=== PATIENT | male | born 1935 | race Caucasian/White ===

== ENCOUNTER 2017-06-25 19:02 | Inpatient (IN) | payer MEDICARE, OTHER, SELFPAY ==
[2017-06-25] VITALS (16 sets, daily range): BP systolic 98–138; BP diastolic 42–96; PULSE 68–98; RESP 12–32; TEMP 37.8–38.9; O2SAT 78–99; BMI 28.1; BMI 27.5
--- NOTE | 2017-06-25 19:49 | RAD_ITS ---
STUDY: X-RAY CHEST REASON FOR EXAM: Male, 82 years old. Chest pain TECHNIQUE: Frontal view of the chest COMPARISON: None. FINDINGS: There are stable bilateral calcified pleural plaques. The dense calcifications limit evaluation of the lung parenchyma. There are no infiltrates or effusions identified. There is no pneumothorax. The heart is enlarged, but stable in size. The visualized osseous structures are within normal limits. RAD/Chest 1 View (Portable) IMPRESSION: Stable bilateral calcified pleural plaques which limits evaluation of the lung parenchyma. No acute pathology identified. Electronically Signed: Chele Echeverria, at 20:11 EST Tel , Service support ,
--- NOTE | 2017-06-25 19:49 | EKG12_ITS ---
Test Reason : Blood Pressure : / mmHG Vent. Rate : 121 BPM Atrial Rate : 159 BPM P-R Int : 000 ms QRS Dur : 198 ms QT Int : 446 ms P-R-T Axes : 000 270 052 degrees QTc Int : 633 ms Atrial fibrillation LAHB Right bundle branch block Septal infarct , age undetermined Abnormal ECG Confirmed by LJ MELOL ([id number]), news copy editor DWAIN BRADFORD ([id number] on 06/30/2017 10:08:09 AM Referred By: MAE Confirmed By:LJ MELLO
[2017-06-25 20:02] LABS: Mucous, Urine 0 SEEN /hpf (<or=2+); White Blood Cells 0 SEEN /hpf (0-5)
--- NOTE | 2017-06-25 20:11 | ED.RN ---
STILL NEEDS VERIFIED NO POA OR LW
[2017-06-25 20:12] LABS: Color, Urine Amber (Yellow); Glucose, Dipstick Normal (Normal); Ketone-Dipstick Negative (Negative); Leukocyte Esterase-Dipstick 25 /ul (Negative); Nitrite-Dipstick Negative (Negative); Occult Blood-Urine 150 /ul (Negative); Protein-Dipstick 30 mg/dl (Negative); Specific Gravity, Urine 1.015 (1.002-1.030); Urine Bilirubin Dipstick Negative (Negative); Urine Clarity Clear (Clear); Urine Urobilinogen 8 mg/dl (Normal)
[2017-06-25 20:16] LABS: Allen Test POS; Base Excess 3 mmol/L (-2 to +2); Bicarbonate 27.1 mmol/L (22-26); Blood Gas Specimen Type ART; O2 Delivery Device Nasal Can; PO2 52 mmHG (75-100); SITE L Radial; SO2 89 % (95-99); Time Given 2015; Total Carbon Dioxide 28 mmol/L; pCO2 37.8 mmHg (35-45); pH 7.46 (7.35-7.45)
[2017-06-25 20:19] LABS: Bacteria RARE /hpf (None Seen); Red Blood Cells-Urine 5-10 SEEN /hpf (0-5); Squamous Epithelial Cells - UA 0-5 SEEN /hpf (0-5)
[2017-06-25 20:20] LABS: ALB/GLOB Ratio 0.8 RATIO (0.9-2.4); AST(SGOT) 39 U/L (15-37); Alanine Aminotransfer ALT/SGPT 64 U/L (12-78); Albumin, Serum 3.2 g/dL (3.4-5.0); Alkaline Phosphatase 85 U/L (45-117); Anion Gap 9 (5-15); BUN 68 mg/dL (7-18); BUN/Creat Ratio 32.2 RATIO (10-20); Calcium,Total 8.4 mg/dL (8.5-10.1); Chloride 101 mmol/L (98-107); Creatinine, Serum 2.11 mg/dL (0.70-1.30); EST Glomerular Filtration Rate 32 mL/min (>60); Est Glom Filt Rate - Afr Amer 39 mL/min (>60); Estimated Creatinine Clearance 26.56 ml/min; Globulin 4.2 g/dL (2.2-4.2); Glucose 120 mg/dL (70-110); Potassium 5.5 mmol/L (3.5-5.1); Protein, Total 7.4 g/dL (6.4-8.2); Sodium Level 138 mmol/L (136-145)
[2017-06-25 20:21] LABS: Absolute Lymphocyte Count 1.85 X10^3/ul (0.83-4.51); Absolute Neutrophil Count 3.3 X10^3/uL (2.0-7.7); Basophil# 0.15 X10^3/uL; Eosinophil# 0.08 X10^3/uL; Eosinophils% 1.1 % (0-5); Hematocrit 24.7 % (40-54); Hemoglobin 8.3 g/dl (13.0-16.5); Lymphocyte # 1.85 X10^3/ul (4.0); Lymphocyte % 24.4 % (19-41); Mean Corp Hgb Conc 33.6 g/gl (32-36); Mean Corpuscular Volume 83.4 fL (80-94); Monocyte# 2.01 X10^3/uL; Monocyte% 26.5 % (0-10); Neutrophil # 3.31 X10^3/uL (2.7-7.7); Neutrophil % 43.5 % (47-70); Red Blood Count 2.96 M/mm3 (4.6-6.2); White Blood Count 7.6 K/mm3 (4.4-11.0)
[2017-06-25 20:22] LABS: International Normalized Ratio 1.6; Partial Thromboplast Time 38.4 Seconds (24.1-36.2); Prothrombin Time (Protime)PT. 18.7 SECONDS (11.7-14.9)
[2017-06-25 20:23] LABS: Differential Indicated SCAN CRITERIA MET; POSITIVE COUNT YES; POSITIVE DIFFERENTIAL YES; POSITIVE MORPHOLOGY YES; Platelet Count 28 K/mm3 (150-450)
--- NOTE | 2017-06-25 20:24 | ED.RN ---
PLATELETS 28, DR VILLANUEVA NOTIFIED
[2017-06-25] MEDS: Ceftriaxone 1 GM/50 ML BAG IV (20:35)
[2017-06-25 20:37] LABS: Lactic Acid 1.6 mmol/L (0.4-2.0)
--- NOTE | 2017-06-25 20:45 | PCM.HP.STD ---
Problem List (1) Acute and chronic respiratory failure with hypoxia Status: Acute (2) Pneumonia Status: Acute Qualifiers: Pneumonia type: due to unspecified organism (3) Chronic renal failure, stage 3 (moderate) Status: Acute (4) Hypertension Status: Chronic (5) Myelodysplastic syndrome Status: Chronic (6) PAF (paroxysmal atrial fibrillation) Status: Chronic (7) Pancytopenia Status: Chronic (8) Acute kidney injury Status: Acute (9) CAD (coronary artery disease) Status: Chronic Qualifiers: Coronary Disease-Associated Artery/Lesion type: unspecified vessel or lesion type [place] vs. transplanted heart: unspecified whether [place] or transplanted heart Associated angina: angina presence unspecified Qualified Code(s): I25.10 - Atherosclerotic heart disease of [place] coronary artery without angina pectoris (10) CHF (congestive heart failure) Status: Chronic Qualifiers: Congestive heart failure type: unspecified Congestive heart failure chronicity: chronic Qualified Code(s): I50.9 - Heart failure, unspecified History of Present Illness Date of Admission: 06/25/17 Chief Complaint: Dyspnea, Cough, Fever The patient is a 82 y/o M w/ PMHx: Hx Prostate CA, HTN, CAD, CHF Unclear Type, PAF s/p prior Cardioversion and Ablation x 2, MDS following w/ Dr. Barajas, Chronic Pancytopenia requiring intermittent Plts and PRBC administration (Hgb baseline 7-8 range, Plts 10-30 range), CKD stage III (baseline Cr 1.5) who presents to the [facility] ED on 06/25/17 w/ onset cough, congestion, dyspnea, worse w/ exertion with fever and chills x 24 hours, progressively worsening prompting ED presentation. Discussed recent labs with patient and spouse and secondary to lasix alterations and other medications patient has had worsening renal function with as noted baseline prior 1.5, increased over the last 2 months 1.7-2 range, varying. In the ED work-up included T 101.5, HR 80s, BP 138/96, RR 30, 87% on RA-->97% on BIPAP 40%, CBC w/ WBC 7.6, Hgb 8.3, Plts 28 with increased mono, increased baso, coags w/ PT 18.7, INR 1.6, PTT 38.4, ABG w/ pH 7.46, Bicarb 27.1, BE 3, O2 89, pCO2 37.8, pO2 52, 4L NC when obtained, CMP w/ k 5.5, BUN/Cr 68/2.11, glucose 120, LA 1.6, Ca 8.4, T Bili 2.40 (05/16/2015 1.40), AST/ALT 39/64, trop <0.02, UA not marked appearing, CXR w/ stable BL Ca++ plaques which make assessment difficult and findings suspicion for BL infiltrates especially given clinical history and examination, influenza panel obtained and pending, UCx and Bld Cx x 2 pending. Patient placed on BIPAP secondary to concern for fatigue and evidence acute hypoxic respiratory failure. In the ED patient administered Tylenol, Rocephin, Azithromycin. Past Medical History Past Medical History (Chronic Problems): Chronic Problems Hypertension (Chronic) Myelodysplastic syndrome (Chronic) Pancytopenia (Chronic) PAF (paroxysmal atrial fibrillation) (Chronic) CAD (coronary artery disease) (Chronic) CHF (congestive heart failure) (Chronic) Allergies adhesive Allergy (Mild, Verified 06/25/17 19:08) Rash Home Medications: Ambulatory Orders Medication Instructions Recorded Carvedilol [Coreg (Beta Denny)] 12.5 mg PO DINNER 05/16/15 Cyanocobalamin [Vitamin B12] 1,000 mcg PO DAILY@0800 05/16/15 Danazol 200 mg PO BID 05/16/15 Eltrombopag Olamine [Promacta] 200 mg PO DAILY 05/16/15 Ergocalciferol [Vitamin D] 50,000 unit PO Q7D 05/16/15 Flecainide [Tambocor] 75 mg PO BID 05/16/15 Furosemide [Lasix] 40 mg PO BID 05/16/15 Deferasirox [Jadenu] 360 mg PO DAILY 12/12/15 Ascorbic Acid [Vitamin C] 250 mg PO DAILY 07/16/16 Chlorhexidine [(None)] 15 ml PO BID PRN 07/16/16 Carvedilol [Coreg] 6.25 mg PO BREAKFAST 09/25/16 Famotidine [Pepcid] 20 mg PO DAILY 06/25/17 Surgical History: - - Cardiac ablation x 2. Psychiatric History: No pertinent psych hx Lives: Spouse/ Significant Other Smoking Status: Former smoker Tobacco Use: Non-smoker Alcohol: Occasional Drugs: None - *Family History Maternal History Items: No pertinent history Paternal History Items: No pertinent history Review of Systems Constitutional: Reports: Anorexia, Chills, Fever, Malaise, Weakness, Fatigue. Denies: Weight Change HEENT: Denies: Head Aches, Sinus Congestion, Sinus Drainage Cardiovascular: Denies: Chest Pain, Palpitations Respiratory: Reports: Cough, Shortness of Breath, Shortness of breath at rest, Shortness of breath upon exertion, Sputum production Gastrointestinal: Reports: Nausea. Denies: Abdominal Pain, Vomiting Genitourinary: Denies: Dysuria Musculoskeletal: Denies: Joint Pain, Joint Tenderness Skin: Denies: Rash, Wounds Neurological: Denies: Numbness, Tingling, Focal weakness Psychiatric: Denies: Anxiety, Depression, Homicidal Ideations, Suicidal Ideations Hematologic/ Lymphatic: Reports: Anemia, Easy Bruising, Easy Bleeding VTE Information - Inpt Only VTE Present on Admission: No VTE Mechan Device Prophylaxis: SCD's VTE Pharm Prophylaxis ordered?: No Reason prophylaxis not ordered:: Medical Contraindication Patient Problems: Active and Suspected Problems Acute and chronic respiratory failure with hypoxia (Acute) Pneumonia (Acute) Acute kidney injury (Acute) Subjective: Seated upright in the ED bed, fatigued appearance, BIPAP in place, increased RR/effort. Objective: Physical Examination: General: awake, alert, oriented x 3 and cooperative, seated upright in the ED bed, fatigued appearance, BIPAP in place, increased RR, still accessory muscle usage. Skin: normal color, turgor, no icterus, cyanosis except occasional extremity various staged ecchymoses. HEENT: AT/NC, EOMI, PERRLA, dry MM, no carotid bruits or JVD noted. Lungs: Diminished BS diffusely, coarse diffusely, BIPAP in place, increased RR, still accessory muscle usage, no wheezing. Heart: Regular rate and rhythm; no gallop, rub audible. Abdomen: soft, NTTP, ND, normal BS, no HSM. Extremities: no cyanosis, clubbing, BL LE ankle to distal neff edema. Neurological: patient awake, alert, oriented x 3; cognitive function intact; pupils equally reactive to light and accomodation; cranial nerves II-XII grossly normal, moving all 4 extremities, no focal deficits, strength severely globally decreased secondary to acute presentation. Psychiatric: affect appears flat, no acute evidence of depressive or anxiety feelings. - Physical Exam Vital Signs Temp Pulse Resp BP Pulse Ox 101.4 F H 85 30 H 138/96 H 97 06/25/17 20:03 06/25/17 20:27 06/25/17 20:27 06/25/17 19:57 06/25/17 20:27 Oxygen Flow Rate 5 Oxygen Delivery Method Room Air Weight: 185 lb Body Mass Index (BMI) 28.1 Laboratory Tests Past 24 Hrs 06/25/17 06/25/17 06/25/17 19:40 19:40 19:40 WBC 7.6 RBC 2.96 L Hgb 8.3 L Hct 24.7 L MCV 83.4 MCH 28.0 MCHC 33.6 RDW 17.0 H RDW Differential 52.0 H Plt Count 28 L* MPV TNP Immature Gran % (Auto) 2.500 H Neut % (Auto) 43.5 L Lymph % (Auto) 24.4 [place] % (Auto) 26.5 H Eos % (Auto) 1.1 Baso % (Auto) 2.0 H Absolute Neuts (auto) 3.3 Absolute Lymphs (auto) 1.85 Total Counted Pending PT 18.7 H INR 1.6 APTT 38.4 H Specimen Type Sample Site pH Bicarbonate Actual POC Total CO2 Base Excess O2 Saturation ABG pCO2 ABG pO2 Benjamin Test O2 Delivery Device Liter Flow Blood Gas Notified Whom Blood Gas Notified Time Sodium 138 Potassium 5.5 H Chloride 101 Carbon Dioxide 28.0 Anion Gap 9 BUN 68 H Creatinine 2.11 H Estim Creat Clear Calc 26.56 Est GFR (MDRD) Af Amer 39 L Est GFR (MDRD) Non-Af 32 L BUN/Creatinine Ratio 32.2 H Glucose 120 H Lactic Acid Calcium 8.4 L Total Bilirubin 2.40 H AST 39 H ALT 64 Alkaline Phosphatase 85 Troponin I < 0.02 Total Protein 7.4 Albumin 3.2 L Globulin 4.2 Albumin/Globulin Ratio 0.8 L Urine Color Urine Clarity Urine pH Ur Specific [place] Urine Protein Urine Glucose (UA) Urine Ketones Urine Occult Blood Urine Nitrite Urine Bilirubin Urine Urobilinogen Ur Leukocyte Esterase Urine RBC Urine WBC Ur Squamous Epith Cells Urine Bacteria Urine Mucus 06/25/17 06/25/17 06/25/17 19:40 19:45 20:12 WBC RBC Hgb Hct MCV MCH MCHC RDW RDW Differential Plt Count MPV Immature Gran % (Auto) Neut % (Auto) Lymph % (Auto) [place] % (Auto) Eos % (Auto) Baso % (Auto) Absolute Neuts (auto) Absolute Lymphs (auto) Total Counted PT INR APTT Specimen Type ART Sample Site L Radial pH 7.46 H Bicarbonate Actual 27.1 H POC Total CO2 28 Base Excess 3 H O2 Saturation 89 L ABG pCO2 37.8 ABG pO2 52 L Benjamin Test POS O2 Delivery Device Nasal Can Liter Flow 4.0 Blood Gas Notified Whom ED MD Blood Gas Notified Time 2014 Sodium Potassium Chloride Carbon Dioxide Anion Gap BUN Creatinine Estim Creat Clear Calc Est GFR (MDRD) Af Amer Est GFR (MDRD) Non-Af BUN/Creatinine Ratio Glucose Lactic Acid 1.6 Calcium Total Bilirubin AST ALT Alkaline Phosphatase Troponin I Total Protein Albumin Globulin Albumin/Globulin Ratio Urine Color [place] Urine Clarity Clear Urine pH 5.0 Ur Specific [place] 1.015 Urine Protein 30 H Urine Glucose (UA) Normal Urine Ketones Negative Urine Occult Blood 150 H Urine Nitrite Negative Urine Bilirubin Negative Urine Urobilinogen 8 H Ur Leukocyte Esterase 25 H Urine RBC 5-10 SEEN Urine WBC 0 SEEN Ur Squamous Epith Cells 0-5 SEEN Urine Bacteria RARE Urine Mucus 0 SEEN Assessment/Plan Active and Suspected Problems Acute and chronic respiratory failure with hypoxia (Acute) Pneumonia (Acute) Acute kidney injury (Acute) The patient is a 82 y/o M w/ PMHx: Hx Prostate CA, HTN, CAD, CHF Unclear Type, PAF s/p prior Cardioversion and Ablation x 2, MDS following w/ Dr. Barajas, Chronic Pancytopenia requiring intermittent Plts and PRBC administration, CKD stage III who presents to the [facility] ED on 06/25/17 w/ onset cough, congestion, dyspnea, worse w/ exertion with fever and chills x 24 hours, progressively worsening prompting ED presentation. (1) Acute Hypoxic Respiratory Failure secondary to Community Acquired Pneumonia, Possible GN Organism: Will admit to ICU, maintain on BIPAP w/ transition to oxygen NC supplementation as able wean as to room air, continue ATC duonebs, PRN albuterol, maintained on IV Levaquin and Rocephin for CAP ICU Admission, HOB, IS parameters w/ pending sputum cultures and urine antigens. Bld cx x 2 obtained in the ED. Consultation with ICU physician. Repeat ABG in 1-2 hours. Respiratory viral panel pending. (2) Acute kidney injury on CKD stage III: Secondary to #1, likely poor intake and recent alterations w/ diuretic regimen with increased over the last 1-2 months from baseline. Admission BUN/Cr 68/2.11, prior baseline creatinine noted to be 1.5. Will hydrate, hold nephrotoxic medications and repeat chemistry in AM. If no improvement would plan FeNa and renal US assessment. (3) MDS w/ Chronic Pancytopenia: CBC w/ WBC 7.6, Hgb 8.3, Plts 28 with increased mono, increased baso, Hgb baseline 7-8 range, Plts 10-30 range, will defer chemoprophylaxis secondary to these findings which from prior records appear possibly chronic level stable; however, [facility] Main patient thus records pending, will consult Hem/Onc Dr. Barajas/Jonn for patient evaluation and to ascertain their threshold for transfusions. Mag, Phos pending. Will hold danazol, jadenu and promacta secondary to #1 presentation pending re-evaluation per Hem/Onc. (4) Elevated Bilirubin: Admission T Bili 2.40, last noted 05/16/2015 1.40, AST/ALT 39/64, unclear specific etiology, hydrating as noted, repeat hepatic profile in AM. (5) Hyperkalemia: Admission K 5.5, mildly elevated, hydrating, repeat BMP in AM. (6) CAD: Continue home regimen BB, not on asa secondary to #3. (7) PAF: Maintain on home regimen coreg, flecainide. (8) CHF Unclear type: No ECHO in system to review, maintain on coreg, holding lasix secondary to HARI. (9) DVT Prophylaxis: SCDs, defer chemoprophylaxis secondary to #3. (10) CODE status: Discussed CODE status at length including difference between FULL code, DNR-CCA and DNR-CC status. Following discussions about the differences in these status, requested DNR-CCA, no intubation statu with GREGORY. Advanced Care Planning Face to Face Time: 16 minutes. Code Visit Inpatient E&M: 14777 Init Hosp L3 Procedures: 28718 Advncd Care Plan 30 Min
[2017-06-25 20:46] LABS: Platelet Estimate MKD DEC (ADEQ)
[2017-06-25 20:47] LABS: Differential Comment SCANNED
[2017-06-25] MEDS: Acetaminophen 325 MG Tablet 650 MG PO (20:47)
--- NOTE | 2017-06-25 20:56 | HP.PCM_ITS ---
Problem List (1) Acute and chronic respiratory failure with hypoxia Status: Acute (2) Pneumonia Status: Acute Qualifiers: Pneumonia type: due to unspecified organism (3) Chronic renal failure, stage 3 (moderate) Status: Acute (4) Hypertension Status: Chronic (5) Myelodysplastic syndrome Status: Chronic (6) PAF (paroxysmal atrial fibrillation) Status: Chronic (7) Pancytopenia Status: Chronic (8) Acute kidney injury Status: Acute (9) CAD (coronary artery disease) Status: Chronic Qualifiers: Coronary Disease-Associated Artery/Lesion type: unspecified vessel or lesion type [place] vs. transplanted heart: unspecified whether z[place] or transplanted heart Associated angina: angina presence unspecified Qualified Code(s): I25.10 - Atherosclerotic heart disease of [place] coronary artery without angina pectoris (10) CHF (congestive heart failure) Status: Chronic Qualifiers: Congestive heart failure type: unspecified Congestive heart failure chronicity: chronic Qualified Code(s): I50.9 - Heart failure, unspecified History of Present Illness Date of Admission: 06/25/17 Chief Complaint: Dyspnea, Cough, Fever The patient is a 82 y/o M w/ PMHx: Hx Prostate CA, HTN, CAD, CHF Unclear Type, PAF s/p prior Cardioversion and Ablation x 2, MDS following w/ Dr. Barajas, Chronic Pancytopenia requiring intermittent Plts and PRBC administration (Hgb baseline 7 -8 range, Plts 10-30 range), CKD stage III (baseline Cr 1.5) who presents to the [facility] ED on 06/25/17 w/ onset cough, congestion, dyspnea, worse w/ exertion with fever and chills x 24 hours, progressively worsening prompting ED presentation. Discussed recent labs with patient and spouse and secondary to lasix alterations and other medications patient has had worsening renal function with as noted baseline prior 1.5, increased over the last 2 months 1.7- 2 range, varying. In the ED work-up included T 101.5, HR 80s, BP 138/96, RR 30, 87% on RA-->97% on BIPAP 40%, CBC w/ WBC 7.6, Hgb 8.3, Plts 28 with increased mono, increased baso, coags w/ PT 18.7, INR 1.6, PTT 38.4, ABG w/ pH 7.46, Bicarb 27.1, BE 3, O2 89, pCO2 37.8, pO2 52, 4L NC when obtained, CMP w/ k 5.5, BUN/Cr 68/2.11, glucose 120, LA 1.6, Ca 8.4, T Bili 2.40 (05/16/2015 1.40), AST/ ALT 39/64, trop <0.02, UA not marked appearing, CXR w/ stable BL Ca++ plaques which make assessment difficult and findings suspicion for BL infiltrates especially given clinical history and examination, influenza panel obtained and pending, UCx and Bld Cx x 2 pending. Patient placed on BIPAP secondary to concern for fatigue and evidence acute hypoxic respiratory failure. In the ED patient administered Tylenol, Rocephin, Azithromycin. Past Medical History Past Medical History (Chronic Problems): Chronic Problems Hypertension (Chronic) Myelodysplastic syndrome (Chronic) Pancytopenia (Chronic) PAF (paroxysmal atrial fibrillation) (Chronic) CAD (coronary artery disease) (Chronic) CHF (congestive heart failure) (Chronic) Allergies adhesive Allergy (Mild, Verified 06/25/17 19:08) Rash Home Medications: Ambulatory Orders Medication Instructions Recorded Carvedilol [Coreg (Beta Denny)] 12.5 mg PO DINNER 05/16/15 Cyanocobalamin [Vitamin B12] 1,000 mcg PO DAILY@0800 05/16/15 Danazol 200 mg PO BID 05/16/15 Eltrombopag Olamine [Promacta] 200 mg PO DAILY 05/16/15 Ergocalciferol [Vitamin D] 50,000 unit PO Q7D 05/16/15 Flecainide [Tambocor] 75 mg PO BID 05/16/15 Furosemide [Lasix] 40 mg PO BID 05/16/15 Deferasirox [Jadenu] 360 mg PO DAILY 12/12/15 Ascorbic Acid [Vitamin C] 250 mg PO DAILY 07/16/16 Chlorhexidine [(None)] 15 ml PO BID PRN 07/16/16 Carvedilol [Coreg] 6.25 mg PO BREAKFAST 09/25/16 Famotidine [Pepcid] 20 mg PO DAILY 06/25/17 Surgical History: - - Cardiac ablation x 2. Psychiatric History: No pertinent psych hx Lives: Spouse/ Significant Other Smoking Status: Former smoker Tobacco Use: Non-smoker Alcohol: Occasional Drugs: None - *Family History Maternal History Items: No pertinent history Paternal History Items: No pertinent history Review of Systems Constitutional: Reports: Anorexia, Chills, Fever, Malaise, Weakness, Fatigue. Denies: Weight Change HEENT: Denies: Head Aches, Sinus Congestion, Sinus Drainage Cardiovascular: Denies: Chest Pain, Palpitations Respiratory: Reports: Cough, Shortness of Breath, Shortness of breath at rest, Shortness of breath upon exertion, Sputum production Gastrointestinal: Reports: Nausea. Denies: Abdominal Pain, Vomiting Genitourinary: Denies: Dysuria Musculoskeletal: Denies: Joint Pain, Joint Tenderness Skin: Denies: Rash, Wounds Neurological: Denies: Numbness, Tingling, Focal weakness Psychiatric: Denies: Anxiety, Depression, Homicidal Ideations, Suicidal Ideations Hematologic/ Lymphatic: Reports: Anemia, Easy Bruising, Easy Bleeding VTE Information - Inpt Only VTE Present on Admission: No VTE Mechan Device Prophylaxis: SCD's VTE Pharm Prophylaxis ordered?: No Reason prophylaxis not ordered:: Medical Contraindication Patient Problems: Active and Suspected Problems Acute and chronic respiratory failure with hypoxia (Acute) Pneumonia (Acute) Acute kidney injury (Acute) Subjective: Seated upright in the ED bed, fatigued appearance, BIPAP in place, increased RR/ effort. Objective: Physical Examination: General: awake, alert, oriented x 3 and cooperative, seated upright in the ED bed, fatigued appearance, BIPAP in place, increased RR, still accessory muscle usage. Skin: normal color, turgor, no icterus, cyanosis except occasional extremity various staged ecchymoses. HEENT: AT/NC, EOMI, PERRLA, dry MM, no carotid bruits or JVD noted. Lungs: Diminished BS diffusely, coarse diffusely, BIPAP in place, increased RR, still accessory muscle usage, no wheezing. Heart: Regular rate and rhythm; no gallop, rub audible. Abdomen: soft, NTTP, ND, normal BS, no HSM. Extremities: no cyanosis, clubbing, BL LE ankle to distal neff edema. Neurological: patient awake, alert, oriented x 3; cognitive function intact; pupils equally reactive to light and accomodation; cranial nerves II-XII grossly normal, moving all 4 extremities, no focal deficits, strength severely globally decreased secondary to acute presentation. Psychiatric: affect appears flat, no acute evidence of depressive or anxiety feelings. - Physical Exam Vital Signs Temp Pulse Resp BP Pulse Ox 101.4 F H 85 30 H 138/96 H 97 06/25/17 20:03 06/25/17 20:27 06/25/17 20:27 06/25/17 19:57 06/25/17 20:27 Oxygen Flow Rate 5 Oxygen Delivery Method Room Air Weight: 185 lb Body Mass Index (BMI) 28.1 Laboratory Tests Past 24 Hrs 06/25/17 06/25/17 06/25/17 19:40 19:40 19:40 WBC 7.6 RBC 2.96 L Hgb 8.3 L Hct 24.7 L MCV 83.4 MCH 28.0 MCHC 33.6 RDW 17.0 H RDW Differential 52.0 H Plt Count 28 L* MPV TNP Immature Gran % (Auto) 2.500 H Neut % (Auto) 43.5 L Lymph % (Auto) 24.4 [place] % (Auto) 26.5 H Eos % (Auto) 1.1 Baso % (Auto) 2.0 H Absolute Neuts (auto) 3.3 Absolute Lymphs (auto) 1.85 Total Counted Pending PT 18.7 H INR 1.6 APTT 38.4 H Specimen Type Sample Site pH Bicarbonate Actual POC Total CO2 Base Excess O2 Saturation ABG pCO2 ABG pO2 Benjamin Test O2 Delivery Device Liter Flow Blood Gas Notified Whom Blood Gas Notified Time Sodium 138 Potassium 5.5 H Chloride 101 Carbon Dioxide 28.0 Anion Gap 9 BUN 68 H Creatinine 2.11 H Estim Creat Clear Calc 26.56 Est GFR (MDRD) Af Amer 39 L Est GFR (MDRD) Non-Af 32 L BUN/Creatinine Ratio 32.2 H Glucose 120 H Lactic Acid Calcium 8.4 L Total Bilirubin 2.40 H AST 39 H ALT 64 Alkaline Phosphatase 85 Troponin I < 0.02 Total Protein 7.4 Albumin 3.2 L Globulin 4.2 Albumin/Globulin Ratio 0.8 L Urine Color Urine Clarity Urine pH Ur Specific [place] Urine Protein Urine Glucose (UA) Urine Ketones Urine Occult Blood Urine Nitrite Urine Bilirubin Urine Urobilinogen Ur Leukocyte Esterase Urine RBC Urine WBC Ur Squamous Epith Cells Urine Bacteria Urine Mucus 06/25/17 06/25/17 06/25/17 19:40 19:45 20:12 WBC RBC Hgb Hct MCV MCH MCHC RDW RDW Differential Plt Count MPV Immature Gran % (Auto) Neut % (Auto) Lymph % (Auto) [place] % (Auto) Eos % (Auto) Baso % (Auto) Absolute Neuts (auto) Absolute Lymphs (auto) Total Counted PT INR APTT Specimen Type ART Sample Site L Radial pH 7.46 H Bicarbonate Actual 27.1 H POC Total CO2 28 Base Excess 3 H O2 Saturation 89 L ABG pCO2 37.8 ABG pO2 52 L Benjamin Test POS O2 Delivery Device Nasal Can Liter Flow 4.0 Blood Gas Notified Whom ED MD Blood Gas Notified Time 2014 Sodium Potassium Chloride Carbon Dioxide Anion Gap BUN Creatinine Estim Creat Clear Calc Est GFR (MDRD) Af Amer Est GFR (MDRD) Non-Af BUN/Creatinine Ratio Glucose Lactic Acid 1.6 Calcium Total Bilirubin AST ALT Alkaline Phosphatase Troponin I Total Protein Albumin Globulin Albumin/Globulin Ratio Urine Color [place] Urine Clarity Clear Urine pH 5.0 Ur Specific [place] 1.015 Urine Protein 30 H Urine Glucose (UA) Normal Urine Ketones Negative Urine Occult Blood 150 H Urine Nitrite Negative Urine Bilirubin Negative Urine Urobilinogen 8 H Ur Leukocyte Esterase 25 H Urine RBC 5-10 SEEN Urine WBC 0 SEEN Ur Squamous Epith Cells 0-5 SEEN Urine Bacteria RARE Urine Mucus 0 SEEN Assessment/Plan Active and Suspected Problems Acute and chronic respiratory failure with hypoxia (Acute) Pneumonia (Acute) Acute kidney injury (Acute) The patient is a 82 y/o M w/ PMHx: Hx Prostate CA, HTN, CAD, CHF Unclear Type, PAF s/p prior Cardioversion and Ablation x 2, MDS following w/ Dr. Barajas, Chronic Pancytopenia requiring intermittent Plts and PRBC administration, CKD stage III who presents to the [facility] ED on 06/25/17 w/ onset cough, congestion, dyspnea, worse w/ exertion with fever and chills x 24 hours, progressively worsening prompting ED presentation. (1) Acute Hypoxic Respiratory Failure secondary to Community Acquired Pneumonia , Possible GN Organism: Will admit to ICU, maintain on BIPAP w/ transition to oxygen NC supplementation as able wean as to room air, continue ATC duonebs, PRN albuterol, maintained on IV Levaquin and Rocephin for CAP ICU Admission, HOB , IS parameters w/ pending sputum cultures and urine antigens. Bld cx x 2 obtained in the ED. Consultation with ICU physician. Repeat ABG in 1-2 hours. Respiratory viral panel pending. (2) Acute kidney injury on CKD stage III: Secondary to #1, likely poor intake and recent alterations w/ diuretic regimen with increased over the last 1-2 months from baseline. Admission BUN/Cr 68/2.11, prior baseline creatinine noted to be 1.5. Will hydrate, hold nephrotoxic medications and repeat chemistry in AM. If no improvement would plan FeNa and renal US assessment. (3) MDS w/ Chronic Pancytopenia: CBC w/ WBC 7.6, Hgb 8.3, Plts 28 with increased mono, increased baso, Hgb baseline 7-8 range, Plts 10-30 range, will defer chemoprophylaxis secondary to these findings which from prior records appear possibly chronic level stable; however, [facility] Main patient thus records pending, will consult Hem/Onc Dr. Barajas/Jonn for patient evaluation and to ascertain their threshold for transfusions. Mag, Phos pending. Will hold danazol , jadenu and promacta secondary to #1 presentation pending re-evaluation per Hem /Onc. (4) Elevated Bilirubin: Admission T Bili 2.40, last noted 05/16/2015 1.40, AST/ ALT 39/64, unclear specific etiology, hydrating as noted, repeat hepatic profile in AM. (5) Hyperkalemia: Admission K 5.5, mildly elevated, hydrating, repeat BMP in AM. (6) CAD: Continue home regimen BB, not on asa secondary to #3. (7) PAF: Maintain on home regimen coreg, flecainide. (8) CHF Unclear type: No ECHO in system to review, maintain on coreg, holding lasix secondary to HARI. (9) DVT Prophylaxis: SCDs, defer chemoprophylaxis secondary to #3. (10) CODE status: Discussed CODE status at length including difference between FULL code, DNR-CCA and DNR-CC status. Following discussions about the differences in these status, requested DNR-CCA, no intubation statu with GREGORY. Advanced Care Planning Face to Face Time: 16 minutes. Code Visit Inpatient E&M: 10248 Init Hosp L3 Procedures: 78873 Advncd Care Plan 30 Min
--- NOTE | 2017-06-25 21:02 | ED.VISSUMM ---
- ER Visit Summary Date of Service: 06/25/17 Chief Complaint: Sent from urgent care because of low pulse ox History of Present Illness: The patient is a 82 M who is somnolent, which is not normal for patient. gave most of the history. He became ill yesterday with fever and chills. He has a cough. He does complain of shortness of breath at rest and with activity. He denies orthopnea, PND. He states his legs are less swollen than normal. He does not have history of congestive heart failure, however. He does have history of myelodysplastic disorder, hypertension, renal insufficiency, nonischemic cardiomyopathy and iron overload. Physical Examination: Patient is somnolent tachypnic tachycardic and febrile. There is JVD noted at 80?. Pupils equal round reactive. Extra muscle intact. Sclera appear icteric. Posterior pharyngeal erythema x-ray. Tongue moist. Trachea midline. There is no stridor. Rales are noted bilaterally with egophony right side and increased vocal fremitus. Heart is regular with no appreciable murmur gallop or rub. Abdomen is soft nontender. There is 1+ edema of the lower extremity. When aroused he answers questions appropriately and he has a nonfocal neurologic exam. Test Results: EG sinus rhythm first degree AV block with right bundle branch block. Chest x-ray bilateral interstitial pneumonia multilobar. White count is normal with 43% segs 20% lymphocytes no bands. Hemoglobin 8.3 with a platelet count of 20,000. Electrode panel was marked for BUN 68 and creatinine 2.11. Bilirubin is elevated 2.4. Urine is unremarkable. Troponin less than 0.02. Lactate is normal at 1.6. Blood gas reveals pH 7.46 PCO2 37 PO2 52 bicarb 27 with an 89% saturation on 4 L. Emergency Department Course and Treatment: Sepsis workup was undertaken. He was treated with Rocephin and azithromycin. He was placed on BiPAP to reduce the work of breathing. Treatment Plan: The antibiotics and admission to the ICU Disposition: Admission ICU Impression: 1. Respiratory failure with hypoxia 2. Severe sepsis 4. Bilateral interstitial pneumonia community acquired 4. End-stage renal disease 5. Jaundice 6. History of myelodysplastic syndrome This note was generated with [employer] software. It may contain incorrect words, spelling, and punctuation that were not noted in review of the chart prior to signing ED Disposition - Plan for ED Patient: Chief Complaint: Cough Referrals: Care Physician,No Primary [Primary Care Provider] -
[2017-06-25 22:46] LABS: Phosphorus 5.1 mg/dL (2.5-4.9)
[2017-06-25 23:55] LABS: M R Staph aureus DNA By PCR Negative (Negative); Probe Check PASS; Specimen Processing Control PASS
[2017-06-26] VITALS (14 sets, daily range): BP systolic 101–131; BP diastolic 46–62; PULSE 60–83; RESP 16–98; TEMP 36.7–37.7; O2SAT 20–100
[2017-06-26] MEDS: Ipratropium/Albuterol Sulfate 3 ML AMPUL.NEB INHALATION ×3 (00:08→06:43)
[2017-06-26 00:11] LABS: Allen Test POS; Base Excess 3 mmol/L (-2 to +2); Bicarbonate 26.9 mmol/L (22-26); Blood Gas Specimen Type ART; O2 Delivery Device Nasal Can; PO2 70 mmHG (75-100); SITE L Radial; SO2 94 % (95-99); Time Given 2355; Total Carbon Dioxide 28 mmol/L; pCO2 40.2 mmHg (35-45); pH 7.43 (7.35-7.45)
[2017-06-26] MEDS: Famotidine 20 MG Tablet PO ×2 (01:02→09:13)
[2017-06-26] MEDS: Flecainide 150 MG Tablet 75 MG PO ×3 (01:02→22:24)
[2017-06-26] MEDS: guaiFENesin 600 MG Tablet 1200 MG PO ×3 (01:03→22:24)
[2017-06-26] MEDS: 0.9% Normal Saline 1,000 ML 125 ML IV ×2 (01:04→08:45)
--- NOTE | 2017-06-26 01:18 | CPS ---
Pt refuses bipap at this time. Rt explained to pt reasons why bipap is needed, why it is beneficial, and possible negative outcomes if not worn. Pt states an understanding and continues to refuse. Physician notified of situation.
--- NOTE | 2017-06-26 07:38 | PCM.CON.CC ---
Problem List (1) Acute respiratory failure with hypoxia Status: Acute (2) Hypertension Status: Chronic Qualifiers: Hypertension type: essential hypertension Qualified Code(s): I10 - Essential (primary) hypertension (3) Myelodysplastic syndrome Status: Chronic (4) Pancytopenia Status: Chronic (5) Chronic renal failure, stage 3 (moderate) Status: Acute (6) PAF (paroxysmal atrial fibrillation) Status: Chronic (7) Acute kidney injury Status: Acute (8) CAD (coronary artery disease) Status: Chronic Qualifiers: Coronary Disease-Associated Artery/Lesion type: unspecified vessel or lesion type [place] vs. transplanted heart: unspecified whether ute or transplanted heart Associated angina: angina presence unspecified Qualified Code(s): I25.10 - Atherosclerotic heart disease of [place] coronary artery without angina pectoris (9) CHF (congestive heart failure) Status: Chronic Qualifiers: Congestive heart failure type: unspecified Congestive heart failure chronicity: chronic Qualified Code(s): I50.9 - Heart failure, unspecified Reason for Consult Date of Consultation: 06/26/17 Reason for Consultation: Acute hypoxic respiratory failure History of Present Illness: The patient is a 82 year old M, with past medical history listed below, who presented to [facility] on 06/25/2017 secondary to dyspnea, cough and fever. Patient does have a history of myelodysplastic syndrome and reportedly receives intermittent platelet and PRBC transfusions. Patient had noted a 24-48 hour history of fever and chills. This was associated with cough and reported shortness of breath. Patient was unable to provide any history on initial presentation. Patient does have a history of congestive heart failure, but details were not known. Family reported patient's lower extremity edema was improved compared to baseline. On presentation to the emergency room, patient was noted to have decreased mentation, vocal fremitus and egophony on the right side. Laboratory workup showed no leukocytosis, but anemia and thrombocytopenia. Patient's creatinine was elevated above baseline at 2.11 and lactate was slightly elevated at 1.6. An ABG on 4 L nasal cannula showed marginal oxygenation and there was some concern for patient's work of breathing. Patient was placed on BiPAP therapy and then admitted to the intensive care unit. Since being in the intensive care unit, patient has not required BiPAP therapy. Patient has been placed on nasal cannula oxygen. Patient denies any complications of bleeding including melena, hematochezia, hemoptysis or hematemesis. Patient does feel that he is subjectively improved compared to previous. Patient states his cough is much improved compared to admission. Patient reports he does not use supplemental oxygen at baseline. No hypotension is been reported by nursing overnight. Patient denies any previous history of respiratory difficulties including asthma or COPD. Patient does not report any history of pulmonary fibrosis, need for inhaler therapy or supplemental oxygen. Patient has never seen a spray gun repairer helper and denies ever having pulmonary function testing. Past Medical History Past Medical History (Chronic Problems): Chronic Problems Hypertension (Chronic) Myelodysplastic syndrome (Chronic) Pancytopenia (Chronic) PAF (paroxysmal atrial fibrillation) (Chronic) CAD (coronary artery disease) (Chronic) CHF (congestive heart failure) (Chronic) Allergies adhesive Allergy (Mild, Verified 06/25/17 19:08) Rash Home Medications: Ambulatory Orders Medication Instructions Recorded Carvedilol [Coreg (Beta Denny)] 12.5 mg PO DINNER 05/16/15 Cyanocobalamin [Vitamin B12] 1,000 mcg PO DAILY@0800 05/16/15 Danazol 200 mg PO BID 05/16/15 Eltrombopag Olamine [Promacta] 200 mg PO DAILY 05/16/15 Ergocalciferol [Vitamin D] 50,000 unit PO Q7D 05/16/15 Flecainide [Tambocor] 100 mg PO BID 05/16/15 Furosemide [Lasix] 40 mg PO BID 05/16/15 Deferasirox [Jadenu] 360 mg PO DAILY 12/12/15 Ascorbic Acid [Vitamin C] 250 mg PO DAILY 07/16/16 Chlorhexidine [(None)] 15 ml PO BID PRN 07/16/16 Carvedilol [Coreg] 6.25 mg PO BREAKFAST 09/25/16 Famotidine [Pepcid] 20 mg PO DAILY 06/25/17 Surgical History: - - Cardiac ablation x 2. Psychiatric History: No pertinent psych hx Lives: Spouse/ Significant Other Smoking Status: Former smoker Tobacco Use: Non-smoker Alcohol: Occasional Drugs: None - *Family History Maternal History Items: No pertinent history Paternal History Items: No pertinent history Review of Systems Comment: See HPI, otherwise negative ?10 systems. Patient Problems: Active and Suspected Problems Acute and chronic respiratory failure with hypoxia (Acute) Pneumonia (Acute) Acute kidney injury (Acute) Acute respiratory failure with hypoxia (Acute) Objective: Chest x-ray was personally reviewed and shows bilateral infiltrates, right greater than left. No previous echocardiogram is available for review. Patient has never had pulmonary function test. - Physical Exam General: Alert, Oriented x3, Cooperative, No apparent distress, - - Appears stated age. No accessory muscle use noted. Speaking in full sentences. HEENT: Atraumatic, PERRLA, EOMI, Normocephalic, - - No scleral icterus or injection noted. Oral: Moist Mucosa, No Gingival or Mucosal Lesions/ Ulcerations Neck: Supple, No Nodes, Trachea Midline, JVD, Right Lungs: No wheeze, Diminished, Rhonchi - Left greater than right, - - Symmetric expansion. No dullness to percussion. Cardiovascular: Regular rate, Regular Rhythm, Normal S1, Normal S2, Murmur - Grade 2 out of 6 systolic ejection murmur at the right sternal border, No rub noted, No Gallop Abdomen: Bowel Sounds Present, Soft, Non Tender, Non-Distended Extremities: No clubbing, No cyanosis, No edema, Capillary Refill Less than 3 Seconds Skin: No rashes, No breakdown Musculoskeletal: No Tenderness to Palpation of Joints or Extremities Lymphatic: No Cervical, Supraclavicular, or Inguinal Adenopathy Neurological: Cranial nerves II-XII grossly intact, Neuro grossly intact, Motor Exam 5/5 strength throughout, Sensory exam intact to light touch and pain Psych/Mental Status: Alert and oriented to time, place, person, mood and affect Vital Signs Temp Pulse Resp BP Pulse Ox 37.7 C H 75 20 H 124/62 H 100 06/26/17 04:00 06/26/17 06:00 06/26/17 06:00 06/26/17 06:00 06/26/17 06:00 Oxygen Flow Rate 4 Oxygen Delivery Method Nasal Cannula Weight: 83.4 kg Body Mass Index (BMI) 27.5 Intake and Output for Last 24 Hours 06/24/17 06/25/17 06/26/17 23:59 23:59 23:59 Intake Total 1412 / 1412 Output Total 500 / 500 Balance 912 / 912 Microbiology Past 72 Hours 06/26/17 01:30 Streptococcus pneumoniae Antigen (M - Final Urine, Clean Catch 06/26/17 01:30 Legionella Antigen - Final Urine, Clean Catch Laboratory Tests 06/25/17 06/25/17 06/25/17 19:40 19:40 19:40 WBC 7.6 RBC 2.96 L Hgb 8.3 L Hct 24.7 L MCV 83.4 MCH 28.0 MCHC 33.6 RDW 17.0 H RDW Differential 52.0 H Plt Count 28 L* MPV TNP Immature Gran % (Auto) 2.500 H Neut % (Auto) 43.5 L Lymph % (Auto) 24.4 [place] % (Auto) 26.5 H Eos % (Auto) 1.1 Baso % (Auto) 2.0 H Absolute Neuts (auto) 3.3 Absolute Lymphs (auto) 1.85 Total Counted Not Reportable Differential Comment SCANNED Diff Path Review May foll Platelet Estimate MKD DEC PT 18.7 H INR 1.6 APTT 38.4 H Specimen Type Sample Site pH Bicarbonate Actual POC Total CO2 Base Excess O2 Saturation ABG pCO2 ABG pO2 Benjamin Test O2 Delivery Device Liter Flow Blood Gas Notified Whom Blood Gas Notified Time Sodium 138 Potassium 5.5 H Chloride 101 Carbon Dioxide 28.0 Anion Gap 9 BUN 68 H Creatinine 2.11 H Estim Creat Clear Calc 26.56 Est GFR (MDRD) Af Amer 39 L Est GFR (MDRD) Non-Af 32 L BUN/Creatinine Ratio 32.2 H Glucose 120 H Lactic Acid Calcium 8.4 L Phosphorus Magnesium Total Bilirubin 2.40 H AST 39 H ALT 64 Alkaline Phosphatase 85 Troponin I < 0.02 Total Protein 7.4 Albumin 3.2 L Globulin 4.2 Albumin/Globulin Ratio 0.8 L Urine Color Urine Clarity Urine pH Ur Specific [place] Urine Protein Urine Glucose (UA) Urine Ketones Urine Occult Blood Urine Nitrite Urine Bilirubin Urine Urobilinogen Ur Leukocyte Esterase Urine RBC Urine WBC Ur Squamous Epith Cells Urine Bacteria Urine Mucus MRSA (PCR) 06/25/17 06/25/17 06/25/17 19:40 19:40 19:45 WBC RBC Hgb Hct MCV MCH MCHC RDW RDW Differential Plt Count MPV Immature Gran % (Auto) Neut % (Auto) Lymph % (Auto) [place] % (Auto) Eos % (Auto) Baso % (Auto) Absolute Neuts (auto) Absolute Lymphs (auto) Total Counted Differential Comment Diff Path Review Platelet Estimate PT INR APTT Specimen Type Sample Site pH Bicarbonate Actual POC Total CO2 Base Excess O2 Saturation ABG pCO2 ABG pO2 Benjamin Test O2 Delivery Device Liter Flow Blood Gas Notified Whom Blood Gas Notified Time Sodium Potassium Chloride Carbon Dioxide Anion Gap BUN Creatinine Estim Creat Clear Calc Est GFR (MDRD) Af Amer Est GFR (MDRD) Non-Af BUN/Creatinine Ratio Glucose Lactic Acid 1.6 Calcium Phosphorus 5.1 H Magnesium 2.0 Total Bilirubin AST ALT Alkaline Phosphatase Troponin I Total Protein Albumin Globulin Albumin/Globulin Ratio Urine Color [place] Urine Clarity Clear Urine pH 5.0 Ur Specific [place] 1.015 Urine Protein 30 H Urine Glucose (UA) Normal Urine Ketones Negative Urine Occult Blood 150 H Urine Nitrite Negative Urine Bilirubin Negative Urine Urobilinogen 8 H Ur Leukocyte Esterase 25 H Urine RBC 5-10 SEEN Urine WBC 0 SEEN Ur Squamous Epith Cells 0-5 SEEN Urine Bacteria RARE Urine Mucus 0 SEEN MRSA (PCR) 06/25/17 06/25/17 06/26/17 20:12 22:20 00:03 WBC RBC Hgb Hct MCV MCH MCHC RDW RDW Differential Plt Count MPV Immature Gran % (Auto) Neut % (Auto) Lymph % (Auto) [place] % (Auto) Eos % (Auto) Baso % (Auto) Absolute Neuts (auto) Absolute Lymphs (auto) Total Counted Differential Comment Diff Path Review Platelet Estimate PT INR APTT Specimen Type ART ART Sample Site L Radial L Radial pH 7.46 H 7.43 Bicarbonate Actual 27.1 H 26.9 H POC Total CO2 28 28 Base Excess 3 H 3 H O2 Saturation 89 L 94 L ABG pCO2 37.8 40.2 ABG pO2 52 L 70 L Benjamin Test POS POS O2 Delivery Device Nasal Can Nasal Can Liter Flow 4.0 6.0 Blood Gas Notified Whom ED MD HOSP MD Blood Gas Notified Time 20145 Sodium Potassium Chloride Carbon Dioxide Anion Gap BUN Creatinine Estim Creat Clear Calc Est GFR (MDRD) Af Amer Est GFR (MDRD) Non-Af BUN/Creatinine Ratio Glucose Lactic Acid Calcium Phosphorus Magnesium Total Bilirubin AST ALT Alkaline Phosphatase Troponin I Total Protein Albumin Globulin Albumin/Globulin Ratio Urine Color Urine Clarity Urine pH Ur Specific [place] Urine Protein Urine Glucose (UA) Urine Ketones Urine Occult Blood Urine Nitrite Urine Bilirubin Urine Urobilinogen Ur Leukocyte Esterase Urine RBC Urine WBC Ur Squamous Epith Cells Urine Bacteria Urine Mucus MRSA (PCR) Negative Clinical Impression(s) from Imaging Studies Chest X-Ray 06/25/17 19:49 IMPRESSION: Stable bilateral calcified pleural plaques which limits evaluation of the lung parenchyma. No acute pathology identified. Electronically Signed: Chele Echeverria, at 20:11 EST Tel , Service support , Assessment/Plan Active and Suspected Problems Acute and chronic respiratory failure with hypoxia (Acute) Pneumonia (Acute) Acute kidney injury (Acute) Acute respiratory failure with hypoxia (Acute) RECOMMENDATIONS: 1. Continue empiric antibiotics and bronchodilators 2. Wean oxygen as tolerated 3. Await respiratory viral panel 4. Gentle rehydration 5. No transfusions at this time, await hematology recommendations 6. Repeat laboratory workup this morning 7. Possible transfer from the intensive care unit later today IMPRESSIONS: 1. Acute hypoxic respiratory failure secondary to probable community-acquired pneumonia Patient appears to be improving at this time. Unclear if this is secondary to improved secretion clearance versus improved recruitment secondary to bronchodilators. Continue with antibiotics at this time. No reported history of obstructive lung disease, so would avoid steroid therapy at this time. Patient likely can be transferred from the intensive care unit. Review of the chest x-ray does show bilateral infiltrates, but no old x-rays available for review. Clinical suspicion for some baseline fibrotic changes at the bases, but this cannot be confirmed at this time with no old x-rays to review. Doubt CT of the chest would be helpful in the acute setting. Likely okay to discontinue BiPAP therapy on transfer from the intensive care unit. 2. Severe sepsis secondary to community-acquired pneumonia Patient appears to be hemodynamically stable at this time. Patient is not neutropenic. Blood pressure has remained appropriate. Patient was slightly volume depleted on presentation. Continue with gentle rehydration. On appropriate antibiotics. 3. Acute kidney injury on CKD stage III Patient reportedly does use Lasix therapy at home. Will gently hydrate. Would not recommend obtaining an FENa as this will not be appropriate in the setting of previous Lasix use. Repeat laboratory assessment has been ordered. 4. Myelodysplastic syndrome with resultant iron overload Patient reportedly received multiple transfusions per week. Oncology has been consulted. Anticipate transfusion for hemoglobin less than 7 and platelets less than 20,000, but will confer with them prior to any transfusion orders. Slight elevation in liver enzymes may be secondary to iron overload. Baseline medications have been held for now. 5. Hyperkalemia No EKG changes were noted initially. Will repeat labs this morning. If persists, treatment with Kayexalate may be necessary. 6. CAD/PAF/reported CHF/advanced age Complicates care, management, recovery and prognosis. Patient is a DNR Comfort Care arrest without intubation. Code Visit Inpatient E&M: 29518 Init Hosp L3
--- NOTE | 2017-06-26 07:48 | CON.PCM_ITS ---
Problem List (1) Acute respiratory failure with hypoxia Status: Acute (2) Hypertension Status: Chronic Qualifiers: Hypertension type: essential hypertension Qualified Code(s): I10 - Essential (primary) hypertension (3) Myelodysplastic syndrome Status: Chronic (4) Pancytopenia Status: Chronic (5) Chronic renal failure, stage 3 (moderate) Status: Acute (6) PAF (paroxysmal atrial fibrillation) Status: Chronic (7) Acute kidney injury Status: Acute (8) CAD (coronary artery disease) Status: Chronic Qualifiers: Coronary Disease-Associated Artery/Lesion type: unspecified vessel or lesion type [place] vs. transplanted heart: unspecified whether citizen [place] or transplanted heart Associated angina: angina presence unspecified Qualified Code(s): I25.10 - Atherosclerotic heart disease of citizen [place] coronary artery without angina pectoris (9) CHF (congestive heart failure) Status: Chronic Qualifiers: Congestive heart failure type: unspecified Congestive heart failure chronicity: chronic Qualified Code(s): I50.9 - Heart failure, unspecified Reason for Consult Date of Consultation: 06/26/17 Reason for Consultation: Acute hypoxic respiratory failure History of Present Illness: The patient is a 82 year old M, with past medical history listed below, who presented to [facility] on 06/25/2017 secondary to dyspnea, cough and fever. Patient does have a history of myelodysplastic syndrome and reportedly receives intermittent platelet and PRBC transfusions. Patient had noted a 24-48 hour history of fever and chills. This was associated with cough and reported shortness of breath. Patient was unable to provide any history on initial presentation. Patient does have a history of congestive heart failure, but details were not known. Family reported patient's lower extremity edema was improved compared to baseline. On presentation to the emergency room, patient was noted to have decreased mentation, vocal fremitus and egophony on the right side. Laboratory workup showed no leukocytosis, but anemia and thrombocytopenia. Patient's creatinine was elevated above baseline at 2.11 and lactate was slightly elevated at 1.6. An ABG on 4 L nasal cannula showed marginal oxygenation and there was some concern for patient's work of breathing. Patient was placed on BiPAP therapy and then admitted to the intensive care unit. Since being in the intensive care unit, patient has not required BiPAP therapy. Patient has been placed on nasal cannula oxygen. Patient denies any complications of bleeding including melena, hematochezia, hemoptysis or hematemesis. Patient does feel that he is subjectively improved compared to previous. Patient states his cough is much improved compared to admission. Patient reports he does not use supplemental oxygen at baseline. No hypotension is been reported by nursing overnight. Patient denies any previous history of respiratory difficulties including asthma or COPD. Patient does not report any history of pulmonary fibrosis, need for inhaler therapy or supplemental oxygen. Patient has never seen a human resources trainer and denies ever having pulmonary function testing. Past Medical History Past Medical History (Chronic Problems): Chronic Problems Hypertension (Chronic) Myelodysplastic syndrome (Chronic) Pancytopenia (Chronic) PAF (paroxysmal atrial fibrillation) (Chronic) CAD (coronary artery disease) (Chronic) CHF (congestive heart failure) (Chronic) Allergies adhesive Allergy (Mild, Verified 06/25/17 19:08) Rash Home Medications: Ambulatory Orders Medication Instructions Recorded Carvedilol [Coreg (Beta Denny)] 12.5 mg PO DINNER 05/16/15 Cyanocobalamin [Vitamin B12] 1,000 mcg PO DAILY@0800 05/16/15 Danazol 200 mg PO BID 05/16/15 Eltrombopag Olamine [Promacta] 200 mg PO DAILY 05/16/15 Ergocalciferol [Vitamin D] 50,000 unit PO Q7D 05/16/15 Flecainide [Tambocor] 100 mg PO BID 05/16/15 Furosemide [Lasix] 40 mg PO BID 05/16/15 Deferasirox [Jadenu] 360 mg PO DAILY 12/12/15 Ascorbic Acid [Vitamin C] 250 mg PO DAILY 07/16/16 Chlorhexidine [(None)] 15 ml PO BID PRN 07/16/16 Carvedilol [Coreg] 6.25 mg PO BREAKFAST 09/25/16 Famotidine [Pepcid] 20 mg PO DAILY 06/25/17 Surgical History: - - Cardiac ablation x 2. Psychiatric History: No pertinent psych hx Lives: Spouse/ Significant Other Smoking Status: Former smoker Tobacco Use: Non-smoker Alcohol: Occasional Drugs: None - *Family History Maternal History Items: No pertinent history Paternal History Items: No pertinent history Review of Systems Comment: See HPI, otherwise negative ?10 systems. Patient Problems: Active and Suspected Problems Acute and chronic respiratory failure with hypoxia (Acute) Pneumonia (Acute) Acute kidney injury (Acute) Acute respiratory failure with hypoxia (Acute) Objective: Chest x-ray was personally reviewed and shows bilateral infiltrates, right greater than left. No previous echocardiogram is available for review. Patient has never had pulmonary function test. - Physical Exam General: Alert, Oriented x3, Cooperative, No apparent distress, - - Appears stated age. No accessory muscle use noted. Speaking in full sentences. HEENT: Atraumatic, PERRLA, EOMI, Normocephalic, - - No scleral icterus or injection noted. Oral: Moist Mucosa, No Gingival or Mucosal Lesions/ Ulcerations Neck: Supple, No Nodes, Trachea Midline, JVD, Right Lungs: No wheeze, Diminished, Rhonchi - Left greater than right, - - Symmetric expansion. No dullness to percussion. Cardiovascular: Regular rate, Regular Rhythm, Normal S1, Normal S2, Murmur - Grade 2 out of 6 systolic ejection murmur at the right sternal border, No rub noted, No Gallop Abdomen: Bowel Sounds Present, Soft, Non Tender, Non-Distended Extremities: No clubbing, No cyanosis, No edema, Capillary Refill Less than 3 Seconds Skin: No rashes, No breakdown Musculoskeletal: No Tenderness to Palpation of Joints or Extremities Lymphatic: No Cervical, Supraclavicular, or Inguinal Adenopathy Neurological: Cranial nerves II-XII grossly intact, Neuro grossly intact, Motor Exam 5/5 strength throughout, Sensory exam intact to light touch and pain Psych/Mental Status: Alert and oriented to time, place, person, mood and affect Vital Signs Temp Pulse Resp BP Pulse Ox 37.7 C H 75 20 H 124/62 H 100 06/26/17 04:00 06/26/17 06:00 06/26/17 06:00 06/26/17 06:00 06/26/17 06:00 Oxygen Flow Rate 4 Oxygen Delivery Method Nasal Cannula Weight: 83.4 kg Body Mass Index (BMI) 27.5 Intake and Output for Last 24 Hours 06/24/17 06/25/17 06/26/17 23:59 23:59 23:59 Intake Total 1412 / 1412 Output Total 500 / 500 Balance 912 / 912 Microbiology Past 72 Hours 06/26/17 01:30 Streptococcus pneumoniae Antigen (M - Final Urine, Clean Catch 06/26/17 01:30 Legionella Antigen - Final Urine, Clean Catch Laboratory Tests 06/25/17 06/25/17 06/25/17 19:40 19:40 19:40 WBC 7.6 RBC 2.96 L Hgb 8.3 L Hct 24.7 L MCV 83.4 MCH 28.0 MCHC 33.6 RDW 17.0 H RDW Differential 52.0 H Plt Count 28 L* MPV TNP Immature Gran % (Auto) 2.500 H Neut % (Auto) 43.5 L Lymph % (Auto) 24.4 [place] % (Auto) 26.5 H Eos % (Auto) 1.1 Baso % (Auto) 2.0 H Absolute Neuts (auto) 3.3 Absolute Lymphs (auto) 1.85 Total Counted Not Reportable Differential Comment SCANNED Diff Path Review May foll Platelet Estimate MKD DEC PT 18.7 H INR 1.6 APTT 38.4 H Specimen Type Sample Site pH Bicarbonate Actual POC Total CO2 Base Excess O2 Saturation ABG pCO2 ABG pO2 Benjamin Test O2 Delivery Device Liter Flow Blood Gas Notified Whom Blood Gas Notified Time Sodium 138 Potassium 5.5 H Chloride 101 Carbon Dioxide 28.0 Anion Gap 9 BUN 68 H Creatinine 2.11 H Estim Creat Clear Calc 26.56 Est GFR (MDRD) Af Amer 39 L Est GFR (MDRD) Non-Af 32 L BUN/Creatinine Ratio 32.2 H Glucose 120 H Lactic Acid Calcium 8.4 L Phosphorus Magnesium Total Bilirubin 2.40 H AST 39 H ALT 64 Alkaline Phosphatase 85 Troponin I < 0.02 Total Protein 7.4 Albumin 3.2 L Globulin 4.2 Albumin/Globulin Ratio 0.8 L Urine Color Urine Clarity Urine pH Ur Specific [place] Urine Protein Urine Glucose (UA) Urine Ketones Urine Occult Blood Urine Nitrite Urine Bilirubin Urine Urobilinogen Ur Leukocyte Esterase Urine RBC Urine WBC Ur Squamous Epith Cells Urine Bacteria Urine Mucus MRSA (PCR) 06/25/17 06/25/17 06/25/17 19:40 19:40 19:45 WBC RBC Hgb Hct MCV MCH MCHC RDW RDW Differential Plt Count MPV Immature Gran % (Auto) Neut % (Auto) Lymph % (Auto) [place] % (Auto) Eos % (Auto) Baso % (Auto) Absolute Neuts (auto) Absolute Lymphs (auto) Total Counted Differential Comment Diff Path Review Platelet Estimate PT INR APTT Specimen Type Sample Site pH Bicarbonate Actual POC Total CO2 Base Excess O2 Saturation ABG pCO2 ABG pO2 Benjamin Test O2 Delivery Device Liter Flow Blood Gas Notified Whom Blood Gas Notified Time Sodium Potassium Chloride Carbon Dioxide Anion Gap BUN Creatinine Estim Creat Clear Calc Est GFR (MDRD) Af Amer Est GFR (MDRD) Non-Af BUN/Creatinine Ratio Glucose Lactic Acid 1.6 Calcium Phosphorus 5.1 H Magnesium 2.0 Total Bilirubin AST ALT Alkaline Phosphatase Troponin I Total Protein Albumin Globulin Albumin/Globulin Ratio Urine Color Clare Urine Clarity Clear Urine pH 5.0 Ur Specific [place] 1.015 Urine Protein 30 H Urine Glucose (UA) Normal Urine Ketones Negative Urine Occult Blood 150 H Urine Nitrite Negative Urine Bilirubin Negative Urine Urobilinogen 8 H Ur Leukocyte Esterase 25 H Urine RBC 5-10 SEEN Urine WBC 0 SEEN Ur Squamous Epith Cells 0-5 SEEN Urine Bacteria RARE Urine Mucus 0 SEEN MRSA (PCR) 06/25/17 06/25/17 06/26/17 20:12 22:20 00:03 WBC RBC Hgb Hct MCV MCH MCHC RDW RDW Differential Plt Count MPV Immature Gran % (Auto) Neut % (Auto) Lymph % (Auto) [place] % (Auto) Eos % (Auto) Baso % (Auto) Absolute Neuts (auto) Absolute Lymphs (auto) Total Counted Differential Comment Diff Path Review Platelet Estimate PT INR APTT Specimen Type ART ART Sample Site L Radial L Radial pH 7.46 H 7.43 Bicarbonate Actual 27.1 H 26.9 H POC Total CO2 28 28 Base Excess 3 H 3 H O2 Saturation 89 L 94 L ABG pCO2 37.8 40.2 ABG pO2 52 L 70 L Benjamin Test POS POS O2 Delivery Device Nasal Can Nasal Can Liter Flow 4.0 6.0 Blood Gas Notified Whom ED MD HOSP MD Blood Gas Notified Time 20145 Sodium Potassium Chloride Carbon Dioxide Anion Gap BUN Creatinine Estim Creat Clear Calc Est GFR (MDRD) Af Amer Est GFR (MDRD) Non-Af BUN/Creatinine Ratio Glucose Lactic Acid Calcium Phosphorus Magnesium Total Bilirubin AST ALT Alkaline Phosphatase Troponin I Total Protein Albumin Globulin Albumin/Globulin Ratio Urine Color Urine Clarity Urine pH Ur Specific [place] Urine Protein Urine Glucose (UA) Urine Ketones Urine Occult Blood Urine Nitrite Urine Bilirubin Urine Urobilinogen Ur Leukocyte Esterase Urine RBC Urine WBC Ur Squamous Epith Cells Urine Bacteria Urine Mucus MRSA (PCR) Negative Clinical Impression(s) from Imaging Studies Chest X-Ray 06/25/17 19:49 IMPRESSION: Stable bilateral calcified pleural plaques which limits evaluation of the lung parenchyma. No acute pathology identified. Electronically Signed: Chele Echeverria, at 20:11 EST Tel , Service support , Assessment/Plan Active and Suspected Problems Acute and chronic respiratory failure with hypoxia (Acute) Pneumonia (Acute) Acute kidney injury (Acute) Acute respiratory failure with hypoxia (Acute) RECOMMENDATIONS: 1. Continue empiric antibiotics and bronchodilators 2. Wean oxygen as tolerated 3. Await respiratory viral panel 4. Gentle rehydration 5. No transfusions at this time, await hematology recommendations 6. Repeat laboratory workup this morning 7. Possible transfer from the intensive care unit later today IMPRESSIONS: 1. Acute hypoxic respiratory failure secondary to probable community- acquired pneumonia Patient appears to be improving at this time. Unclear if this is secondary to improved secretion clearance versus improved recruitment secondary to bronchodilators. Continue with antibiotics at this time. No reported history of obstructive lung disease, so would avoid steroid therapy at this time. Patient likely can be transferred from the intensive care unit. Review of the chest x-ray does show bilateral infiltrates, but no old x-rays available for review. Clinical suspicion for some baseline fibrotic changes at the bases , but this cannot be confirmed at this time with no old x-rays to review. Doubt CT of the chest would be helpful in the acute setting. Likely okay to discontinue BiPAP therapy on transfer from the intensive care unit. 2. Severe sepsis secondary to community-acquired pneumonia Patient appears to be hemodynamically stable at this time. Patient is not neutropenic. Blood pressure has remained appropriate. Patient was slightly volume depleted on presentation. Continue with gentle rehydration. On appropriate antibiotics. 3. Acute kidney injury on CKD stage III Patient reportedly does use Lasix therapy at home. Will gently hydrate. Would not recommend obtaining an FENa as this will not be appropriate in the setting of previous Lasix use. Repeat laboratory assessment has been ordered. 4. Myelodysplastic syndrome with resultant iron overload Patient reportedly received multiple transfusions per week. Oncology has been consulted. Anticipate transfusion for hemoglobin less than 7 and platelets less than 20,000, but will confer with them prior to any transfusion orders. Slight elevation in liver enzymes may be secondary to iron overload. Baseline medications have been held for now. 5. Hyperkalemia No EKG changes were noted initially. Will repeat labs this morning. If persists, treatment with Kayexalate may be necessary. 6. CAD/PAF/reported CHF/advanced age Complicates care, management, recovery and prognosis. Patient is a DNR Comfort Care arrest without intubation. Code Visit Inpatient E&M: 46518 Init Hosp L3
[2017-06-26] MEDS: Carvedilol 6.25 MG Tablet PO (08:45)
[2017-06-26 08:52] LABS: ALB/GLOB Ratio 0.7 RATIO (0.9-2.4); AST(SGOT) 34 U/L (15-37); Alanine Aminotransfer ALT/SGPT 56 U/L (12-78); Albumin, Serum 2.8 g/dL (3.4-5.0); Alkaline Phosphatase 62 U/L (45-117); Anion Gap 9 (5-15); BUN 62 mg/dL (7-18); BUN/Creat Ratio 33.2 RATIO (10-20); Calcium,Total 8.1 mg/dL (8.5-10.1); Chloride 104 mmol/L (98-107); Creatinine, Serum 1.87 mg/dL (0.70-1.30); EST Glomerular Filtration Rate 37 mL/min (>60); Est Glom Filt Rate - Afr Amer 45 mL/min (>60); Estimated Creatinine Clearance 29.97 ml/min; Globulin 3.8 g/dL (2.2-4.2); Glucose 109 mg/dL (70-110); Phosphorus 4.5 mg/dL (2.5-4.9); Potassium 4.3 mmol/L (3.5-5.1); Protein, Total 6.6 g/dL (6.4-8.2); Sodium Level 139 mmol/L (136-145)
--- NOTE | 2017-06-26 08:59 | RAD_ITS ---
STUDY: X-RAY CHEST REASON FOR EXAM: Male, 82 years old. Shortness of breath. TECHNIQUE: Single AP portable view of the chest. COMPARISON: Comparison is made with prior examination dated June 25, 2017. FINDINGS: EKG electrodes are seen. Once again, there is evidence of dense bilateral pleural plaque calcification worse in the right hemithorax. Stable bibasilar airspace disease. I also suspect vascular congestion and mild CHF. There is moderate cardiac enlargement. Normal mediastinum and alisa. Normal visualized pulmonary arteries. There is atherosclerotic tortuosity of the aortic arch and descending thoracic aorta. There are diffuse degenerative changes of the visualized thoracic spine. Normal visualized ribs, clavicles, and shoulders. There is no demonstrated abnormality of the visualized soft tissue structures of the upper abdomen. RAD/Chest 1 View (Portable) IMPRESSION: Stable examination. Electronically Signed: Jethro Hein MD at 9:38 EST Tel [phone], Service support ,
--- NOTE | 2017-06-26 09:06 | PN_ITS ---
Patient Problems: Active and Suspected Problems Acute and chronic respiratory failure with hypoxia (Acute) Pneumonia (Acute) Acute kidney injury (Acute) Acute respiratory failure with hypoxia (Acute) Subjective: Patient was seen and examined. Denies any chest pain or worsening shortness of breath. Admitted to ICU for BiPAP management. Was on BiPAP for a short while last night and remained on 2 L of oxygen. Patient looks much improved and was eating his breakfast and was able to complete full sentences Vitals/I&O's: Vital Signs Temp Pulse Resp BP Pulse Ox 99.4 F H 77 23 H 110/50 L 95 06/26/17 08:00 06/26/17 08:00 06/26/17 08:00 06/26/17 08:00 06/26/17 08:00 Oxygen Flow Rate 2 Oxygen Delivery Method Nasal Cannula Weight: 83.4 kg Body Mass Index (BMI) 27.5 Intake and Output for Last 24 Hours 06/24/17 06/25/17 06/26/17 23:59 23:59 23:59 Intake Total 1412 / 1412 Output Total 500 / 500 Balance 912 / 912 General: Alert, Oriented x3, Cooperative, No apparent distress, - - 3L oxygen HEENT: Atraumatic, PERRLA, EOMI, Normocephalic Oral: Moist Mucosa Neck: Supple Lungs: Normal air movement, Diminished - at the lung bases, few coarse crackles heard Cardiovascular: Regular rate, Regular Rhythm, Normal S1, Normal S2, No murmurs Abdomen: Bowel Sounds Present, Soft, Non Tender, Non-Distended Extremities: No edema Skin: No rashes, No breakdown Musculoskeletal: No Tenderness to Palpation of Joints or Extremities Lymphatic: No Cervical, Supraclavicular, or Inguinal Adenopathy Neurological: Cranial nerves II-XII grossly intact, Neuro grossly intact Psych/Mental Status: Normal Affect, Appropriate Microbiology Past 72 Hours 06/26/17 01:30 Urine, Clean Catch Streptococcus pneumoniae Antigen (M - Final 06/26/17 01:30 Urine, Clean Catch Legionella Antigen - Final Laboratory Results 06/25/17 22:20: MRSA (PCR) Negative 06/26/17 00:03: Specimen Type ART, Sample Site L Radial, pH 7.43, Bicarbonate Actual 26.9 H, POC Total CO2 28, Base Excess 3 H, O2 Saturation 94 L, ABG pCO2 40.2, ABG pO2 70 L, Benjamin Test POS, O2 Delivery Device Nasal Can, Liter Flow 6.0 , Blood Gas Notified Whom LAURI SINGH, Blood Gas Notified Time 1977 06/26/17 08:20: WBC Pending, RBC Pending, Hgb Pending, Hct Pending, MCV Pending , MCH Pending, MCHC Pending, RDW Pending, RDW Differential Pending, Plt Count Pending, Neut % (Auto) Pending, Absolute Neuts (auto) Pending, Total Counted Pending 06/26/17 08:20: Sodium 139, Potassium 4.3, Chloride 104, Carbon Dioxide 26.0, Anion Gap 9, BUN 62 H, Creatinine 1.87 H, Estim Creat Clear Calc 29.97, Est GFR (MDRD) Af Amer 45 L, Est GFR (MDRD) Non-Af 37 L, BUN/Creatinine Ratio 33.2 H, Glucose 109, Calcium 8.1 L, Phosphorus 4.5, Magnesium 2.0, Total Bilirubin 2.40 H, AST 34, ALT 56, Alkaline Phosphatase 62, Total Protein 6.6, Albumin 2.8 L, Globulin 3.8, Albumin/Globulin Ratio 0.7 L Current Medications Acetaminophen (Tylenol) 650 mg PO Q4H PRN PRN PRN Reason: FEVER Acetaminophen (Tylenol) 650 mg PO Q6H PRN PRN PRN Reason: Mild Pain (scale 0-3)/T>100.7 Al Hydroxide/Mg Hydroxide (Mylanta Ii) 30 ml PO Q6H PRN PRN PRN Reason: Gastric burning Albuterol Sulfate (Ventolin Aerosols) 2.5 mg INHALATION Q2H PRN PRN PRN Reason: SHORTNESS OF BREATH Albuterol/Ipratropium (Duoneb) 3 ml INHALATION Q4H.RT [facility] Last Admin: 06/26/17 06:43 Dose: 3 ml Carvedilol (Coreg) 12.5 mg PO DINNER [facility] Carvedilol (Coreg) 6.25 mg PO BREAKFAST [facility] Last Admin: 06/26/17 08:45 Dose: 6.25 mg Chlorhexidine Gluconate () 15 ml PO BID PRN PRN Reason: NOT SPECIFIED Famotidine (Pepcid) 20 mg PO BID [facility] Last Admin: 06/26/17 01:02 Dose: 20 mg Flecainide Acetate (Tambocor) 75 mg PO BID [facility] Last Admin: 06/26/17 01:02 Dose: 75 mg Guaifenesin (Mucinex) 1,200 mg PO BID [facility] Last Admin: 06/26/17 01:03 Dose: 1,200 mg Levofloxacin (Levaquin) 750 mg in 150 mls @ 100 mls/hr IV Q48H [facility] Last Admin: 06/25/17 22:48 Dose: 100 mls/hr Sodium Chloride () 250 mls @ 15 mls/hr IV .[id number] PRN PRN Reason: SALINE FLUSH Sodium Chloride () 1,000 mls @ 75 mls/hr IV .[id number] [facility] Lorazepam (Ativan) 0.5 mg IV Q4H PRN PRN PRN Reason: anxiety with BIPAP Magnesium Hydroxide (Milk Of Magnesia) 30 ml PO DAILY PRN PRN PRN Reason: Constipation Morphine Sulfate (Morphine) 2 - 4 mg IV Q3H PRN PRN PRN Reason: Severe Pain (pain scale 6-10) Morphine Sulfate (Morphine) 1 - 2 mg IV Q4H PRN PRN PRN Reason: Moderate Pain (pain scale 4-5) Ondansetron HCl (Zofran) 4 mg IV Q8H PRN PRN PRN Reason: NAUSEA Oxycodone HCl (Oxyir) 5 mg PO Q4H PRN PRN PRN Reason: Moderate Pain (pain scale 4-5) Promethazine HCl (Phenergan (Ll)) 12.5 mg IV Q6H PRN PRN PRN Reason: NAUSEA/VOMITING Sodium Chloride () 5 - 30 ml IV UD PRN PRN Reason: SALINE FLUSH Assessment/Plan Active and Suspected Problems Acute and chronic respiratory failure with hypoxia (Acute) Pneumonia (Acute) Acute kidney injury (Acute) Acute respiratory failure with hypoxia (Acute) 82 y/o M with PMHx of Prostate CA, Hypertension, CAD, MDS, Chronic Pancytopenia requiring intermittent Plts and PRBC administration, admitted on [facility] ED on with onset of cough, congestion, dyspnea, worse with exertion with fever and chills x 24 hours. 1. Acute Hypoxic Respiratory Failure secondary to Possible Community Acquired Pneumonia, Possible CHF, unclear etiologyinitially on BiPAP, managed in ICU, improved on nasal cannula oxygen, will continue to wean off oxygen for SPO2 more than 94%, 2. Possible community-acquired pneumonia, urine streptococcal and Legionella antigen negative, blood cultures pending, there was a screen negative, respiratory panel negative, sputum cultures negative, on Levaquin, will continue as such until positive results come from microbiology 3. Possible CHF exacerbation, unclear EF, will stop IV fluids, 2D echo, was held on admission on account of HPI, would slowly do trial of Lasix, strict I's and O's, 4. Acute kidney injury on CKD stage III secondary to dehydration, improved to 27 from 2.11, increased dosing BUN, will continue to monitor, baseline Cr is around 1.57 5. MDS w/ Chronic Pancytopenia, and elevation in WBC count of 13.1, dropping hemoglobin 7.4 likely related to hemodilution, drop in platelet count to 15, hematology/oncology consulted, will continue to follow CBC 6. Elevated T Bili 2.40, gets analysis of direct and indirect bilirubin and then proceed accordingly 7. Hyperkalemia, Admission K 5.5, improved with hydration 8. CAD: Continue home regimen BB, not on asa secondary to #3. 9 PAF: Maintain on home regimen coreg, flecainide. 11. DVT Prophylaxis: SCDs, defer chemoprophylaxis secondary to chronic thrombocytopenia 10. CODE status: DNR-CCA, no intubation statu with GREGORY. Code Visit Inpatient E&M: 96184 Subs Hosp L2
[2017-06-26 09:10] LABS: Absolute Lymphocyte Count 1.95 X10^3/ul (0.83-4.51); Absolute Neutrophil Count 6.2 X10^3/uL (2.0-7.7); Basophil# 0.07 X10^3/uL; Basophil% 0.5 % (0-1); Eosinophil# 0.05 X10^3/uL; Eosinophils% 0.4 % (0-5); Hemoglobin 7.4 g/dl (13.0-16.5); Lymphocyte # 1.95 X10^3/ul (4.0); Lymphocyte % 14.9 % (19-41); Mean Corp Hgb Conc 33.6 g/gl (32-36); Mean Corpuscular Hgb 27.9 pg (27.0-32.0); Monocyte% 35.9 % (0-10); Neutrophil # 6.23 X10^3/uL (2.7-7.7); Neutrophil % 47.5 % (47-70); Platelet Count 15 K/mm3 (150-450); RBC Distribution Width CV 16.9 % (11.6-14.6); RBC Distribution Width SD 51.4 fl (35.1-43.9); Red Blood Count 2.65 M/mm3 (4.6-6.2); White Blood Count 13.1 K/mm3 (4.4-11.0)
[2017-06-26 09:11] LABS: Differential Indicated SCAN CRITERIA MET; POSITIVE COUNT YES; POSITIVE DIFFERENTIAL YES; POSITIVE MORPHOLOGY YES
[2017-06-26] MEDS: 0.9% Normal Saline 1,000 ML 75 ML IV (09:13)
[2017-06-26 09:44] LABS: Anisocytosis 1+; Platelet Estimate MKD DEC (ADEQ)
--- NOTE | 2017-06-26 11:29 | CASEMGMT ---
See civil laboratory technician. DC PLAN: Home -Intro role of CM to patient and his in room. States he is independent at home, is able to assist. Pt is under care of specialists for various dx (oncology, cardiology) and states no difficulty following with physicians on dc. -May need Home Oxygen qualification on dc.Sukumar ENCINAS BSN ACM
[2017-06-26 13:54] LABS: Pathologist Review Reviewed
[2017-06-26 15:31] LABS: Pathologist Review Reviewed
--- NOTE | 2017-06-26 16:37 | ECHOD_ITS ---
Reason For Study: Dyspnea Procedure This was a 2D Doppler, Color Flow transthoracic echocardiogram. The study was technically difficult. Exam performed portable in patient room. Left Ventricle Moderate concentric left ventricular hypertrophy. The estimated ejection fraction is 40 %. Septal motion consistent with IVCD. There is moderate global hypokinesis of the left ventricle. Right Ventricle Severely dilated right ventricle. Moderate global right ventricular systolic dysfunction. Atria The left atrium is severely enlarged. The right atrium is severely enlarged. Hypermobile atrial septum. Mitral Valve Mild diffuse mitral valve thickening. Moderate mitral annular calcification extending into the posterior leaflet. Tricuspid Valve Normal tricuspid valve. Mild (1+) tricuspid valve insufficiency. Right ventricular systolic pressure estimated to be 73 mmHg. Severe pulmonary hypertension. Aortic Valve Trisinus/trileaflet aortic valve. Moderate focal aortic valve thickening. Moderate focal aortic valve calcification. Moderate restriction of the aortic valve. Moderate aortic stenosis. Peak aortic valve gradient 29 mmHg. Mean aortic valve gradient 14 mmHg. Calculated aortic valve area (continuity equation) is 0.95 cm2. Pulmonic Valve Normal pulmonic valve. Moderate (2+) pulmonic valve insufficiency identified. Great Vessels Calcified aortic root. Mild atherosclerosis of the aortic arch. The inferior vena cava is dilated. No collapse of the inferior vena cava. Pericardium/Pleural No pericardial effusion. MMode/2D Measurements & Calculations LVIDd: 5.8 cm IVSd: 1.4 cm LVOT diam: 2.0 cm LVIDs: 4.1 cm LVPWd: 0.94 cm LVOT area: 3.2 cm2 RVDd: 4.8 cm FS: 29.9 % Ao root diam: 3.6 cm LAV(MOD-sp4): 103.6 ml Aortic Valve Planimetry: 0.89 cm2 ACS: 0.80 cm LA dimension: 4.9 cm LA A4 area: 28.1 cm2 RA A4 area: 25.4 cm2 Doppler Measurements & Calculations MV E max arian: 96.9 cm/sec Lat Peak E' Arian: 14.0 cm/sec Med Peak E' Arian: 6.3 cm/sec E/E' lat: 6.9 E/E' med: 15.3 Ao V2 max: 267.1 cm/sec LV V1 max: 81.4 cm/sec SV(LVOT): 46.4 ml Ao max P.5 mmHg LV V1 max P.7 mmHg Ao V2 mean: 175.5 cm/sec LV V1 mean P.1 mmHg Ao mean P.8 mmHg LV V1 mean: 47.2 cm/sec Ao V2 VTI: 49.0 cm LV V1 VTI: 14.6 cm RASTA(I,D): 0.95 cm2 RASTA(V,D): 0.97 cm2 PA V2 max: 124.2 cm/sec TR max arian: 381.1 cm/sec TR max P.1 mmHg Interpretation Summary Moderate concentric left ventricular hypertrophy. The estimated ejection fraction is 40 %. There is moderate global hypokinesis of the left ventricle. Severely dilated right ventricle. Moderate global right ventricular systolic dysfunction. The left atrium is severely enlarged. The right atrium is severely enlarged. Hypermobile atrial septum. Mild (1+) tricuspid valve insufficiency. Right ventricular systolic pressure estimated to be 73 mmHg. Severe pulmonary hypertension. Moderate restriction of the aortic valve. Moderate to aortic stenosis; aortic gradients may be underestimated given LV dysfunction and atrial fibrillation. Calculated aortic valve area (continuity equation) is 0.95 cm2. The inferior vena cava is dilated No collapse of the inferior vena cava. Compared to echo report dated 07/17/2011, LV function is less than normal; RVSP not reported at that time. Pt appears to be in atrial fibrillation. Ordering Physician: Staci Dior Referring Physician: Shruti Barajas Performed By: Campbell Salinas RCS
[2017-06-26] MEDS: Carvedilol 12.5 MG Tablet PO (17:35)
[2017-06-26] MEDS: Furosemide 40 MG/4 ML Vial IV (17:35)
[2017-06-27] VITALS (15 sets, daily range): BP systolic 87–112; BP diastolic 49–65; PULSE 72–102; RESP 16–18; TEMP 36.6–36.9; O2SAT 86–97
--- NOTE | 2017-06-27 03:53 | EKG12_ITS ---
Test Reason : AFIB Blood Pressure : / mmHG Vent. Rate : 094 BPM Atrial Rate : 104 BPM P-R Int : 000 ms QRS Dur : 220 ms QT Int : 460 ms P-R-T Axes : 000 -86 043 degrees QTc Int : 575 ms Atrial fibrillation with premature ventricular or aberrantly conducted complexes Right bundle branch block Left anterior fascicular block Bifascicular block Abnormal ECG Confirmed by LI SINGH, ALYSHA ([id number]), art editor DWAIN BRADFORD ([id number]) on 07/08/2017 2:34:22 PM Referred By: DR GOMES Confirmed By:ALYSHA JEFFERSON MD
[2017-06-27 08:17] LABS: Anion Gap 8 (5-15); BUN 60 mg/dL (7-18); BUN/Creat Ratio 32.3 RATIO (10-20); Calcium,Total 8.3 mg/dL (8.5-10.1); Chloride 104 mmol/L (98-107); Creatinine, Serum 1.86 mg/dL (0.70-1.30); EST Glomerular Filtration Rate 37 mL/min (>60); Est Glom Filt Rate - Afr Amer 45 mL/min (>60); Estimated Creatinine Clearance 30.13 ml/min; Glucose 98 mg/dL (70-110); Potassium 4.1 mmol/L (3.5-5.1); Sodium Level 138 mmol/L (136-145)
[2017-06-27 08:18] LABS: Hematocrit 23.3 % (40-54); Hemoglobin 7.9 g/dl (13.0-16.5); Mean Corp Hgb Conc 33.9 g/gl (32-36); Mean Corpuscular Hgb 28.4 pg (27.0-32.0); Mean Corpuscular Volume 83.8 fL (80-94); Platelet Count 17 K/mm3 (150-450); RBC Distribution Width CV 17.1 % (11.6-14.6); RBC Distribution Width SD 52.8 fl (35.1-43.9); Red Blood Count 2.78 M/mm3 (4.6-6.2); White Blood Count 9.2 K/mm3 (4.4-11.0)
[2017-06-27 08:19] LABS: Differential Indicated MANUAL DIFF; POSITIVE COUNT YES; POSITIVE DIFFERENTIAL YES; POSITIVE MORPHOLOGY YES
--- NOTE | 2017-06-27 08:35 | PCM.PROGNOTE ---
Patient Problems: Active and Suspected Problems Acute and chronic respiratory failure with hypoxia (Acute) Pneumonia (Acute) Acute kidney injury (Acute) Acute respiratory failure with hypoxia (Acute) Subjective: Patient feels subjective improvement since yesterday. Patient very bothered about developing Afib overnight. No bleeding complications reported. Patient's oxygenation status has greatly improved compared to yesterday. - Physical Exam General: Alert, Oriented x3, Cooperative, No apparent distress HEENT: Atraumatic, PERRLA, EOMI, Normocephalic Oral: Moist Mucosa, No Gingival or Mucosal Lesions/ Ulcerations Neck: Supple, No JVD, No Nodes, Trachea Midline Lungs: No rhonchi, No wheeze, No rales, Diminished Cardiovascular: Normal S1, Normal S2, Irregular Rate, Murmur, No rub noted, No Gallop Abdomen: Bowel Sounds Present, Soft, Non Tender, Non-Distended Extremities: No cyanosis, No edema, Capillary Refill Less than 3 Seconds, Clubbing Skin: No rashes, No breakdown Musculoskeletal: No Tenderness to Palpation of Joints or Extremities, No Muscle Wasting Lymphatic: No Cervical, Supraclavicular, or Inguinal Adenopathy Neurological: Cranial nerves II-XII grossly intact, Neuro grossly intact, Motor Exam 5/5 strength throughout, Sensory exam intact to light touch and pain Psych/Mental Status: Alert and oriented to time, place, person, mood and affect Vital Signs Temp Pulse Resp BP Pulse Ox 36.7 C 87 18 92/55 L 97 06/27/17 06:13 06/27/17 06:13 06/27/17 06:13 06/27/17 06:13 06/27/17 06:13 Oxygen Flow Rate 1 Oxygen Delivery Method Nasal Cannula Weight: 83.9 kg Body Mass Index (BMI) 27.5 Intake and Output for Last 24 Hours 06/25/17 06/26/17 06/27/17 23:59 23:59 23:59 Intake Total 2883 / 2883 620 / 620 Output Total 900 / 900 250 / 250 Balance 1982 / 1982 370 / 370 Microbiology Past 72 Hours 06/26/17 01:30 Gram Stain - Final Sputum, Expectorated/Coughed 06/25/17 22:16 Respiratory Panel (PCR) - Final Mucosa - Nose 06/26/17 01:30 Streptococcus pneumoniae Antigen (M - Final Urine, Clean Catch 06/26/17 01:30 Legionella Antigen - Final Urine, Clean Catch Laboratory Tests Past 24 Hrs 06/26/17 06/26/17 06/27/17 08:20 08:20 07:25 WBC 13.1 H 9.2 RBC 2.65 L 2.78 L Hgb 7.4 L 7.9 L Hct 22.0 L 23.3 L MCV 83.0 83.8 MCH 27.9 28.4 MCHC 33.6 33.9 RDW 16.9 H 17.1 H RDW Differential 51.4 H 52.8 H Plt Count 15 L* 17 L* Immature Gran % (Auto) 0.800 Neut % (Auto) 47.5 Not Reportable Lymph % (Auto) 14.9 L Dawson % (Auto) 35.9 H Eos % (Auto) 0.4 Baso % (Auto) 0.5 Absolute Neuts (auto) 6.2 Not Reportable Absolute Lymphs (auto) 1.95 Total Counted Not Reportable Pending Diff Path Review Reviewed Platelet Estimate MKD DEC Anisocytosis 1+ Sodium 139 Potassium 4.3 Chloride 104 Carbon Dioxide 26.0 Anion Gap 9 BUN 62 H Creatinine 1.87 H Estim Creat Clear Calc 29.97 Est GFR (MDRD) Af Amer 45 L Est GFR (MDRD) Non-Af 37 L BUN/Creatinine Ratio 33.2 H Glucose 109 Calcium 8.1 L Phosphorus 4.5 Magnesium 2.0 Total Bilirubin 2.40 H AST 34 ALT 56 Alkaline Phosphatase 62 Total Protein 6.6 Albumin 2.8 L Globulin 3.8 Albumin/Globulin Ratio 0.7 L 06/27/17 07:25 WBC RBC Hgb Hct MCV MCH MCHC RDW RDW Differential Plt Count Immature Gran % (Auto) Neut % (Auto) Lymph % (Auto) Dawson % (Auto) Eos % (Auto) Baso % (Auto) Absolute Neuts (auto) Absolute Lymphs (auto) Total Counted Diff Path Review Platelet Estimate Anisocytosis Sodium 138 Potassium 4.1 Chloride 104 Carbon Dioxide 26.0 Anion Gap 8 BUN 60 H Creatinine 1.86 H Estim Creat Clear Calc 30.13 Est GFR (MDRD) Af Amer 45 L Est GFR (MDRD) Non-Af 37 L BUN/Creatinine Ratio 32.3 H Glucose 98 Calcium 8.3 L Phosphorus Magnesium Total Bilirubin AST ALT Alkaline Phosphatase Total Protein Albumin Globulin Albumin/Globulin Ratio Clinical Impression(s) from Imaging Studies Chest X-Ray 06/26/17 08:59 IMPRESSION: Stable examination. Electronically Signed: Jethro Hein MD at 9:38 EST Tel [phone], Service support , Assessment/Plan Active and Suspected Problems Acute and chronic respiratory failure with hypoxia (Acute) Pneumonia (Acute) Acute kidney injury (Acute) Acute respiratory failure with hypoxia (Acute) RECOMMENDATIONS: 1. Continue empiric antibiotics and bronchodilators 2. Wean oxygen as tolerated 3. Would defer to oncology prior to initiation of Eliquis 4. Patient may require platelet transfusion early next week 5. No transfusions at this time, await hematology recommendations 6. Repeat laboratory workup this morning 7. Walking oximetry prior to discharge IMPRESSIONS: 1. Acute hypoxic respiratory failure secondary to probable community-acquired pneumonia Patient appears to be improving at this time. Unclear if this is secondary to improved secretion clearance versus improved recruitment secondary to bronchodilators. Continue with antibiotics at this time. No reported history of obstructive lung disease, so would avoid steroid therapy at this time. Patient appears to be significantly improved compared to previous. Patient should have a repeat chest x-ray in 4-6 weeks to document improvement. Patient gets the majority of his care at [facility] at this time. Patient's rapid improvement may indicate that he was unable to tolerate increased metabolic demand of infection. This could explain the rapid improvement in respiratory status over the course of the hospitalization. 2. Severe sepsis secondary to gram-negative UTI Patient appears to be hemodynamically stable at this time. Patient is not neutropenic. Blood pressure has remained appropriate. Patient was slightly volume depleted on presentation. Patient responded well to gentle rehydration. On appropriate antibiotics. Patient is growing a gram-negative in the urine. Antibiotics will likely be selected towards this organism once known. 3. Acute kidney injury on CKD stage III Consider gentle hydration. Would not recommend obtaining an FENa as this will not be appropriate in the setting of previous Lasix use. Repeat laboratory assessment has been ordered. 4. Myelodysplastic syndrome with resultant iron overload Patient reportedly received multiple transfusions per week. Oncology has been consulted. Anticipate transfusion for hemoglobin less than 7 and platelets less than 20,000, but will confer with them prior to any transfusion orders. Slight elevation in liver enzymes may be secondary to iron overload. Baseline medications have been held for now. 5. Hyperkalemia No EKG changes were noted initially. Will repeat labs this morning. If persists, treatment with Kayexalate may be necessary. 6. CAD/PAF/reported CHF/advanced age Complicates care, management, recovery and prognosis. Patient is a DNR Comfort Care arrest without intubation. Would not initiate Eliquis therapy unless approved by hematology given patient's current thrombocytopenia. Code Visit Inpatient E&M: 80875 [facility] Hosp L3
[2017-06-27 08:52] LABS: Eosinophil 2 % (0-5); Lymphocyte 22 % (19-41); Monocyte 13 % (0-10); Myelocyte 2 (0-0); Neutrophil-Band 4 % (0-5); Neutrophil-Segmented 57 % (47-70); Total Cells Counted 100 (MANUAL DIFF)
[2017-06-27 08:53] LABS: Platelet Estimate MKD DEC (ADEQ); Platelet Morphology LARG; Red Cell Morphology NORM C+C NORMAL (NORM C&C)
[2017-06-27 08:54] LABS: Absolute Lymphocyte Count 2.02 X10^3/ul (0.83-4.51); Absolute Neutrophil Count 5.6 X10^3/uL (2.0-7.7)
--- NOTE | 2017-06-27 09:01 | PCM.PN.HOSP ---
Patient Problems: Active and Suspected Problems Acute and chronic respiratory failure with hypoxia (Acute) Pneumonia (Acute) Acute kidney injury (Acute) Acute respiratory failure with hypoxia (Acute) Subjective: Patient was seen and examined. Transferred to the floor. Off oxygen. He went into A. fib last night around 10pm. Denies chest pain or palpitations or dizziness. History of PAF s/p ablation. Patient and his insist on being started with Eliquis for Atrial fibrillation. Objective: General: Alert, Oriented x3, Cooperative, No apparent distress, comfortable in a chair, saturating well on room air HEENT: Atraumatic, PERRLA, EOMI, Normocephalic Oral: Moist Mucosa Neck: Supple Lungs: Normal air movement, Diminished - at the lung bases, few coarse crackles heard Cardiovascular: Regular rate, Regular Rhythm, Normal S1, Normal S2, No murmurs Abdomen: Bowel Sounds Present, Soft, Non Tender, Non-Distended Extremities: No edema Skin: No rashes, No breakdown Musculoskeletal: No Tenderness to Palpation of Joints or Extremities Lymphatic: No Cervical, Supraclavicular, or Inguinal Adenopathy Neurological: Cranial nerves II-XII grossly intact, Neuro grossly intact Psych/Mental Status: Normal Affect, Appropriate Vitals/I&O's: Vital Signs Temp Pulse Resp BP Pulse Ox 98.1 F 87 18 92/55 L 97 06/27/17 06:13 06/27/17 06:13 06/27/17 06:13 06/27/17 06:13 06/27/17 06:13 Oxygen Flow Rate 1 Oxygen Delivery Method Nasal Cannula Weight: 83.9 kg Body Mass Index (BMI) 27.5 Intake and Output for Last 24 Hours 06/25/17 06/26/17 06/27/17 23:59 23:59 23:59 Intake Total 2883 / 2883 620 / 620 Output Total 900 / 900 250 / 250 Balance 1982 / 1982 370 / 370 Microbiology Past 72 Hours 06/26/17 01:30 Sputum, Expectorated/Coughed Gram Stain - Final 06/25/17 22:16 Mucosa - Nose Respiratory Panel (PCR) - Final 06/26/17 01:30 Urine, Clean Catch Streptococcus pneumoniae Antigen (M - Final 06/26/17 01:30 Urine, Clean Catch Legionella Antigen - Final Laboratory Results 06/26/17 08:20: WBC 13.1 H, RBC 2.65 L, Hgb 7.4 L, Hct 22.0 L, MCV 83.0, MCH 27.9, MCHC 33.6, RDW 16.9 H, RDW Differential 51.4 H, Plt Count 15 L*, Immature Gran % (Auto) 0.800, Neut % (Auto) 47.5, Lymph % (Auto) 14.9 L, Schley % (Auto) 35.9 H, Eos % (Auto) 0.4, Baso % (Auto) 0.5, Absolute Neuts (auto) 6.2, Absolute Lymphs (auto) 1.95, Total Counted Not Reportable, Diff Path Review Reviewed, Platelet Estimate MKD DEC, Anisocytosis 1+ 06/27/17 07:25: WBC 9.2, RBC 2.78 L, Hgb 7.9 L, Hct 23.3 L, MCV 83.8, MCH 28.4, MCHC 33.9, RDW 17.1 H, RDW Differential 52.8 H, Plt Count 17 L*, Neut % (Auto) Not Reportable, Absolute Neuts (auto) 5.6, Absolute Lymphs (auto) 2.02, Total Counted 100, Neutrophils % (Manual) 57, Band Neutrophils % 4, Lymphocytes % (Manual) 22, Monocytes % (Manual) 13 H, Eosinophils % (Manual) 2, Myelocytes % 2 H, Diff Path Review May foll, Platelet Estimate MKD DEC, Plt Morphology Comment LARG, RBC Morphology NORM C+C 06/27/17 07:25: Sodium 138, Potassium 4.1, Chloride 104, Carbon Dioxide 26.0, Anion Gap 8, BUN 60 H, Creatinine 1.86 H, Estim Creat Clear Calc 30.13, Est GFR (MDRD) Af Amer 45 L, Est GFR (MDRD) Non-Af 37 L, BUN/Creatinine Ratio 32.3 H, Glucose 98, Calcium 8.3 L Current Medications Acetaminophen (Tylenol) 650 mg PO Q4H PRN PRN PRN Reason: FEVER Acetaminophen (Tylenol) 650 mg PO Q6H PRN PRN PRN Reason: Mild Pain (scale 0-3)/T>100.7 Al Hydroxide/Mg Hydroxide (Mylanta Ii) 30 ml PO Q6H PRN PRN PRN Reason: Gastric burning Albuterol/Ipratropium (Duoneb) 3 ml INHALATION Q2H PRN PRN PRN Reason: Shortness of breath/Wheeze Carvedilol (Coreg) 12.5 mg PO DINNER [facility] Last Admin: 06/26/17 17:35 Dose: 12.5 mg Carvedilol (Coreg) 6.25 mg PO BREAKFAST [facility] Last Admin: 06/26/17 08:45 Dose: 6.25 mg Famotidine (Pepcid) 20 mg PO DAILY [facility] Last Admin: 06/26/17 09:24 Dose: Not Given Flecainide Acetate (Tambocor) 75 mg PO BID [facility] Last Admin: 06/26/17 22:24 Dose: 75 mg Furosemide (Lasix) 40 mg IV DAILY [facility] Last Admin: 06/26/17 17:35 Dose: 40 mg Guaifenesin (Mucinex) 1,200 mg PO BID [facility] Last Admin: 06/26/17 22:24 Dose: 1,200 mg Levofloxacin (Levaquin) 750 mg in 150 mls @ 100 mls/hr IV Q48H [facility] Last Admin: 06/25/17 22:48 Dose: 100 mls/hr Magnesium Hydroxide (Milk Of Magnesia) 30 ml PO DAILY PRN PRN PRN Reason: Constipation Non-Formulary Medication (Danazol) 200 mg PO BID [facility] Last Admin: 06/26/17 22:24 Dose: 200 mg Non-Formulary Medication (Deferasirox [Jadenu]) 360 mg PO QHS [facility] Non-Formulary ( Eltrombopag Olamine [Promacta] 50 Mg) 200 mg PO QHS [facility] Ondansetron HCl (Zofran) 4 mg IV Q8H PRN PRN PRN Reason: NAUSEA Oxycodone HCl (Oxyir) 5 mg PO Q4H PRN PRN PRN Reason: Moderate Pain (pain scale 4-5) Sodium Chloride () 5 - 30 ml IV UD PRN PRN Reason: SALINE FLUSH Assessment/Plan Active and Suspected Problems Acute and chronic respiratory failure with hypoxia (Acute) Pneumonia (Acute) Acute kidney injury (Acute) Acute respiratory failure with hypoxia (Acute) 82 y/o M with PMHx of Prostate CA, Hypertension, CAD, MDS, Chronic Pancytopenia requiring intermittent Plts and PRBC administration, PAF s/p cardioversion and ablation x2, admitted on [facility] ED on 06/25/17 with onset of cough, congestion, dyspnea, worse with exertion with fever and chills x 24 hours. 1. Afib, rate controlled now, in a patient with PAF, status post cardioversion and ablation ?2, patient is not a candidate for anticoagulation on account of chronic thrombocytopenia. Patient insists on being started on Eliquis. Discussed the risks of bleeding to patient and the . Still insist on being started on Eliquis as they have been told that by their birthing nurse in [facility]. Paged Dr. Barajas, discussed with Dr. Branham who is covering Dr. Barajas, he does not recommend starting patient on Eliquis. Will get cardiology to also give an opinion. Will continue to monitor telemetry and follow-up on ECHO report. 2. Acute Hypoxic Respiratory Failure secondary to Possible Community Acquired Pneumonia, Possible CHF, resolved, initially on BiPAP, managed in ICU, improved, off oxygen now. Will continue to monitor and assess for ambulatory oxygen requirement. 3. Possible community-acquired pneumonia, CXR x2m show bibasilar airspace disease, patient has been clinically treated with antibiotics with marked improvement, Urine streptococcal and Legionella antigen negative, blood cultures pending, influenza screen, respiratory panel negative, sputum cultures negative, on Levaquin 4. Possible CHF exacerbation, unclear EF, ECHO report is pending, on Lasix 40mg IV and carvedilol, will continue to monitor I & Os closely 5. Acute kidney injury on CKD stage III secondary to dehydration, Cr remains stable, improved from 2.11 on admission to 1.86 6. MDS w/ Chronic Pancytopenia, following with oncology, no signs of bleeding seen. 7. Elevated T Ozzie, unclear etiology, will get repeat values as well as direct and indirect bilirubin. 8. Hyperkalemia, resolved 9. CAD, on beta-swathi, not on asa secondary to thrombocytopenia 10. DVT Prophylaxis: SCDs, defer chemoprophylaxis secondary to chronic thrombocytopenia 11. CODE status: DNR-CCA, no intubation statu with HCPOA. Code Visit Inpatient E&M: 89356 Subs Hosp L2
--- NOTE | 2017-06-27 09:11 | PN_ITS ---
Patient Problems: Active and Suspected Problems Acute and chronic respiratory failure with hypoxia (Acute) Pneumonia (Acute) Acute kidney injury (Acute) Acute respiratory failure with hypoxia (Acute) Subjective: Patient was seen and examined. Transferred to the floor. Off oxygen. He went into A. fib last night around 10pm. Denies chest pain or palpitations or dizziness. History of PAF s/p ablation. Patient and his insist on being started with Eliquis for Atrial fibrillation. Objective: General: Alert, Oriented x3, Cooperative, No apparent distress, comfortable in a chair, saturating well on room air HEENT: Atraumatic, PERRLA, EOMI, Normocephalic Oral: Moist Mucosa Neck: Supple Lungs: Normal air movement, Diminished - at the lung bases, few coarse crackles heard Cardiovascular: Regular rate, Regular Rhythm, Normal S1, Normal S2, No murmurs Abdomen: Bowel Sounds Present, Soft, Non Tender, Non-Distended Extremities: No edema Skin: No rashes, No breakdown Musculoskeletal: No Tenderness to Palpation of Joints or Extremities Lymphatic: No Cervical, Supraclavicular, or Inguinal Adenopathy Neurological: Cranial nerves II-XII grossly intact, Neuro grossly intact Psych/Mental Status: Normal Affect, Appropriate Vitals/I&O's: Vital Signs Temp Pulse Resp BP Pulse Ox 98.1 F 87 18 92/55 L 97 06/27/17 06:13 06/27/17 06:13 06/27/17 06:13 06/27/17 06:13 06/27/17 06:13 Oxygen Flow Rate 1 Oxygen Delivery Method Nasal Cannula Weight: 83.9 kg Body Mass Index (BMI) 27.5 Intake and Output for Last 24 Hours 06/25/17 06/26/17 06/27/17 23:59 23:59 23:59 Intake Total 2883 / 2883 620 / 620 Output Total 900 / 900 250 / 250 Balance 1982 / 1982 370 / 370 Microbiology Past 72 Hours 06/26/17 01:30 Sputum, Expectorated/Coughed Gram Stain - Final 06/25/17 22:16 Mucosa - Nose Respiratory Panel (PCR) - Final 06/26/17 01:30 Urine, Clean Catch Streptococcus pneumoniae Antigen (M - Final 06/26/17 01:30 Urine, Clean Catch Legionella Antigen - Final Laboratory Results 06/26/17 08:20: WBC 13.1 H, RBC 2.65 L, Hgb 7.4 L, Hct 22.0 L, MCV 83.0, MCH 27.9, MCHC 33.6, RDW 16.9 H, RDW Differential 51.4 H, Plt Count 15 L*, Immature Gran % (Auto) 0.800, Neut % (Auto) 47.5, Lymph % (Auto) 14.9 L, [place] % (Auto) 35.9 H, Eos % (Auto) 0.4, Baso % (Auto) 0.5, Absolute Neuts (auto) 6.2, Absolute Lymphs (auto) 1.95, Total Counted Not Reportable, Diff Path Review Reviewed, Platelet Estimate MKD DEC, Anisocytosis 1+ 06/27/17 07:25: WBC 9.2, RBC 2.78 L, Hgb 7.9 L, Hct 23.3 L, MCV 83.8, MCH 28.4, MCHC 33.9, RDW 17.1 H, RDW Differential 52.8 H, Plt Count 17 L*, Neut % (Auto) Not Reportable, Absolute Neuts (auto) 5.6, Absolute Lymphs (auto) 2.02, Total Counted 100, Neutrophils % (Manual) 57, Band Neutrophils % 4, Lymphocytes % ( Manual) 22, Monocytes % (Manual) 13 H, Eosinophils % (Manual) 2, Myelocytes % 2 H, Diff Path Review May foll, Platelet Estimate MKD DEC, Plt Morphology Comment LARG, RBC Morphology NORM C+C 06/27/17 07:25: Sodium 138, Potassium 4.1, Chloride 104, Carbon Dioxide 26.0, Anion Gap 8, BUN 60 H, Creatinine 1.86 H, Estim Creat Clear Calc 30.13, Est GFR (MDRD) Af Amer 45 L, Est GFR (MDRD) Non-Af 37 L, BUN/Creatinine Ratio 32.3 H, Glucose 98, Calcium 8.3 L Current Medications Acetaminophen (Tylenol) 650 mg PO Q4H PRN PRN PRN Reason: FEVER Acetaminophen (Tylenol) 650 mg PO Q6H PRN PRN PRN Reason: Mild Pain (scale 0-3)/T>100.7 Al Hydroxide/Mg Hydroxide (Mylanta Ii) 30 ml PO Q6H PRN PRN PRN Reason: Gastric burning Albuterol/Ipratropium (Duoneb) 3 ml INHALATION Q2H PRN PRN PRN Reason: Shortness of breath/Wheeze Carvedilol (Coreg) 12.5 mg PO DINNER [facility] Last Admin: 06/26/17 17:35 Dose: 12.5 mg Carvedilol (Coreg) 6.25 mg PO BREAKFAST [facility] Last Admin: 06/26/17 08:45 Dose: 6.25 mg Famotidine (Pepcid) 20 mg PO DAILY [facility] Last Admin: 06/26/17 09:24 Dose: Not Given Flecainide Acetate (Tambocor) 75 mg PO BID [facility] Last Admin: 06/26/17 22:24 Dose: 75 mg Furosemide (Lasix) 40 mg IV DAILY [facility] Last Admin: 06/26/17 17:35 Dose: 40 mg Guaifenesin (Mucinex) 1,200 mg PO BID [facility] Last Admin: 06/26/17 22:24 Dose: 1,200 mg Levofloxacin (Levaquin) 750 mg in 150 mls @ 100 mls/hr IV Q48H [facility] Last Admin: 06/25/17 22:48 Dose: 100 mls/hr Magnesium Hydroxide (Milk Of Magnesia) 30 ml PO DAILY PRN PRN PRN Reason: Constipation Non-Formulary Medication (Danazol) 200 mg PO BID [facility] Last Admin: 06/26/17 22:24 Dose: 200 mg Non-Formulary Medication (Deferasirox [Jadenu]) 360 mg PO QHS [facility] Non-Formulary ( Eltrombopag Olamine [Promacta] 50 Mg) 200 mg PO QHS [facility] Ondansetron HCl (Zofran) 4 mg IV Q8H PRN PRN PRN Reason: NAUSEA Oxycodone HCl (Oxyir) 5 mg PO Q4H PRN PRN PRN Reason: Moderate Pain (pain scale 4-5) Sodium Chloride () 5 - 30 ml IV UD PRN PRN Reason: SALINE FLUSH Assessment/Plan Active and Suspected Problems Acute and chronic respiratory failure with hypoxia (Acute) Pneumonia (Acute) Acute kidney injury (Acute) Acute respiratory failure with hypoxia (Acute) 82 y/o M with PMHx of Prostate CA, Hypertension, CAD, MDS, Chronic Pancytopenia requiring intermittent Plts and PRBC administration, PAF s/p cardioversion and ablation x2, admitted on [facility] ED on 06/25/17 with onset of cough, congestion, dyspnea, worse with exertion with fever and chills x 24 hours. 1. Afib, rate controlled now, in a patient with PAF, status post cardioversion and ablation ?2, patient is not a candidate for anticoagulation on account of chronic thrombocytopenia. Patient insists on being started on Eliquis. Discussed the risks of bleeding to patient and the . Still insist on being started on Eliquis as they have been told that by their cat operator in [facility]. Paged Dr. Barajas, discussed with Dr. Branham who is covering Dr. Barajas, he does not recommend starting patient on Eliquis. Will get cardiology to also give an opinion. Will continue to monitor telemetry and follow-up on ECHO report. 2. Acute Hypoxic Respiratory Failure secondary to Possible Community Acquired Pneumonia, Possible CHF, resolved, initially on BiPAP, managed in ICU, improved , off oxygen now. Will continue to monitor and assess for ambulatory oxygen requirement. 3. Possible community-acquired pneumonia, CXR x2m show bibasilar airspace disease, patient has been clinically treated with antibiotics with marked improvement, Urine streptococcal and Legionella antigen negative, blood cultures pending, influenza screen, respiratory panel negative, sputum cultures negative, on Levaquin 4. Possible CHF exacerbation, unclear EF, ECHO report is pending, on Lasix 40mg IV and carvedilol, will continue to monitor I & Os closely 5. Acute kidney injury on CKD stage III secondary to dehydration, Cr remains stable, improved from 2.11 on admission to 1.86 6. MDS w/ Chronic Pancytopenia, following with oncology, no signs of bleeding seen. 7. Elevated T Ozzie, unclear etiology, will get repeat values as well as direct and indirect bilirubin. 8. Hyperkalemia, resolved 9. CAD, on beta-swathi, not on asa secondary to thrombocytopenia 10. DVT Prophylaxis: SCDs, defer chemoprophylaxis secondary to chronic thrombocytopenia 11. CODE status: DNR-CCA, no intubation statu with HCPOA. Code Visit Inpatient E&M: 51602 Subs Hosp L2
--- NOTE | 2017-06-27 09:55 | CPS ---
WITH AMBULATION RA SPO2 86% INCREASED TO 1L/M VIA NASAL CANNULA
[2017-06-27] MEDS: Flecainide 100 MG Tablet PO ×2 (10:00→22:06)
[2017-06-27] MEDS: Carvedilol 6.25 MG Tablet PO (10:17)
[2017-06-27] MEDS: Famotidine 20 MG Tablet PO (10:17)
[2017-06-27] MEDS: Furosemide 40 MG/4 ML Vial IV (10:17)
[2017-06-27] MEDS: guaiFENesin 600 MG Tablet 1200 MG PO ×2 (10:17→22:05)
--- NOTE | 2017-06-27 12:07 | PCM.CONS.C ---
Problem List (1) Hypertension Status: Chronic Qualifiers: Hypertension type: essential hypertension Qualified Code(s): I10 - Essential (primary) hypertension (2) Myelodysplastic syndrome Status: Chronic (3) Pancytopenia Status: Chronic (4) Chronic renal failure, stage 3 (moderate) Status: Acute (5) CAD (coronary artery disease) Status: Chronic Qualifiers: Coronary Disease-Associated Artery/Lesion type: unspecified vessel or lesion type [place] vs. transplanted heart: unspecified whether [place] or transplanted heart Associated angina: angina presence unspecified Qualified Code(s): I25.10 - Atherosclerotic heart disease of [place] coronary artery without angina pectoris (6) CHF (congestive heart failure) Status: Chronic Qualifiers: Congestive heart failure type: unspecified Congestive heart failure chronicity: chronic Qualified Code(s): I50.9 - Heart failure, unspecified Reason for Consult Date of Consultation: 06/27/17 Reason for Consultation: Paroxysmal atrial fibrillation, moderate pulmonary hypertension, moderate LV dysfunction, thrombocytopenia, myelodysplastic syndrome, chronic anemia appear History of Present Illness: The patient is a 82 year old M, patient of Dr. Charles's, with a known history of paroxysmal atrial fibrillation status post ablation therapy ?[address] Chakraborty at the [facility]. In addition, the patient has a history of congestive heart failure, stage III renal insufficiency, hypertension, coronary artery disease. his most recent ablation apparently was in 2008, and he has been on flecainide and Eliquis on and off ever since. Patient also has mild dysplastic syndrome, requiring periodic blood transfusions on a weekly to monthly basis, and platelet transfusions several times per year. In addition, the patient is on flecainide 100 mg p.o. twice daily per Dr. Chakraborty, and has been recently taken off his Eliquis due to the fact that the patient has reverted back to normal sinus rhythm and has remained so, with particular attention to his thrombocytopenia. In addition, the patient has at least moderate pulmonary hypertension by echocardiogram and a left ventricular ejection fraction approximately 45 %. Patient's most recent stress test within the last year was negative for inducible ischemia. Patient apparently was admitted due to progressively worsening shortness of breath, decreased O2 sats, and worsening renal failure. The patient was found to have moderate respiratory distress requiring 40% BiPAP therapy upon admission and chest x-ray indicated possible infiltrate. The patient was started on azithromycin antibiotic therapy. His presentation was similar to a previous presentation during which time he had a urinary tract infection per the . Upon admission the patient was in normal sinus rhythm however he has reverted back to atrial fibrillation, allegedly due to reduction of his flecainide from 100 mg to 75 mg twice daily, per the 's testimony. In addition his thrombocytopenia with baseline platelets around 50-60,000 per the 's records, have now precipitously decreased between 15 and 17,000. With the patient's reversion back to atrial fibrillation the was quite adamant about restarting his Eliquis at 2.5 mg p.o. twice daily, and out of concern of the patient's significant thrombocytopenia cardiac consultation was obtained. Patient denies any chest pain, angina, and reports that he is feeling better since admission. 2D echo was obtained at the bedside today which demonstrates moderate LV dysfunction with an EF around 45%, atrial fibrillation, at least moderate pulmonary hypertension with an RVSP of approximately 70 mmHg, and mild aortic stenosis with a peak aortic valve gradient of approximately 25 mmHg. Final result is pending. Currently the patient is resting comfortably, off of BiPAP, laying down, no acute distress. EKG shows atrial fibrillation with heart rate around 100 bpm, baseline right bundle branch block, left anterior hemiblock, no acute changes. [] Past Medical History Allergies/Adverse Reactions: Allergies adhesive Allergy (Mild, Verified 06/25/17 19:08) Rash Home Medications: Ambulatory Orders Medication Instructions Recorded Carvedilol [Coreg (Beta Denny)] 12.5 mg PO DINNER 05/16/15 Cyanocobalamin [Vitamin B12] 1,000 mcg PO DAILY@0800 05/16/15 Danazol 100 mg PO BID 05/16/15 Eltrombopag Olamine [Promacta] 120 mg PO DAILY 05/16/15 Ergocalciferol [Vitamin D] 50,000 unit PO Q7D 05/16/15 Flecainide [Tambocor] 100 mg PO BID 05/16/15 Furosemide [Lasix] 40 mg PO BID 05/16/15 Deferasirox [Jadenu] 360 mg PO DAILY 12/12/15 Ascorbic Acid [Vitamin C] 250 mg PO DAILY 07/16/16 Chlorhexidine [(None)] 15 ml PO BID PRN 07/16/16 Carvedilol [Coreg] 6.25 mg PO BREAKFAST 09/25/16 Famotidine [Pepcid] 20 mg PO DAILY 06/25/17 Past Medical History (Chronic Problems): Chronic Problems Hypertension (Chronic) Myelodysplastic syndrome (Chronic) Pancytopenia (Chronic) PAF (paroxysmal atrial fibrillation) (Chronic) CAD (coronary artery disease) (Chronic) CHF (congestive heart failure) (Chronic) Surgical History: - - Cardiac ablation x 2. Psychiatric History: No pertinent psych hx - *Family History Maternal History Items: No pertinent history Paternal History Items: No pertinent history Lives: Spouse/ Significant Other Smoking Status: Former smoker Tobacco Use: Non-smoker Alcohol: Occasional Drugs: None Review of Systems - Review of Systems General: Denies: Fever, Night Sweats, Fatigue Cardiovascular: Denies: Chest Discomfort, Shortness of Breath, Orthopnea, PND, Peripheral Edema, Palpitations, Lightheadedness, Dizziness, Near Syncope, Syncope Respiratory: Denies: Cough, Sputum Production, Hemoptysis Gastrointestinal: Denies: Hematemesis, Hematochezia, Melena Genitourinary: Denies: Dysuria, Hematuria Skin: Denies: Rash Subjectve: Patient laying down flat, no acute distress. Objective: Vital Signs Temp Pulse Resp BP Pulse Ox 97.8 F 91 18 105/65 92 06/27/17 10:13 06/27/17 10:13 06/27/17 10:13 06/27/17 10:13 06/27/17 10:13 Oxygen Flow Rate 1 Oxygen Delivery Method Room Air Weight: 184 lb 15.485 oz Body Mass Index (BMI) 27.5 Intake and Output for Last 24 Hours 06/25/17 06/26/17 06/27/17 23:59 23:59 23:59 Intake Total 2883 / 2883 620 / 620 Output Total 900 / 900 250 / 250 Balance 1982 370 / 370 General: Awake, Alert, Oriented x 3 HEENT: PERRL, EOMI, Sclera Non Icteric Neck: Supple, Good ROM, No Lymph Node Enlargement Lungs: Clear to auscultation Cardiovascular: Irregular Rhythm, Normal S1, Normal S2, No Rubs, No Gallops Murmur Murmur: Grade 2/6, Holosystolic Vascular: No Carotid Bruits, Normal Femoral Pulses, Normal Radial Pulses, Normal Dorsalis Pedal Pulse, Normal Posterior Tibial Pulses Abdomen: Bowel Sounds Present, Soft, Non Tender, No HSM, No Organomegaly Extremities: No Cyanosis, No Clubbing, No edema Neurological: No Focal Motor or Sensory Deficit 06/27/17 07:25: WBC 9.2, RBC 2.78 L, Hgb 7.9 L, Hct 23.3 L, MCV 83.8, MCH 28.4, MCHC 33.9, RDW 17.1 H, RDW Differential 52.8 H, Plt Count 17 L*, Neut % (Auto) Not Reportable, Absolute Neuts (auto) 5.6, Total Counted 100, Neutrophils % (Manual) 57, Band Neutrophils % 4, Lymphocytes % (Manual) 22, Monocytes % (Manual) 13 H, Eosinophils % (Manual) 2, Myelocytes % 2 H 06/27/17 07:25: Sodium 138, Potassium 4.1, Chloride 104, Carbon Dioxide 26.0, Anion Gap 8, BUN 60 H, Creatinine 1.86 H, Est GFR (MDRD) Af Amer 45 L, Est GFR (MDRD) Non-Af 37 L, BUN/Creatinine Ratio 32.3 H, Glucose 98, Calcium 8.3 L Rhythm: EKG: Atrial fibrillation with heart rate around 100, old right bundle branch block and left anterior hemiblock, no acute changes noted. ECHO: Pending. Previous echocardiogram in April 2017 demonstrated an EF around 40-45%, RVSP of 60 mmHg. Stress Test: From the [facility] within the last year demonstrates no evidence of ischemia. Cardiac Cath: PCI: CT Surgery: Holter monitor: EPS: PPM: CXR: Chest CT Scan: Assessment/Plan 1. Atrial fibrillation: Patient has paroxysmal atrial fibrillation and status post ablation therapy ?2 in the distant past. He was on chronic flecainide therapy at 100 mg p.o. twice daily, and for some reason this was reduced down to 75 mg twice daily per the patient's . Patient presented with acute respiratory distress requiring BiPAP therapy and ICU admission. After antibiotic therapy and medical management the patient has come off of BiPAP and is convalescing well on MedSur 2. During his convalescence the patient pop back in atrial fibrillation with relatively controlled ventricular response in the low 100s, and his flecainide was increased back to 100 mg p.o. twice daily. Patient's is quite concerned about restarting his Eliquis as it was strongly recommended by Dr. Chakraborty to do so should he pop back in atrial fibrillation. Unfortunately the patient does not know when he goes in and out of atrial fibrillation so it is impossible to know whether he has had episodes of atrial fibrillation at home prior to his admission. In addition he has been off Eliquis for a period of months as well. In addition his platelets have acutely deteriorated over and above there are normal low levels in the mid 50s-60s, all the way down to 15,000, and now heading back up to 17,000. A review of the literature and warnings regarding Eliquis therapy show no absolute contraindications to Eliquis given thrombocytopenia, but obviously must be used with caution due to increased bleeding risk. Patient's LV function is moderately reduced, and the patient has evidence of at least moderate to moderate to severe pulmonary hypertension which in and of itself is a separate indication for anticoagulation therapy chronically. It is hopeful that the patient will revert back to normal sinus rhythm as his inflammatory state resolves, but in the meantime I believe it is reasonable to restart his Eliquis at 2.5 mg daily rather than twice daily in order to provide some anticoagulation coverage and to satisfy the request of the patient and his to protect against possible DVT and/or CVA. If the patient reverts back to normal sinus rhythm during his convalescence, I would discontinue his anticoagulation therapy. If he does not revert back I would continue daily 2.5 mg of Eliquis and monitor his platelets going forward. A repeat echocardiogram has been performed today, with results pending but preliminary results show no significant change from his echocardiogram done at the [facility] recently and that his LV function is around 45%, PA pressures were in the mid 60s, making an estimated RVSP of around 70 mmHg given his atrial fibrillation. He also was found to have mild aortic stenosis. Final results are pending. Prior to reinitiating his Eliquis however I had a long and thorough discussion with the patient and his regarding the risks associated with anticoagulation therapy, particularly with Eliquis as it does not have an antidote, reversing agent, and does not come off with dialysis should the patient have an acute bleeding episode. It is my impression that the patient's is more concerned about the patient having a stroke and she is worried about him having a bleeding episode and is strongly requested restarting some kind of anticoagulation therapy. I do not believe heparin would be an optimal choice given his low platelets, and Lovenox would not be an option given his acute on chronic renal insufficiency. We will monitor his hemoglobin, platelets, and observe for any bleeding issues with restarting his low-dose Eliquis therapy. 2. D[address] Dior. Thank you very much for the opportunity to participate in the cardiac care of your patient. Consultation time took place between 11 and 11:30 AM. Code Visit Inpatient E&M: 94628 Init Hosp L2
--- NOTE | 2017-06-27 12:18 | CON.PCM_ITS ---
Problem List (1) Hypertension Status: Chronic Qualifiers: Hypertension type: essential hypertension Qualified Code(s): I10 - Essential (primary) hypertension (2) Myelodysplastic syndrome Status: Chronic (3) Pancytopenia Status: Chronic (4) Chronic renal failure, stage 3 (moderate) Status: Acute (5) CAD (coronary artery disease) Status: Chronic Qualifiers: Coronary Disease-Associated Artery/Lesion type: unspecified vessel or lesion type [place] vs. transplanted heart: unspecified whether [place] or transplanted heart Associated angina: angina presence unspecified Qualified Code(s): I25.10 - Atherosclerotic heart disease of [place] coronary artery without angina pectoris (6) CHF (congestive heart failure) Status: Chronic Qualifiers: Congestive heart failure type: unspecified Congestive heart failure chronicity: chronic Qualified Code(s): I50.9 - Heart failure, unspecified Reason for Consult Date of Consultation: 06/27/17 Reason for Consultation: Paroxysmal atrial fibrillation, moderate pulmonary hypertension, moderate LV dysfunction, thrombocytopenia, myelodysplastic syndrome, chronic anemia appear History of Present Illness: The patient is a 82 year old M, patient of Dr. Charles's, with a known history of paroxysmal atrial fibrillation status post ablation therapy ?[address] Chakraborty at the [facility]. In addition, the patient has a history of congestive heart failure, stage III renal insufficiency, hypertension, coronary artery disease. his most recent ablation apparently was in 2008, and he has been on flecainide and Eliquis on and off ever since. Patient also has mild dysplastic syndrome, requiring periodic blood transfusions on a weekly to monthly basis, and platelet transfusions several times per year. In addition, the patient is on flecainide 100 mg p.o. twice daily per Dr. Chakraborty, and has been recently taken off his Eliquis due to the fact that the patient has reverted back to normal sinus rhythm and has remained so, with particular attention to his thrombocytopenia. In addition, the patient has at least moderate pulmonary hypertension by echocardiogram and a left ventricular ejection fraction approximately 45 %. Patient's most recent stress test within the last year was negative for inducible ischemia. Patient apparently was admitted due to progressively worsening shortness of breath, decreased O2 sats, and worsening renal failure. The patient was found to have moderate respiratory distress requiring 40% BiPAP therapy upon admission and chest x-ray indicated possible infiltrate. The patient was started on azithromycin antibiotic therapy. His presentation was similar to a previous presentation during which time he had a urinary tract infection per the . Upon admission the patient was in normal sinus rhythm however he has reverted back to atrial fibrillation, allegedly due to reduction of his flecainide from 100 mg to 75 mg twice daily, per the 's testimony. In addition his thrombocytopenia with baseline platelets around 50-60,000 per the 's records , have now precipitously decreased between 15 and 17,000. With the patient's reversion back to atrial fibrillation the was quite adamant about restarting his Eliquis at 2.5 mg p.o. twice daily, and out of concern of the patient's significant thrombocytopenia cardiac consultation was obtained. Patient denies any chest pain, angina, and reports that he is feeling better since admission. 2D echo was obtained at the bedside today which demonstrates moderate LV dysfunction with an EF around 45%, atrial fibrillation, at least moderate pulmonary hypertension with an RVSP of approximately 70 mmHg, and mild aortic stenosis with a peak aortic valve gradient of approximately 25 mmHg. Final result is pending. Currently the patient is resting comfortably, off of BiPAP, laying down, no acute distress. EKG shows atrial fibrillation with heart rate around 100 bpm, baseline right bundle branch block, left anterior hemiblock, no acute changes. [] Past Medical History Allergies/Adverse Reactions: Allergies adhesive Allergy (Mild, Verified 06/25/17 19:08) Rash Home Medications: Ambulatory Orders Medication Instructions Recorded Carvedilol [Coreg (Beta Denny)] 12.5 mg PO DINNER 05/16/15 Cyanocobalamin [Vitamin B12] 1,000 mcg PO DAILY@0800 05/16/15 Danazol 100 mg PO BID 05/16/15 Eltrombopag Olamine [Promacta] 120 mg PO DAILY 05/16/15 Ergocalciferol [Vitamin D] 50,000 unit PO Q7D 05/16/15 Flecainide [Tambocor] 100 mg PO BID 05/16/15 Furosemide [Lasix] 40 mg PO BID 05/16/15 Deferasirox [Jadenu] 360 mg PO DAILY 12/12/15 Ascorbic Acid [Vitamin C] 250 mg PO DAILY 07/16/16 Chlorhexidine [(None)] 15 ml PO BID PRN 07/16/16 Carvedilol [Coreg] 6.25 mg PO BREAKFAST 09/25/16 Famotidine [Pepcid] 20 mg PO DAILY 06/25/17 Past Medical History (Chronic Problems): Chronic Problems Hypertension (Chronic) Myelodysplastic syndrome (Chronic) Pancytopenia (Chronic) PAF (paroxysmal atrial fibrillation) (Chronic) CAD (coronary artery disease) (Chronic) CHF (congestive heart failure) (Chronic) Surgical History: - - Cardiac ablation x 2. Psychiatric History: No pertinent psych hx - *Family History Maternal History Items: No pertinent history Paternal History Items: No pertinent history Lives: Spouse/ Significant Other Smoking Status: Former smoker Tobacco Use: Non-smoker Alcohol: Occasional Drugs: None Review of Systems - Review of Systems General: Denies: Fever, Night Sweats, Fatigue Cardiovascular: Denies: Chest Discomfort, Shortness of Breath, Orthopnea, PND, Peripheral Edema, Palpitations, Lightheadedness, Dizziness, Near Syncope, Syncope Respiratory: Denies: Cough, Sputum Production, Hemoptysis Gastrointestinal: Denies: Hematemesis, Hematochezia, Melena Genitourinary: Denies: Dysuria, Hematuria Skin: Denies: Rash Subjectve: Patient laying down flat, no acute distress. Objective: Vital Signs Temp Pulse Resp BP Pulse Ox 97.8 F 91 18 105/65 92 06/27/17 10:13 06/27/17 10:13 06/27/17 10:13 06/27/17 10:13 06/27/17 10:13 Oxygen Flow Rate 1 Oxygen Delivery Method Room Air Weight: 184 lb 15.485 oz Body Mass Index (BMI) 27.5 Intake and Output for Last 24 Hours 06/25/17 06/26/17 06/27/17 23:59 23:59 23:59 Intake Total 2883 / 2883 620 / 620 Output Total 900 / 900 250 / 250 Balance 1982 370 / 370 General: Awake, Alert, Oriented x 3 HEENT: PERRL, EOMI, Sclera Non Icteric Neck: Supple, Good ROM, No Lymph Node Enlargement Lungs: Clear to auscultation Cardiovascular: Irregular Rhythm, Normal S1, Normal S2, No Rubs, No Gallops Murmur Murmur: Grade 2/6, Holosystolic Vascular: No Carotid Bruits, Normal Femoral Pulses, Normal Radial Pulses, Normal Dorsalis Pedal Pulse, Normal Posterior Tibial Pulses Abdomen: Bowel Sounds Present, Soft, Non Tender, No HSM, No Organomegaly Extremities: No Cyanosis, No Clubbing, No edema Neurological: No Focal Motor or Sensory Deficit 06/27/17 07:25: WBC 9.2, RBC 2.78 L, Hgb 7.9 L, Hct 23.3 L, MCV 83.8, MCH 28.4, MCHC 33.9, RDW 17.1 H, RDW Differential 52.8 H, Plt Count 17 L*, Neut % (Auto) Not Reportable, Absolute Neuts (auto) 5.6, Total Counted 100, Neutrophils % ( Manual) 57, Band Neutrophils % 4, Lymphocytes % (Manual) 22, Monocytes % (Manual ) 13 H, Eosinophils % (Manual) 2, Myelocytes % 2 H 06/27/17 07:25: Sodium 138, Potassium 4.1, Chloride 104, Carbon Dioxide 26.0, Anion Gap 8, BUN 60 H, Creatinine 1.86 H, Est GFR (MDRD) Af Amer 45 L, Est GFR ( MDRD) Non-Af 37 L, BUN/Creatinine Ratio 32.3 H, Glucose 98, Calcium 8.3 L Rhythm: EKG: Atrial fibrillation with heart rate around 100, old right bundle branch block and left anterior hemiblock, no acute changes noted. ECHO: Pending. Previous echocardiogram in April 2017 demonstrated an EF around 40-45%, RVSP of 60 mmHg. Stress Test: From the [facility] within the last year demonstrates no evidence of ischemia. Cardiac Cath: PCI: CT Surgery: Holter monitor: EPS: PPM: CXR: Chest CT Scan: Assessment/Plan 1. Atrial fibrillation: Patient has paroxysmal atrial fibrillation and status post ablation therapy ?2 in the distant past. He was on chronic flecainide therapy at 100 mg p.o. twice daily, and for some reason this was reduced down to 75 mg twice daily per the patient's . Patient presented with acute respiratory distress requiring BiPAP therapy and ICU admission. After antibiotic therapy and medical management the patient has come off of BiPAP and is convalescing well on MedSur 2. During his convalescence the patient pop back in atrial fibrillation with relatively controlled ventricular response in the low 100s, and his flecainide was increased back to 100 mg p.o. twice daily. Patient's is quite concerned about restarting his Eliquis as it was strongly recommended by Dr. Chakraborty to do so should he pop back in atrial fibrillation. Unfortunately the patient does not know when he goes in and out of atrial fibrillation so it is impossible to know whether he has had episodes of atrial fibrillation at home prior to his admission. In addition he has been off Eliquis for a period of months as well. In addition his platelets have acutely deteriorated over and above there are normal low levels in the mid 50s-60s, all the way down to 15,000, and now heading back up to 17,000. A review of the literature and warnings regarding Eliquis therapy show no absolute contraindications to Eliquis given thrombocytopenia, but obviously must be used with caution due to increased bleeding risk. Patient's LV function is moderately reduced, and the patient has evidence of at least moderate to moderate to severe pulmonary hypertension which in and of itself is a separate indication for anticoagulation therapy chronically. It is hopeful that the patient will revert back to normal sinus rhythm as his inflammatory state resolves, but in the meantime I believe it is reasonable to restart his Eliquis at 2.5 mg daily rather than twice daily in order to provide some anticoagulation coverage and to satisfy the request of the patient and his to protect against possible DVT and/or CVA. If the patient reverts back to normal sinus rhythm during his convalescence, I would discontinue his anticoagulation therapy. If he does not revert back I would continue daily 2.5 mg of Eliquis and monitor his platelets going forward. A repeat echocardiogram has been performed today, with results pending but preliminary results show no significant change from his echocardiogram done at the [facility] recently and that his LV function is around 45%, PA pressures were in the mid 60s, making an estimated RVSP of around 70 mmHg given his atrial fibrillation. He also was found to have mild aortic stenosis. Final results are pending. Prior to reinitiating his Eliquis however I had a long and thorough discussion with the patient and his regarding the risks associated with anticoagulation therapy, particularly with Eliquis as it does not have an antidote, reversing agent, and does not come off with dialysis should the patient have an acute bleeding episode. It is my impression that the patient's is more concerned about the patient having a stroke and she is worried about him having a bleeding episode and is strongly requested restarting some kind of anticoagulation therapy. I do not believe heparin would be an optimal choice given his low platelets, and Lovenox would not be an option given his acute on chronic renal insufficiency. We will monitor his hemoglobin, platelets , and observe for any bleeding issues with restarting his low-dose Eliquis therapy. 2. Discussed with Dr. Dior. Thank you very much for the opportunity to participate in the cardiac care of your patient. Consultation time took place between 11 and 11:30 AM. Code Visit Inpatient E&M: 83171 Init Hosp L2
--- NOTE | 2017-06-27 16:56 | CASEMGMT ---
Per Tommy RN, pt desats with ambulation. Pt states would like [employer] if qualifies for home oxygen. Script left on chart with green sheet and instructions. 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 Ammy ENCINAS CM
[2017-06-27] MEDS: Furosemide 40 MG Tablet PO (17:38)
[2017-06-27] MEDS: Carvedilol 12.5 MG Tablet PO (22:06)
[2017-06-27] MEDS: 0.9% NaCl Peripheral Flush Adult/Peds IV (22:12)
[2017-06-28] VITALS (8 sets, daily range): BP systolic 97–114; BP diastolic 62–63; PULSE 66–73; RESP 16–18; TEMP 36.8–36.9; O2SAT 86–95
[2017-06-28 08:13] LABS: Hematocrit 21.3 % (40-54); Hemoglobin 7.1 g/dl (13.0-16.5); Mean Corp Hgb Conc 33.3 g/gl (32-36); Mean Corpuscular Hgb 27.8 pg (27.0-32.0); Mean Corpuscular Volume 83.5 fL (80-94); RBC Distribution Width CV 17.3 % (11.6-14.6); Red Blood Count 2.55 M/mm3 (4.6-6.2); White Blood Count 6.8 K/mm3 (4.4-11.0)
[2017-06-28 08:17] LABS: Differential Indicated MANUAL DIFF; POSITIVE COUNT YES; POSITIVE DIFFERENTIAL YES; POSITIVE MORPHOLOGY YES
[2017-06-28 08:19] LABS: Platelet Count 16 K/mm3 (150-450)
--- NOTE | 2017-06-28 08:30 | RAD_ITS ---
STUDY: X-RAY CHEST REASON FOR EXAM: Male, 82 years old. Shortness of breath dyspnea TECHNIQUE: Single AP portable view of the chest. COMPARISON: 06/26/2017 chest x-ray, January 08, 2015 chest x-ray FINDINGS: There is a pattern of fairly dense pleural plaquing bilaterally. Since prior study there is greater opacification of the right upper lobe just above the minor fissure. The interstitial markings are mildly prominent. There is moderate cardiac enlargement. Normal mediastinum and alisa. Normal visualized pulmonary arteries. Normal visualized aortic arch and descending thoracic aorta. There are diffuse degenerative changes of the visualized thoracic spine. Normal visualized ribs, clavicles, and shoulders. There is no demonstrated abnormality of the visualized soft tissue structures of the upper abdomen. RAD/Chest 1 View (Portable) IMPRESSION: Extensive pleural plaquing similar to multiple prior studies compatible with prior infection and/or asbestos exposure. There revisualization of a focal opacity in the right upper lobe above the minor fissure which is not as well seen on prior study may represent focal pneumonia. Could consider a follow-up CT scan of the chest without contrast to confirm. Cardiomegaly. N.B. : The above information has been verbally conveyed by Melanie Cordon MD to Dr. Staci Dior, Referring Physician, on 06/28/2017 09:45:45 (ET). Electronically Signed: Melanie Cordon MD at 9:10 EST Tel , Service support , N.B. : The above information has been verbally conveyed by Melanie Cordon MD to Dr. Staci Dior, Referring Physician, on 06/28/2017 09:45:45 (ET).
--- NOTE | 2017-06-28 08:35 | PN_ITS ---
Patient Problems: Active and Suspected Problems Acute and chronic respiratory failure with hypoxia (Acute) Pneumonia (Acute) Acute kidney injury (Acute) Acute respiratory failure with hypoxia (Acute) Subjective: Patient did well overnight. No acute issues were reported. Patient has not had any bleeding complications such as epistaxis, hemoptysis or hematochezia. Patient was weaned to room air at rest this morning, but is back on 2 L nasal cannula. Telemetry shows patient has reverted to normal sinus rhythm. - Physical Exam General: Alert, Oriented x3, Cooperative, No apparent distress, - - Speaks in full sentences. HEENT: Atraumatic, PERRLA, EOMI, Normocephalic, - - No scleral icterus or injection noted. Oral: Moist Mucosa, No Gingival or Mucosal Lesions/ Ulcerations, - - No gingival bleeding noted. Neck: Supple, No JVD, No Nodes, Trachea Midline Lungs: No rhonchi, No wheeze, No rales, Diminished, - - Symmetric expansion. No dullness to percussion. Cardiovascular: Regular rate, Regular Rhythm, Normal S1, Normal S2, Murmur, No rub noted, No Gallop Abdomen: Bowel Sounds Present, Soft, Non Tender, Non-Distended Extremities: No clubbing, No cyanosis, No edema, Capillary Refill Less than 3 Seconds Skin: - - No significant change compared to previous Musculoskeletal: No Tenderness to Palpation of Joints or Extremities, No Muscle Wasting Lymphatic: No Cervical, Supraclavicular, or Inguinal Adenopathy Neurological: Cranial nerves II-XII grossly intact, Neuro grossly intact, Motor Exam 5/5 strength throughout, Sensory exam intact to light touch and pain Psych/Mental Status: Alert and oriented to time, place, person, mood and affect Vital Signs Temp Pulse Resp BP Pulse Ox 36.8 C 66 18 114/63 95 06/28/17 08:05 06/28/17 08:05 06/28/17 08:05 06/28/17 08:05 06/28/17 08:05 Oxygen Flow Rate 2 Oxygen Delivery Method Nasal Cannula Weight: 84.3 kg Body Mass Index (BMI) 27.5 Intake and Output for Last 24 Hours 06/26/17 06/27/17 06/28/17 23:59 23:59 23:59 Intake Total 2883 / 2883 1920 / 1920 Output Total 900 / 900 1800 / 1800 100 / 100 Balance 1982 120 / 120 -100 / -100 Microbiology Past 72 Hours 06/26/17 01:30 Gram Stain - Final Sputum, Expectorated/Coughed Respiratory Culture - Preliminary 06/25/17 22:16 Respiratory Panel (PCR) - Final Mucosa - Nose 06/26/17 01:30 Streptococcus pneumoniae Antigen (M - Final Urine, Clean Catch 06/26/17 01:30 Legionella Antigen - Final Urine, Clean Catch Laboratory Tests Past 24 Hrs 06/27/17 06/28/17 07:25 07:55 WBC 6.8 RBC 2.55 L Hgb 7.1 L Hct 21.3 L MCV 83.5 MCH 27.8 MCHC 33.3 RDW 17.3 H RDW Differential 53.0 H Plt Count 16 L* Neut % (Auto) Not Reportable Absolute Neuts (auto) 5.6 Not Reportable Absolute Lymphs (auto) 2.02 Total Counted 100 Pending Neutrophils % (Manual) 57 Band Neutrophils % 4 Lymphocytes % (Manual) 22 Monocytes % (Manual) 13 H Eosinophils % (Manual) 2 Myelocytes % 2 H Diff Path Review May foll Platelet Estimate MKD DEC Plt Morphology Comment LARG RBC Morphology NORM C+C Assessment/Plan Active and Suspected Problems Acute and chronic respiratory failure with hypoxia (Acute) Pneumonia (Acute) Acute kidney injury (Acute) Acute respiratory failure with hypoxia (Acute) RECOMMENDATIONS: 1. Continue empiric antibiotics and bronchodilators 2. Wean oxygen as tolerated 3. Discontinue Eliquis 4. Patient may require platelet transfusion early next week 5. No transfusions at this time, await hematology recommendations 6. Walking oximetry prior to discharge, supplemental oxygen if indicated IMPRESSIONS: 1. Acute hypoxic respiratory failure secondary to probable community- acquired pneumonia Patient appears to be improving at this time. Unclear if this is secondary to improved secretion clearance versus improved recruitment secondary to bronchodilators. Continue with antibiotics at this time. No reported history of obstructive lung disease, so would avoid steroid therapy at this time. Patient appears to be significantly improved compared to previous. Patient should have a repeat chest x-ray in 4-6 weeks to document improvement. Patient gets the majority of his [facility] at [facility] at this time. Patient 's rapid improvement may indicate that he was unable to tolerate increased metabolic demand of infection. This could explain the rapid improvement in respiratory status over the course of the hospitalization. Patient should have a walking oximetry prior to discharge and supplemental oxygen should be prescribed if indicated. 2. Severe sepsis secondary to gram-negative UTI Patient appears to be hemodynamically stable at this time. Patient is not neutropenic. Blood pressure has remained appropriate. Patient was slightly volume depleted on presentation. Patient responded well to gentle rehydration. On appropriate antibiotics. Patient is growing a gram-negative in the urine. Antibiotics will likely be selected towards this organism once known. 3. Acute kidney injury on CKD stage III Consider gentle hydration. Would not recommend obtaining an FENa as this will not be appropriate in the setting of previous Lasix use. No electrolyte repletion was indicated previously 4. Myelodysplastic syndrome with resultant iron overload Patient reportedly received multiple transfusions per week. Oncology has been consulted. Anticipate transfusion for hemoglobin less than 7 and platelets less than 20,000, but will confer with them prior to any transfusion orders. Slight elevation in liver enzymes may be secondary to iron overload. Baseline medications have been held for now. 5. Hyperkalemia No EKG changes were noted initially. Reasonable to repeat BMP tomorrow if still admitted. If persists, treatment with Kayexalate may be necessary. 6. CAD/PAF/reported CHF/advanced age Complicates care, management, recovery and prognosis. Patient is a DNR Comfort Care arrest without intubation. Patient is back in normal sinus rhythm. Likely discontinue Eliquis therapy. Defer to cardiology and primary service. Code Visit Inpatient E&M: 53631 Subs Hosp L2
[2017-06-28 08:38] LABS: Eosinophil 1 % (0-5); Lymphocyte 22 % (19-41); Monocyte 16 % (0-10); Myelocyte 2 (0-0); Neutrophil-Band 4 % (0-5); Neutrophil-Segmented 55 % (47-70); Total Cells Counted 100 (MANUAL DIFF)
[2017-06-28 08:39] LABS: Red Cell Morphology NORM C+C NORMAL (NORM C&C)
[2017-06-28 08:40] LABS: Platelet Estimate MKD DEC (ADEQ)
--- NOTE | 2017-06-28 08:41 | PCM.DC ---
- Discharge Diagnoses Current Active Problems: Current Active and Chronic Problems Acute and chronic respiratory failure with hypoxia (Acute) Pneumonia (Acute) Acute kidney injury (Acute) CAD (coronary artery disease) (Chronic) CHF (congestive heart failure) (Chronic) Acute respiratory failure with hypoxia (Acute) Reason(s) for Visit for Discharge Instructions: Shortness of breath, cough You will use the following diet at home:: Cardiac Your food should be the consistency of: Regular Your liquids should be the consistency of: Regular/Thin Discharge Activity: Return to Normal Activity Additional Instructions: Follow-up with your metallurgical technician and hematology as scheduled. You will be discharged on oxygen. Avoid open flames whilst on oxygen. Wear your oxygen all the time. Follow-up with night club manager to evaluate continuous need for oxygen. Allergies/Adverse Reactions: Allergies adhesive Allergy (Mild, Verified 06/25/17 19:08) Rash Medications to take at Discharge Carvedilol [Coreg (Beta Denny)] 12.5 mg PO DINNER 05/16/15 Cyanocobalamin [Vitamin B12] 1,000 mcg PO DAILY@0800 05/16/15 Danazol 100 mg PO BID 05/16/15 Eltrombopag Olamine [Promacta] 120 mg PO DAILY 05/16/15 Ergocalciferol [Vitamin D] 50,000 unit PO Q7D 05/16/15 Flecainide [Tambocor] 100 mg PO BID 05/16/15 Furosemide [Lasix] 40 mg PO BID 05/16/15 Deferasirox [Jadenu] 360 mg PO DAILY 12/12/15 Ascorbic Acid [Vitamin C] 250 mg PO DAILY 07/16/16 Chlorhexidine 15 ml PO BID PRN 07/16/16 Carvedilol [Coreg] 6.25 mg PO BREAKFAST 09/25/16 Famotidine [Pepcid] 20 mg PO DAILY 06/25/17 Guaifenesin [Mucinex] 1,200 mg PO BID #14 tab 06/28/17 Levofloxacin [Levaquin] 750 mg PO Q48H #3 tab 06/28/17 The following prescriptions were given: Levofloxacin [Levaquin] 750 mg PO Q48H #3 tab Guaifenesin [Mucinex] 1,200 mg PO BID #14 tab Orders to be completed after discharge: Basic Metabolic Profile (BMP) Time Frame: 2 Days, Location: Laboratory Primary Care Physician: Care Physician,No Primary [Primary Care Provider] - Please Follow Up With: Tripp Caldwell MD When: within 2 weeks Proposed Discharge Date: 06/28/17
--- NOTE | 2017-06-28 08:46 | DS.PCM_ITS ---
Discharge Date and Diagnosis Date of Admission: 06/25/17 Date of Discharge: 06/28/17 - Primary Discharge Diagnosis Active and Suspected Problems Acute and chronic respiratory failure with hypoxia (Acute) Pneumonia (Acute) Acute kidney injury (Acute) Acute respiratory failure with hypoxia (Acute) - Secondary Discharge Diagnosis Chronic Problems Hypertension (Chronic) Myelodysplastic syndrome (Chronic) Pancytopenia (Chronic) PAF (paroxysmal atrial fibrillation) (Chronic) CAD (coronary artery disease) (Chronic) CHF (congestive heart failure) (Chronic) Hospital Course and Treatment Imaging Results: 06/28/17 08:30 Chest 1 View (Portable) [RAD] Urgent Operations: None Summary of Care Provided: 82 y/o M with PMHx of Prostate CA, Hypertension, CAD, MDS, Chronic Pancytopenia requiring intermittent Plts and PRBC administration, PAF s/p cardioversion and ablation x2, admitted on [facility] ED on 06/25/17 with onset of cough, congestion, dyspnea, worse with exertion with fever and chills x 24 hours. Patient improved after an initial stay in the ICU, transferred to [facility] floor and went into A. fib with RVR. Active management has been as follows: 1. Afib, in a patient with PAF, status post cardioversion and ablation ?2, started on eliquis by cardiology per patient and 's request, patient converted in NSR and that was stopped. 2. Acute Hypoxic Respiratory Failure secondary to Possible Community Acquired Pneumonia, Acute CHF exacerbation,improved on oxygen, was on Bipap initially for a short time, did not qualify for home ambulatory oxygen. 3. Possible community-acquired pneumonia, managed on Levaquin and will be discharged on po levaquin to complete 1 week. 4. Acute on chronic systolic CHF exacerbation, EF 45%, on Lasix BID, 5. Acute kidney injury on CKD stage III secondary to dehydration, Cr remains stable 6. MDS w/ Chronic Pancytopenia, following with oncology, no signs of bleeding seen. 7. Elevated T Ozzie, unclear etiology 8. Hyperkalemia, resolved 9. CAD, on beta-denny, not on asa secondary to thrombocytopenia Discharge Diet: Low fat/ Low Cholesterol, 6 Cup Fluid Restriction, 2000 mg Sodium Diet Discharge Activity: Return to Normal Activity Home Medications: Medications to take at Discharge Carvedilol [Coreg (Beta Denny)] 12.5 mg PO DINNER 05/16/15 Cyanocobalamin [Vitamin B12] 1,000 mcg PO DAILY@0800 05/16/15 Danazol 100 mg PO BID 05/16/15 Eltrombopag Olamine [Promacta] 120 mg PO DAILY 05/16/15 Ergocalciferol [Vitamin D] 50,000 unit PO Q7D 05/16/15 Flecainide [Tambocor] 100 mg PO BID 05/16/15 Furosemide [Lasix] 40 mg PO BID 05/16/15 Deferasirox [Jadenu] 360 mg PO DAILY 12/12/15 Ascorbic Acid [Vitamin C] 250 mg PO DAILY 07/16/16 Chlorhexidine 15 ml PO BID PRN 07/16/16 Carvedilol [Coreg] 6.25 mg PO BREAKFAST 09/25/16 Famotidine [Pepcid] 20 mg PO DAILY 06/25/17 Guaifenesin [Mucinex] 1,200 mg PO BID #14 tab 06/28/17 Levofloxacin [Levaquin] 750 mg PO Q48H #3 tab 06/28/17 Following Prescrptions Were Given to Patient: Levofloxacin [Levaquin] 750 mg PO Q48H #3 tab Guaifenesin [Mucinex] 1,200 mg PO BID #14 tab Primary Care Physician: Care Physician,No Primary [Primary Care Provider] - Please Follow Up With: Tripp Caldwell MD When: within 2 weeks Disposition: Home Minutes spent on discharge:: 25 Patient Condition:: Stable Meaningful Use Info Meaningful Use Diagnoses (Choose all that apply): None applicable Code Visit Inpatient E&M: 65683 Subs Hosp L2
--- NOTE | 2017-06-28 08:46 | DCINST_ITS ---
- Discharge Diagnoses Current Active Problems: Current Active and Chronic Problems Acute and chronic respiratory failure with hypoxia (Acute) Pneumonia (Acute) Acute kidney injury (Acute) CAD (coronary artery disease) (Chronic) CHF (congestive heart failure) (Chronic) Acute respiratory failure with hypoxia (Acute) Reason(s) for Visit for Discharge Instructions: Shortness of breath, cough You will use the following diet at home:: Cardiac Your food should be the consistency of: Regular Your liquids should be the consistency of: Regular/Thin Discharge Activity: Return to Normal Activity Additional Instructions: Follow-up with your workforce investment act career manager and hematology as scheduled. You will be discharged on oxygen. Avoid open flames whilst on oxygen. Wear your oxygen all the time. Follow-up with practice clinician to evaluate continuous need for oxygen. Allergies/Adverse Reactions: Allergies adhesive Allergy (Mild, Verified 06/25/17 19:08) Rash Medications to take at Discharge Carvedilol [Coreg (Beta Denny)] 12.5 mg PO DINNER 05/16/15 Cyanocobalamin [Vitamin B12] 1,000 mcg PO DAILY@0800 05/16/15 Danazol 100 mg PO BID 05/16/15 Eltrombopag Olamine [Promacta] 120 mg PO DAILY 05/16/15 Ergocalciferol [Vitamin D] 50,000 unit PO Q7D 05/16/15 Flecainide [Tambocor] 100 mg PO BID 05/16/15 Furosemide [Lasix] 40 mg PO BID 05/16/15 Deferasirox [Jadenu] 360 mg PO DAILY 12/12/15 Ascorbic Acid [Vitamin C] 250 mg PO DAILY 07/16/16 Chlorhexidine 15 ml PO BID PRN 07/16/16 Carvedilol [Coreg] 6.25 mg PO BREAKFAST 09/25/16 Famotidine [Pepcid] 20 mg PO DAILY 06/25/17 Guaifenesin [Mucinex] 1,200 mg PO BID #14 tab 06/28/17 Levofloxacin [Levaquin] 750 mg PO Q48H #3 tab 06/28/17 The following prescriptions were given: Levofloxacin [Levaquin] 750 mg PO Q48H #3 tab Guaifenesin [Mucinex] 1,200 mg PO BID #14 tab Orders to be completed after discharge: Basic Metabolic Profile (BMP) Time Frame: 2 Days, Location: Laboratory Primary Care Physician: Care Physician,No Primary [Primary Care Provider] - Please Follow Up With: Tripp Caldwell MD When: within 2 weeks Proposed Discharge Date: 06/28/17
[2017-06-28] MEDS: 0.9% NaCl Peripheral Flush Adult/Peds IV (09:50)
[2017-06-28] MEDS: Furosemide 20 MG/2 ML VIAL IV (09:50)
[2017-06-28] MEDS: Carvedilol 6.25 MG Tablet PO (09:59)
[2017-06-28] MEDS: guaiFENesin 600 MG Tablet 1200 MG PO (09:59)
[2017-06-28] MEDS: Famotidine 20 MG Tablet PO (09:59)
[2017-06-28] MEDS: Ascorbic Acid 500 MG Tablet 250 MG PO (10:00)
[2017-06-28] MEDS: Cyanocobalamin 500 MCG Tablet 1000 MCG PO (10:00)
--- NOTE | 2017-06-28 10:00 | PCM.PN.CARD ---
Subjectve: Patient doing well this morning. Reverted back to sinus rhythm last night with occasional episodes of paroxysmal atrial fibrillation. No complaints. Looks great this morning. Sitting up eating breakfast without difficulty. Objective: Vital Signs Temp Pulse Resp BP Pulse Ox 98.3 F 66 18 114/63 95 06/28/17 08:05 06/28/17 08:05 06/28/17 08:05 06/28/17 08:05 06/28/17 08:05 Oxygen Flow Rate 2 Oxygen Delivery Method Nasal Cannula Weight: 185 lb 13.595 oz Body Mass Index (BMI) 27.5 Intake and Output for Last 24 Hours 06/26/17 06/27/17 06/28/17 23:59 23:59 23:59 Intake Total 2883 / 2883 1920 / 1920 Output Total 900 / 900 1800 / 1800 100 / 100 Balance 1982 120 / 120 -100 / -100 General: Awake, Alert, Oriented x 3 HEENT: PERRL, EOMI, Sclera Non Icteric Neck: Supple, Good ROM, No Lymph Node Enlargement Lungs: Clear to auscultation Cardiovascular: Regular Rhythm, Normal S1, Normal S2, No Rubs, No Gallops Murmur Murmur: Grade 2/6, Holosystolic Vascular: No Carotid Bruits, Normal Femoral Pulses, Normal Radial Pulses, Normal Dorsalis Pedal Pulse, Normal Posterior Tibial Pulses Abdomen: Bowel Sounds Present, Soft, Non Tender, No HSM, No Organomegaly Extremities: No Cyanosis, No Clubbing, No edema Neurological: No Focal Motor or Sensory Deficit 06/28/17 07:55: WBC 6.8, RBC 2.55 L, Hgb 7.1 L, Hct 21.3 L, MCV 83.5, MCH 27.8, MCHC 33.3, RDW 17.3 H, RDW Differential 53.0 H, Plt Count 16 L*, Neut % (Auto) Not Reportable, Absolute Neuts (auto) 4.0, Total Counted 100, Neutrophils % (Manual) 55, Band Neutrophils % 4, Lymphocytes % (Manual) 22, Monocytes % (Manual) 16 H, Eosinophils % (Manual) 1, Myelocytes % 2 H Rhythm: EKG: ECHO: Stress Test: Cardiac Cath: PCI: CT Surgery: Holter monitor: EPS: PPM: CXR: Chest CT Scan: Assessment/Plan 1. Atrial fibrillation: Patient has paroxysmal atrial fibrillation and status post ablation therapy ?2 in the distant past. He was on chronic flecainide therapy at 100 mg p.o. twice daily, and for some reason this was reduced down to 75 mg twice daily per the patient's . Patient presented with acute respiratory distress requiring BiPAP therapy and ICU admission. After antibiotic therapy and medical management the patient has come off of BiPAP and is convalescing well on MedSurg 2. During his convalescence the patient pop back in atrial fibrillation with relatively controlled ventricular response in the low 100s, and his flecainide was increased back to 100 mg p.o. twice daily. Patient's is quite concerned about restarting his Eliquis as it was strongly recommended by Dr. Chakraborty to do so should he pop back in atrial fibrillation. Unfortunately the patient does not know when he goes in and out of atrial fibrillation so it is impossible to know whether he has had episodes of atrial fibrillation at home prior to his admission. In addition he has been off Eliquis for a period of months as well. In addition his platelets have acutely deteriorated over and above there are normal low levels in the mid 50s-60s, all the way down to 15,000, and now heading back up to 17,000. Today they decreased to 16,000. A review of the literature and warnings regarding Eliquis therapy show no absolute contraindications to Eliquis given thrombocytopenia, but obviously must be used with caution due to increased bleeding risk. Patient's LV function is moderately reduced, and the patient has evidence of at least moderate to moderate to severe pulmonary hypertension which in and of itself is a separate indication for anticoagulation therapy chronically. A repeat echocardiogram has been performed on 06/27/17, with results showing no significant change from his echocardiogram done at the [facility] recently and that his LV function is around 45%, PA pressures were in the mid 60s, making an estimated RVSP of around 70 mmHg given his atrial fibrillation. He also was found to have moderate aortic stenosis, which may be underestimated given his LV dysfunction and atrial fibrillation. Now that he is back in sinus rhythm with an elevated dose of flecainide, and with his persistently low platelets, I recommend discontinuation of his Eliquis at this time. If the patient transitions into permanent atrial fibrillation he may require ongoing anticoagulation therapy for his pulmonary hypertension and atrial fibrillation. I discussed this with the patient's and the patient, and they are in agreement. Given the complexity of the patient's cardiac situation I recommended he continue to follow-up with his primary fire protection designer Dr. Charles as well as Dr. Chakraborty at the [facility]. Prior to reinitiating his Eliquis however I had a long and thorough discussion with the patient and his regarding the risks associated with anticoagulation therapy, particularly with Eliquis as it does not have an antidote, reversing agent, and does not come off with dialysis should the patient have an acute bleeding episode. It is my impression that the patient's is more concerned about the patient having a stroke and she is worried about him having a bleeding episode and is strongly requested restarting some kind of anticoagulation therapy. I do not believe heparin would be an optimal choice given his low platelets, and Lovenox would not be an option given his acute on chronic renal insufficiency. 2. Discussed with Dr. Dior. Thank you very much for the opportunity to participate in the cardiac care of your patient. Patient may be discharged home. Code Visit Inpatient E&M: 59768 Subs Hosp L2
[2017-06-28] MEDS: Flecainide 100 MG Tablet PO (10:02)
--- NOTE | 2017-06-28 10:04 | PN.CARD_ITS ---
Subjectve: Patient doing well this morning. Reverted back to sinus rhythm last night with occasional episodes of paroxysmal atrial fibrillation. No complaints. Looks great this morning. Sitting up eating breakfast without difficulty. Objective: Vital Signs Temp Pulse Resp BP Pulse Ox 98.3 F 66 18 114/63 95 06/28/17 08:05 06/28/17 08:05 06/28/17 08:05 06/28/17 08:05 06/28/17 08:05 Oxygen Flow Rate 2 Oxygen Delivery Method Nasal Cannula Weight: 185 lb 13.595 oz Body Mass Index (BMI) 27.5 Intake and Output for Last 24 Hours 06/26/17 06/27/17 06/28/17 23:59 23:59 23:59 Intake Total 2883 / 2883 1920 / 1920 Output Total 900 / 900 1800 / 1800 100 / 100 Balance 1982 120 / 120 -100 / -100 General: Awake, Alert, Oriented x 3 HEENT: PERRL, EOMI, Sclera Non Icteric Neck: Supple, Good ROM, No Lymph Node Enlargement Lungs: Clear to auscultation Cardiovascular: Regular Rhythm, Normal S1, Normal S2, No Rubs, No Gallops Murmur Murmur: Grade 2/6, Holosystolic Vascular: No Carotid Bruits, Normal Femoral Pulses, Normal Radial Pulses, Normal Dorsalis Pedal Pulse, Normal Posterior Tibial Pulses Abdomen: Bowel Sounds Present, Soft, Non Tender, No HSM, No Organomegaly Extremities: No Cyanosis, No Clubbing, No edema Neurological: No Focal Motor or Sensory Deficit 06/28/17 07:55: WBC 6.8, RBC 2.55 L, Hgb 7.1 L, Hct 21.3 L, MCV 83.5, MCH 27.8, MCHC 33.3, RDW 17.3 H, RDW Differential 53.0 H, Plt Count 16 L*, Neut % (Auto) Not Reportable, Absolute Neuts (auto) 4.0, Total Counted 100, Neutrophils % ( Manual) 55, Band Neutrophils % 4, Lymphocytes % (Manual) 22, Monocytes % (Manual ) 16 H, Eosinophils % (Manual) 1, Myelocytes % 2 H Rhythm: EKG: ECHO: Stress Test: Cardiac Cath: PCI: CT Surgery: Holter monitor: EPS: PPM: CXR: Chest CT Scan: Assessment/Plan 1. Atrial fibrillation: Patient has paroxysmal atrial fibrillation and status post ablation therapy ?2 in the distant past. He was on chronic flecainide therapy at 100 mg p.o. twice daily, and for some reason this was reduced down to 75 mg twice daily per the patient's . Patient presented with acute respiratory distress requiring BiPAP therapy and ICU admission. After antibiotic therapy and medical management the patient has come off of BiPAP and is convalescing well on MedSurg 2. During his convalescence the patient pop back in atrial fibrillation with relatively controlled ventricular response in the low 100s, and his flecainide was increased back to 100 mg p.o. twice daily. Patient's is quite concerned about restarting his Eliquis as it was strongly recommended by Dr. Chakraborty to do so should he pop back in atrial fibrillation. Unfortunately the patient does not know when he goes in and out of atrial fibrillation so it is impossible to know whether he has had episodes of atrial fibrillation at home prior to his admission. In addition he has been off Eliquis for a period of months as well. In addition his platelets have acutely deteriorated over and above there are normal low levels in the mid 50s-60s, all the way down to 15,000, and now heading back up to 17,000. Today they decreased to 16,000. A review of the literature and warnings regarding Eliquis therapy show no absolute contraindications to Eliquis given thrombocytopenia, but obviously must be used with caution due to increased bleeding risk. Patient's LV function is moderately reduced, and the patient has evidence of at least moderate to moderate to severe pulmonary hypertension which in and of itself is a separate indication for anticoagulation therapy chronically. A repeat echocardiogram has been performed on 06/27/17, with results showing no significant change from his echocardiogram done at the [facility] recently and that his LV function is around 45%, PA pressures were in the mid 60s, making an estimated RVSP of around 70 mmHg given his atrial fibrillation. He also was found to have moderate aortic stenosis, which may be underestimated given his LV dysfunction and atrial fibrillation. Now that he is back in sinus rhythm with an elevated dose of flecainide, and with his persistently low platelets, I recommend discontinuation of his Eliquis at this time. If the patient transitions into permanent atrial fibrillation he may require ongoing anticoagulation therapy for his pulmonary hypertension and atrial fibrillation. I discussed this with the patient's and the patient, and they are in agreement. Given the complexity of the patient's cardiac situation I recommended he continue to follow-up with his primary internet sales manager Dr. Charles as well as Dr. Chakraborty at the [facility]. Prior to reinitiating his Eliquis however I had a long and thorough discussion with the patient and his regarding the risks associated with anticoagulation therapy, particularly with Eliquis as it does not have an antidote, reversing agent, and does not come off with dialysis should the patient have an acute bleeding episode. It is my impression that the patient's is more concerned about the patient having a stroke and she is worried about him having a bleeding episode and is strongly requested restarting some kind of anticoagulation therapy. I do not believe heparin would be an optimal choice given his low platelets, and Lovenox would not be an option given his acute on chronic renal insufficiency. 2. D[address] with [address] Dior. Thank you very much for the opportunity to participate in the cardiac care of your patient. Patient may be discharged home. Code Visit Inpatient E&M: 00942 Subs Hosp L2
[2017-06-30 09:47] LABS: Pathologist Review Reviewed
[2017-06-30 09:53] LABS: Pathologist Review Reviewed
== END 2017-06-28 11:30 | disposition home or self-care (01) | DRG 193 ==
LOC: ED 20:46 → ICU 21:45 → PCU 06-27 12:10 → MS2 06-27 12:10
PROVIDERS: Internal Medicine Critical Care Medicine; Admitting Provider Family Medicine; Emergency Provider Emergency Medicine; Visit Provider Internal Medicine
DX: J18.9 Pneumonia, unspecified organism (principal); J96.21 Acute and chronic respiratory failure with hypoxia; N17.9 Acute kidney failure, unspecified; I50.23 Acute on chronic systolic (congestive) heart failure; D61.818 Other pancytopenia; E87.5 Hyperkalemia; I48.0 Paroxysmal atrial fibrillation; N18.3 Chronic kidney disease, stage 3 (moderate); E86.0 Dehydration; D46.9 Myelodysplastic syndrome, unspecified; I13.0 Hypertensive heart and chronic kidney disease with heart failure and stage 1 through stage 4 chronic kidney disease, or unspecified chronic kidney disease; Z87.891 Personal history of nicotine dependence; Z66 Do not resuscitate; I25.10 Atherosclerotic heart disease of native coronary artery without angina pectoris; Z79.899 Other long term (current) drug therapy; Z85.46 Personal history of malignant neoplasm of prostate
CPT/HCPCS: 36415; 36430; 36600; 71045; 80048; 80053; 81001; 82803; 83605; 83735; 84100; 84484; 85025; 85610; 85730; 86850; 86900; 86920; 86922; 87040; 87070; 87086; 87088; 87205; 87449; 87633; 87641; 87804; 93005; 93306; 94002; 94640; 94667; 94668; 97110; 97116; 97162; 97165; 99285; J7030; J7040; P9040; A4216; J1940

== ENCOUNTER → 2017-06-30 09:26 | Outpatient (CLI) | payer MEDICARE, OTHER, SELFPAY ==
[2017-06-30] VITALS (7 sets, daily range): BP systolic 93–115; BP diastolic 36–59; PULSE 52–61; RESP 16–18; TEMP 36.6–36.8; O2SAT 94; BMI 27.4
== END ==
PROVIDERS: Visit Provider Internal Medicine Hematology & Oncology
DX: D46.20 Refractory anemia with excess of blasts, unspecified (principal); D61.818 Other pancytopenia; D75.81 Myelofibrosis
CPT/HCPCS: 36430; 86850; 86900; 86920; 86922; J7040; P9040; A4216

== ENCOUNTER → 2017-07-08 08:02 | Outpatient (CLI) | payer MEDICARE, OTHER, SELFPAY ==
[2017-07-08 08:45] VITALS: BP 121/54; PULSE 73; RESP 18; TEMP 36.3; O2SAT 93; BMI 26.9
[2017-07-08 09:08] VITALS: BP 99/44; PULSE 66; RESP 16; TEMP 36.9; O2SAT 98
[2017-07-08 10:08] VITALS: BP 94/42; PULSE 64; RESP 16; TEMP 37; O2SAT 98
[2017-07-08 11:02] VITALS: BP 88/43; PULSE 55; RESP 16; TEMP 36.8; O2SAT 99
[2017-07-08] MEDS: Furosemide 20 MG/2 ML VIAL IV (11:06)
[2017-07-08 11:39] VITALS: BP 90/44; PULSE 55; RESP 16; TEMP 37; O2SAT 97
[2017-07-08 12:40] VITALS: BP 98/52; PULSE 51; RESP 16; TEMP 528.6; TEMP 983.5; O2SAT 97
== END ==
PROVIDERS: Visit Provider Internal Medicine Hematology & Oncology
DX: D61.818 Other pancytopenia (principal); D46.9 Myelodysplastic syndrome, unspecified; D75.81 Myelofibrosis
CPT/HCPCS: 36430; 86850; 86900; 86920; 86922; J7040; P9040; J1940

== ENCOUNTER → 2017-07-14 08:29 | Outpatient (CLI) | payer MEDICARE, OTHER, SELFPAY ==
[2017-07-14] VITALS (7 sets, daily range): BP systolic 95–109; BP diastolic 50–71; PULSE 53–70; RESP 16–18; TEMP 36.3–37.1; O2SAT 94–98; BMI 27.4
[2017-07-14] MEDS: Furosemide 20 MG/2 ML VIAL IV (11:19)
== END ==
PROVIDERS: Visit Provider Internal Medicine Hematology & Oncology
DX: D46.9 Myelodysplastic syndrome, unspecified (principal); D75.81 Myelofibrosis
CPT/HCPCS: 36430; 86850; 86900; 86920; 86922; J7040; P9040; A4216; J1940

== ENCOUNTER → 2017-07-21 08:30 | Outpatient (CLI) | payer MEDICARE, OTHER, SELFPAY ==
[2017-07-21] VITALS (7 sets, daily range): BP systolic 94–108; BP diastolic 47–64; PULSE 53–62; RESP 18–20; TEMP 36.3–36.8; O2SAT 92–97; BMI 27.6
[2017-07-21] MEDS: Furosemide 20 MG/2 ML VIAL IV (11:27)
== END ==
PROVIDERS: Visit Provider Internal Medicine Hematology & Oncology
DX: D46.20 Refractory anemia with excess of blasts, unspecified (principal); D75.81 Myelofibrosis
CPT/HCPCS: 36430; 86850; 86900; 86920; 86922; J7040; P9040; A4216

== ENCOUNTER → 2017-07-28 08:59 | Outpatient (CLI) | payer MEDICARE, OTHER, SELFPAY ==
[2017-07-28 09:06] VITALS: BP 116/53; PULSE 68; RESP 16; TEMP 36.4; O2SAT 96; BMI 27.4
[2017-07-28 09:52] VITALS: BP 98/42; PULSE 60; RESP 16; TEMP 36.8; O2SAT 97
[2017-07-28 10:52] VITALS: BP 93/39; BP 94/50; PULSE 50; PULSE 54; RESP 16; RESP 18; TEMP 36.8; TEMP 37; O2SAT 94; O2SAT 95
[2017-07-28] MEDS: Furosemide 20 MG/2 ML VIAL IV (11:27)
[2017-07-28 12:04] VITALS: BP 94/57; PULSE 50; RESP 16; TEMP 36.7
[2017-07-28 13:05] VITALS: BP 94/55; PULSE 56; RESP 16; TEMP 36.4; O2SAT 92
== END ==
PROVIDERS: Visit Provider Internal Medicine Hematology & Oncology
DX: D46.20 Refractory anemia with excess of blasts, unspecified (principal); D61.818 Other pancytopenia; D75.81 Myelofibrosis; D46.4 Refractory anemia, unspecified
CPT/HCPCS: 36430; 86850; 86900; 86920; 86922; J7040; P9040; A4216

== ENCOUNTER → 2017-08-04 08:41 | Outpatient (CLI) | payer MEDICARE, OTHER, SELFPAY ==
[2017-08-04] VITALS (7 sets, daily range): BP systolic 97–111; BP diastolic 42–60; PULSE 54–70; RESP 16–18; TEMP 36.4–37.1; O2SAT 91–97; BMI 28.1
[2017-08-04] MEDS: Furosemide 20 MG/2 ML VIAL IV (11:02)
--- NOTE | 2017-08-04 13:50 | RAD_ITS ---
XR Chest 2 Views INDICATION: SOB/ DYSPNEACHECK UP ON FORMER PNEMONIA 3 WEEKS AGO COMPARISON: Multiple prior chest x-rays from January 08, 2015 through June 28, 2017 TECHNIQUE: 2 views of the chest FINDINGS: Extensive bilateral pleural calcifications are again noted, right worse than left. Patchy air space disease in the right upper lobe has resolved. Diffusely prominent bibasilar interstitial markings are stable compared to multiple prior studies. The heart size is mildly enlarged. The osseous structures are grossly unremarkable. RAD/Chest PA and Lateral IMPRESSION: Diffuse bilateral pleural plaque, unchanged compared to multiple prior studies. Interval resolution of right upper lobe pneumonia. at 2020 Reported and signed by: Cindy Andres MD Electronically Signed: Cindy Andres MD at 19:18 EST Tel , Service support ,
== END ==
PROVIDERS: Visit Provider Internal Medicine Hematology & Oncology
DX: J18.9 Pneumonia, unspecified organism (principal); D75.81 Myelofibrosis; D46.4 Refractory anemia, unspecified
CPT/HCPCS: 36430; 71046; 86644; 86850; 86900; 86920; 86922; J7040; P9040; A4216; J1940

== ENCOUNTER → 2017-08-11 08:34 | Outpatient (CLI) | payer MEDICARE, OTHER, SELFPAY ==
[2017-08-11 08:36] VITALS: BP 120/54; PULSE 66; RESP 18; TEMP 35.8; O2SAT 93; BMI 27.7
[2017-08-11 10:47] VITALS: BP 104/67; PULSE 60; RESP 18; TEMP 36; O2SAT 90
[2017-08-11 11:30] VITALS: BP 96/49; PULSE 54; RESP 16; TEMP 36.4
[2017-08-11] MEDS: Furosemide 20 MG/2 ML VIAL IV (11:37)
[2017-08-11 12:52] VITALS: BP 104/56; PULSE 57; RESP 18; TEMP 36.6; O2SAT 93
[2017-08-11 13:52] VITALS: BP 104/53; PULSE 59; RESP 18; TEMP 36.1; O2SAT 96
[2017-08-11 14:32] VITALS: BP 101/59; PULSE 61; RESP 18; TEMP 36.8; O2SAT 93
== END ==
PROVIDERS: Visit Provider Internal Medicine Hematology & Oncology
DX: D46.20 Refractory anemia with excess of blasts, unspecified (principal); D75.81 Myelofibrosis
CPT/HCPCS: 36430; 86850; 86900; 86920; 86922; J7050; P9040; A4216; J1940

== ENCOUNTER → 2017-08-19 08:59 | Outpatient (CLI) | payer MEDICARE, OTHER, SELFPAY ==
[2017-08-19] VITALS (8 sets, daily range): BP systolic 93–105; BP diastolic 44–59; PULSE 51–65; RESP 16–18; TEMP 36.6–37; O2SAT 91–95; BMI 28.0
[2017-08-19] MEDS: Furosemide 20 MG/2 ML VIAL IV (12:01)
== END ==
PROVIDERS: Visit Provider Internal Medicine Hematology & Oncology
DX: D46.20 Refractory anemia with excess of blasts, unspecified (principal); D46.4 Refractory anemia, unspecified; D75.81 Myelofibrosis
CPT/HCPCS: 36430; 86850; 86900; 86920; 86922; J7040; P9040; A4216; J1940

== ENCOUNTER → 2017-08-25 09:07 | Outpatient (CLI) | payer MEDICARE, OTHER, SELFPAY ==
[2017-08-25] VITALS (9 sets, daily range): BP systolic 95–125; BP diastolic 52–72; PULSE 59–74; RESP 16–20; TEMP 36.6–37.2; O2SAT 92–93; BMI 28.3
[2017-08-25] MEDS: Furosemide 20 MG/2 ML VIAL IV (12:57)
== END ==
PROVIDERS: Visit Provider Internal Medicine Hematology & Oncology
DX: D46.20 Refractory anemia with excess of blasts, unspecified (principal); D75.81 Myelofibrosis
CPT/HCPCS: 36430; 86850; 86900; 86920; 86922; 86965; J7050; P9037; P9040; A4216

== ENCOUNTER → 2017-09-01 08:37 | Outpatient (CLI) | payer MEDICARE, OTHER, SELFPAY ==
[2017-09-01] VITALS (11 sets, daily range): BP systolic 88–123; BP diastolic 31–63; PULSE 52–65; RESP 16–22; TEMP 36.4–37; O2SAT 88–97
--- NOTE | 2017-09-01 09:22 | NURSING ---
Ric PLATELET WITHOUT S/S SIDE EFFECTS. DROWSY.
[2017-09-01] MEDS: Furosemide 20 MG/2 ML VIAL IV (11:50)
== END ==
PROVIDERS: Visit Provider Internal Medicine Hematology & Oncology
DX: D61.818 Other pancytopenia (principal); D46.20 Refractory anemia with excess of blasts, unspecified; D75.81 Myelofibrosis
CPT/HCPCS: 36430; 86850; 86900; 86920; 86922; 86965; J7040; P9037; P9040; A4216; J1940

== ENCOUNTER → 2017-09-08 08:05 | Outpatient (CLI) | payer MEDICARE, OTHER, SELFPAY ==
[2017-09-08] VITALS (11 sets, daily range): BP systolic 91–115; BP diastolic 42–69; PULSE 52–65; RESP 16–18; TEMP 36.2–36.9; O2SAT 91–97; BMI 27.4
[2017-09-08] MEDS: Furosemide 40 MG/4 ML Vial IV (13:18)
== END ==
PROVIDERS: Visit Provider Internal Medicine Hematology & Oncology
DX: D46.20 Refractory anemia with excess of blasts, unspecified (principal); D61.818 Other pancytopenia; D75.81 Myelofibrosis
CPT/HCPCS: 36430; 86850; 86900; 86920; 86922; J7040; P9040; A4216; J1940

== ENCOUNTER → 2017-09-15 08:28 | Outpatient (CLI) | payer MEDICARE, OTHER, SELFPAY ==
[2017-09-15] VITALS (7 sets, daily range): BP systolic 87–113; BP diastolic 47–65; PULSE 52–61; RESP 16–18; TEMP 36.4–37.1; O2SAT 92–97; BMI 26.8
[2017-09-15] MEDS: Furosemide 20 MG/2 ML VIAL IV (11:18)
== END ==
PROVIDERS: Visit Provider Internal Medicine Hematology & Oncology
DX: D46.20 Refractory anemia with excess of blasts, unspecified (principal); D75.81 Myelofibrosis
CPT/HCPCS: 36430; 86644; 86850; 86900; 86920; 86922; J7040; P9040; A4216; J1940

== ENCOUNTER → 2017-09-22 07:59 | Outpatient (CLI) | payer MEDICARE, OTHER, SELFPAY ==
[2017-09-22] VITALS (7 sets, daily range): BP systolic 86–113; BP diastolic 43–71; PULSE 51–62; RESP 16–18; TEMP 36.5–36.8; O2SAT 92–96; BMI 26.4
[2017-09-22] MEDS: Furosemide 20 MG/2 ML VIAL IV (10:36)
== END ==
PROVIDERS: Visit Provider Internal Medicine Hematology & Oncology
DX: D64.9 Anemia, unspecified (principal); D75.81 Myelofibrosis
CPT/HCPCS: 36430; 86644; 86850; 86900; 86920; 86922; J7040; P9040; A4216

== ENCOUNTER → 2017-09-29 08:34 | Outpatient (CLI) | payer MEDICARE, OTHER, SELFPAY ==
[2017-09-29] VITALS (8 sets, daily range): BP systolic 88–118; BP diastolic 54–77; PULSE 52–67; RESP 16; TEMP 36.3–37; O2SAT 92–95; BMI 26.9
== END ==
PROVIDERS: Visit Provider Internal Medicine Hematology & Oncology
DX: D46.20 Refractory anemia with excess of blasts, unspecified (principal); D75.81 Myelofibrosis
CPT/HCPCS: 36430; 86850; 86900; 86920; 86922; 86965; J7040; P9037; P9040

== ENCOUNTER → 2017-10-02 09:04 | Outpatient (CLI) | payer MEDICARE, OTHER, SELFPAY ==
[2017-10-02 09:12] VITALS: BP 97/56; PULSE 64; RESP 16; TEMP 36.6; BMI 27.2
[2017-10-02 10:13] VITALS: BP 104/56; PULSE 61; RESP 18; TEMP 36.7; O2SAT 93
[2017-10-02 10:30] VITALS: BP 115/60; PULSE 61; RESP 18; TEMP 36.6; O2SAT 93
[2017-10-02 10:54] VITALS: BP 103/59; PULSE 59; RESP 18; TEMP 36.6; O2SAT 92
[2017-10-02 12:09] VITALS: BP 105/54; PULSE 60; RESP 16; TEMP 36.9; O2SAT 94
[2017-10-02 12:52] VITALS: BP 97/53; PULSE 61; RESP 18; TEMP 36.6; O2SAT 93
== END ==
PROVIDERS: Visit Provider Internal Medicine Hematology & Oncology
DX: D46.20 Refractory anemia with excess of blasts, unspecified (principal); D61.818 Other pancytopenia; D75.81 Myelofibrosis
CPT/HCPCS: 36430; 86850; 86900; 86920; 86922; 86965; J7040; P9037; P9040; A4216

== ENCOUNTER → 2017-10-06 09:03 | Outpatient (CLI) | payer MEDICARE, OTHER, SELFPAY ==
[2017-10-06] VITALS (7 sets, daily range): BP systolic 91–101; BP diastolic 50–55; PULSE 56–72; RESP 16–18; TEMP 36.2–36.7; O2SAT 91–95; BMI 27.2
== END ==
PROVIDERS: Visit Provider Internal Medicine Hematology & Oncology
DX: D46.20 Refractory anemia with excess of blasts, unspecified (principal); D61.818 Other pancytopenia; D75.81 Myelofibrosis
CPT/HCPCS: 36430; 86850; 86900; 86920; 86922; J7040; P9040; A4216

== ENCOUNTER 2017-10-11 11:28 | Inpatient (IN) | payer MEDICARE, OTHER, SELFPAY ==
[2017-10-11] VITALS (34 sets, daily range): BP systolic 73–141; BP diastolic 40–98; PULSE 68–118; RESP 18–32; TEMP 36.7–38.1; O2SAT 89–100; BMI 27.8; BMI 28.5; BMI 28.6
--- NOTE | 2017-10-11 12:14 | EKG12_ITS ---
Test Reason : CP Blood Pressure : / mmHG Vent. Rate : 136 BPM Atrial Rate : 075 BPM P-R Int : 000 ms QRS Dur : 162 ms QT Int : 482 ms P-R-T Axes : 035 -64 057 degrees QTc Int : 725 ms Normal sinus rhythm Left axis deviation Non-specific intra-ventricular conduction block Abnormal ECG Confirmed by ASIM SINGH, MAGDA ([id number]), publication editor DWAIN BRADFORD ([id number]) on 10/13/2017 1:28:45 PM Referred By: Shruti Barajas Confirmed By:MAGDA DAILEY MD
--- NOTE | 2017-10-11 12:15 | ED.VISSUMM ---
- ER Visit Summary Date of Service: 10/11/17 Chief Complaint: Fever History of Present Illness: The patient is a 82 M presenting with fever and chills. Patient has a history of myelodysplastic syndrome and chronic neutropenia. states yesterday he started to feel ill with generalized weakness, fatigue and decreased appetite. He had a temperature up to 101 at home. He is on Dacogen twice a week for his myelodysplastic syndrome. He denies chest pain or shortness of breath. Denies abdominal pain. Denies nausea, vomiting, diarrhea. Denies urinary complaints. Physical Examination: Blood pressure 73/54, temperature 98.2, heart rate 115, respiratory 23, pulse ox 89% on room air. Alert no acute distress. HEENT exam dry mucous membranes Neck is supple. Lungs are clear and equal bilaterally. Heart is regular and tachycardic Abdomen is soft nontender nondistended. Extremities are unremarkable. Skin is warm and dry. No focal neurologic deficit. Remainder of exam is unremarkable. Emergency Department Course and Treatment: Patient is given IV fluids. Chest x-ray shows redemonstration of extensive pleural-parenchymal opacities with calcifications along the pleural surfaces. Interval development of right upper lobe airspace opacity as well as the left lower lobe retrocardiac region airspace opacity. CBC shows white count 2.2, hemoglobin 8.2, platelets 12. Glucose 122, BUN 85, creatinine 2.73. Urinalysis unremarkable. Troponin is negative. Lactic acid 1.8. Blood cultures were sent. His blood pressure improved to 141/98 with IV fluids. Discussed with Dr. Lunsford. Patient is given meropenem and will be admitted to the hospitalist. Discussed with the hospitalist for admission. While in the emergency department patient developed a fever up to 100.4. He was given Tylenol and additional IV fluids. As his temperature went up, he began to have hallucinations. Discussed with the hospitalist and he will be admitted to ICU. Discussed CODE STATUS with his and he is DNR CCA no intubation. Disposition: Admission Impression: Neutropenic fever This note was generated with [employer] software. It may contain incorrect words, spelling, and punctuation that were not noted in review of the chart prior to signing ED Disposition - Plan for ED Patient: Chief Complaint: Fever
--- NOTE | 2017-10-11 12:18 | ED.DCSUM_ITS ---
- ER Visit Summary Date of Service: 10/11/17 Chief Complaint: Fever History of Present Illness: The patient is a 82 M presenting with fever and chills. Patient has a history of myelodysplastic syndrome and chronic neutropenia. states yesterday he started to feel ill with generalized weakness, fatigue and decreased appetite. He had a temperature up to 101 at home. He is on Dacogen twice a week for his myelodysplastic syndrome. He denies chest pain or shortness of breath. Denies abdominal pain. Denies nausea , vomiting, diarrhea. Denies urinary complaints. Physical Examination: Blood pressure 73/54, temperature 98.2, heart rate 115, respiratory 23, pulse ox 89% on room air. Alert no acute distress. HEENT exam dry mucous membranes Neck is supple. Lungs are clear and equal bilaterally. Heart is regular and tachycardic Abdomen is soft nontender nondistended. Extremities are unremarkable. Skin is warm and dry. No focal neurologic deficit. Remainder of exam is unremarkable. Emergency Department Course and Treatment: Patient is given IV fluids. Chest x- ray shows redemonstration of extensive pleural-parenchymal opacities with calcifications along the pleural surfaces. Interval development of right upper lobe airspace opacity as well as the left lower lobe retrocardiac region airspace opacity. CBC shows white count 2.2, hemoglobin 8.2, platelets 12. Glucose 122, BUN 85, creatinine 2.73. Urinalysis unremarkable. Troponin is negative. Lactic acid 1.8. Blood cultures were sent. His blood pressure improved to 141/98 with IV fluids. Discussed with Dr. Lunsford. Patient is given meropenem and will be admitted to the hospitalist. Discussed with the hospitalist for admission. While in the emergency department patient developed a fever up to 100.4. He was given Tylenol and additional IV fluids. As his temperature went up, he began to have hallucinations. Discussed with the hospitalist and he will be admitted to ICU. Discussed CODE STATUS with his and he is DNR CCA no intubation. Disposition: Admission Impression: Neutropenic fever This note was generated with [employer] software. It may contain incorrect words, spelling, and punctuation that were not noted in review of the chart prior to signing ED Disposition - Plan for ED Patient: Chief Complaint: Fever
--- NOTE | 2017-10-11 12:18 | RAD_ITS ---
STUDY: X-RAY CHEST REASON FOR EXAM: Male, 82 years old. Shortness of breath and dyspnea TECHNIQUE: Single view of the chest was obtained COMPARISON: [facility] 11/18/2017 chest radiograph FINDINGS: Cardiac size is enlarged. Bilateral pleural-parenchymal opacities noted with IV calcifications along the pleural surfaces. No pneumothorax. Cardiac size is enlarged. Subtle airspace opacities in the left lower lobe retrocardiac region as well as the right upper lobe suspected. IMPRESSION: Redemonstration of extensive pleural-parenchymal opacities with calcifications along the pleural surfaces. Interval development of right upper lobe airspace opacity as well as the left lower lobe retrocardiac region airspace opacity. Patient may benefit from a CT examination of the chest. Electronically Signed: Wong Hewitt, at 13:04 EDT Tel , Service support , RAD/Chest 1 View (Portable)
[2017-10-11 12:28] LABS: Absolute Lymphocyte Count 0.62 X10^3/ul (0.83-4.51); Absolute Neutrophil Count 1.2 X10^3/uL (2.0-7.7); Basophil# 0.02 X10^3/uL; Basophil% 0.9 % (0-1); Eosinophil# 0.02 X10^3/uL; Eosinophils% 0.9 % (0-5); Hematocrit 24.1 % (40-54); Hemoglobin 8.2 g/dl (13.0-16.5); Lymphocyte # 0.62 X10^3/ul (4.0); Lymphocyte % 28.2 % (19-41); Mean Corpuscular Hgb 28.7 pg (27.0-32.0); Mean Corpuscular Volume 84.3 fL (80-94); Monocyte# 0.35 X10^3/uL; Monocyte% 15.9 % (0-10); Neutrophil # 1.18 X10^3/uL (2.7-7.7); Neutrophil % 53.6 % (47-70); RBC Distribution Width CV 16.8 % (11.6-14.6); RBC Distribution Width SD 52.1 fl (35.1-43.9); Red Blood Count 2.86 M/mm3 (4.6-6.2); White Blood Count 2.2 K/mm3 (4.4-11.0)
[2017-10-11 12:31] LABS: Differential Indicated SCAN CRITERIA MET; POSITIVE COUNT YES; POSITIVE MORPHOLOGY YES; Platelet Count 12 K/mm3 (150-450)
[2017-10-11 12:31] LABS: Mucous, Urine 0 SEEN /hpf (<or=2+); Red Blood Cells-Urine 0 SEEN /hpf (0-5)
[2017-10-11 12:32] LABS: Color, Urine Yellow (Yellow); Glucose, Dipstick Normal (Normal); Ketone-Dipstick Negative (Negative); Leukocyte Esterase-Dipstick 25 /ul (Negative); Nitrite-Dipstick Negative (Negative); Occult Blood-Urine Negative /ul (Negative); Protein-Dipstick 15 mg/dl (Negative); Specific Gravity, Urine 1.015 (1.002-1.030); Urine Bilirubin Dipstick Negative (Negative); Urine Clarity Clear (Clear); Urine Urobilinogen 4 mg/dl (Normal)
[2017-10-11 12:34] LABS: Lactic Acid 1.8 mmol/L (0.4-2.0)
[2017-10-11 12:36] LABS: Anion Gap 9 (5-15); BUN 85 mg/dL (7-18); BUN/Creat Ratio 31.1 RATIO (10-20); Calcium,Total 8.5 mg/dL (8.5-10.1); Chloride 102 mmol/L (98-107); Creatinine, Serum 2.73 mg/dL (0.70-1.30); EST Glomerular Filtration Rate 24 mL/min (>60); Est Glom Filt Rate - Afr Amer 29 mL/min (>60); Estimated Creatinine Clearance 20.53 ml/min; Glucose 122 mg/dL (74-106); Potassium 4.7 mmol/L (3.5-5.1); Sodium Level 138 mmol/L (136-145)
[2017-10-11 12:39] LABS: Bacteria 2+ /hpf (None Seen); Squamous Epithelial Cells - UA 0-5 SEEN /hpf (0-5); White Blood Cells 0-5 SEEN /hpf (0-5)
[2017-10-11 12:39] LABS: Differential Comment SCANNED; Platelet Estimate MKD DEC (ADEQ); Platelet Morphology LARGE
--- NOTE | 2017-10-11 13:59 | PCM.HP.STD ---
<Apryl Huggins - Last Filed: 10/11/17 15:34> Problem List (1) Pancytopenia Status: Chronic (2) Myelodysplastic syndrome Status: Chronic (3) Hypertension Status: Chronic (4) CHF (congestive heart failure) Status: Chronic (5) CAD (coronary artery disease) Status: Chronic (6) Acute and chronic respiratory failure with hypoxia Status: Chronic (7) PAF (paroxysmal atrial fibrillation) Status: Chronic (8) Chronic renal failure, stage 3 (moderate) Status: Chronic (9) Bacteremia, escherichia coli Status: Resolved (10) Sepsis due to Escherichia coli (E. coli) Status: Resolved (11) GERD (gastroesophageal reflux disease) Status: Chronic History of Present Illness Date of Admission: 10/11/17 Chief Complaint: Fever, weakness, generalized malaise The patient is a 82 year old M who presents to the emergency room with fever, chills, weakness, poor appetite since yesterday morning. Patient is lethargic on assessment and unable to verbally respond. at bedside provides HPI. states patient was diagnosed with myelodysplastic syndrome approximately 5 years ago, he follows with Dr. Barajas. states she has noticed patient becoming more weak over the past few months. Yesterday morning patient did not feel well and was noted to have fever, chills. She reports his temperature was 101 Fahrenheit at home. She states patient has not had a cough, diarrhea, nausea, vomiting. He has not been exposed to sick persons. states she thinks patient is moving towards end-of-life but is not interested in palliative/hospice consult at this time. She confirms she is patient's POA and patient code status is DNR CCA, no intubation. Patient was recently evaluated by collar pointer at [facility] in [place] with stage IV chronic kidney disease. He is not interested in dialysis if this were to become necessary. Patient's other past medical history includes MDS, chronic pancytopenia, chronic diastolic CHF, CAD, paroxysmal atrial fibrillation, hypertension, GERD, chronic kidney disease stage IV. Past Medical History Past Medical History (Chronic Problems): Chronic Problems (Last Reviewed 08/13/17 @ 15:02 by Michaela Saldaña NP-C) GERD (gastroesophageal reflux disease) (Chronic) Pancytopenia (Chronic) Myelodysplastic syndrome (Chronic) Hypertension (Chronic) CHF (congestive heart failure) (Chronic) CAD (coronary artery disease) (Chronic) Acute and chronic respiratory failure with hypoxia (Chronic) PAF (paroxysmal atrial fibrillation) (Chronic) Chronic renal failure, stage 3 (moderate) (Chronic) Allergies adhesive Allergy (Mild, Verified 10/11/17 11:28) Rash Home Medications: Ambulatory Orders Medication Instructions Recorded Carvedilol [Coreg (Beta Denny)] 12.5 mg PO DINNER 05/16/15 Ergocalciferol [Vitamin D] 50,000 unit PO TU 05/16/15 Flecainide [Tambocor] 100 mg PO BID 05/16/15 Furosemide [Lasix] 60 mg PO DAILY 05/16/15 Deferasirox [Jadenu] 360 mg PO DAILY 12/12/15 Ascorbic Acid [Vitamin C] 250 mg PO DAILY 07/16/16 Chlorhexidine 15 ml PO BID PRN 07/16/16 Carvedilol [Coreg] 6.25 mg PO BREAKFAST 09/25/16 Famotidine [Pepcid] 20 mg PO DAILY 06/25/17 danazol 200 mg capsule 200 mg PO BID cap 07/13/17 eltrombopag 75 mg tablet 200 mg PO DAILY tab 07/13/17 Decitabine 50 mg SC QWEEK 10/11/17 Folic Acid 1 mg PO DAILY@0800 10/11/17 Surgical History: - - Cardiac ablation x 2. Psychiatric History: No pertinent psych hx Lives: Spouse/ Significant Other Smoking Status: Former smoker Tobacco Use: Non-smoker Alcohol: Occasional Drugs: None - *Family History Maternal History Items: No pertinent history Paternal History Items: No pertinent history Review of Systems Constitutional: Reports: Chills, Fever, Malaise, Weakness, Fatigue, - - Poor appetite HEENT: Denies: Head Aches, Sinus Congestion, Sinus Drainage Cardiovascular: Reports: Edema - Lower extremities. Denies: Chest Pain, Palpitations, Syncope Respiratory: Denies: Cough, Shortness of breath at rest, Sputum production Gastrointestinal: Denies: Abdominal Pain, Diarrhea, Nausea, Vomiting Genitourinary: Denies: Dysuria Musculoskeletal: Denies: Joint Pain, Joint Tenderness Skin: Denies: Rash, Wounds Neurological: Denies: Numbness, Tingling, Focal weakness Psychiatric: Denies: Anxiety, Depression, Homicidal Ideations, Suicidal Ideations Hematologic/ Lymphatic: Reports: Easy Bruising, Petechiae, Hx of blood transfusion - Weekly VTE Information - Inpt Only VTE Present on Admission: No VTE Mechan Device Prophylaxis: SCD's VTE Pharm Prophylaxis ordered?: No Reason prophylaxis not ordered:: Medical Contraindication - Physical Exam General: Lethargic Oral: Dry Mucosa Neck: Supple, No JVD, Negative Carotid Bruits Lungs: Clear to auscultation, Diminished Cardiovascular: Normal S1, Normal S2, Murmur, Tachycardic Abdomen: Bowel Sounds Present, Soft, Non Tender, Non-Distended Extremities: No clubbing, No cyanosis, Edema - +2-3 BLLE Skin: No rashes, No breakdown, - - Petechial rash scattered throughout. Musculoskeletal: No Tenderness to Palpation of Joints or Extremities Neurological: Cranial nerves II-XII grossly intact Psych/Mental Status: - - Unable to assess due to lethargy. Vital Signs Temp Pulse Resp BP Pulse Ox 98.2 F 85 30 H 141/98 H 96 10/11/17 13:31 10/11/17 13:31 10/11/17 13:31 10/11/17 13:00 10/11/17 13:31 Oxygen Flow Rate (L/min) 2 Oxygen Delivery Method Nasal Cannula Weight: 83.007 kg Body Mass Index (BMI) 27.8 Laboratory Tests Past 24 Hrs 10/11/17 10/11/17 10/11/17 11:54 11:54 11:54 WBC 2.2 L RBC 2.86 L Hgb 8.2 L Hct 24.1 L MCV 84.3 MCH 28.7 MCHC 34.0 RDW 16.8 H RDW Differential 52.1 H Plt Count 12 L* Immature Gran % (Auto) 0.500 Neut % (Auto) 53.6 Lymph % (Auto) 28.2 [place] % (Auto) 15.9 H Eos % (Auto) 0.9 Baso % (Auto) 0.9 Absolute Neuts (auto) 1.2 L Absolute Lymphs (auto) 0.62 L Total Counted Not Reportable Differential Comment SCANNED Platelet Estimate MKD DEC Plt Morphology Comment LARGE Sodium 138 Potassium 4.7 Chloride 102 Carbon Dioxide 27.0 Anion Gap 9 BUN 85 H Creatinine 2.73 H Estim Creat Clear Calc 20.53 Est GFR (MDRD) Af Amer 29 L Est GFR (MDRD) Non-Af 24 L BUN/Creatinine Ratio 31.1 H Glucose 122 H Lactic Acid 1.8 Calcium 8.5 Troponin I < 0.015 Urine Color Urine Clarity Urine pH Ur Specific Adams Urine Protein Urine Glucose (UA) Urine Ketones Urine Occult Blood Urine Nitrite Urine Bilirubin Urine Urobilinogen Ur Leukocyte Esterase Urine RBC Urine WBC Ur Squamous Epith Cells Urine Bacteria Urine Mucus 10/11/17 12:10 WBC RBC Hgb Hct MCV MCH MCHC RDW RDW Differential Plt Count Immature Gran % (Auto) Neut % (Auto) Lymph % (Auto) [place] % (Auto) Eos % (Auto) Baso % (Auto) Absolute Neuts (auto) Absolute Lymphs (auto) Total Counted Differential Comment Platelet Estimate Plt Morphology Comment Sodium Potassium Chloride Carbon Dioxide Anion Gap BUN Creatinine Estim Creat Clear Calc Est GFR (MDRD) Af Amer Est GFR (MDRD) Non-Af BUN/Creatinine Ratio Glucose Lactic Acid Calcium Troponin I Urine Color Yellow Urine Clarity Clear Urine pH 6.0 Ur Specific Adams 1.015 Urine Protein 15 H Urine Glucose (UA) Normal Urine Ketones Negative Urine Occult Blood Negative Urine Nitrite Negative Urine Bilirubin Negative Urine Urobilinogen 4 H Ur Leukocyte Esterase 25 H Urine RBC 0 SEEN Urine WBC 0-5 SEEN Ur Squamous Epith Cells 0-5 SEEN Urine Bacteria 2+ Urine Mucus 0 SEEN Assessment/Plan 1. Neutropenic fever with underlying MDS with chronic pancytopenia, acute hypoxia-temperature reported to be 101 at home. T-max 100.4 since admission. Urinalysis unremarkable. Lactic acid 1.8. Blood cultures sent in ER, pending. Patient follows with Dr. Barajas, Dr. Lunsford, Oncology was called by ER physician. Chest x-ray shows extensive pleural parenchymal opacities with calcifications along the pleural surfaces. Interval development of right upper lobe airspace opacity as well as left lower lobe retrocardiac regional airspace opacity. Will obtain CT of chest to rule out PNA although CXR findings appear chronic in nature. Patient is currently following with pulmonary medicine (Dr. Caldwell) and is noted to have previous chest x-ray which showed chronic, stable pleural plaques. He was to undergo pulmonary function testing this month. Patient started on IV meropenem empirically, continue. Tylenol as needed for fever. Zofran as needed for nausea. Continue supplemental oxygen to maintain O2 at or above 90%. Monitor CBC. Hemoglobin 8.2. Platelets 12. Check MRSA PCR. Obtain respiratory panel. Consult ID. Hold home jadenu, promacta, danazol, decitabine pending oncology re-evaluation. 2. Hypotension-suspect secondary to volume depletion. Improved with IV fluids. Continue to monitor. Hold home Lasix regimen. 3. HARI on Chronic kidney disease stage IV-creatinine remission 2.73. Baseline creat appears to be 1.8. Suspect secondary to dehydration as a result of poor oral intake. Hold home Lasix regimen. Continue IV fluids. Monitor BMP. If no improvement with IV fluids, obtain FENa and renal ultrasound. 4. CAD-continue home beta-denny regimen. Not on aspirin due to thrombocytopenia. Continue home carvedilol regimen. Hold Lasix regimen given HARI. 5. Paroxysmal atrial fibrillation-status post ablation ?2. Continue home Coreg, flecainide regimen. Patient previously on Eliquis which has been discontinued by cardiology. Patient follows with Dr. Solis, CCLeyla. 6. Chronic CHF-echocardiogram 06/27/2017 showed EF 45%, moderate aortic stenosis. 7. GERD-continue home famotidine regimen. DVT prophylaxis-SCDs. Pharmacologic prophylaxis contraindicated secondary to MDS/pancytopenia. CODE STATUS: DNR CCA without intubation. This patient was seen by ANNE Galloway under the supervision of Dr. Emerson. <Neo Emerson - Last Filed: 10/11/17 16:19> History of Present Illness Seen and examined. History taken for the patient and patient's . patient has history of MDS for about 5 years and is being managed by Dr. Arciniega and [facility] oncologist/Braze Operator. he was not candidate for bone marrow transplant candidate because of his advanced age and comorbidities. He had multiple blood transfusion and he developed iron overload disease including nonischemic cardiomyopathy; chronic heart failure. 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 Caldwell. Patient has fever with chills for last 2-3 days and temperature at home and in ER was also 101?F. Patient also drop blood pressure and blood pressure responded well to initial IV fluid bolus. Patient was found to have neutropenic fever. Chest x-ray shows a right upper lobe and left retrocardiac infiltrate but it seems chronic Patient is DNR CC arrest with no intubation [] Past Medical History Allergies adhesive Allergy (Mild, Verified 10/11/17 11:28) Rash - Physical Exam General: Confused, Disoriented, Lethargic Oral: Dry Mucosa, - - No oropharyngeal exudate or plaques Lungs: Clear to auscultation, No rhonchi, No wheeze, Diminished Cardiovascular: Normal S1, Normal S2, Murmur, Tachycardic Abdomen: Bowel Sounds Present, Soft, Non Tender, Non-Distended, - - There is mild ascites Extremities: No clubbing, No cyanosis, Edema Skin: - Vital Signs Temp Pulse Resp BP Pulse Ox 100.4 F H 82 32 H 141/98 H 93 10/11/17 14:10 10/11/17 14:10 10/11/17 14:10 10/11/17 13:00 10/11/17 14:10 Oxygen Flow Rate (L/min) 2 Oxygen Delivery Method Nasal Cannula Assessment/Plan This patient was seen in conjunction with CANAL STRUCTURE OPERATOR, Apryl. I have independently interviewed and examined the patient and reviewed pertinent history, examination findings, laboratory and plan of management. I have reviewed the note and agree with the documented findings with the few additional points. In brief, patient is admitted for neutropenic fever secondary to MDS ON Low dose Decitabine with suspicion of multifocal healthcare acid pneumonia although chest x-ray findings seems chronic. Pancytopenia with WBC count 2.2 thousand with ANC 1200, lymphocyte 620, hemoglobin 8.2 and platelet count 12,000. Dr. Lunsford is aware. Started on IV vancomycin and meropenem. Pancultures. Lactic acid is normal. UA shows mild leukocyte esterase but negative nitrite and pyuria. patient has history of MDS for about 5 years and is being managed by Dr. Arciniega and [facility] oncologist/Braze Operator. he was not candidate for bone marrow transplant candidate because of his advanced age and comorbidities. He had multiple blood transfusion and he developed iron overload disease including nonischemic cardiomyopathy; chronic heart failure. 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 Caldwell. Patient has fever with chills for last 2-3 days and temperature at home and in ER was also 101?F. Patient also drop blood pressure and blood pressure responded well to initial IV fluid bolus. Patient was found to have neutropenic fever. Chest x-ray shows a right upper lobe and left retrocardiac infiltrate but it seems chronic Laboratory Results 10/11/17 11:54: WBC 2.2 L, RBC 2.86 L, Hgb 8.2 L, Hct 24.1 L, MCV 84.3, MCH 28.7, MCHC 34.0, RDW 16.8 H, RDW Differential 52.1 H, Plt Count 12 L*, Immature Gran % (Auto) 0.500, Neut % (Auto) 53.6, Lymph % (Auto) 28.2, [place] % (Auto) 15.9 H, Eos % (Auto) 0.9, Baso % (Auto) 0.9, Absolute Neuts (auto) 1.2 L, Absolute Lymphs (auto) 0.62 L, Total Counted Not Reportable, Differential Comment SCANNED, Platelet Estimate MKD DEC, Plt Morphology Comment LARGE 10/11/17 11:54: Sodium 138, Potassium 4.7, Chloride 102, Carbon Dioxide 27.0, Anion Gap 9, BUN 85 H, Creatinine 2.73 H, Estim Creat Clear Calc 20.53, Est GFR (MDRD) Af Amer 29 L, Est GFR (MDRD) Non-Af 24 L, BUN/Creatinine Ratio 31.1 H, Glucose 122 H, Calcium 8.5, Troponin I < 0.015 10/11/17 11:54: Lactic Acid 1.8 10/11/17 11:54: Magnesium 2.0 10/11/17 12:10: Urine Color Yellow, Urine Clarity Clear, Urine pH 6.0, Ur Specific Adams 1.015, Urine Protein 15 H, Urine Glucose (UA) Normal, Urine Ketones Negative, Urine Occult Blood Negative, Urine Nitrite Negative, Urine Bilirubin Negative, Urine Urobilinogen 4 H, Ur Leukocyte Esterase 25 H, Urine RBC 0 SEEN, Urine WBC 0-5 SEEN, Ur Squamous Epith Cells 0-5 SEEN, Urine Bacteria 2+, Urine Mucus 0 SEEN I have discussed my assessment with CANAL STRUCTURE OPERATORApryl and orders have been reviewed. Advance CARE planning: Discussed with the patient's Ms. Thelma Kendall in the ER. Patient is well aware of the patient's disease and understands the long-standing nature of myelodysplastic syndrome and prognosis. Patient has living will. She understand the meaning of DO NOT RESUSCITATE comfort care with no intubation. Patient is being admitted in ICU for intensive conservative management with IV fluid, monitoring of fluid status and hemodynamic monitoring. 80 minutes time spent in [id number] discussion with end-of-life care with patient's who is the power of health information assistant for health Code Visit Inpatient E&M: 99084 Init Hosp L3 Procedures: [id number] Advncd Care Plan 30 Min
--- NOTE | 2017-10-11 14:22 | HP.PCM_ITS ---
<Apryl Huggins - Last Filed: 10/11/17 15:34> Problem List (1) Pancytopenia Status: Chronic (2) Myelodysplastic syndrome Status: Chronic (3) Hypertension Status: Chronic (4) CHF (congestive heart failure) Status: Chronic (5) CAD (coronary artery disease) Status: Chronic (6) Acute and chronic respiratory failure with hypoxia Status: Chronic (7) PAF (paroxysmal atrial fibrillation) Status: Chronic (8) Chronic renal failure, stage 3 (moderate) Status: Chronic (9) Bacteremia, escherichia coli Status: Resolved (10) Sepsis due to Escherichia coli (E. coli) Status: Resolved (11) GERD (gastroesophageal reflux disease) Status: Chronic History of Present Illness Date of Admission: 10/11/17 Chief Complaint: Fever, weakness, generalized malaise The patient is a 82 year old M who presents to the emergency room with fever, chills, weakness, poor appetite since yesterday morning. Patient is lethargic on assessment and unable to verbally respond. at bedside provides HPI. states patient was diagnosed with myelodysplastic syndrome approximately 5 years ago, he follows with Dr. Barajas. states she has noticed patient becoming more weak over the past few months. Yesterday morning patient did not feel well and was noted to have fever, chills. She reports his temperature was 101 Fahrenheit at home. She states patient has not had a cough, diarrhea, nausea, vomiting. He has not been exposed to sick persons. states she thinks patient is moving towards end-of-life but is not interested in palliative/hospice consult at this time. She confirms she is patient's POA and patient code status is DNR CCA, no intubation. Patient was recently evaluated by client solutions director at [facility] in [place] with stage IV chronic kidney disease. He is not interested in dialysis if this were to become necessary. Patient's other past medical history includes MDS, chronic pancytopenia, chronic diastolic CHF, CAD, paroxysmal atrial fibrillation, hypertension, GERD, chronic kidney disease stage IV. Past Medical History Past Medical History (Chronic Problems): Chronic Problems (Last Reviewed 08/13/17 @ 15:02 by Michaela Saldaña NP-C) GERD (gastroesophageal reflux disease) (Chronic) Pancytopenia (Chronic) Myelodysplastic syndrome (Chronic) Hypertension (Chronic) CHF (congestive heart failure) (Chronic) CAD (coronary artery disease) (Chronic) Acute and chronic respiratory failure with hypoxia (Chronic) PAF (paroxysmal atrial fibrillation) (Chronic) Chronic renal failure, stage 3 (moderate) (Chronic) Allergies adhesive Allergy (Mild, Verified 10/11/17 11:28) Rash Home Medications: Ambulatory Orders Medication Instructions Recorded Carvedilol [Coreg (Beta Denny)] 12.5 mg PO DINNER 05/16/15 Ergocalciferol [Vitamin D] 50,000 unit PO TU 05/16/15 Flecainide [Tambocor] 100 mg PO BID 05/16/15 Furosemide [Lasix] 60 mg PO DAILY 05/16/15 Deferasirox [Jadenu] 360 mg PO DAILY 12/12/15 Ascorbic Acid [Vitamin C] 250 mg PO DAILY 07/16/16 Chlorhexidine 15 ml PO BID PRN 07/16/16 Carvedilol [Coreg] 6.25 mg PO BREAKFAST 09/25/16 Famotidine [Pepcid] 20 mg PO DAILY 06/25/17 danazol 200 mg capsule 200 mg PO BID cap 07/13/17 eltrombopag 75 mg tablet 200 mg PO DAILY tab 07/13/17 Decitabine 50 mg SC QWEEK 10/11/17 Folic Acid 1 mg PO DAILY@0800 10/11/17 Surgical History: - - Cardiac ablation x 2. Psychiatric History: No pertinent psych hx Lives: Spouse/ Significant Other Smoking Status: Former smoker Tobacco Use: Non-smoker Alcohol: Occasional Drugs: None - *Family History Maternal History Items: No pertinent history Paternal History Items: No pertinent history Review of Systems Constitutional: Reports: Chills, Fever, Malaise, Weakness, Fatigue, - - Poor appetite HEENT: Denies: Head Aches, Sinus Congestion, Sinus Drainage Cardiovascular: Reports: Edema - Lower extremities. Denies: Chest Pain, Palpitations, Syncope Respiratory: Denies: Cough, Shortness of breath at rest, Sputum production Gastrointestinal: Denies: Abdominal Pain, Diarrhea, Nausea, Vomiting Genitourinary: Denies: Dysuria Musculoskeletal: Denies: Joint Pain, Joint Tenderness Skin: Denies: Rash, Wounds Neurological: Denies: Numbness, Tingling, Focal weakness Psychiatric: Denies: Anxiety, Depression, Homicidal Ideations, Suicidal Ideations Hematologic/ Lymphatic: Reports: Easy Bruising, Petechiae, Hx of blood transfusion - Weekly VTE Information - Inpt Only VTE Present on Admission: No VTE Mechan Device Prophylaxis: SCD's VTE Pharm Prophylaxis ordered?: No Reason prophylaxis not ordered:: Medical Contraindication - Physical Exam General: Lethargic Oral: Dry Mucosa Neck: Supple, No JVD, Negative Carotid Bruits Lungs: Clear to auscultation, Diminished Cardiovascular: Normal S1, Normal S2, Murmur, Tachycardic Abdomen: Bowel Sounds Present, Soft, Non Tender, Non-Distended Extremities: No clubbing, No cyanosis, Edema - +2-3 BLLE Skin: No rashes, No breakdown, - - Petechial rash scattered throughout. Musculoskeletal: No Tenderness to Palpation of Joints or Extremities Neurological: Cranial nerves II-XII grossly intact Psych/Mental Status: - - Unable to assess due to lethargy. Vital Signs Temp Pulse Resp BP Pulse Ox 98.2 F 85 30 H 141/98 H 96 10/11/17 13:31 10/11/17 13:31 10/11/17 13:31 10/11/17 13:00 10/11/17 13:31 Oxygen Flow Rate (L/min) 2 Oxygen Delivery Method Nasal Cannula Weight: 83.007 kg Body Mass Index (BMI) 27.8 Laboratory Tests Past 24 Hrs 10/11/17 10/11/17 10/11/17 11:54 11:54 11:54 WBC 2.2 L RBC 2.86 L Hgb 8.2 L Hct 24.1 L MCV 84.3 MCH 28.7 MCHC 34.0 RDW 16.8 H RDW Differential 52.1 H Plt Count 12 L* Immature Gran % (Auto) 0.500 Neut % (Auto) 53.6 Lymph % (Auto) 28.2 Stanton % (Auto) 15.9 H Eos % (Auto) 0.9 Baso % (Auto) 0.9 Absolute Neuts (auto) 1.2 L Absolute Lymphs (auto) 0.62 L Total Counted Not Reportable Differential Comment SCANNED Platelet Estimate MKD DEC Plt Morphology Comment LARGE Sodium 138 Potassium 4.7 Chloride 102 Carbon Dioxide 27.0 Anion Gap 9 BUN 85 H Creatinine 2.73 H Estim Creat Clear Calc 20.53 Est GFR (MDRD) Af Amer 29 L Est GFR (MDRD) Non-Af 24 L BUN/Creatinine Ratio 31.1 H Glucose 122 H Lactic Acid 1.8 Calcium 8.5 Troponin I < 0.015 Urine Color Urine Clarity Urine pH Ur Specific [place] Urine Protein Urine Glucose (UA) Urine Ketones Urine Occult Blood Urine Nitrite Urine Bilirubin Urine Urobilinogen Ur Leukocyte Esterase Urine RBC Urine WBC Ur Squamous Epith Cells Urine Bacteria Urine Mucus 10/11/17 12:10 WBC RBC Hgb Hct MCV MCH MCHC RDW RDW Differential Plt Count Immature Gran % (Auto) Neut % (Auto) Lymph % (Auto) Stanton % (Auto) Eos % (Auto) Baso % (Auto) Absolute Neuts (auto) Absolute Lymphs (auto) Total Counted Differential Comment Platelet Estimate Plt Morphology Comment Sodium Potassium Chloride Carbon Dioxide Anion Gap BUN Creatinine Estim Creat Clear Calc Est GFR (MDRD) Af Amer Est GFR (MDRD) Non-Af BUN/Creatinine Ratio Glucose Lactic Acid Calcium Troponin I Urine Color Yellow Urine Clarity Clear Urine pH 6.0 Ur Specific [place] 1.015 Urine Protein 15 H Urine Glucose (UA) Normal Urine Ketones Negative Urine Occult Blood Negative Urine Nitrite Negative Urine Bilirubin Negative Urine Urobilinogen 4 H Ur Leukocyte Esterase 25 H Urine RBC 0 SEEN Urine WBC 0-5 SEEN Ur Squamous Epith Cells 0-5 SEEN Urine Bacteria 2+ Urine Mucus 0 SEEN Assessment/Plan 1. Neutropenic fever with underlying MDS with chronic pancytopenia, acute hypoxia-temperature reported to be 101 at home. T-max 100.4 since admission. Urinalysis unremarkable. Lactic acid 1.8. Blood cultures sent in ER, pending. Patient follows with Dr. Barajas, Dr. Lunsford, Oncology was called by ER physician. Chest x-ray shows extensive pleural parenchymal opacities with calcifications along the pleural surfaces. Interval development of right upper lobe airspace opacity as well as left lower lobe retrocardiac regional airspace opacity. Will obtain CT of chest to rule out PNA although CXR findings appear chronic in nature. Patient is currently following with pulmonary medicine (Dr. Caldwell) and is noted to have previous chest x-ray which showed chronic, stable pleural plaques. He was to undergo pulmonary function testing this month. Patient started on IV meropenem empirically, continue. Tylenol as needed for fever. Zofran as needed for nausea. Continue supplemental oxygen to maintain O2 at or above 90%. Monitor CBC. Hemoglobin 8.2. Platelets 12. Check MRSA PCR. Obtain respiratory panel. Consult ID. Hold home jadenu, promacta, danazol, decitabine pending oncology re-evaluation. 2. Hypotension-suspect secondary to volume depletion. Improved with IV fluids. Continue to monitor. Hold home Lasix regimen. 3. HARI on Chronic kidney disease stage IV-creatinine remission 2.73. Baseline creat appears to be 1.8. Suspect secondary to dehydration as a result of poor oral intake. Hold home Lasix regimen. Continue IV fluids. Monitor BMP. If no improvement with IV fluids, obtain FENa and renal ultrasound. 4. CAD-continue home beta-denny regimen. Not on aspirin due to thrombocytopenia. Continue home carvedilol regimen. Hold Lasix regimen given HARI. 5. Paroxysmal atrial fibrillation-status post ablation ?2. Continue home Coreg , flecainide regimen. Patient previously on Eliquis which has been discontinued by cardiology. Patient follows with Dr. Solis, CCLeyla. 6. Chronic CHF-echocardiogram 06/27/2017 showed EF 45%, moderate aortic stenosis. 7. GERD-continue home famotidine regimen. DVT prophylaxis-SCDs. Pharmacologic prophylaxis contraindicated secondary to MDS/pancytopenia. CODE STATUS: DNR CCA without intubation. This patient was seen by ANNE Galloway under the supervision of Dr. Emerson. <Neo Emerson - Last Filed: 10/11/17 16:19> History of Present Illness Seen and examined. History taken for the patient and patient's . patient has history of MDS for about 5 years and is being managed by Dr. Arciniega and [facility] oncologist/Metal Lather. he was not candidate for bone marrow transplant candidate because of his advanced age and comorbidities. He had multiple blood transfusion and he developed iron overload disease including nonischemic cardiomyopathy; chronic heart failure. 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 Caldwell. Patient has fever with chills for last 2-3 days and temperature at home and in ER was also 101?F. Patient also drop blood pressure and blood pressure responded well to initial IV fluid bolus. Patient was found to have neutropenic fever. Chest x-ray shows a right upper lobe and left retrocardiac infiltrate but it seems chronic Patient is DNR CC arrest with no intubation [] Past Medical History Allergies adhesive Allergy (Mild, Verified 10/11/17 11:28) Rash - Physical Exam General: Confused, Disoriented, Lethargic Oral: Dry Mucosa, - - No oropharyngeal exudate or plaques Lungs: Clear to auscultation, No rhonchi, No wheeze, Diminished Cardiovascular: Normal S1, Normal S2, Murmur, Tachycardic Abdomen: Bowel Sounds Present, Soft, Non Tender, Non-Distended, - - There is mild ascites Extremities: No clubbing, No cyanosis, Edema Skin: - Vital Signs Temp Pulse Resp BP Pulse Ox 100.4 F H 82 32 H 141/98 H 93 10/11/17 14:10 10/11/17 14:10 10/11/17 14:10 10/11/17 13:00 10/11/17 14:10 Oxygen Flow Rate (L/min) 2 Oxygen Delivery Method Nasal Cannula Assessment/Plan This patient was seen in conjunction with HEALTH TYPE TECHNICIAN, Apryl. I have independently interviewed and examined the patient and reviewed pertinent history, examination findings, laboratory and plan of management. I have reviewed the note and agree with the documented findings with the few additional points. In brief, patient is admitted for neutropenic fever secondary to MDS ON Low dose Decitabine with suspicion of multifocal healthcare acid pneumonia although chest x-ray findings seems chronic. Pancytopenia with WBC count 2.2 thousand with ANC 1200, lymphocyte 620, hemoglobin 8.2 and platelet count 12,000. Dr. Lunsford is aware. Started on IV vancomycin and meropenem. Pancultures. Lactic acid is normal. UA shows mild leukocyte esterase but negative nitrite and pyuria. patient has history of MDS for about 5 years and is being managed by Dr. Arciniega and [facility] oncologist/Metal Lather. he was not candidate for bone marrow transplant candidate because of his advanced age and comorbidities. He had multiple blood transfusion and he developed iron overload disease including nonischemic cardiomyopathy; chronic heart failure. 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 Caldwell. Patient has fever with chills for last 2-3 days and temperature at home and in ER was also 101?F. Patient also drop blood pressure and blood pressure responded well to initial IV fluid bolus. Patient was found to have neutropenic fever. Chest x-ray shows a right upper lobe and left retrocardiac infiltrate but it seems chronic Laboratory Results 10/11/17 11:54: WBC 2.2 L, RBC 2.86 L, Hgb 8.2 L, Hct 24.1 L, MCV 84.3, MCH 28.7 , MCHC 34.0, RDW 16.8 H, RDW Differential 52.1 H, Plt Count 12 L*, Immature Gran % (Auto) 0.500, Neut % (Auto) 53.6, Lymph % (Auto) 28.2, Stanton % (Auto) 15.9 H, Eos % (Auto) 0.9, Baso % (Auto) 0.9, Absolute Neuts (auto) 1.2 L, Absolute Lymphs (auto) 0.62 L, Total Counted Not Reportable, Differential Comment SCANNED, Platelet Estimate MKD DEC, Plt Morphology Comment LARGE 10/11/17 11:54: Sodium 138, Potassium 4.7, Chloride 102, Carbon Dioxide 27.0, Anion Gap 9, BUN 85 H, Creatinine 2.73 H, Estim Creat Clear Calc 20.53, Est GFR (MDRD) Af Amer 29 L, Est GFR (MDRD) Non-Af 24 L, BUN/Creatinine Ratio 31.1 H, Glucose 122 H, Calcium 8.5, Troponin I < 0.015 10/11/17 11:54: Lactic Acid 1.8 10/11/17 11:54: Magnesium 2.0 10/11/17 12:10: Urine Color Yellow, Urine Clarity Clear, Urine pH 6.0, Ur Specific [place] 1.015, Urine Protein 15 H, Urine Glucose (UA) Normal, Urine Ketones Negative, Urine Occult Blood Negative, Urine Nitrite Negative, Urine Bilirubin Negative, Urine Urobilinogen 4 H, Ur Leukocyte Esterase 25 H, Urine RBC 0 SEEN, Urine WBC 0-5 SEEN, Ur Squamous Epith Cells 0-5 SEEN, Urine Bacteria 2+, Urine Mucus 0 SEEN I have discussed my assessment with HEALTH TYPE TECHNICIANApryl and orders have been reviewed. Advance CARE planning: Discussed with the patient's Ms. Thelma Kendall in the ER. Patient is well aware of the patient's disease and understands the long -standing nature of myelodysplastic syndrome and prognosis. Patient has living will. She understand the meaning of DO NOT RESUSCITATE comfort care with no intubation. Patient is being admitted in ICU for intensive conservative management with IV fluid, monitoring of fluid status and hemodynamic monitoring. 80 minutes time spent in [id number] discussion with end-of-life care with patient's who is the power of bar tacker for health Code Visit Inpatient E&M: 14266 Init Hosp L3 Procedures: 28735 Advncd Care Plan 30 Min
[2017-10-11] MEDS: Acetaminophen 500 MG Tablet 1000 MG PO (14:28)
--- NOTE | 2017-10-11 15:31 | CT_ITS ---
STUDY: CT CHEST WITHOUT CONTRAST REASON FOR EXAM: Male, 82 years old. Abnormal chest x-ray RADIATION DOSAGE (If Supplied By Facility): CTDIvol = ( 19.02 ) mGy, DLP = ( 674.75 ) mGycm TECHNIQUE: Transaxial imaging was performed without the administration of intravenous contrast material. Individualized dose optimization techniques were used for this CT. COMPARISON: October 11, 2017 chest radiograph FINDINGS: Cardiomegaly noted. Coronary vascular calcifications. No definite pericardial effusion. Central airways patent. Slightly prominent mediastinal lymph nodes Extensive pleural-based calcification noncalcified plaques noted. Differential considerations include prior asbestos exposure involving the knee diaphragmatic as well as the costal pleura. Pleural-based soft tissue density along the posteromedial aspect of the right lower lobe noted measuring approximately 4 cm possibly relate with a large plaque however this needs short-term follow-up imaging Subtle intralobular septal thickening also seen bilaterally. Differential considerations include mild pulmonary edema. Extensive pleural thickening along the pulmonary fissures also seen. Degenerative changes of the thoracic spine with heterogeneous lytic lesions within the thoracic spine as well as the sternum. Differential considerations include renal osteodystrophy multiple myeloma or metastases. Heterogeneous density of the bilateral thoracic ribs also seen. 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 Pleural-based soft tissue density measuring approximately 4 cm along the posterior medial segment of the right lower lobe possibly pleural-based plaque however this needs follow-up CT imaging in 4-6 months. Heterogeneous density of the thoracic spine with multiple lytic lesions as well as in the sternum. Differential considerations include multiple myeloma, renal osteodystrophy or metastatic disease. Electronically Signed: Wong Hewitt, at 16:32 EDT Tel , Service support ,
[2017-10-11] MEDS: 0.9% Normal Saline 1,000 ML 999 ML IV (15:38)
[2017-10-11 16:46] LABS: AST(SGOT) 19 U/L (15-37); Alanine Aminotransfer ALT/SGPT 34 U/L (16-61); Albumin, Serum 2.8 g/dL (3.2-5.0); Alkaline Phosphatase 58 U/L (45-117); Bilirubin, Direct 0.94 mg/dL (0.00-0.30); Globulin 4.1 g/dL (2.2-4.2); Protein, Total 6.9 g/dL (6.4-8.2)
[2017-10-11] MEDS: 0.9% Normal Saline 1,000 ML 150 ML IV (16:59)
[2017-10-11 17:41] LABS: M R Staph aureus DNA By PCR Negative (Negative); Probe Check PASS; Specimen Processing Control PASS
--- NOTE | 2017-10-11 18:17 | PCM.RX.CS ---
Consult Pharmacy has been consulted to manage selected antiobiotic: Vancomycin Type of Consult: New start Suspected Infection: Other Prior Doses of Antibiotics Received/Current Regimen: none Labs: Sodium 138 mmol/L (136-145) 10/11/17 11:54 Potassium 4.7 mmol/L (3.5-5.1) 10/11/17 11:54 Chloride 102 mmol/L (98-107) 10/11/17 11:54 Carbon Dioxide 27.0 mmol/L (21.0-32.0) 10/11/17 11:54 Anion Gap 9 (5-15) 10/11/17 11:54 BUN 85 mg/dL (7-18) H 10/11/17 11:54 Creatinine 2.73 mg/dL (0.70-1.30) H 10/11/17 11:54 Est GFR (MDRD) Af Amer 29 mL/min (>60) L 10/11/17 11:54 Est GFR (MDRD) Non-Af 24 mL/min (>60) L 10/11/17 11:54 BUN/Creatinine Ratio 31.1 RATIO (10-20) H 10/11/17 11:54 Glucose 122 mg/dL (74-106) H 10/11/17 11:54 Microbiology: pending Weight used for dosin kg Estimated Creatinine Clearance: 20ml/min Goal Trough: 15-20 mcg/mL Pharmacy Plan for Drug Dosing: Recommend Vancomycin 15mg/kg x1 and check random level 10/12/17 at 0600. Renal dosing protocol Pharmacy Service will continue to monitor and adjust dosing as required. Follow-Up Labs: Trough Vancomycin - random Labs to be done on [date and time ordered]: Random level 10/12/17 at 0600
--- NOTE | 2017-10-11 18:31 | NURSING ---
Spoke w/ pt's , Thelma, regarding PICC insertion. Updated on current blood pressure. Thelma states that pt's BP is usually in the 90s and that she would like to hold off on line insertion at this time. public speaker notified of this. Thelma states she is en route to hospital at this time and states we can consult further when I get there.
--- NOTE | 2017-10-11 18:37 | NURSING ---
Pt's , Thelma, here at hospital. Notified that in the event the pt's blood pressure does drop more overnight, the PICC line RNs are only available to place a line up until 9 pm and that the only option after that would be a central line, which would probably not be placed d/t the pt's PLT count. Pt's verbalizes understanding and would like to wait until 8 pm to see what the pt's blood pressure is and make the decision at that time. Assured pt's that staff would want to make the best decision for the patient consistent with his and her wishes. Pt's tearful, stating it's hard to know what the right decision is and I know we are getting near the end. Emotional support and listening provided. Will continue to monitor.
[2017-10-11 21:08] LABS: Phosphorus 4.6 mg/dL (2.5-4.9)
[2017-10-11] MEDS: Flecainide 100 MG Tablet PO (22:07)
[2017-10-12] VITALS (42 sets, daily range): BP systolic 74–101; BP diastolic 47–62; PULSE 56–75; RESP 14–24; TEMP 36.8–37.8; O2SAT 90–99
[2017-10-12 04:29] LABS: Vancomycin, Random Level 10.2 ug/mL (0.0-15.0)
[2017-10-12 06:22] LABS: Absolute Lymphocyte Count 0.65 X10^3/ul (0.83-4.51); Absolute Neutrophil Count 1.9 X10^3/uL (2.0-7.7); Basophil# 0.02 X10^3/uL; Basophil% 0.6 % (0-1); Hematocrit 19.3 % (40-54); Hemoglobin 6.5 g/dl (13.0-16.5); Lymphocyte # 0.65 X10^3/ul (4.0); Lymphocyte % 20.4 % (19-41); Mean Corp Hgb Conc 33.7 g/gl (32-36); Mean Corpuscular Hgb 28.5 pg (27.0-32.0); Mean Corpuscular Volume 84.6 fL (80-94); Monocyte# 0.61 X10^3/uL; Monocyte% 19.1 % (0-10); Neutrophil # 1.88 X10^3/uL (2.7-7.7); RBC Distribution Width CV 17.1 % (11.6-14.6); RBC Distribution Width SD 53.2 fl (35.1-43.9); Red Blood Count 2.28 M/mm3 (4.6-6.2); White Blood Count 3.2 K/mm3 (4.4-11.0)
[2017-10-12 06:27] LABS: Anion Gap 10 (5-15); BUN 94 mg/dL (7-18); BUN/Creat Ratio 29.6 RATIO (10-20); Chloride 104 mmol/L (98-107); Creatinine, Serum 3.18 mg/dL (0.70-1.30); EST Glomerular Filtration Rate 20 mL/min (>60); Est Glom Filt Rate - Afr Amer 24 mL/min (>60); Estimated Creatinine Clearance 17.63 ml/min; Glucose 103 mg/dL (74-106); Potassium 4.1 mmol/L (3.5-5.1); Sodium Level 139 mmol/L (136-145)
[2017-10-12 06:31] LABS: Magnesium 1.9 mg/dL (1.6-2.6)
[2017-10-12 06:40] LABS: Differential Indicated SCAN CRITERIA MET; POSITIVE COUNT YES; POSITIVE DIFFERENTIAL NO; POSITIVE MORPHOLOGY YES; Platelet Count 8 K/mm3 (150-450)
--- NOTE | 2017-10-12 06:40 | PCM.CON.CC ---
Problem List (1) GERD (gastroesophageal reflux disease) Status: Chronic Qualifiers: Esophagitis presence: esophagitis presence not specified Qualified Code(s): K21.9 - Gastro-esophageal reflux disease without esophagitis (2) Pancytopenia Status: Chronic (3) Myelodysplastic syndrome Status: Chronic (4) Hypertension Status: Chronic Qualifiers: (5) CHF (congestive heart failure) Status: Chronic Qualifiers: Heart failure type: systolic Heart failure chronicity: chronic Qualified Code(s): I50.22 - Chronic systolic (congestive) heart failure Comment: EF 40% (06/2017) (6) CAD (coronary artery disease) Status: Chronic Qualifiers: Coronary Disease-Associated Artery/Lesion type: [place] artery [place] vs. transplanted heart: [place] heart Associated angina: without angina Qualified Code(s): I25.10 - Atherosclerotic heart disease of [place] coronary artery without angina pectoris (7) PAF (paroxysmal atrial fibrillation) Status: Chronic (8) Chronic renal failure, stage 3 (moderate) Status: Chronic Reason for Consult Date of Consultation: 10/12/17 Reason for Consultation: Neutropenic fever History of Present Illness: The patient is a 82 year old M, with past medical history listed below, who presented to [facility] on 10/11/2017 after a 1 day history of fever, chills, poor appetite and confusion. Patient was reportedly lethargic on presentation and unable to respond verbally. Since reported that he was diagnosed with myelodysplastic syndrome approximately 5 years ago and follows with Dr. Henderson. Patient has come more weak over the last few months and awoke the day before presentation with fever and chills. Patient was reportedly 101?F at home. Patient denies any cough, diarrhea, nausea or vomiting. Patient does not have any sick exposures. Patient does report dealing with constipation at baseline, but no hematochezia or obstipation is been reported. Patient was noted to be DNR Comfort Care arrest without intubation, but did require pressor therapy, so was admitted to the intensive care unit for further monitoring after initiation of antibiotics. Patient did well overnight. Patient's pressors were able to be stopped at approximately 2 AM. Patient's blood pressures have remained marginal, but no fever has been noted. Patient's blood pressure medications were held overnight and reportedly patient's was not happy with this decision. Patient does have a history of paroxysmal atrial fibrillation. Currently, patient's mentation is much better than what was reported in the ER. Patient reports subjective improvement in overall condition. Patient denies any pain at this time. Patient did have a bowel movement this morning that was normal. Patient denies any shortness of breath at this time. Patient reportedly follows with [facility] for chronic kidney disease. Patient is not interested in hemodialysis if this were to become necessary. Patient does receive chemotherapy secondary to myelodysplastic syndrome. Patient has had multiple ablations there is a diagnosis of chronic systolic congestive heart failure that is followed by Dr. Charles. Past Medical History Past Medical History (Chronic Problems): Chronic Problems (Last Reviewed 08/13/17 @ 15:02 by Michaela Saldaña, [place]-C) GERD (gastroesophageal reflux disease) (Chronic) Pancytopenia (Chronic) Myelodysplastic syndrome (Chronic) Hypertension (Chronic) CHF (congestive heart failure) (Chronic) EF 40% (06/2017) CAD (coronary artery disease) (Chronic) Acute and chronic respiratory failure with hypoxia (Chronic) PAF (paroxysmal atrial fibrillation) (Chronic) Chronic renal failure, stage 3 (moderate) (Chronic) Allergies adhesive Allergy (Mild, Verified 10/11/17 11:28) Rash Home Medications: Ambulatory Orders Medication Instructions Recorded Carvedilol [Coreg (Beta Denny)] 12.5 mg PO DINNER 05/16/15 Ergocalciferol [Vitamin D] 50,000 unit PO TU 05/16/15 Flecainide [Tambocor] 100 mg PO BID 05/16/15 Furosemide [Lasix] 60 mg PO DAILY 05/16/15 Deferasirox [Jadenu] 360 mg PO DAILY 12/12/15 Ascorbic Acid [Vitamin C] 250 mg PO DAILY 07/16/16 Chlorhexidine 15 ml PO BID PRN 07/16/16 Carvedilol [Coreg] 6.25 mg PO BREAKFAST 09/25/16 Famotidine [Pepcid] 20 mg PO DAILY 06/25/17 danazol 200 mg capsule 200 mg PO BID cap 07/13/17 eltrombopag 75 mg tablet 200 mg PO DAILY tab 07/13/17 Decitabine 50 mg SC QWEEK 10/11/17 Folic Acid 1 mg PO DAILY@0800 10/11/17 Surgical History: - - Cardiac ablation x 2. Psychiatric History: No pertinent psych hx Lives: Spouse/ Significant Other Smoking Status: Former smoker Tobacco Use: Non-smoker Alcohol: Occasional Drugs: None - *Family History Maternal History Items: No pertinent history Paternal History Items: No pertinent history Review of Systems Comment: See HPI, otherwise negative ?10 systems. Objective: All imaging was personally reviewed. Agree with formal interpretation. In addition, would note that CT scan of the chest does show some peribronchial thickening and some possible tree-in-bud versus compression artifact of the right lower lobe. - Physical Exam General: Alert, Oriented x3, Cooperative, No apparent distress, - - Appears stated age. Speaking in full sentences. HEENT: Atraumatic, PERRLA, EOMI, Normocephalic, - - No scleral icterus or injection noted. Pale conjunctive are noted. Oral: Moist Mucosa, No Gingival or Mucosal Lesions/ Ulcerations, - - No gum bleeding noted. Neck: Supple, No JVD, No Nodes, Trachea Midline Lungs: Diminished, Rales - Bilateral basis Cardiovascular: Normal S1, Normal S2, Irregular Rate, Murmur - Grade 3 out of 6 systolic ejection murmur at the left sternal border, - - Bundle branch pattern noted on telemetry Abdomen: Bowel Sounds Present, Soft, Non Tender, Non-Distended, No hernias noted Extremities: No clubbing, No cyanosis, No edema, Capillary Refill Less than 3 Seconds Skin: No rashes, No breakdown Musculoskeletal: No Tenderness to Palpation of Joints or Extremities, No Muscle Wasting Lymphatic: No Cervical, Supraclavicular, or Inguinal Adenopathy Neurological: Cranial nerves II-XII grossly intact, Neuro grossly intact, Motor Exam 5/5 strength throughout Psych/Mental Status: Alert and oriented to time, place, person, mood and affect Vital Signs Temp Pulse Resp BP Pulse Ox 37.2 C 60 15 97/54 L 98 10/12/17 06:00 10/12/17 06:00 10/12/17 06:00 10/12/17 06:00 10/12/17 06:00 Oxygen Flow Rate (L/min) 2 Oxygen Delivery Method Nasal Cannula Weight: 88.1 kg Body Mass Index (BMI) 28.5 Intake and Output for Last 24 Hours 10/10/17 10/11/17 10/12/17 23:59 23:59 23:59 Intake Total 1540 / 1540 449 / 449 Output Total 228 / 228 Balance 1540 / 1540 221 / 221 Laboratory Tests 10/11/17 10/11/17 10/11/17 11:54 11:54 11:54 WBC 2.2 L RBC 2.86 L Hgb 8.2 L Hct 24.1 L MCV 84.3 MCH 28.7 MCHC 34.0 RDW 16.8 H RDW Differential 52.1 H Plt Count 12 L* Immature Gran % (Auto) 0.500 Neut % (Auto) 53.6 Lymph % (Auto) 28.2 [place] % (Auto) 15.9 H Eos % (Auto) 0.9 Baso % (Auto) 0.9 Absolute Neuts (auto) 1.2 L Absolute Lymphs (auto) 0.62 L Total Counted Not Reportable Differential Comment SCANNED Diff Path Review May foll Platelet Estimate MKD DEC Plt Morphology Comment LARGE Hypochromasia Anisocytosis Ovalocytes Sodium 138 Potassium 4.7 Chloride 102 Carbon Dioxide 27.0 Anion Gap 9 BUN 85 H Creatinine 2.73 H Estim Creat Clear Calc 20.53 Est GFR (MDRD) Af Amer 29 L Est GFR (MDRD) Non-Af 24 L BUN/Creatinine Ratio 31.1 H Glucose 122 H Lactic Acid 1.8 Calcium 8.5 Phosphorus Magnesium Total Bilirubin Direct Bilirubin AST ALT Alkaline Phosphatase Troponin I < 0.015 Total Protein Albumin Globulin Urine Color Urine Clarity Urine pH Ur Specific [place] Urine Protein Urine Glucose (UA) Urine Ketones Urine Occult Blood Urine Nitrite Urine Bilirubin Urine Urobilinogen Ur Leukocyte Esterase Urine RBC Urine WBC Ur Squamous Epith Cells Urine Bacteria Urine Mucus Random Vancomycin MRSA (PCR) 10/11/17 10/11/17 10/11/17 11:54 11:54 12:10 WBC RBC Hgb Hct MCV MCH MCHC RDW RDW Differential Plt Count Immature Gran % (Auto) Neut % (Auto) Lymph % (Auto) [place] % (Auto) Eos % (Auto) Baso % (Auto) Absolute Neuts (auto) Absolute Lymphs (auto) Total Counted Differential Comment Diff Path Review Platelet Estimate Plt Morphology Comment Hypochromasia Anisocytosis Ovalocytes Sodium Potassium Chloride Carbon Dioxide Anion Gap BUN Creatinine Estim Creat Clear Calc Est GFR (MDRD) Af Amer Est GFR (MDRD) Non-Af BUN/Creatinine Ratio Glucose Lactic Acid Calcium Phosphorus Magnesium 2.0 Total Bilirubin 2.00 H Direct Bilirubin 0.94 H AST 19 ALT 34 Alkaline Phosphatase 58 Troponin I Total Protein 6.9 Albumin 2.8 L Globulin 4.1 Urine Color Yellow Urine Clarity Clear Urine pH 6.0 Ur Specific [place] 1.015 Urine Protein 15 H Urine Glucose (UA) Normal Urine Ketones Negative Urine Occult Blood Negative Urine Nitrite Negative Urine Bilirubin Negative Urine Urobilinogen 4 H Ur Leukocyte Esterase 25 H Urine RBC 0 SEEN Urine WBC 0-5 SEEN Ur Squamous Epith Cells 0-5 SEEN Urine Bacteria 2+ Urine Mucus 0 SEEN Random Vancomycin MRSA (PCR) 10/11/17 10/11/17 10/12/17 16:15 20:40 04:00 WBC RBC Hgb Hct MCV MCH MCHC RDW RDW Differential Plt Count Immature Gran % (Auto) Neut % (Auto) Lymph % (Auto) [place] % (Auto) Eos % (Auto) Baso % (Auto) Absolute Neuts (auto) Absolute Lymphs (auto) Total Counted Differential Comment Diff Path Review Platelet Estimate Plt Morphology Comment Hypochromasia Anisocytosis Ovalocytes Sodium Potassium Chloride Carbon Dioxide Anion Gap BUN Creatinine Estim Creat Clear Calc Est GFR (MDRD) Af Amer Est GFR (MDRD) Non-Af BUN/Creatinine Ratio Glucose Lactic Acid Calcium Phosphorus 4.6 Magnesium Total Bilirubin Direct Bilirubin AST ALT Alkaline Phosphatase Troponin I Total Protein Albumin Globulin Urine Color Urine Clarity Urine pH Ur Specific [place] Urine Protein Urine Glucose (UA) Urine Ketones Urine Occult Blood Urine Nitrite Urine Bilirubin Urine Urobilinogen Ur Leukocyte Esterase Urine RBC Urine WBC Ur Squamous Epith Cells Urine Bacteria Urine Mucus Random Vancomycin 10.2 MRSA (PCR) Negative 10/12/17 10/12/17 10/12/17 06:05 06:05 06:05 WBC 3.2 L RBC 2.28 L Hgb 6.5 L Hct 19.3 L MCV 84.6 MCH 28.5 MCHC 33.7 RDW 17.1 H RDW Differential 53.2 H Plt Count 8 L* Immature Gran % (Auto) 0.900 Neut % (Auto) 59.0 Lymph % (Auto) 20.4 [place] % (Auto) 19.1 H Eos % (Auto) 0.0 Baso % (Auto) 0.6 Absolute Neuts (auto) 1.9 L Absolute Lymphs (auto) 0.65 L Total Counted Not Reportable Differential Comment SCANNED Diff Path Review May foll Platelet Estimate MKD DEC Plt Morphology Comment Hypochromasia 3+ Anisocytosis 2+ Ovalocytes RARE Sodium 139 Potassium 4.1 Chloride 104 Carbon Dioxide 25.0 Anion Gap 10 BUN 94 H Creatinine 3.18 H Estim Creat Clear Calc 17.63 Est GFR (MDRD) Af Amer 24 L Est GFR (MDRD) Non-Af 20 L BUN/Creatinine Ratio 29.6 H Glucose 103 Lactic Acid Calcium 8.0 L Phosphorus Magnesium 1.9 Total Bilirubin Direct Bilirubin AST ALT Alkaline Phosphatase Troponin I Total Protein Albumin Globulin Urine Color Urine Clarity Urine pH Ur Specific [place] Urine Protein Urine Glucose (UA) Urine Ketones Urine Occult Blood Urine Nitrite Urine Bilirubin Urine Urobilinogen Ur Leukocyte Esterase Urine RBC Urine WBC Ur Squamous Epith Cells Urine Bacteria Urine Mucus Random Vancomycin MRSA (PCR) Clinical Impression(s) from Imaging Studies Chest X-Ray 10/11/17 12:[address] 10/11/17 15:31 IMPRESSION: Extensive pleural-based calcific and noncalcific plaques along the costal and diaphragmatic pleura suggestive of prior asbestos exposure Cardiomegaly with coronary vascular calcifications and mild intralobular septal thickening may relate with mild pulmonary edema. Pleural-based soft tissue density measuring approximately 4 cm along the posterior medial segment of the right lower lobe possibly pleural-based plaque however this needs follow-up CT imaging in 4-6 months. Heterogeneous density of the thoracic spine with multiple lytic lesions as well as in the sternum. Differential considerations include multiple myeloma, renal osteodystrophy or metastatic disease. Electronically Signed: Wong Kash, at 16:32 EDT Tel , Service support , Assessment/Plan RECOMMENDATIONS: 1. Continue empiric antibiotics, possibly discontinue vancomycin 2. Transfuse 1 pheresis of platelets and 1 unit packed red blood cells 3. Wean oxygen as tolerated 4. Continue to hold Coreg for now 5. Possibly initiate clear diet, advance as tolerated 6. Await respiratory viral panel, await ID IMPRESSIONS: 1. Presumed septic shock secondary to neutropenic fever Patient was on pressor therapy weekly overnight. This appears to have resolved following empiric antibiotics and volume resuscitation. We will continue with empiric antibiotics for now. Infectious diseases consulted. Viral panel is pending. Continue to hold blood pressure medications during the acute phase. Cannot exclude patient requiring further pressor therapy throughout the day. 2. Myelodysplastic syndrome/pancytopenia Patient has had a decrease in platelets and hemoglobin compared to admission. This may be secondary to dilution versus bone marrow suppression from acute illness. Patient will be given a transfusion of platelet therapy with goal to keep platelets greater than 10,000. Will also transfuse 1 unit of packed red blood cells given patient's history of coronary artery disease and kidney injury. No active blood loss is noted at this time. We will continue with clinical monitoring. 3. Acute on chronic kidney disease stage IV Likely prerenal etiology secondary to #1. Patient is not on therapy at baseline, so adrenal insufficiency is not suspected. Patient does have severe pulmonary hypertension and would be significantly preload dependent. Patient will be given volume with packed red blood cells and platelets. Given severe depressed nutritional status, would not recommend aggressive fluid hydration at this time unless hemodynamics dictate. 4. Chronic systolic congestive heart failure/moderate aortic stenosis/severe pulmonary hypertension Patient with significant comorbid cardiac pathology. Coreg has been held secondary to significant hypotension require pressor therapy. Flecainide can be continued. Patient does have significant valvular abnormalities and may require a PHYLLIS if bacteremia is noted. 5. GERD/hypertension/paroxysmal A. fib/advanced age Complicates care, management, recovery and prognosis. Likely okay to initiate patient on Pepcid therapy. Code Visit Inpatient E&M: [id number] Init Hosp L3
[2017-10-12 06:43] LABS: Anisocytosis 2+; Differential Comment SCANNED; Hypochromasia 3+; Ovalocyte RARE; Platelet Estimate MKD DEC (ADEQ)
--- NOTE | 2017-10-12 08:23 | ONC.CON.INP2 ---
- Problem List (1) Neutropenic fever Status: Acute (2) Myelodysplastic syndrome Status: Chronic Consult Referring Physician: Dr. 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 - Danazol~200mg PO QD and prednisone [address] Barajas day 1 02/16/13. The danazol dose was increased to danazol 200 mg PO BID on 07/25/13. Danazol and prednisone were discontinued on 02/10/14 with prednisone tapered off by 02/26/14. - Aranesp 300 micrograms Q 2 weeks Day 1 03/20/14, consider dose reduction to 200 micrograms Q2 weeks from 05/12/14, discontinued 10/24/14 CURRENT - Decitabine 0.15 mg/kg 1X/week day 1 05/12/14 until 08/31/14 then held because of neutropenia, restarted 12/04/14 (added to eltrombopag), gets it whenever ANC is >500, which is approximately 1X/4-8 weeks, increased to 2X/week from mid-August 2017~~ - Danazol 200 mg PO BID initiated again 07/05/14 - Eltrombopag 100 mg daily Cycle 1 Day 1 09/22/14, increased dose to 200 mg daily from 02/03/15 - ExJade 500 mg per day Day 1 12/17/14, switched to JadeNu 540 mg from September 2015, increased to 720 mg per day from November 2015, decrease to 360 mg per day from 09/05/16 because of increasing serum creatinine - creatinine stable on current dose - Eliquis 2.5 mg PO BID was added to therapy by cardiology on 05/10/16 because atrial flutter, discontinued December 2016 because of resolution of atrial fibrillation for several months - Aminocaproic acid 1 g PO TID initiated 10/12/17 patient currently receiving low-dose Dacogen. Doses are held when he is neutropenic. He has chronic anemia and thrombocytopenia requiring frequent transfusional support. Over the last several days he's becoming more weak, lethargic and developed fever. he denies a worsening cough and sputum production. No nausea or vomiting. No diarrhea. No rash. He has no symptoms to suggest bladder infection. He presented to emergency room last night. He was found to be pancytopenic with borderline neutropenia and an ANC of 1.2. was started on meropenem and vancomycin. Blood cultures obtained. Past Medical History: Chronic Problems (Last Reviewed 08/13/17 @ 15:02 by CELENA HealyC) GERD (gastroesophageal reflux disease) (Chronic) Pancytopenia (Chronic) Myelodysplastic syndrome (Chronic) Hypertension (Chronic) CHF (congestive heart failure) (Chronic) EF 40% (06/2017) CAD (coronary artery disease) (Chronic) Acute and chronic respiratory failure with hypoxia (Chronic) PAF (paroxysmal atrial fibrillation) (Chronic) Chronic renal failure, stage 3 (moderate) (Chronic) Past Medical/Surgical History: Past Medical History - Most Recent Inpatient Visit Past Medical History Start: 10/11/17 15:51 Text: Status: Complete Freq: ONCE Protocol: Document 10/11/17 16:51 LR (Rec: 10/11/17 16:54 [facility] [id number]) BMI Required to complete PMH What is Patient's BMI 28.6 Past Medical History Unable History Recalled No Query Text:Pt Unable/Family Not Present Neurologic Medical History Hx Stroke/TIA No Hx Dementia/Alzheimer's No Hx Parkinson's Disease No Hx Seizures No Hx Multiple Sclerosis No Hx Migraines No Cardiac Medical History VTE Present on Admission No Hx of Deep Vein Thrombosis/VTE/PE No Hx Hypertension No Hx Chest Pain/Angina No Hx Heart Attack No Hx Cardiac Surgery/Stents/Etc. Yes: Ablations x2 Hx Heart Failure No Hx Pacemaker/AICD No Hx Irregular Heartbeat and/or Afib Yes Hx Anticoagulant Therapy No: has take eliquis in past Query Text:(Coumadin, Aspirin, Plavix, for fib Xarelto, etc.) Hx Pain in Legs when Walking/Leg Cramps Yes Respiratory Medical History Hx COPD No Hx Emphysema No Hx Smoking No Smoking Status Former smoker Tobacco Use Non-smoker Hx Tobacco Use in last 12 months No Hx of Pipe Smoking No Hx Sleep Apnea No CPAP No BIPAP No Do you snore loudly (louder than talking No or can be heard through closed doors)? Do you often feel tired/ fatigued/ No sleepy during daytime? Has anyone observed you stop breathing No during sleep? STOP Results Negative GI Medical History Hx Ulcer No Hx Hepatitis No Hx Cirrhosis No Hx GI Bleed Yes Hx Unplanned Weight Loss No Genitourinary Medical History Indwelling Catheter in Place on Arrival/ No Admission Hx Renal Disease No Hx Dialysis No Musculoskeletal History Hx Arthritis No Hx Rheumatoid Arthritis No Endocrine Medical History Hx Diabetes No Hx Thyroid Disease No Hematologic Medical History Hx of Blood Transfusion Yes Hx of Transfusion in last 3 Months Yes Date of Last Transfusion (if within last 10/06/17 3 months) Ever experience any problems with No transfusion(s)? 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 No Methicillin Resistant Staphylococcus aureus Screening Active MRSA No Risk for Readmission Number of Risk Factors 7 At Risk for Readmission Patient is At Risk For Readmission Patient is eligible for Call Back Y Past Medical History (Last Reviewed 08/13/17 @ 15:02 by ANNE Healy) Pancytopenia (Chronic) Myelodysplastic syndrome (Chronic) Hypertension (Chronic) CHF (congestive heart failure) (Chronic) CAD (coronary artery disease) (Chronic) Acute and chronic respiratory failure with hypoxia (Chronic) PAF (paroxysmal atrial fibrillation) (Chronic) Chronic renal failure, stage 3 (moderate) (Chronic) Bacteremia, escherichia coli (Resolved) Sepsis due to Escherichia coli (E. coli) (Resolved) Past Surgical History (Last Reviewed 08/13/17 @ 15:02 by Michaela Saldaña NP-C) S/P ablation of atrial flutter (Resolved) ablation PVI (Resolved) prostate brachytherapy (Resolved) Maternal Family History: Family History (Last Reviewed 08/13/17 @ 15:02 by CELENA HealyC) Brother Prostate CA Hairy cell leukemia Father Hypertension Sister Hypertension Family History: No pertinent history Paternal Family History: Family History (Last Reviewed 08/13/17 @ 15:02 by ANNE Healy) Brother Prostate CA Hairy cell leukemia Father Hypertension Sister Hypertension Family History: No pertinent history - Social History Lives: Spouse/ Significant Other Smoking Status: Former smoker Tobacco Use: Non-smoker Alcohol: Occasional Drugs: None Allergies/Adverse Reactions: Allergy/AdvReac Type Severity Reaction Status Date / Time adhesive Allergy Mild Rash Verified 10/11/17 11:28 Home Medications Medication Instructions Recorded Carvedilol [Coreg (Beta Denny)] 12.5 mg PO DINNER 05/16/15 Ergocalciferol [Vitamin D] 50,000 unit PO TU 05/16/15 Flecainide [Tambocor] 100 mg PO BID 05/16/15 Furosemide [Lasix] 60 mg PO DAILY 05/16/15 Deferasirox [Jadenu] 360 mg PO DAILY 12/12/15 Ascorbic Acid [Vitamin C] 250 mg PO DAILY 07/16/16 Chlorhexidine 15 ml PO BID PRN 07/16/16 Carvedilol [Coreg] 6.25 mg PO BREAKFAST 09/25/16 Famotidine [Pepcid] 20 mg PO DAILY 06/25/17 danazol 200 mg capsule 200 mg PO BID cap 07/13/17 eltrombopag 75 mg tablet 200 mg PO DAILY tab 07/13/17 Decitabine 50 mg SC QWEEK 10/11/17 Folic Acid 1 mg PO DAILY@0800 10/11/17 Review of Systems Constitutional:: Reports: Weakness, Fatigue, Fever, Sweats, Chills Cardiovascular:: Reports: Peripheral edema Respiratory: Reports: Shortness of breath upon exertion Skin: Reports: - - Eccymoses Vital Signs Height 1.73 m Weight: 88.1 kg Weight in Pounds 194.2 lbs Pulse Ox 98 Temperature 98.2 F Pulse Rate 59 Respiratory Rate 16 Blood Pressure [BP] 94/61 Blood Pressure 87/54 Blood Pressure Position [BP] Semi-Fowlers Blood Pressure Position Semi-Fowlers - Physical Exam General: Alert, Oriented x3 Neck:: Supple Lungs: Diminished, - - Few coarse scattered rhonchi Abdomen:: Non-tender Extremities:: Edema Skin:: Ecchymosis Laboratory Data: Laboratory Tests 10/12/17 10/12/17 10/12/17 Range/Units 07:00 06:05 06:05 WBC (4.4-11.0) K/mm3 RBC (4.6-6.2) M/mm3 Hgb (13.0-16.5) g/dl Hct (40-54) % MCV (80-94) fL MCH (27.0-32.0) pg MCHC (32-36) g/gl RDW (11.6-14.6) % RDW Differential (35.1-43.9) fl Plt Count (150-450) K/mm3 Immature Gran % (Auto) (0.0-0.9) % Neut % (Auto) (47-70) % Lymph % (Auto) (19-41) % Bertie % (Auto) (0-10) % Eos % (Auto) (0-5) % Baso % (Auto) (0-1) % Absolute Neuts (auto) (2.0-7.7) X10^3/uL Absolute Lymphs (auto) (0.83-4.51) X10^3/ul Total Counted Differential Comment Diff Path Review Platelet Estimate (ADEQ) Hypochromasia Anisocytosis Ovalocytes Sodium 139 (136-145) mmol/L Potassium 4.1 (3.5-5.1) mmol/L Chloride 104 (98-107) mmol/L Carbon Dioxide 25.0 (21.0-32.0) mmol/L Anion Gap 10 (5-15) BUN 94 H (7-18) mg/dL Creatinine 3.18 H (0.70-1.30) mg/dL Estim Creat Clear Calc 17.63 ml/min Est GFR (MDRD) Af Amer 24 L (>60) mL/min Est GFR (MDRD) Non-Af 20 L (>60) mL/min BUN/Creatinine Ratio 29.6 H (10-20) RATIO Glucose 103 (74-106) mg/dL Calcium 8.0 L (8.5-10.1) mg/dL Phosphorus (2.5-4.9) mg/dL Magnesium 1.9 (1.6-2.6) mg/dL Random Vancomycin (0.0-15.0) ug/mL MRSA (PCR) (Negative) Crossmatch See Detail 10/12/17 10/12/17 10/11/17 Range/Units 06:05 04:00 20:40 WBC 3.2 L (4.4-11.0) K/mm3 RBC 2.28 L (4.6-6.2) M/mm3 Hgb 6.5 L (13.0-16.5) g/dl Hct 19.3 L (40-54) % MCV 84.6 (80-94) fL MCH 28.5 (27.0-32.0) pg MCHC 33.7 (32-36) g/gl RDW 17.1 H (11.6-14.6) % RDW Differential 53.2 H (35.1-43.9) fl Plt Count 8 L* (150-450) K/mm3 Immature Gran % (Auto) 0.900 (0.0-0.9) % Neut % (Auto) 59.0 (47-70) % Lymph % (Auto) 20.4 (19-41) % Bertie % (Auto) 19.1 H (0-10) % Eos % (Auto) 0.0 (0-5) % Baso % (Auto) 0.6 (0-1) % Absolute Neuts (auto) 1.9 L (2.0-7.7) X10^3/uL Absolute Lymphs (auto) 0.65 L (0.83-4.51) X10^3/ul Total Counted Not Reportable Differential Comment SCANNED Diff Path Review May foll Platelet Estimate MKD DEC (ADEQ) Hypochromasia 3+ Anisocytosis 2+ Ovalocytes RARE Sodium (136-145) mmol/L Potassium (3.5-5.1) mmol/L Chloride (98-107) mmol/L Carbon Dioxide (21.0-32.0) mmol/L Anion Gap (5-15) BUN (7-18) mg/dL Creatinine (0.70-1.30) mg/dL Estim Creat Clear Calc ml/min Est GFR (MDRD) Af Amer (>60) mL/min Est GFR (MDRD) Non-Af (>60) mL/min BUN/Creatinine Ratio (10-20) RATIO Glucose (74-106) mg/dL Calcium (8.5-10.1) mg/dL Phosphorus 4.6 (2.5-4.9) mg/dL Magnesium (1.6-2.6) mg/dL Random Vancomycin 10.2 (0.0-15.0) ug/mL MRSA (PCR) (Negative) Crossmatch 10/11/17 Range/Units 16:15 WBC (4.4-11.0) K/mm3 RBC (4.6-6.2) M/mm3 Hgb (13.0-16.5) g/dl Hct (40-54) % MCV (80-94) fL MCH (27.0-32.0) pg MCHC (32-36) g/gl RDW (11.6-14.6) % RDW Differential (35.1-43.9) fl Plt Count (150-450) K/mm3 Immature Gran % (Auto) (0.0-0.9) % Neut % (Auto) (47-70) % Lymph % (Auto) (19-41) % Bertie % (Auto) (0-10) % Eos % (Auto) (0-5) % Baso % (Auto) (0-1) % Absolute Neuts (auto) (2.0-7.7) X10^3/uL Absolute Lymphs (auto) (0.83-4.51) X10^3/ul Total Counted Differential Comment Diff Path Review Platelet Estimate (ADEQ) Hypochromasia Anisocytosis Ovalocytes Sodium (136-145) mmol/L Potassium (3.5-5.1) mmol/L Chloride (98-107) mmol/L Carbon Dioxide (21.0-32.0) mmol/L Anion Gap (5-15) BUN (7-18) mg/dL Creatinine (0.70-1.30) mg/dL Estim Creat Clear Calc ml/min Est GFR (MDRD) Af Amer (>60) mL/min Est GFR (MDRD) Non-Af (>60) mL/min BUN/Creatinine Ratio (10-20) RATIO Glucose (74-106) mg/dL Calcium (8.5-10.1) mg/dL Phosphorus (2.5-4.9) mg/dL Magnesium (1.6-2.6) mg/dL Random Vancomycin (0.0-15.0) ug/mL MRSA (PCR) Negative (Negative) Crossmatch Diagnostic Data: Diagnostic Data Chest X-Ray 10/11/17 12:[address] 10/11/17 15:31 IMPRESSION: Extensive pleural-based calcific and noncalcific plaques along the costal and diaphragmatic pleura suggestive of prior asbestos exposure Cardiomegaly with coronary vascular calcifications and mild intralobular septal thickening may relate with mild pulmonary edema. Pleural-based soft tissue density measuring approximately 4 cm along the posterior medial segment of the right lower lobe possibly pleural-based plaque however this needs follow-up CT imaging in 4-6 months. Heterogeneous density of the thoracic spine with multiple lytic lesions as well as in the sternum. Differential considerations include multiple myeloma, renal osteodystrophy or metastatic disease. Electronically Signed: Wong Hewitt, at 16:32 EDT Tel , Service support , Assessment and Plan 1) Neutropenic fever. Assessment: -Improved with broad-spectrum antibiotic. -Was hypotensive on presentation and received pressors which were discontinued earlier this morning. Carvedilol was held. -He is alert and oriented this morning. -No clear source of fever. -ANC improved this morning. Plan: -Would continue broad spectrum antibiotics until BC negative 48 hours. -Won't need extended antibiotic treatment if neutrophil count normal, blood cultures negative and no clear source of infection. 2) MDS. Assessment: -Although he requires frequent transfusional support, disease is stable on low-dose Dacogen. Plan: -Continue therapy once above issue resolved. Medications: Prescriptions This Visit Medication Instructions Recorded Decitabine 50 mg SC QWEEK 10/11/17 Folic Acid 1 mg PO DAILY@0800 10/11/17 Medications Added to Medication List This Visit Category Date Time Status Ascorbic Acid [Vitamin C] Med 10/12/17 10:00 Active 250 mg PO DAILY Chlorhexidine Gluc 2% Cloth Med 10/12/17 10:00 Active 1 each TOPICAL DAILY Ergocalciferol [Vitamin D] Med 10/13/17 10:00 Active 50,000 unit PO Tu@1000 Famotidine [Pepcid] Med 10/12/17 10:00 Active 20 mg PO DAILY Folic Acid Med 10/12/17 08:00 Active 1 mg PO DAILY@0800 Vancomycin Med 10/12/17 06:00 Active 1 lab MISCELL. DAILY@0600 Vancomycin [Vancomycin Renal/HD Dosing] Med 10/12/17 08:00 Active 1 unit MISCELL. DAILY@0800 Primary Care Provider: No Primary Care Phys Referring Provider:
--- NOTE | 2017-10-12 08:36 | CON.PCM_ITS ---
- Problem List (1) Neutropenic fever Status: Acute (2) Myelodysplastic syndrome Status: Chronic Consult Referring Physician: Dr. 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 - Danazol~200mg PO QD and prednisone [address] Barajas day 1 02/16/13. The danazol dose was increased to danazol 200 mg PO BID on 07/25/13. Danazol and prednisone were discontinued on 02/10/14 with prednisone tapered off by 02/26/14. - Aranesp 300 micrograms Q 2 weeks Day 1 03/20/14, consider dose reduction to 200 micrograms Q2 weeks from 05/12/14, discontinued 10/24/14 CURRENT - Decitabine 0.15 mg/kg 1X/week day 1 05/12/14 until 08/31/14 then held because of neutropenia, restarted 12/04/14 (added to eltrombopag), gets it whenever ANC is >500, which is approximately 1X/4-8 weeks, increased to 2X/week from mid- August 2017~~ - Danazol 200 mg PO BID initiated again 07/05/14 - Eltrombopag 100 mg daily Cycle 1 Day 1 09/22/14, increased dose to 200 mg daily from 02/03/15 - ExJade 500 mg per day Day 1 12/17/14, switched to JadeNu 540 mg from September 2015, increased to 720 mg per day from November 2015, decrease to 360 mg per day from because of increasing serum creatinine - creatinine stable on current dose - Eliquis 2.5 mg PO BID was added to therapy by cardiology on 05/10/16 because atrial flutter, discontinued December 2016 because of resolution of atrial fibrillation for several months - Aminocaproic acid 1 g PO TID initiated 10/12/17 patient currently receiving low-dose Dacogen. Doses are held when he is neutropenic. He has chronic anemia and thrombocytopenia requiring frequent transfusional support. Over the last several days he's becoming more weak, lethargic and developed fever. he denies a worsening cough and sputum production. No nausea or vomiting. No diarrhea. No rash. He has no symptoms to suggest bladder infection. He presented to emergency room last night. He was found to be pancytopenic with borderline neutropenia and an ANC of 1.2. was started on meropenem and vancomycin. Blood cultures obtained. Past Medical History: Chronic Problems (Last Reviewed 08/13/17 @ 15:02 by CELENA HealyC) GERD (gastroesophageal reflux disease) (Chronic) Pancytopenia (Chronic) Myelodysplastic syndrome (Chronic) Hypertension (Chronic) CHF (congestive heart failure) (Chronic) EF 40% (06/2017) CAD (coronary artery disease) (Chronic) Acute and chronic respiratory failure with hypoxia (Chronic) PAF (paroxysmal atrial fibrillation) (Chronic) Chronic renal failure, stage 3 (moderate) (Chronic) Past Medical/Surgical History: Past Medical History - Most Recent Inpatient Visit Past Medical History Start: 10/11/17 15: 51 Text: Status: Complete Freq: ONCE Protocol: Document 10/11/17 16:51 LR (Rec: 10/11/17 16:54 [facility] [id number]) BMI Required to complete PMH What is Patient's BMI 28.6 Past Medical History Unable History Recalled No Query Text:Pt Unable/Family Not Present Neurologic Medical History Hx Stroke/TIA No Hx Dementia/Alzheimer's No Hx Parkinson's Disease No Hx Seizures No Hx Multiple Sclerosis No Hx Migraines No Cardiac Medical History VTE Present on Admission No Hx of Deep Vein Thrombosis/VTE/PE No Hx Hypertension No Hx Chest Pain/Angina No Hx Heart Attack No Hx Cardiac Surgery/Stents/Etc. Yes: Ablations x2 Hx Heart Failure No Hx Pacemaker/AICD No Hx Irregular Heartbeat and/or Afib Yes Hx Anticoagulant Therapy No: has take eliquis in past Query Text:(Coumadin, Aspirin, Plavix, for fib Xarelto, etc.) Hx Pain in Legs when Walking/Leg Cramps Yes Respiratory Medical History Hx COPD No Hx Emphysema No Hx Smoking No Smoking Status Former smoker Tobacco Use Non-smoker Hx Tobacco Use in last 12 months No Hx of Pipe Smoking No Hx Sleep Apnea No CPAP No BIPAP No Do you snore loudly (louder than talking No or can be heard through closed doors)? Do you often feel tired/ fatigued/ No sleepy during daytime? Has anyone observed you stop breathing No during sleep? STOP Results Negative GI Medical History Hx Ulcer No Hx Hepatitis No Hx Cirrhosis No Hx GI Bleed Yes Hx Unplanned Weight Loss No Genitourinary Medical History Indwelling Catheter in Place on Arrival/ No Admission Hx Renal Disease No Hx Dialysis No Musculoskeletal History Hx Arthritis No Hx Rheumatoid Arthritis No Endocrine Medical History Hx Diabetes No Hx Thyroid Disease No Hematologic Medical History Hx of Blood Transfusion Yes Hx of Transfusion in last 3 Months Yes Date of Last Transfusion (if within last 10/06/17 3 months) Ever experience any problems with No transfusion(s)? 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 No Methicillin Resistant Staphylococcus aureus Screening Active MRSA No Risk for Readmission Number of Risk Factors 7 At Risk for Readmission Patient is At Risk For Readmission Patient is eligible for Call Back Y Past Medical History (Last Reviewed 08/13/17 @ 15:02 by ANNE Healy) Pancytopenia (Chronic) Myelodysplastic syndrome (Chronic) Hypertension (Chronic) CHF (congestive heart failure) (Chronic) CAD (coronary artery disease) (Chronic) Acute and chronic respiratory failure with hypoxia (Chronic) PAF (paroxysmal atrial fibrillation) (Chronic) Chronic renal failure, stage 3 (moderate) (Chronic) Bacteremia, escherichia coli (Resolved) Sepsis due to Escherichia coli (E. coli) (Resolved) Past Surgical History (Last Reviewed 08/13/17 @ 15:02 by Michaela Saldaña NP-C) S/P ablation of atrial flutter (Resolved) ablation PVI (Resolved) prostate brachytherapy (Resolved) Maternal Family History: Family History (Last Reviewed 08/13/17 @ 15:02 by CELENA HealyC) Brother Prostate CA Hairy cell leukemia Father Hypertension Sister Hypertension Family History: No pertinent history Paternal Family History: Family History (Last Reviewed 08/13/17 @ 15:02 by ANNE Healy) Brother Prostate CA Hairy cell leukemia Father Hypertension Sister Hypertension Family History: No pertinent history - Social History Lives: Spouse/ Significant Other Smoking Status: Former smoker Tobacco Use: Non-smoker Alcohol: Occasional Drugs: None Allergies/Adverse Reactions: Allergy/AdvReac Type Severity Reaction Status Date / Time adhesive Allergy Mild Rash Verified 10/11/17 11:28 Home Medications Medication Instructions Recorded Carvedilol [Coreg (Beta Denny)] 12.5 mg PO DINNER 05/16/15 Ergocalciferol [Vitamin D] 50,000 unit PO TU 05/16/15 Flecainide [Tambocor] 100 mg PO BID 05/16/15 Furosemide [Lasix] 60 mg PO DAILY 05/16/15 Deferasirox [Jadenu] 360 mg PO DAILY 12/12/15 Ascorbic Acid [Vitamin C] 250 mg PO DAILY 07/16/16 Chlorhexidine 15 ml PO BID PRN 07/16/16 Carvedilol [Coreg] 6.25 mg PO BREAKFAST 09/25/16 Famotidine [Pepcid] 20 mg PO DAILY 06/25/17 danazol 200 mg capsule 200 mg PO BID cap 07/13/17 eltrombopag 75 mg tablet 200 mg PO DAILY tab 07/13/17 Decitabine 50 mg SC QWEEK 10/11/17 Folic Acid 1 mg PO DAILY@0800 10/11/17 Review of Systems Constitutional:: Reports: Weakness, Fatigue, Fever, Sweats, Chills Cardiovascular:: Reports: Peripheral edema Respiratory: Reports: Shortness of breath upon exertion Skin: Reports: - - Eccymoses Vital Signs Height 1.73 m Weight: 88.1 kg Weight in Pounds 194.2 lbs Pulse Ox 98 Temperature 98.2 F Pulse Rate 59 Respiratory Rate 16 Blood Pressure [BP] 94/61 Blood Pressure 87/54 Blood Pressure Position [BP] Semi-Fowlers Blood Pressure Position Semi-Fowlers - Physical Exam General: Alert, Oriented x3 Neck:: Supple Lungs: Diminished, - - Few coarse scattered rhonchi Abdomen:: Non-tender Extremities:: Edema Skin:: Ecchymosis Laboratory Data: Laboratory Tests 3 10/12/17 10/12/17 10/12/17 Range/Units 07:00 06:05 06:05 WBC (4.4-11.0) K/mm3 RBC (4.6-6.2) M/mm3 Hgb (13.0-16.5) g/dl Hct (40-54) % MCV (80-94) fL MCH (27.0-32.0) pg MCHC (32-36) g/gl RDW (11.6-14.6) % RDW Differential (35.1-43.9) fl Plt Count (150-450) K/mm3 Immature Gran % (Auto) (0.0-0.9) % Neut % (Auto) (47-70) % Lymph % (Auto) (19-41) % [place] % (Auto) (0-10) % Eos % (Auto) (0-5) % Baso % (Auto) (0-1) % Absolute Neuts (auto) (2.0-7.7) X10^3/uL Absolute Lymphs (auto) (0.83-4.51) X10^3/ul Total Counted Differential Comment Diff Path Review Platelet Estimate (ADEQ) Hypochromasia Anisocytosis Ovalocytes Sodium 139 (136-145) mmol/L Potassium 4.1 (3.5-5.1) mmol/L Chloride 104 (98-107) mmol/L Carbon Dioxide 25.0 (21.0-32.0) mmol/L Anion Gap 10 (5-15) BUN 94 H (7-18) mg/dL Creatinine 3.18 H (0.70-1.30) mg/dL Estim Creat Clear Calc 17.63 ml/min Est GFR (MDRD) Af Amer 24 L (>60) mL/min Est GFR (MDRD) Non-Af 20 L (>60) mL/min BUN/Creatinine Ratio 29.6 H (10-20) RATIO Glucose 103 (74-106) mg/dL Calcium 8.0 L (8.5-10.1) mg/dL Phosphorus (2.5-4.9) mg/dL Magnesium 1.9 (1.6-2.6) mg/dL Random Vancomycin (0.0-15.0) ug/mL MRSA (PCR) (Negative) Crossmatch See Detail 3 10/12/17 10/12/17 10/11/17 Range/Units 06:05 04:00 20:40 WBC 3.2 L (4.4-11.0) K/mm3 RBC 2.28 L (4.6-6.2) M/mm3 Hgb 6.5 L (13.0-16.5) g/dl Hct 19.3 L (40-54) % MCV 84.6 (80-94) fL MCH 28.5 (27.0-32.0) pg MCHC 33.7 (32-36) g/gl RDW 17.1 H (11.6-14.6) % RDW Differential 53.2 H (35.1-43.9) fl Plt Count 8 L* (150-450) K/mm3 Immature Gran % (Auto) 0.900 (0.0-0.9) % Neut % (Auto) 59.0 (47-70) % Lymph % (Auto) 20.4 (19-41) % [place] % (Auto) 19.1 H (0-10) % Eos % (Auto) 0.0 (0-5) % Baso % (Auto) 0.6 (0-1) % Absolute Neuts (auto) 1.9 L (2.0-7.7) X10^3/uL Absolute Lymphs (auto) 0.65 L (0.83-4.51) X10^3/ul Total Counted Not Reportable Differential Comment SCANNED Diff Path Review May foll Platelet Estimate MKD DEC (ADEQ) Hypochromasia 3+ Anisocytosis 2+ Ovalocytes RARE Sodium (136-145) mmol/L Potassium (3.5-5.1) mmol/L Chloride (98-107) mmol/L Carbon Dioxide (21.0-32.0) mmol/L Anion Gap (5-15) BUN (7-18) mg/dL Creatinine (0.70-1.30) mg/dL Estim Creat Clear Calc ml/min Est GFR (MDRD) Af Amer (>60) mL/min Est GFR (MDRD) Non-Af (>60) mL/min BUN/Creatinine Ratio (10-20) RATIO Glucose (74-106) mg/dL Calcium (8.5-10.1) mg/dL Phosphorus 4.6 (2.5-4.9) mg/dL Magnesium (1.6-2.6) mg/dL Random Vancomycin 10.2 (0.0-15.0) ug/mL MRSA (PCR) (Negative) Crossmatch 3 10/11/17 Range/Units 16:15 WBC (4.4-11.0) K/mm3 RBC (4.6-6.2) M/mm3 Hgb (13.0-16.5) g/dl Hct (40-54) % MCV (80-94) fL MCH (27.0-32.0) pg MCHC (32-36) g/gl RDW (11.6-14.6) % RDW Differential (35.1-43.9) fl Plt Count (150-450) K/mm3 Immature Gran % (Auto) (0.0-0.9) % Neut % (Auto) (47-70) % Lymph % (Auto) (19-41) % [place] % (Auto) (0-10) % Eos % (Auto) (0-5) % Baso % (Auto) (0-1) % Absolute Neuts (auto) (2.0-7.7) X10^3/uL Absolute Lymphs (auto) (0.83-4.51) X10^3/ul Total Counted Differential Comment Diff Path Review Platelet Estimate (ADEQ) Hypochromasia Anisocytosis Ovalocytes Sodium (136-145) mmol/L Potassium (3.5-5.1) mmol/L Chloride (98-107) mmol/L Carbon Dioxide (21.0-32.0) mmol/L Anion Gap (5-15) BUN (7-18) mg/dL Creatinine (0.70-1.30) mg/dL Estim Creat Clear Calc ml/min Est GFR (MDRD) Af Amer (>60) mL/min Est GFR (MDRD) Non-Af (>60) mL/min BUN/Creatinine Ratio (10-20) RATIO Glucose (74-106) mg/dL Calcium (8.5-10.1) mg/dL Phosphorus (2.5-4.9) mg/dL Magnesium (1.6-2.6) mg/dL Random Vancomycin (0.0-15.0) ug/mL MRSA (PCR) Negative (Negative) Crossmatch Diagnostic Data: Diagnostic Data Chest X-Ray 10/11/17 12:[address] 10/11/17 15:31 IMPRESSION: Extensive pleural-based calcific and noncalcific plaques along the costal and diaphragmatic pleura suggestive of prior asbestos exposure Cardiomegaly with coronary vascular calcifications and mild intralobular septal thickening may relate with mild pulmonary edema. Pleural-based soft tissue density measuring approximately 4 cm along the posterior medial segment of the right lower lobe possibly pleural-based plaque however this needs follow-up CT imaging in 4-6 months. Heterogeneous density of the thoracic spine with multiple lytic lesions as well as in the sternum. Differential considerations include multiple myeloma, renal osteodystrophy or metastatic disease. Electronically Signed: Wong Hewitt, at 16:32 EDT Tel , Service support , Assessment and Plan 1) Neutropenic fever. Assessment: -Improved with broad-spectrum antibiotic. -Was hypotensive on presentation and received pressors which were discontinued earlier this morning. Carvedilol was held. -He is alert and oriented this morning. -No clear source of fever. -ANC improved this morning. Plan: -Would continue broad spectrum antibiotics until BC negative 48 hours. -Won't need extended antibiotic treatment if neutrophil count normal, blood cultures negative and no clear source of infection. 2) MDS. Assessment: -Although he requires frequent transfusional support, disease is stable on low- dose Dacogen. Plan: -Continue therapy once above issue resolved. Medications: Prescriptions This Visit Medication Instructions Recorded Decitabine 50 mg SC QWEEK 10/11/17 Folic Acid 1 mg PO DAILY@0800 10/11/17 Medications Added to Medication List This Visit Category Date Time Status Ascorbic Acid [Vitamin C] Med 10/12/17 10:00 Active 250 mg PO DAILY Chlorhexidine Gluc 2% Cloth Med 10/12/17 10:00 Active 1 each TOPICAL DAILY Ergocalciferol [Vitamin D] Med 10/13/17 10:00 Active 50,000 unit PO Tu@1000 Famotidine [Pepcid] Med 10/12/17 10:00 Active 20 mg PO DAILY Folic Acid Med 10/12/17 08:00 Active 1 mg PO DAILY@0800 Vancomycin Med 10/12/17 06:00 Active 1 lab MISCELL. DAILY@0600 Vancomycin [Vancomycin Renal/HD Dosing] Med 10/12/17 08:00 Active 1 unit MISCELL. DAILY@0800 Primary Care Provider: No Primary Care Phys Referring Provider:
[2017-10-12] MEDS: Folic Acid 1 MG Tablet PO (08:53)
[2017-10-12] MEDS: Acetaminophen 325 MG Tablet 650 MG PO (08:53)
[2017-10-12] MEDS: 0.9% NaCl Peripheral Flush Adult/Peds IV ×4 (09:39→21:55)
[2017-10-12] MEDS: Famotidine 20 MG Tablet PO (09:41)
[2017-10-12] MEDS: CHLORHEXIDINE GLUC 2% CLOTH 1 EACH TOWELETTE TOPICAL (09:41)
--- NOTE | 2017-10-12 10:42 | PCM.PROGNOTE ---
Patient Problems: Active and Suspected Problems (Last Reviewed 08/13/17 @ 15:02 by ANNE Healy) Neutropenic fever (Acute) Subjective: Patient was seen and examined today in ICU, he will be receiving platelet infusion as well as packed red blood cells today, he is no longer on any pressors, T-max since midnight has been 100, absolute neutrophil count has improved. I talked briefly with critical care about his care, patient will remain in the ICU today. - Physical Exam General: Alert, Oriented x3, Cooperative, No apparent distress, Well developed, Well nourished HEENT: Atraumatic, PERRLA, EOMI, Normocephalic Oral: Moist Mucosa Neck: Supple, No JVD, Negative Carotid Bruits, No Nuchal Rigidity, Trachea Midline, Thyroid Normal Size and Texture Lungs: Clear to auscultation, Normal air movement, No rhonchi, No wheeze, No rales Cardiovascular: Regular rate, Regular Rhythm, Normal S1, Normal S2, No murmurs, No Ectopic Activity Abdomen: Bowel Sounds Present, Soft, Non Tender, Non-Distended, No hernias noted Extremities: No clubbing, No cyanosis, Capillary Refill Less than 3 Seconds Skin: No rashes, No breakdown Musculoskeletal: No Tenderness to Palpation of Joints or Extremities Neurological: Cranial nerves II-XII grossly intact, Neuro grossly intact, Sensory exam intact to light touch and pain, Coordination normal Psych/Mental Status: Normal Affect, Appropriate, Alert and oriented to time, place, person, mood and affect Vital Signs Temp Pulse Resp BP Pulse Ox 99.3 F H 60 16 79/50 L 94 10/12/17 10:00 10/12/17 10:00 10/12/17 10:00 10/12/17 10:10/12/17 10:00 Oxygen Flow Rate (L/min) 1 Oxygen Delivery Method Nasal Cannula Weight: 88.1 kg Body Mass Index (BMI) 28.5 Intake and Output for Last 24 Hours 10/10/17 10/11/17 10/12/17 23:59 23:59 23:59 Intake Total 1540 / 1540 449 / 449 Output Total 228 / 228 Balance 1540 / 1540 221 / 221 Microbiology Past 72 Hours 10/11/17 Unknown Respiratory Panel (PCR) - Final Mucosa - Nasopharyngeal Laboratory Tests Past 24 Hrs 0510/11/17 10/12/17 16:15 20:40 04:00 WBC RBC Hgb Hct MCV MCH MCHC RDW RDW Differential Plt Count Immature Gran % (Auto) Neut % (Auto) Lymph % (Auto) [place] % (Auto) Eos % (Auto) Baso % (Auto) Absolute Neuts (auto) Absolute Lymphs (auto) Total Counted Differential Comment Diff Path Review Platelet Estimate Hypochromasia Anisocytosis Ovalocytes Sodium Potassium Chloride Carbon Dioxide Anion Gap BUN Creatinine Estim Creat Clear Calc Est GFR (MDRD) Af Amer Est GFR (MDRD) Non-Af BUN/Creatinine Ratio Glucose Calcium Phosphorus 4.6 Magnesium Random Vancomycin 10.2 Flecainide MRSA (PCR) Negative Blood Type Antibody Screen Crossmatch 10/12/17 10/12/17 10/12/17 06:05 06:05 06:05 WBC 3.2 L RBC 2.28 L Hgb 6.5 L Hct 19.3 L MCV 84.6 MCH 28.5 MCHC 33.7 RDW 17.1 H RDW Differential 53.2 H Plt Count 8 L* Immature Gran % (Auto) 0.900 Neut % (Auto) 59.0 Lymph % (Auto) 20.4 [place] % (Auto) 19.1 H Eos % (Auto) 0.0 Baso % (Auto) 0.6 Absolute Neuts (auto) 1.9 L Absolute Lymphs (auto) 0.65 L Total Counted Not Reportable Differential Comment SCANNED Diff Path Review May foll Platelet Estimate MKD DEC Hypochromasia 3+ Anisocytosis 2+ Ovalocytes RARE Sodium 139 Potassium 4.1 Chloride 104 Carbon Dioxide 25.0 Anion Gap 10 BUN 94 H Creatinine 3.18 H Estim Creat Clear Calc 17.63 Est GFR (MDRD) Af Amer 24 L Est GFR (MDRD) Non-Af 20 L BUN/Creatinine Ratio 29.6 H Glucose 103 Calcium 8.0 L Phosphorus Magnesium 1.9 Random Vancomycin Flecainide MRSA (PCR) Blood Type Antibody Screen Crossmatch 10/12/17 10/12/17 07:00 09:40 WBC RBC Hgb Hct MCV MCH MCHC RDW RDW Differential Plt Count Immature Gran % (Auto) Neut % (Auto) Lymph % (Auto) [place] % (Auto) Eos % (Auto) Baso % (Auto) Absolute Neuts (auto) Absolute Lymphs (auto) Total Counted Differential Comment Diff Path Review Platelet Estimate Hypochromasia Anisocytosis Ovalocytes Sodium Potassium Chloride Carbon Dioxide Anion Gap BUN Creatinine Estim Creat Clear Calc Est GFR (MDRD) Af Amer Est GFR (MDRD) Non-Af BUN/Creatinine Ratio Glucose Calcium Phosphorus Magnesium Random Vancomycin Flecainide Pending MRSA (PCR) Blood Type O POSITIVE Antibody Screen NEGATIVE Crossmatch See Detail Medical Necessity - Tobacco Use Smoking Status: Former smoker Tobacco Use: Non-smoker Assessment/Plan Active and Suspected Problems (Last Reviewed 08/13/17 @ 15:02 by Michaela Saldaña, [employer]-C) Neutropenic fever (Acute) #1 neutropenic fever-continue present antibiotics, critical care seeing the patient as well as oncology #2 thrombocytopenia-patient will be receiving platelet infusion #3 anemia-patient will be receiving packed red blood cells #4 acute kidney injury on a backdrop of stage III chronic kidney disease-he was probably dehydrated and will continue to receive fluids, labs will be rechecked #5 myelodysplastic syndrome #6 hypotension-secondary to dehydration #7 coronary artery disease #8 paroxysmal atrial fibrillation #9 chronic congestive heart failure-systolic, stable at this time #10 essential hypertension-blood pressure meds will be held at this time Code Visit Inpatient E&M: 49412 Subs Hosp L2
--- NOTE | 2017-10-12 11:23 | CASEMGMT ---
See RN CM Assessment. DC Plan: Home - has been assisting pt at home, driving to Oncology appointments, managing medications. No needs identified @ this time, but let pt and know CM is available if needs arise. Sukumar GOSSN RN ACM
[2017-10-12] MEDS: Flecainide 100 MG Tablet PO ×2 (12:30→23:03)
[2017-10-12 18:26] LABS: Hematocrit 22.6 % (40-54); Hemoglobin 7.6 g/dl (13.0-16.5); Mean Corp Hgb Conc 33.6 g/gl (32-36); Mean Corpuscular Hgb 28.3 pg (27.0-32.0); RBC Distribution Width CV 16.6 % (11.6-14.6); RBC Distribution Width SD 51.1 fl (35.1-43.9); Red Blood Count 2.69 M/mm3 (4.6-6.2); White Blood Count 2.7 K/mm3 (4.4-11.0)
[2017-10-12 18:27] LABS: Scan Indicated on CBC? Y/N YES- FLAGS NOTED
[2017-10-12 18:28] LABS: Platelet Count 18 K/mm3 (150-450)
[2017-10-12 19:01] LABS: Differential Comment SEE COMMENTS
[2017-10-13] VITALS (29 sets, daily range): BP systolic 94–115; BP diastolic 44–71; PULSE 48–74; RESP 14–22; TEMP 36.3–37.6; O2SAT 88–99
[2017-10-13] MEDS: CHLORHEXIDINE GLUC 2% CLOTH 1 EACH TOWELETTE TOPICAL (04:06)
[2017-10-13] MEDS: 0.9% NaCl Peripheral Flush Adult/Peds IV (05:26)
[2017-10-13 05:36] LABS: Absolute Lymphocyte Count 0.58 X10^3/ul (0.83-4.51); Absolute Neutrophil Count 1.2 X10^3/uL (2.0-7.7); Basophil# 0.04 X10^3/uL; Basophil% 1.8 % (0-1); Eosinophil# 0.02 X10^3/uL; Eosinophils% 0.9 % (0-5); Hematocrit 21.8 % (40-54); Hemoglobin 7.5 g/dl (13.0-16.5); Lymphocyte # 0.58 X10^3/ul (4.0); Lymphocyte % 26.2 % (19-41); Mean Corp Hgb Conc 34.4 g/gl (32-36); Mean Corpuscular Hgb 29.4 pg (27.0-32.0); Mean Corpuscular Volume 85.5 fL (80-94); Mean Platelet Vol. 12.8 fl (6.2-12.0); Monocyte# 0.34 X10^3/uL; Monocyte% 15.4 % (0-10); Neutrophil # 1.22 X10^3/uL (2.7-7.7); Neutrophil % 55.2 % (47-70); RBC Distribution Width CV 16.4 % (11.6-14.6); RBC Distribution Width SD 49.9 fl (35.1-43.9); Red Blood Count 2.55 M/mm3 (4.6-6.2); White Blood Count 2.2 K/mm3 (4.4-11.0)
[2017-10-13 05:41] LABS: Differential Indicated SCAN CRITERIA MET; POSITIVE COUNT YES; POSITIVE DIFFERENTIAL YES; POSITIVE MORPHOLOGY YES; Platelet Count 19 K/mm3 (150-450)
[2017-10-13 05:50] LABS: Anion Gap 9 (5-15); BUN 92 mg/dL (7-18); Calcium,Total 8.4 mg/dL (8.5-10.1); Chloride 104 mmol/L (98-107); Creatinine, Serum 2.97 mg/dL (0.70-1.30); EST Glomerular Filtration Rate 22 mL/min (>60); Est Glom Filt Rate - Afr Amer 26 mL/min (>60); Estimated Creatinine Clearance 18.87 ml/min; Glucose 100 mg/dL (74-106); Potassium 4.1 mmol/L (3.5-5.1); Sodium Level 139 mmol/L (136-145)
[2017-10-13 05:59] LABS: Differential Comment SCANNED; Hypochromasia 1+; Ovalocyte RARE; Platelet Estimate MKD DEC (ADEQ)
--- NOTE | 2017-10-13 06:11 | PN_ITS ---
Subjective: Patient did well overnight. No acute issues were reported. Patient denies any symptoms this morning. Patient feels subjectively improved compared to previous. No confusion or fevers have been noted overnight. General: Alert, Oriented x3, Cooperative, No apparent distress, - - Speaking in full sentences. Appears stated age. HEENT: Atraumatic, PERRLA, EOMI, Normocephalic, - - No scleral icterus or injection noted. Oral: Moist Mucosa, No Gingival or Mucosal Lesions/ Ulcerations Neck: Supple, No Nodes, Trachea Midline, JVD, Right Lungs: No rhonchi, No wheeze, Diminished, Rales, - - Symmetric expansion. No dullness to percussion. Cardiovascular: Regular rate, Regular Rhythm, Normal S1, Normal S2, Murmur - Unchanged from previous, No rub noted, No Gallop Abdomen: Bowel Sounds Present, Soft, Non Tender, Non-Distended Extremities: No clubbing, No cyanosis, Capillary Refill Less than 3 Seconds, Edema - 1+ lower extremity Skin: No rashes, No breakdown Musculoskeletal: No Tenderness to Palpation of Joints or Extremities Lymphatic: No Cervical, Supraclavicular, or Inguinal Adenopathy Neurological: Cranial nerves II-XII grossly intact, Neuro grossly intact, Motor Exam 5/5 strength throughout Psych/Mental Status: Alert and oriented to time, place, person, mood and affect Vital Signs Temp Pulse Resp BP Pulse Ox 37.6 C H 65 17 115/60 94 10/13/17 04:00 10/13/17 06:00 10/13/17 06:00 10/13/17 06:00 10/13/17 06:00 Oxygen Flow Rate (L/min) 1 Oxygen Delivery Method Nasal Cannula Weight: 88.8 kg Body Mass Index (BMI) 28.5 Intake and Output for Last 24 Hours 10/11/17 10/12/17 10/13/17 23:59 23:59 23:59 Intake Total 1540 / 1540 2006 185 / 185 Output Total 828 / 828 550 / 550 Balance 1540 / 1540 1179 / 1179 -365 / -365 Labs (Last 48 Hours) 10/11/17 10/11/17 10/12/17 16:15 20:40 04:00 WBC RBC Hgb Hct MCV MCH MCHC RDW RDW Differential Plt Count MPV Immature Gran % (Auto) Neut % (Auto) Lymph % (Auto) [place] % (Auto) Eos % (Auto) Baso % (Auto) Absolute Neuts (auto) Absolute Lymphs (auto) Total Counted Differential Comment Diff Path Review Platelet Estimate Hypochromasia Anisocytosis Ovalocytes Sodium Potassium Chloride Carbon Dioxide Anion Gap BUN Creatinine Estim Creat Clear Calc Est GFR (MDRD) Af Amer Est GFR (MDRD) Non-Af BUN/Creatinine Ratio Glucose Calcium Phosphorus 4.6 Magnesium Random Vancomycin 10.2 Flecainide MRSA (PCR) Negative Blood Type Antibody Screen Crossmatch 10/12/17 10/12/17 10/12/17 06:05 06:05 06:05 WBC 3.2 L RBC 2.28 L Hgb 6.5 L Hct 19.3 L MCV 84.6 MCH 28.5 MCHC 33.7 RDW 17.1 H RDW Differential 53.2 H Plt Count 8 L* MPV Immature Gran % (Auto) 0.900 Neut % (Auto) 59.0 Lymph % (Auto) 20.4 [place] % (Auto) 19.1 H Eos % (Auto) 0.0 Baso % (Auto) 0.6 Absolute Neuts (auto) 1.9 L Absolute Lymphs (auto) 0.65 L Total Counted Not Reportable Differential Comment SCANNED Diff Path Review May foll Platelet Estimate MKD DEC Hypochromasia 3+ Anisocytosis 2+ Ovalocytes RARE Sodium 139 Potassium 4.1 Chloride 104 Carbon Dioxide 25.0 Anion Gap 10 BUN 94 H Creatinine 3.18 H Estim Creat Clear Calc 17.63 Est GFR (MDRD) Af Amer 24 L Est GFR (MDRD) Non-Af 20 L BUN/Creatinine Ratio 29.6 H Glucose 103 Calcium 8.0 L Phosphorus Magnesium 1.9 Random Vancomycin Flecainide MRSA (PCR) Blood Type Antibody Screen Crossmatch 10/12/17 10/12/17 10/12/17 07:00 09:40 18:00 WBC 2.7 L RBC 2.69 L Hgb 7.6 L Hct 22.6 L MCV 84.0 MCH 28.3 MCHC 33.6 RDW 16.6 H RDW Differential 51.1 H Plt Count 18 L* MPV 11.0 Immature Gran % (Auto) Neut % (Auto) Lymph % (Auto) [place] % (Auto) Eos % (Auto) Baso % (Auto) Absolute Neuts (auto) Absolute Lymphs (auto) Total Counted Differential Comment SEE COMMENTS Diff Path Review May foll Platelet Estimate Hypochromasia Anisocytosis Ovalocytes Sodium Potassium Chloride Carbon Dioxide Anion Gap BUN Creatinine Estim Creat Clear Calc Est GFR (MDRD) Af Amer Est GFR (MDRD) Non-Af BUN/Creatinine Ratio Glucose Calcium Phosphorus Magnesium Random Vancomycin Flecainide Pending MRSA (PCR) Blood Type O POSITIVE Antibody Screen NEGATIVE Crossmatch See Detail 10/13/17 10/13/17 05:25 05:25 WBC 2.2 L RBC 2.55 L Hgb 7.5 L Hct 21.8 L MCV 85.5 MCH 29.4 MCHC 34.4 RDW 16.4 H RDW Differential 49.9 H Plt Count 19 L* MPV 12.8 H Immature Gran % (Auto) 0.500 Neut % (Auto) 55.2 Lymph % (Auto) 26.2 [place] % (Auto) 15.4 H Eos % (Auto) 0.9 Baso % (Auto) 1.8 H Absolute Neuts (auto) 1.2 L Absolute Lymphs (auto) 0.58 L Total Counted Not Reportable Differential Comment SCANNED Diff Path Review May foll Platelet Estimate MKD DEC Hypochromasia 1+ Anisocytosis Ovalocytes RARE Sodium 139 Potassium 4.1 Chloride 104 Carbon Dioxide 26.0 Anion Gap 9 BUN 92 H Creatinine 2.97 H Estim Creat Clear Calc 18.87 Est GFR (MDRD) Af Amer 26 L Est GFR (MDRD) Non-Af 22 L BUN/Creatinine Ratio 31.0 H Glucose 100 Calcium 8.4 L Phosphorus Magnesium Random Vancomycin Flecainide MRSA (PCR) Blood Type Antibody Screen Crossmatch Microbiology 10/11/17 Unknown Mucosa - Nasopharyngeal Respiratory Panel (PCR) - Final Medical Necessity - Tobacco Use Smoking Status: Former smoker Tobacco Use: Non-smoker Assessment/Plan Active and Suspected Problems (Last Reviewed 08/13/17 @ 15:02 by Michaela Saldaña NP-C) Neutropenic fever (Acute) RECOMMENDATIONS: 1. Discontinue empiric antibiotics 2. Monitor blood counts on a daily basis 3. Wean oxygen as tolerated 4. Okay to reinitiate Coreg 5. Okay to transfer from the intensive care unit from my perspective 6. Monitor on for without antibiotics until culture negative later today IMPRESSIONS: 1. Presumed septic shock secondary to neutropenic fever Patient initially on pressor therapy, but baseline blood pressures are only in the 90s. Patient appears to be doing well from this perspective. No repeat fevers have been noted. Patient is no longer confused. Exact etiology of fever is not clear at this time. Cultures will be resulted later today. Likely okay to discontinue antibiotics given patient's increased bowel movements 2. Myelodysplastic syndrome/pancytopenia Patient transfused yesterday with platelets and hemoglobin. Morning counts appear to be appropriate at this time. Hematology oncology is following. Patient typically gets weekly infusions. 3. Acute on chronic kidney disease stage IV Likely prerenal etiology secondary to #1. Patient is not on steroid therapy at baseline, so adrenal insufficiency is not suspected. Patient does have severe pulmonary hypertension and would be significantly preload dependent. 4. Chronic systolic congestive heart failure/moderate aortic stenosis/ severe pulmonary hypertension Patient with significant comorbid cardiac pathology. Coreg was held initially secondary to hypotension. However, patient can likely be reinitiated on Coreg therapy today. 5. GERD/hypertension/paroxysmal A. fib/advanced age Complicates care, management, recovery and prognosis. Likely okay to continue patient on Pepcid therapy. Code Visit Inpatient E&M: 86825 [facility] Hosp L3
[2017-10-13] MEDS: Folic Acid 1 MG Tablet PO (10:45)
[2017-10-13] MEDS: Flecainide 100 MG Tablet PO ×2 (10:47→22:03)
[2017-10-13] MEDS: Carvedilol 6.25 MG Tablet PO (10:47)
[2017-10-13] MEDS: Famotidine 20 MG Tablet PO (10:47)
[2017-10-13 11:24] LABS: Pathologist Review Reviewed
[2017-10-13 11:27] LABS: Pathologist Review Reviewed
[2017-10-13 11:38] LABS: Pathologist Review Reviewed
[2017-10-13 11:42] LABS: Pathologist Review Reviewed
--- NOTE | 2017-10-13 16:41 | PCM.PROGNOTE ---
Patient Problems: Active and Suspected Problems (Last Reviewed 08/13/17 @ 15:02 by ANNE Healy) Neutropenic fever (Acute) Subjective: Patient was seen and examined today, he is running a low-grade temperature but has no complaints of any shortness of breath or cough. Antibiotics were stopped, I talked with oncology today as well as critical care. Patient will receive 2 units of packed red blood cells today, oncology does not feel patient needs any platelet infusion. Patient appears stable for transfer to PCU at this time. - Physical Exam General: Alert, Oriented x3, Cooperative, No apparent distress, Well developed, Well nourished HEENT: Atraumatic, PERRLA, EOMI, Normocephalic Oral: Moist Mucosa Neck: Supple, No JVD, No Nuchal Rigidity, Trachea Midline, Thyroid Normal Size and Texture Lungs: Clear to auscultation, Normal air movement, No rhonchi, No wheeze, No rales Cardiovascular: Regular rate, Regular Rhythm, Normal S1, Normal S2, No murmurs, No Ectopic Activity Abdomen: Bowel Sounds Present, Soft, Non Tender, Non-Distended, No hernias noted Extremities: No clubbing, No cyanosis, No edema, Capillary Refill Less than 3 Seconds Skin: No rashes, No breakdown Musculoskeletal: No Tenderness to Palpation of Joints or Extremities Neurological: Cranial nerves II-XII grossly intact, Neuro grossly intact, Muscle tone normal, Sensory exam intact to light touch and pain Psych/Mental Status: Normal Affect, Appropriate, Alert and oriented to time, place, person, mood and affect Vital Signs Temp Pulse Resp BP Pulse Ox 97.7 F L 63 16 108/57 L 98 10/13/17 14:54 10/13/17 15:02 10/13/17 14:54 10/13/17 14:54 10/13/17 14:54 Oxygen Flow Rate (L/min) 2 Oxygen Delivery Method Room Air Weight: 88.8 kg Body Mass Index (BMI) 28.5 Intake and Output for Last 24 Hours 10/11/17 10/12/17 10/13/17 23:59 23:59 23:59 Intake Total 1540 / 1540 2006 385 / 385 Output Total 828 / 828 850 / 850 Balance 1540 / 1540 1179 / 1179 -465 / -465 Microbiology Past 72 Hours 10/11/17 Unknown Respiratory Panel (PCR) - Final Mucosa - Nasopharyngeal Laboratory Tests Past 24 Hrs 10/12/17 10/12/17 10/12/17 06:05 07:00 18:00 WBC 2.7 L RBC 2.69 L Hgb 7.6 L Hct 22.6 L MCV 84.0 MCH 28.3 MCHC 33.6 RDW 16.6 H RDW Differential 51.1 H Plt Count 18 L* MPV 11.0 Immature Gran % (Auto) Neut % (Auto) Lymph % (Auto) [place] % (Auto) Eos % (Auto) Baso % (Auto) Absolute Neuts (auto) Absolute Lymphs (auto) Total Counted Differential Comment SEE COMMENTS Diff Path Review Reviewed Reviewed Platelet Estimate Hypochromasia Ovalocytes Sodium Potassium Chloride Carbon Dioxide Anion Gap BUN Creatinine Estim Creat Clear Calc Est GFR (MDRD) Af Amer Est GFR (MDRD) Non-Af BUN/Creatinine Ratio Glucose Calcium Crossmatch See Detail 10/13/17 10/13/17 05:25 05:25 WBC 2.2 L RBC 2.55 L Hgb 7.5 L Hct 21.8 L MCV 85.5 MCH 29.4 MCHC 34.4 RDW 16.4 H RDW Differential 49.9 H Plt Count 19 L* MPV 12.8 H Immature Gran % (Auto) 0.500 Neut % (Auto) 55.2 Lymph % (Auto) 26.2 [place] % (Auto) 15.4 H Eos % (Auto) 0.9 Baso % (Auto) 1.8 H Absolute Neuts (auto) 1.2 L Absolute Lymphs (auto) 0.58 L Total Counted Not Reportable Differential Comment SCANNED Diff Path Review Reviewed Platelet Estimate MKD DEC Hypochromasia 1+ Ovalocytes RARE Sodium 139 Potassium 4.1 Chloride 104 Carbon Dioxide 26.0 Anion Gap 9 BUN 92 H Creatinine 2.97 H Estim Creat Clear Calc 18.87 Est GFR (MDRD) Af Amer 26 L Est GFR (MDRD) Non-Af 22 L BUN/Creatinine Ratio 31.0 H Glucose 100 Calcium 8.4 L Crossmatch Medical Necessity - Tobacco Use Smoking Status: Former smoker Tobacco Use: Non-smoker Assessment/Plan Active and Suspected Problems (Last Reviewed 08/13/17 @ 15:02 by CELENA HealyC) Neutropenic fever (Acute) #1 neutropenic fever-patient's antibiotics were stopped, he will be moved to PCU #2 thrombocytopenia-CBC will be repeated tomorrow #3 anemia-patient will be receiving packed red blood cells today #4 acute kidney injury on a backdrop of stage III chronic kidney disease-he was probably dehydrated and will continue to receive fluids, labs will be rechecked #5 myelodysplastic syndrome #6 hypotension-secondary to dehydration, corrected at this point #7 coronary artery disease #8 paroxysmal atrial fibrillation #9 chronic congestive heart failure-systolic, stable at this time #10 essential hypertension-blood pressure meds will be held at this time Code Visit Inpatient E&M: [id number] Subs Hosp L2
[2017-10-13] MEDS: Furosemide 20 MG/2 ML VIAL IV (17:14)
--- NOTE | 2017-10-13 21:49 | NURSING ---
RN has long conversation with both patient and patients about the order for IV fluids. Expressed to them the reasoning behind why it was ordered. Identified with them about physicians feeling patient in dehydrated and needs the fluids to improve kidney function and bring patient BP's up. Patients wide states that his blood pressures are in his normal range and so is his kidney function labs. She is concerned that the fluid will make his CHF worse and increase his swelling. She states that all of this is because of his myelodysplastic syndrome and that IV hydration will not fix any of these problems. They both refuse IV hydration treatment.
[2017-10-13] MEDS: Carvedilol 12.5 MG Tablet PO (22:04)
[2017-10-14] VITALS (8 sets, daily range): BP systolic 104–116; BP diastolic 46–57; PULSE 53–58; RESP 16–18; TEMP 36.4–37; O2SAT 93–95
[2017-10-14 06:19] LABS: Absolute Lymphocyte Count 0.62 X10^3/ul (0.83-4.51); Absolute Neutrophil Count 0.8 X10^3/uL (2.0-7.7); Basophil# 0.01 X10^3/uL; Basophil% 0.5 % (0-1); Eosinophil# 0.02 X10^3/uL; Eosinophils% 1.1 % (0-5); Hematocrit 25.2 % (40-54); Hemoglobin 8.7 g/dl (13.0-16.5); Lymphocyte # 0.62 X10^3/ul (4.0); Mean Corp Hgb Conc 34.5 g/gl (32-36); Mean Corpuscular Hgb 28.6 pg (27.0-32.0); Mean Corpuscular Volume 82.9 fL (80-94); Monocyte# 0.38 X10^3/uL; Monocyte% 20.2 % (0-10); Neutrophil # 0.83 X10^3/uL (2.7-7.7); Neutrophil % 44.1 % (47-70); RBC Distribution Width CV 16.7 % (11.6-14.6); RBC Distribution Width SD 50.5 fl (35.1-43.9); Red Blood Count 3.04 M/mm3 (4.6-6.2); White Blood Count 1.9 K/mm3 (4.4-11.0)
[2017-10-14 06:22] LABS: Differential Indicated SCAN CRITERIA MET; POSITIVE COUNT YES; POSITIVE DIFFERENTIAL YES; POSITIVE MORPHOLOGY YES; Platelet Count 11 K/mm3 (150-450)
[2017-10-14 06:28] LABS: Anion Gap 9 (5-15); BUN 86 mg/dL (7-18); BUN/Creat Ratio 34.8 RATIO (10-20); Calcium,Total 8.6 mg/dL (8.5-10.1); Chloride 104 mmol/L (98-107); Creatinine, Serum 2.47 mg/dL (0.70-1.30); EST Glomerular Filtration Rate 27 mL/min (>60); Est Glom Filt Rate - Afr Amer 32 mL/min (>60); Estimated Creatinine Clearance 22.69 ml/min; Glucose 95 mg/dL (74-106); Potassium 4.2 mmol/L (3.5-5.1); Sodium Level 140 mmol/L (136-145)
[2017-10-14 06:45] LABS: Differential Comment SCANNED; Hypochromasia 2+; Ovalocyte RARE; Platelet Estimate MKD DEC (ADEQ)
--- NOTE | 2017-10-14 06:49 | PN_ITS ---
Subjective: Patient transferred out of the intensive care unit yesterday. No acute issues were reported overnight. Patient does report frustrations with an inability to get out of bed unattended. Patient denies any bleeding complications. Patient has been weaned to room air. Patient is denying any pain at this time. Patient is alert and oriented ?3 this morning. General: Alert, Oriented x3, Cooperative, No apparent distress, Well developed, Well nourished, - - Speaking in full sentences. HEENT: Atraumatic, PERRLA, EOMI, Normocephalic, - - No scleral icterus or injection noted. Oral: Moist Mucosa, No Gingival or Mucosal Lesions/ Ulcerations Neck: Supple, No JVD, No Nodes, Trachea Midline Lungs: No rhonchi, No wheeze, No rales, Diminished, - - Symmetric expansion. No dullness to percussion. Cardiovascular: Regular rate, Regular Rhythm, Normal S1, Normal S2, Murmur - Unchanged from previous, No rub noted, No Gallop Abdomen: Bowel Sounds Present, Soft, Non Tender, Non-Distended Extremities: No cyanosis, No edema, Capillary Refill Less than 3 Seconds, Clubbing Skin: - - No significant change compared to previous Musculoskeletal: No Tenderness to Palpation of Joints or Extremities, No Muscle Wasting Lymphatic: No Cervical, Supraclavicular, or Inguinal Adenopathy Neurological: Cranial nerves II-XII grossly intact, Neuro grossly intact, Motor Exam 5/5 strength throughout Psych/Mental Status: Alert and oriented to time, place, person, mood and affect Vital Signs Temp Pulse Resp BP Pulse Ox 36.9 C 54 L 16 116/57 L 95 10/14/17 02:00 10/14/17 03:06 10/14/17 02:00 10/14/17 02:00 10/14/17 02:00 Oxygen Flow Rate (L/min) 2 Oxygen Delivery Method Room Air Weight: 88.7 kg Body Mass Index (BMI) 28.5 Intake and Output for Last 24 Hours 10/12/17 10/13/17 10/14/17 23:59 23:59 23:59 Intake Total 2006 1025 / 1025 Output Total 828 / 828 1550 / 1550 650 / 650 Balance 1179 / 1179 -525 / -525 -650 / -650 Labs (Last 48 Hours) 10/12/17 10/12/17 10/12/17 06:05 07:00 07:00 WBC RBC Hgb Hct MCV MCH MCHC RDW RDW Differential Plt Count MPV Immature Gran % (Auto) Neut % (Auto) Lymph % (Auto) [place] % (Auto) Eos % (Auto) Baso % (Auto) Absolute Neuts (auto) Absolute Lymphs (auto) Total Counted Not Reportable Differential Comment SCANNED Diff Path Review Reviewed Platelet Estimate MKD DEC Hypochromasia 3+ Anisocytosis 2+ Ovalocytes RARE Sodium Potassium Chloride Carbon Dioxide Anion Gap BUN Creatinine Estim Creat Clear Calc Est GFR (MDRD) Af Amer Est GFR (MDRD) Non-Af BUN/Creatinine Ratio Glucose Calcium Flecainide Blood Type O POSITIVE Antibody Screen NEGATIVE Crossmatch See Detail See Detail 10/12/17 10/12/17 10/13/17 09:40 18:00 05:25 WBC 2.7 L RBC 2.69 L Hgb 7.6 L Hct 22.6 L MCV 84.0 MCH 28.3 MCHC 33.6 RDW 16.6 H RDW Differential 51.1 H Plt Count 18 L* MPV 11.0 Immature Gran % (Auto) Neut % (Auto) Lymph % (Auto) [place] % (Auto) Eos % (Auto) Baso % (Auto) Absolute Neuts (auto) Absolute Lymphs (auto) Total Counted Differential Comment SEE COMMENTS Diff Path Review Reviewed Platelet Estimate Hypochromasia Anisocytosis Ovalocytes Sodium 139 Potassium 4.1 Chloride 104 Carbon Dioxide 26.0 Anion Gap 9 BUN 92 H Creatinine 2.97 H Estim Creat Clear Calc 18.87 Est GFR (MDRD) Af Amer 26 L Est GFR (MDRD) Non-Af 22 L BUN/Creatinine Ratio 31.0 H Glucose 100 Calcium 8.4 L Flecainide Pending Blood Type Antibody Screen Crossmatch 10/13/17 10/14/17 10/14/17 05:25 05:35 05:35 WBC 2.2 L 1.9 L RBC 2.55 L 3.04 L Hgb 7.5 L 8.7 L Hct 21.8 L 25.2 L MCV 85.5 82.9 MCH 29.4 28.6 MCHC 34.4 34.5 RDW 16.4 H 16.7 H RDW Differential 49.9 H 50.5 H Plt Count 19 L* 11 L* MPV 12.8 H Immature Gran % (Auto) 0.500 1.100 H Neut % (Auto) 55.2 44.1 L Lymph % (Auto) 26.2 33.0 [place] % (Auto) 15.4 H 20.2 H Eos % (Auto) 0.9 1.1 Baso % (Auto) 1.8 H 0.5 Absolute Neuts (auto) 1.2 L 0.8 L Absolute Lymphs (auto) 0.58 L 0.62 L Total Counted Not Reportable Pending Differential Comment SCANNED Diff Path Review Reviewed Platelet Estimate MKD DEC Hypochromasia 1+ Anisocytosis Ovalocytes RARE Sodium 140 Potassium 4.2 Chloride 104 Carbon Dioxide 27.0 Anion Gap 9 BUN 86 H Creatinine 2.47 H Estim Creat Clear Calc 22.69 Est GFR (MDRD) Af Amer 32 L Est GFR (MDRD) Non-Af 27 L BUN/Creatinine Ratio 34.8 H Glucose 95 Calcium 8.6 Flecainide Blood Type Antibody Screen Crossmatch Microbiology 10/11/17 Unknown Mucosa - Nasopharyngeal Respiratory Panel (PCR) - Final Medical Necessity - Tobacco Use Smoking Status: Former smoker Tobacco Use: Non-smoker Assessment/Plan Active and Suspected Problems (Last Reviewed 08/13/17 @ 15:02 by Michaela Saldaña NP-C) Neutropenic fever (Acute) RECOMMENDATIONS: 1. Patient may need to reevaluate flecainide dosing 2. Defer to oncology if platelet transfusion is indicated 3. Walking oximetry prior to discharge 4. VASU dynamically stable on room air. Will sign off from a critical care perspective IMPRESSIONS: 1. Presumed septic shock secondary to neutropenic fever Patient initially on pressor therapy, but baseline blood pressures are only in the 90s. Patient appears to be doing well from this perspective. No repeat fevers have been noted. Patient is no longer confused. Exact etiology of fever is not clear at this time. Cultures are negative at 48 hours. Patient has been off of antibiotics for almost 24 hours. 2. Myelodysplastic syndrome/pancytopenia Patient transfused previously with platelets and hemoglobin. Morning counts appear to be appropriate at this time. However, patient's platelet count is down to 11 and should likely check with hematology for platelet transfusion prior to discharge. 3. Acute on chronic kidney disease stage IV Likely prerenal etiology secondary to #1. Patient is not on steroid therapy at baseline, so adrenal insufficiency is not suspected. Patient does have severe pulmonary hypertension and would be significantly preload dependent. Renal function is significantly improved compared to previous creatinines reported at [facility]. This may lead to increased clearance of flecainide therapy. Defer to primary service. 4. Chronic systolic congestive heart failure/moderate aortic stenosis/ severe pulmonary hypertension Patient with significant comorbid cardiac pathology. Coreg was held initially secondary to hypotension. However, patient has been reinitiated on all baseline therapies. 5. GERD/hypertension/paroxysmal A. fib/advanced age Complicates care, management, recovery and prognosis. Likely okay to continue patient on Pepcid therapy. Code Visit Inpatient E&M: 25910 Subs Hosp L3
[2017-10-14] MEDS: Flecainide 100 MG Tablet PO (09:05)
[2017-10-14] MEDS: Folic Acid 1 MG Tablet PO (09:05)
[2017-10-14] MEDS: Carvedilol 6.25 MG Tablet PO (09:05)
[2017-10-14] MEDS: Famotidine 20 MG Tablet PO (09:06)
--- NOTE | 2017-10-14 12:56 | PCM.DC ---
- Discharge Diagnoses Current Active Problems: Current Active and Chronic Problems (Last Reviewed 08/13/17 @ 15:02 by ANNE Healy) GERD (gastroesophageal reflux disease) (Chronic) Neutropenic fever (Acute) You will use the following diet at home:: No restrictions Your food should be the consistency of: Regular Your liquids should be the consistency of: Regular/Thin Discharge Activity: Return to Normal Activity Weight Bearing Status: Full weight bearing Allergies/Adverse Reactions: Allergies adhesive Allergy (Mild, Verified 10/11/17 11:28) Rash Medications to take at Discharge Carvedilol [Coreg (Beta Denny)] 12.5 mg PO DINNER 05/16/15 Ergocalciferol [Vitamin D] 50,000 unit PO TU 05/16/15 Flecainide [Tambocor] 100 mg PO BID 05/16/15 Deferasirox [Jadenu] 360 mg PO DAILY 12/12/15 Ascorbic Acid [Vitamin C] 250 mg PO DAILY 07/16/16 Chlorhexidine 15 ml PO BID PRN 07/16/16 Carvedilol [Coreg] 6.25 mg PO BREAKFAST 09/25/16 Famotidine [Pepcid] 20 mg PO BID 06/25/17 danazol 200 mg capsule 200 mg PO BID cap 07/13/17 eltrombopag 75 mg tablet 200 mg PO DAILY tab 07/13/17 Decitabine 50 mg SC QWEEK 10/11/17 Folic Acid 1 mg PO DAILY@0800 10/11/17 Furosemide [Lasix] 40 mg PO DAILY #1 tablet 10/14/17 The following prescriptions were given: Furosemide [Lasix] 40 mg PO DAILY #1 tablet Primary Care Physician: Care Physician,No Primary [Primary Care Provider] - Please Follow Up With: Shruti Barajas MD When: next week
[2017-10-14 15:00] LABS: Pathologist Review Reviewed
[2017-10-15 11:04] LABS: Flecainide (Tambocor) 085662 0.74 ug/mL (0.20-1.00)
--- NOTE | 2017-10-15 16:24 | DS.PCM_ITS ---
Discharge Date and Diagnosis Date of Admission: 10/11/17 Date of Discharge: 10/14/17 - Primary Discharge Diagnosis #1 neutropenic fever #2 hypovolemic shock #3 thrombocytopenia-secondary to myelodysplastic syndrome-requiring platelet transfusion #4 anemia-secondary to myelodysplastic syndrome-requiring blood transfusion #5 myelodysplastic syndrome #6 coronary artery disease #7 paroxysmal atrial fibrillation #8 chronic congestive heart failure without exacerbation #9 dehydration - Secondary Discharge Diagnosis Chronic Problems (Last Reviewed 08/13/17 @ 15:02 by ANNE Healy) GERD (gastroesophageal reflux disease) (Chronic) Pancytopenia (Chronic) Myelodysplastic syndrome (Chronic) Hypertension (Chronic) CHF (congestive heart failure) (Chronic) EF 40% (06/2017) CAD (coronary artery disease) (Chronic) Acute and chronic respiratory failure with hypoxia (Chronic) PAF (paroxysmal atrial fibrillation) (Chronic) Chronic renal failure, stage 3 (moderate) (Chronic) Hospital Course and Treatment Operations: None Procedures: None Summary of Care Provided: The patient is a 82 year old M who was seen in the emergency room at [facility] with a 1 day history of fever chills poor appetite and some confusion. Patient's temperature at home was reportedly at 101?. Workup in the emergency room showed the patient's blood pressure to be low at 73/54, he was tachycardic at 115, pulse ox was 89% on room air. Patient was given IV fluids, chest x-ray was performed which showed no evidence of acute infection, CBC showed a white blood cell count of 2.2, hemoglobin was 8.2, platelet count was 12,000. Creatinine was elevated at 2.73, BUN was 85. Urinalysis was unremarkable, lactic acid was 1.8. Blood pressure improved with administration of IV fluids in the emergency room, patient was felt to have neutropenic fever and was given meropenem and admitted to the ICU. Patient was on pressor therapy for short period of time, mental status improved, respiratory panel was negative for pathogens and his blood cultures were negative. Patient's antibiotics were stopped and he was moved to the PCU where his labs are monitored. Patient required blood transfusions and platelet transfusions while hospitalized. Patient was seen by PT and OT. Patient was seen by oncology as well as critical care while in the hospital. On 10/14/17, patient was seen and examined and felt to be in stable condition for discharge home Patient was not felt to have sepsis or septic shock on admission or during his hospitalization. Discharge Activity: Return to Normal Activity Weight Bearing Status: Full weight bearing Home Medications: Medications to take at Discharge Carvedilol [Coreg (Beta Denny)] 12.5 mg PO DINNER 05/16/15 Ergocalciferol [Vitamin D] 50,000 unit PO TU 05/16/15 Flecainide [Tambocor] 100 mg PO BID 05/16/15 Deferasirox [Jadenu] 360 mg PO DAILY 12/12/15 Ascorbic Acid [Vitamin C] 250 mg PO DAILY 07/16/16 Chlorhexidine 15 ml PO BID PRN 07/16/16 Carvedilol [Coreg] 6.25 mg PO BREAKFAST 09/25/16 Famotidine [Pepcid] 20 mg PO BID 06/25/17 danazol 200 mg capsule 200 mg PO BID cap 07/13/17 eltrombopag 75 mg tablet 200 mg PO DAILY tab 07/13/17 Decitabine 50 mg SC QWEEK 10/11/17 Folic Acid 1 mg PO DAILY@0800 10/11/17 Furosemide [Lasix] 40 mg PO DAILY #1 tablet 10/14/17 Following Prescrptions Were Given to Patient: Furosemide [Lasix] 40 mg PO DAILY #1 tablet Primary Care Physician: Care Physician,No Primary [Primary Care Provider] - Please Follow Up With: Shruti Barajas MD When: next week Disposition: Home Minutes spent on discharge:: 32 Patient Condition:: Stable Medical Necessity - Tobacco Use Smoking Status: Former smoker Tobacco Use: Non-smoker Meaningful Use Info Meaningful Use Diagnoses (Choose all that apply): None applicable Code Visit Inpatient E&M: [id number] Disch Hosp
== END 2017-10-14 15:03 | disposition home or self-care (01) | DRG 808 ==
LOC: ED 12:45 → PCU 14:38 → ICU 15:02 → PCU 10-13 12:24
PROVIDERS: Family Medicine; Internal Medicine Critical Care Medicine; Nurse Practitioner Family; Admitting Provider Internal Medicine; Emergency Provider Emergency Medicine; Visit Provider Internal Medicine
DX: D70.9 Neutropenia, unspecified (principal); R57.1 Hypovolemic shock; J96.21 Acute and chronic respiratory failure with hypoxia; I13.0 Hypertensive heart and chronic kidney disease with heart failure and stage 1 through stage 4 chronic kidney disease, or unspecified chronic kidney disease; N18.4 Chronic kidney disease, stage 4 (severe); I50.32 Chronic diastolic (congestive) heart failure; N17.9 Acute kidney failure, unspecified; R50.81 Fever presenting with conditions classified elsewhere; D61.818 Other pancytopenia; D46.9 Myelodysplastic syndrome, unspecified; I25.10 Atherosclerotic heart disease of native coronary artery without angina pectoris; I48.0 Paroxysmal atrial fibrillation; Z87.891 Personal history of nicotine dependence; Z66 Do not resuscitate; Z85.46 Personal history of malignant neoplasm of prostate; I95.9 Hypotension, unspecified; K21.9 Gastro-esophageal reflux disease without esophagitis; I35.0 Nonrheumatic aortic (valve) stenosis; Z79.899 Other long term (current) drug therapy; I27.20 Pulmonary hypertension, unspecified
CPT/HCPCS: 36415; 71045; 71250; 80048; 80076; 80202; 80299; 81001; 83605; 83735; 84100; 84484; 85025; 85027; 86644; 86850; 86900; 86920; 86922; 86965; 87040; 87633; 87641; 93005; 97110; 97116; 97162; 97165; 97530; 99285; J2185; J7030; J7040; J7050; P9037; P9040; A4216; J1940

== ENCOUNTER → 2017-10-20 09:00 | Outpatient (CLI) | payer MEDICARE, OTHER, SELFPAY ==
[2017-10-20] VITALS (7 sets, daily range): BP systolic 96–109; BP diastolic 38–59; PULSE 55–72; RESP 16–18; TEMP 36.2–36.6; O2SAT 92–98; BMI 27.8
== END ==
PROVIDERS: Visit Provider Internal Medicine Hematology & Oncology
DX: D46.20 Refractory anemia with excess of blasts, unspecified (principal); D75.81 Myelofibrosis
CPT/HCPCS: 36430; 86850; 86900; 86920; 86922; J7040; P9040; A4216

== ENCOUNTER → 2017-10-29 08:31 | Outpatient (CLI) | payer MEDICARE, OTHER, SELFPAY ==
[2017-10-29] VITALS (7 sets, daily range): BP systolic 83–104; BP diastolic 48–54; PULSE 56–68; RESP 16; TEMP 36.3–36.9; O2SAT 93–100; BMI 26.6
--- NOTE | 2017-10-29 11:36 | NURSING ---
Pt refused lasix between each unit of blood.
== END ==
PROVIDERS: Visit Provider Internal Medicine Hematology & Oncology
DX: D46.20 Refractory anemia with excess of blasts, unspecified (principal)
CPT/HCPCS: 36430; 86850; 86900; 86920; 86922; J7040; P9040; A4216

== ENCOUNTER → 2017-11-06 08:31 | Outpatient (CLI) | payer MEDICARE, OTHER, SELFPAY ==
--- NOTE | 2017-11-06 08:31 | DT_ITS ---
This patient was seen during an EMR downtime November 02, 2017 - November 09, 2017. This patient may have a combination of paper and electronic documentation or all paper documentation. All documentation is viewable within the e-chart portion of [facility] for each patient visit.
== END ==
PROVIDERS: Visit Provider Internal Medicine Hematology & Oncology
DX: D46.20 Refractory anemia with excess of blasts, unspecified (principal); D61.818 Other pancytopenia; D75.81 Myelofibrosis
CPT/HCPCS: 36430; 86850; 86900; 86920; 86922; J7040; P9040; A4216

== ENCOUNTER → 2017-11-10 10:06 | Outpatient (CLI) | payer MEDICARE, OTHER, SELFPAY ==
[2017-11-10 10:20] VITALS: BP 82/48; PULSE 59; RESP 18; TEMP 37; O2SAT 96; BMI 24.5
[2017-11-10 12:00] VITALS: BP 76/49; PULSE 57; RESP 16; TEMP 36.8
[2017-11-10 12:20] VITALS: BP 82/51; PULSE 56; RESP 16; TEMP 36.8; O2SAT 92
[2017-11-10 12:55] VITALS: BP 78/47; PULSE 58; RESP 16; TEMP 36.9; O2SAT 92
[2017-11-10 13:55] VITALS: BP 84/51; PULSE 54; RESP 16; TEMP 36.6; O2SAT 95
[2017-11-10 14:38] VITALS: BP 85/58; PULSE 54; RESP 16; TEMP 36.6; O2SAT 95
== END ==
PROVIDERS: Visit Provider Internal Medicine Hematology & Oncology
DX: D46.9 Myelodysplastic syndrome, unspecified (principal); D75.81 Myelofibrosis
CPT/HCPCS: 36430; 86644; 86850; 86900; 86920; 86922; 86965; J7040; P9037; P9040; A4216

== ENCOUNTER 2017-11-11 09:29 | Inpatient (IN) | payer MEDICARE, OTHER, SELFPAY ==
[2017-11-11] VITALS (8 sets, daily range): BP systolic 92–100; BP diastolic 56–70; PULSE 59–73; RESP 14–26; TEMP 37.1–37.3; O2SAT 93–100; BMI 29.0; BMI 28.7
--- NOTE | 2017-11-11 09:40 | EKG12_ITS ---
Test Reason : REPEAT Blood Pressure : / mmHG Vent. Rate : 096 BPM Atrial Rate : 015 BPM P-R Int : 000 ms QRS Dur : 162 ms QT Int : 466 ms P-R-T Axes : 000 -62 044 degrees QTc Int : 588 ms Normal sinus rhythm Right bundle branch block Left axis deviation Non-specific intra-ventricular conduction block Abnormal ECG Confirmed by ASIM SINGH, MAGDA ([id number]), fan mail editor DWAIN BRADFORD ([id number]) on 11/12/2017 5:15:45 PM Referred By: CHRYSTAL Confirmed By:MAGDA DAILEY MD
--- NOTE | 2017-11-11 09:46 | ED.VISSUMM ---
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 He has also suffered from iron overload due to multiple transfusions, has congestive heart failure, and worsening chronic renal failure. He has been increasingly weak over the past 2 months, but now much worse for the past 3 days. He denies pain anywhere. He has slight nausea but otherwise just feels very weak. No headache. No recent falls. His brings him in today for evaluation and a plan moving forward. Physical Examination: He appears chronically ill. He is somewhat emaciated. Mucous members are dry. Neck is supple. Heart tones are regular, no murmur. Breath sounds are diminished at both bases. Abdomen is soft and nontender. No suprapubic distention. Skin is dry. No rash anywhere. Strong pulses in all extremities. He has 3+ symmetric lower extremity edema which is unchanged from baseline according to his . No focal or lateralizing neuro findings. Speech is clear. Test Results: BUN and creatinine both markedly elevated. BUN greater than 100 and creatinine greater than 5. This is the highest he has ever been. He is pancytopenic. His urine looks infected. I was concerned about urinary retention with his increased creatinine and the fact that he has had no urine output for 24 hours. A Irby catheter was placed after a somewhat equivocal bladder scan. Less than 200 cc of urine came out. He was given a small fluid bolus carefully because he does have edema on his chest x-ray in his lower extremities but he has also had markedly decreased p.o. intake for the past 24-48 hours. Emergency Department Course and Treatment: I spoke at length with the patient and his . His urine looks infected and was sent for culture. He was given intravenous antibiotics and admitted to the hospitalist. The case was discussed with Dr. Barajas as well. Treatment Plan: IV antibiotics, admit Disposition: Admit stable condition Impression: Initial encounter acute on chronic renal failure, advanced myelodysplastic syndrome, pancytopenia, urinary tract infection This note was generated with [id number] software. It may contain incorrect words, spelling, and punctuation that were not noted in review of the chart prior to signing ED Disposition - Plan for ED Patient: Disposition: Acute Care Hospital [facility] Chief Complaint: Weakness
--- NOTE | 2017-11-11 09:47 | NURSING ---
NO LW OR POA
--- NOTE | 2017-11-11 09:49 | ED.DCSUM_ITS ---
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 He has also suffered from iron overload due to multiple transfusions, has congestive heart failure, and worsening chronic renal failure. He has been increasingly weak over the past 2 months, but now much worse for the past 3 days. He denies pain anywhere. He has slight nausea but otherwise just feels very weak. No headache. No recent falls. His brings him in today for evaluation and a plan moving forward. Physical Examination: He appears chronically ill. He is somewhat emaciated. Mucous members are dry. Neck is supple. Heart tones are regular, no murmur. Breath sounds are diminished at both bases. Abdomen is soft and nontender. No suprapubic distention. Skin is dry. No rash anywhere. Strong pulses in all extremities. He has 3+ symmetric lower extremity edema which is unchanged from baseline according to his . No focal or lateralizing neuro findings. Speech is clear. Test Results: BUN and creatinine both markedly elevated. BUN greater than 100 and creatinine greater than 5. This is the highest he has ever been. He is pancytopenic. His urine looks infected. I was concerned about urinary retention with his increased creatinine and the fact that he has had no urine output for 24 hours. A Irby catheter was placed after a somewhat equivocal bladder scan. Less than 200 cc of urine came out. He was given a small fluid bolus carefully because he does have edema on his chest x-ray in his lower extremities but he has also had markedly decreased p.o. intake for the past 24- 48 hours. Emergency Department Course and Treatment: I spoke at length with the patient and his . His urine looks infected and was sent for culture. He was given intravenous antibiotics and admitted to the hospitalist. The case was discussed with Dr. aBrajas as well. Treatment Plan: IV antibiotics, admit Disposition: Admit stable condition Impression: Initial encounter acute on chronic renal failure, advanced myelodysplastic syndrome, pancytopenia, urinary tract infection This note was generated with MyToonsation software. It may contain incorrect words, spelling, and punctuation that were not noted in review of the chart prior to signing ED Disposition - Plan for ED Patient: Disposition: Acute Care Hospital [facility] Chief Complaint: Weakness
--- NOTE | 2017-11-11 09:57 | RAD_ITS ---
STUDY: X-RAY CHEST REASON FOR EXAM: Male, 82 years old. Cough TECHNIQUE: Single AP portable view of the chest. COMPARISON: 10/11/2017 FINDINGS: Cardiac monitoring leads overlie the chest. The lungs are underinflated. The interstitial markings are prominent. Calcified pleural plaques are noted. There is moderate cardiac enlargement. Normal mediastinum and alisa. There is prominence of the pulmonary hilar arteries and peripheral pulmonary arteries, consistent with congestive heart failure (CHF). Normal visualized aortic arch and descending thoracic aorta. There are diffuse degenerative changes of the visualized thoracic spine. Normal visualized ribs, clavicles, and shoulders. There is no demonstrated abnormality of the visualized soft tissue structures of the upper abdomen. RAD/Chest 1 View (Portable) IMPRESSION: Pulmonary vascular congestion. Bilateral calcified pleural plaques. Cardiomegaly. Electronically Signed: Lenny Huggins DO at 10:54 EDT Tel , Service support ,
[2017-11-11 10:09] LABS: International Normalized Ratio 1.6; Prothrombin Time (Protime)PT. 19.3 SECONDS (11.7-14.9)
[2017-11-11 10:24] LABS: ALB/GLOB Ratio 0.6 RATIO (0.9-2.4); AST(SGOT) 20 U/L (15-37); Alanine Aminotransfer ALT/SGPT 27 U/L (16-61); Albumin, Serum 2.5 g/dL (3.2-5.0); Alkaline Phosphatase 53 U/L (45-117); Anion Gap 9 (5-15); BUN 114 mg/dL (7-18); BUN/Creat Ratio 22.8 RATIO (10-20); Calcium,Total 8.2 mg/dL (8.5-10.1); Chloride 97 mmol/L (98-107); Creatinine, Serum 5.01 mg/dL (0.70-1.30); EST Glomerular Filtration Rate 12 mL/min (>60); Est Glom Filt Rate - Afr Amer 14 mL/min (>60); Globulin 4.3 g/dL (2.2-4.2); Glucose 103 mg/dL (74-106); Potassium 4.6 mmol/L (3.5-5.1); Protein, Total 6.8 g/dL (6.4-8.2); Sodium Level 133 mmol/L (136-145)
[2017-11-11 10:35] LABS: Mucous, Urine 0 SEEN /hpf (<or=2+)
[2017-11-11 10:38] LABS: Lactic Acid 0.6 mmol/L (0.4-2.0)
[2017-11-11 10:47] LABS: Color, Urine Amber (Yellow); Glucose, Dipstick Normal (Normal); Ketone-Dipstick 5 mg/dl (Negative); Leukocyte Esterase-Dipstick 500 /ul (Negative); Nitrite-Dipstick Positive (Negative); Occult Blood-Urine 250 /ul (Negative); Protein-Dipstick 100 mg/dl (Negative); Specific Gravity, Urine 1.025 (1.002-1.030); Urine Clarity Sl. Cloudy (Clear); Urine Urobilinogen 4 mg/dl (Normal)
[2017-11-11 10:51] LABS: Urine Bilirubin Dipstick 3 mg/dL (Negative)
[2017-11-11 10:57] LABS: Absolute Neutrophil Count 2.4 X10^3/uL (2.0-7.7); Basophil# 0.02 X10^3/uL; Basophil% 0.5 % (0-1); Hematocrit 23.4 % (40-54); Hemoglobin 8.2 g/dl (13.0-16.5); Lymphocyte % 17.1 % (19-41); Mean Corpuscular Hgb 28.5 pg (27.0-32.0); Mean Corpuscular Volume 81.3 fL (80-94); Mean Platelet Vol. 9.1 fl (6.2-12.0); Monocyte# 0.95 X10^3/uL; Monocyte% 23.2 % (0-10); Neutrophil # 2.38 X10^3/uL (2.7-7.7); Neutrophil % 58.2 % (47-70); RBC Distribution Width SD 51.3 fl (35.1-43.9); Red Blood Count 2.88 M/mm3 (4.6-6.2); White Blood Count 4.1 K/mm3 (4.4-11.0)
[2017-11-11 10:59] LABS: POSITIVE DIFFERENTIAL NO
[2017-11-11 11:00] LABS: Differential Indicated SCAN CRITERIA MET; POSITIVE COUNT YES; POSITIVE MORPHOLOGY NO
[2017-11-11 11:01] LABS: Platelet Count 13 K/mm3 (150-450)
[2017-11-11 11:13] LABS: Bacteria 2+ /hpf (None Seen); Red Blood Cells-Urine 25-50 SEEN /hpf (0-5); Squamous Epithelial Cells - UA 0-5 SEEN /hpf (0-5); White Blood Cells 25-50 SEEN /hpf (0-5)
--- NOTE | 2017-11-11 11:30 | NURSING ---
DR GOMES FOR DR TATE
--- NOTE | 2017-11-11 11:37 | NURSING ---
MED SURG GEN WEAKNESS, AMS, HARI MIREYA
--- NOTE | 2017-11-11 11:42 | NURSING ---
310 NEEDS STAT CLEANED
[2017-11-11] MEDS: Ceftriaxone 1 GM/50 ML BAG IV (11:54)
--- NOTE | 2017-11-11 11:59 | CM.ED ---
CM INITIAL ASSESSMENT: Patient assessed in the ED with at bedside. assists with answering questions. Home: Patient lives in a one story home with his . There is one step to enter the home. HHS/Aides: Patient denies ever having HHS or aides. If HHS is needed, they do not have a preference on agency. DME: Prior to weakness which started approximately three weeks ago, the patient was ambulating without DME. He began using a cane three weeks ago and progressed to now using a walker. Home Oxygen: Denies. Pharmacy: [facility] (first choice), [facility] (second [facility]) Advance Directives: Yes. Patient's , Thelma Kendall, is medical POA. Patient's states these were scanned to his records, but [facility]. PCP: Patient does not have a PCP. He sees Dr. Wilkerson for injections twice a week. Specialists: Dr. Wilkerson (hematology for MDS, chronic low platelets and hgb) Dr. Charles (cardiology) Dr. Sj Vivar (Hematology at [facility]) Dr. Davie Queen (cardiology at [facility]) Dr. Madsen (nephrology at [facility]) DC Plan: Undetermined. Likely home, with home health services. CM will continue to follow for safe and effective discharge planning.
--- NOTE | 2017-11-11 13:23 | PCM.HP.STD ---
Problem List (1) HARI on CKD Stage 3 Status: Acute (2) General weakness Status: Acute (3) Encephalopathy acute Status: Acute (4) GERD (gastroesophageal reflux disease) Status: Chronic Qualifiers: Esophagitis presence: esophagitis presence not specified Qualified Code(s): K21.9 - Gastro-esophageal reflux disease without esophagitis (5) Neutropenic fever Status: Chronic (6) Pancytopenia Status: Chronic (7) Myelodysplastic syndrome Status: Chronic (8) Hypertension Status: Chronic Qualifiers: (9) CHF (congestive heart failure) Status: Chronic Qualifiers: Heart failure type: systolic Heart failure chronicity: chronic Qualified Code(s): I50.22 - Chronic systolic (congestive) heart failure Comment: EF 40% (06/2017) (10) CAD (coronary artery disease) Status: Chronic Qualifiers: Coronary Disease-Associated Artery/Lesion type: [place] artery [place] vs. transplanted heart: [place] heart Associated angina: without angina Qualified Code(s): I25.10 - Atherosclerotic heart disease of [place] coronary artery without angina pectoris (11) Acute and chronic respiratory failure with hypoxia Status: Chronic (12) PAF (paroxysmal atrial fibrillation) Status: Chronic (13) Chronic renal failure, stage 3 (moderate) Status: Chronic History of Present Illness Date of Admission: 11/11/17 Chief Complaint: Generalized weakness and kidney failure The patient is a 82 year old M with multiple comorbidities with significant chronic biventricular systolic heart failure, predominantly right ventricular failure, transfusion dependent MDS with severe thrombocytopenia was last admitted in September 2017 for neutropenic fever in ICU came to ER with confusion, generalized weakness, not able to walk and acute kidney injury on CKD stage III. Patient had last by Dr. Arciniega on November 09, remarkable abnormals more platelet count 9000, hemoglobin 7.8 thousand, creatinine 3.84, BUN 91 and chronically elevated ferritin 5242, iron 762, TIBC 9181 and transferrin saturation 78% and 1 unit of platelet transfusion. On further discussion with , she has stopped Lasix and spironolactone for about 4-5 days. Patient has bilateral lower extremity edema. Patient was found more confused, slow to respond by . Is also very weak and not able to stand up or walk. In ER today, hemoglobin is 8.2 thousand, platelet count is 13,000, WBC 4.1, and ANC 2.4 thousand. Kidney function is severely abnormal, creatinine 5.01, BUN 114 and has worsened since 11/09/2017 as mentioned above. UA is positive for WBC 25-50 cells, RBC 25-56, leukocyte esterase and nitrite positive. Patient has chronic urinary incontinence but denies any acute frequency, urgency or burning micturition or other lower urinary tract symptoms. No fever this time Urine culture ordered in the ER. ER physician ordered 1 g IV Rocephin Past Medical History Past Medical History (Chronic Problems): Chronic Problems (Last Reviewed 08/13/17 @ 15:02 by Michaela Saldaña NP-C) GERD (gastroesophageal reflux disease) (Chronic) Neutropenic fever (Chronic) Pancytopenia (Chronic) Myelodysplastic syndrome (Chronic) Hypertension (Chronic) CHF (congestive heart failure) (Chronic) EF 40% (06/2017) CAD (coronary artery disease) (Chronic) Acute and chronic respiratory failure with hypoxia (Chronic) PAF (paroxysmal atrial fibrillation) (Chronic) Chronic renal failure, stage 3 (moderate) (Chronic) Medical History: Medical History (Last Reviewed 08/13/17 @ 15:02 by Michaela Saldaña NP-C) Pancytopenia (Chronic) D61.818 Myelodysplastic syndrome (Chronic) D46.9 Hypertension (Chronic) I10 CHF (congestive heart failure) (Chronic) I50.9 EF 40% (06/2017) CAD (coronary artery disease) (Chronic) I25.10 Acute and chronic respiratory failure with hypoxia (Chronic) J96.21 PAF (paroxysmal atrial fibrillation) (Chronic) I48.0 Chronic renal failure, stage 3 (moderate) (Chronic) N18.3 Bacteremia, escherichia coli (Resolved) R78.81 Sepsis due to Escherichia coli (E. coli) (Resolved) A41.51 Allergies adhesive Allergy (Mild, Verified 11/10/17 11:14) Rash Home Medications: Ambulatory Orders Medication Instructions Recorded Carvedilol [Coreg (Beta Denny)] 12.5 mg PO DINNER 05/16/15 Ergocalciferol [Vitamin D] 50,000 unit PO TU 05/16/15 Flecainide [Tambocor] 100 mg PO BID 05/16/15 Deferasirox [Jadenu] 360 mg PO DAILY 12/12/15 Ascorbic Acid [Vitamin C] 250 mg PO DAILY 07/16/16 Chlorhexidine 15 ml PO BID PRN 07/16/16 Carvedilol [Coreg] 6.25 mg PO BREAKFAST 09/25/16 Famotidine [Pepcid] 20 mg PO BID 06/25/17 danazol 200 mg capsule 200 mg PO BID cap 07/13/17 eltrombopag 75 mg tablet 200 mg PO DAILY tab 07/13/17 Decitabine 50 mg SC QWEEK 10/11/17 Folic Acid 1 mg PO DAILY@0800 10/11/17 Furosemide [Lasix] 40 mg PO DAILY PRN 11/11/17 Surgical History: Surgical History (Last Reviewed 08/13/17 @ 15:02 by ANNE Healy) S/P ablation of atrial flutter Z98.890, Z86.79 2000 ablation PVI 2008 prostate brachytherapy 2006 Surgical History: - - Cardiac ablation x 2. Psychiatric History: No pertinent psych hx Smoking Status: Never smoker - *Family History Maternal Family History: Family History (Last Reviewed 08/13/17 @ 15:02 by ANNE Healy) Brother Prostate CA Hairy cell leukemia Father Hypertension Sister Hypertension History Items: No pertinent history Paternal Family History: Family History (Last Reviewed 08/13/17 @ 15:02 by ANNE Healy) Brother Prostate CA Hairy cell leukemia Father Hypertension Sister Hypertension History Items: No pertinent history Review of Systems Constitutional: Reports: Anorexia, Malaise, Weakness, Fatigue. Denies: Chills, Fever HEENT: Denies: Head Aches, Sinus Congestion, Sinus Drainage Respiratory: Reports: Shortness of breath upon exertion Gastrointestinal: Denies: Abdominal Pain, Nausea, Vomiting Genitourinary: Reports: Incontinence. Denies: Dysuria, Hematuria, Hesitancy, Nocturia, Retention Musculoskeletal: Reports: Joint Pain. Denies: Joint Tenderness Skin: Denies: Rash, Wounds Neurological: Reports: Confusion. Denies: Numbness, Tingling Psychiatric: Denies: Anxiety, Depression, Homicidal Ideations, Suicidal Ideations VTE Information - Inpt Only VTE Present on Admission: No VTE Mechan Device Prophylaxis: SCD's VTE Pharm Prophylaxis ordered?: No Reason prophylaxis not ordered:: Medical Contraindication - Severe thrombocytopenia Patient Problems: Active and Suspected Problems (Last Reviewed 08/13/17 @ 15:02 by ANNE Healy) HARI on CKD Stage 3 (Acute) General weakness (Acute) Encephalopathy acute (Acute) - Physical Exam General: Oriented x3, Cooperative, Lethargic HEENT: Atraumatic, PERRLA, EOMI, Normocephalic Oral: Moist Mucosa Neck: Supple, No JVD, Negative Carotid Bruits Lungs: No rhonchi, No wheeze, No rales, Diminished Cardiovascular: Regular rate, Regular Rhythm, Normal S1, Normal S2, No murmurs Abdomen: Bowel Sounds Present, Soft, Non Tender, Non-Distended Extremities: Capillary Refill Less than 3 Seconds, Edema Skin: No rashes, No breakdown Musculoskeletal: No Tenderness to Palpation of Joints or Extremities, Arthritic Changes Neurological: Cranial nerves II-XII grossly intact, Neuro grossly intact Psych/Mental Status: Normal Affect, Appropriate Vital Signs Temp Pulse Resp BP Pulse Ox 98.8 F 59 L 18 92/58 L 93 11/11/17 09:30 11/11/17 13:14 11/11/17 13:14 11/11/17 13:14 11/11/17 13:14 Oxygen Delivery Method Room Air Assessment/Plan All Active Problems (Last Reviewed 08/13/17 @ 15:02 by Michaela Saldaña, [place]-C) HARI on CKD Stage 3 (Acute) General weakness (Acute) Encephalopathy acute (Acute) Bacteremia, escherichia coli (Resolved) Sepsis due to Escherichia coli (E. coli) (Resolved) The patient is a 82 year old M with multiple comorbidities with significant chronic biventricular systolic heart failure, predominantly right ventricular failure, transfusion dependent MDS with severe thrombocytopenia was last admitted in September 2017 for neutropenic fever in ICU came to ER with confusion, generalized weakness, not able to walk and acute kidney injury on CKD stage III. Patient had last by Dr. Arciniega on November 09, remarkable abnormals more platelet count 9000, hemoglobin 7.8 thousand, creatinine 3.84, BUN 91 and chronically elevated ferritin 5242, iron 762, TIBC 9181 and transferrin saturation 78% and 1 unit of platelet transfusion. On further discussion with , she has stopped Lasix and spironolactone for about 4-5 days. Patient has bilateral lower extremity edema. Patient was found more confused, slow to respond by . Is also very weak and not able to stand up or walk. In ER today, hemoglobin is 8.2 thousand, platelet count is 13,000, WBC 4.1, and ANC 2.4 thousand. Kidney function is severely abnormal, creatinine 5.01, BUN 114 and has worsened since 11/09/2017 as mentioned above. UA is positive for WBC 25-50 cells, RBC 25-56, leukocyte esterase and nitrite positive. Patient has chronic urinary incontinence but denies any acute frequency, urgency or burning micturition or other lower urinary tract symptoms. No fever this time Urine culture ordered in the ER. ER physician ordered 1 g IV Rocephin 1. Acute kidney injury on CKD stage III: Patient is being admitted on the regular MedSur floor. Gentle IV fluid hydration 50 mL/h. Diuretics are already discontinued. Discussed with [place] career education teacher Dr. Warner and he agreed to see the patient. Patient and his understand the poor prognosis and does not want hemodialysis and I think, he is not a candidate for dialysis catheter insertion because of spontaneous subcutaneous hemorrhage and severe thrombocytopenia. Follow kidney function, electrolytes, strict PRIYANKA's daily. 2. Chronic severe systolic biventricular heart failure, predominant right ventricular failure with severe pulmonary hypertension: Patient had echo in June 2017 shows EF 40% with moderate concentric LVH with moderate hypokinesis of left ventricle. Right ventricle severely dilated with moderate global right ventricular systolic dysfunction. Both atria are severely enlarged. RVSP 72 images suggestive of severe pulmonary hypertension with mild TR. Chest x-ray shows mild pulmonary vascular congestion. 3. Multiple valvular heart disease: Echo also showed moderate focal aortic valve calcification and thickening with moderate ileus, aortic valve gradient 29 mmHg with aortic valve area 0.95 cm?. Moderate pulmonary insufficiency. IVC treated. 4 Acute encephalopathy most probably metabolic/uremic encephalopathy due to kidney failure: 5 thrombocytopenia and anemia-secondary to myelodysplastic syndrome-requiring platelet transfusion as an outpatient. #6 coronary artery disease #7 paroxysmal atrial fibrillation Advanced directive/life goal: Discussed with the patient and his . I also happened to take care during previous admission in September 2017 and the patient is DNR CC arrest with no intubation and no central venous catheter infection and vessel pressure. He has chronically low blood pressure. With history of transfusion dependent MDS, iron overload, severe end-stage heart failure and pulmonary hypertension and now kidney failure, patient and his agreed for palliative care consult to discuss about the option of hospice care. Skiz-sw-ysio encounter: Exact 18 minutes time spent in discussion of advanced directive and end of life goal This note was generated with Dragon dictation software. Every effort was made to ensure accuracy, however computerized supervisor mails mistakes may persist. Laboratory Results 11/11/17 09:40: WBC 4.1 L, RBC 2.88 L, Hgb 8.2 L, Hct 23.4 L, MCV 81.3, MCH 28.5, MCHC 35.0, RDW 17.0 H, RDW Differential 51.3 H, Plt Count 13 L*, MPV 9.1, Immature Gran % (Auto) 1.000 H, Neut % (Auto) 58.2, Lymph % (Auto) 17.1 L, Hand % (Auto) 23.2 H, Eos % (Auto) 0.0, Baso % (Auto) 0.5, Absolute Neuts (auto) 2.4, Absolute Lymphs (auto) 0.70 L, Total Counted Not Reportable 11/11/17 09:40: PT 19.3 H, INR 1.6 11/11/17 09:40: Sodium 133 L, Potassium 4.6, Chloride 97 L, Carbon Dioxide 27.0, Anion Gap 9, BUN 114 H*, Creatinine 5.01 H, Est GFR (MDRD) Af Amer 14 L, Est GFR (MDRD) Non-Af 12 L, BUN/Creatinine Ratio 22.8 H, Glucose 103, Calcium 8.2 L, Total Bilirubin 2.40 H, AST 20, ALT 27, Alkaline Phosphatase 53, Total Protein 6.8, Albumin 2.5 L, Globulin 4.3 H, Albumin/Globulin Ratio 0.6 L 11/11/17 09:50: Lactic Acid 0.6 11/11/17 10:31: Urine Color [place], Urine Clarity Sl. Cloudy, Urine pH 5.0, Ur Specific [place] 1.025, Urine Protein 100 H, Urine Glucose (UA) Normal, Urine Ketones 5 H, Urine Occult Blood 250 H, Urine Nitrite Positive H, Urine Bilirubin 3 H, Urine Urobilinogen 4 H, Ur Leukocyte Esterase 500 H, Urine RBC 25-50 SEEN, Urine WBC 25-50 SEEN, Ur Squamous Epith Cells 0-5 SEEN, Urine Bacteria 2+, Urine Mucus 0 SEEN Clinical Impression(s) from Imaging Studies Chest X-Ray 11/11/17 09:57 IMPRESSION: Pulmonary vascular congestion. Bilateral calcified pleural plaques. Cardiomegaly. Code Visit Inpatient E&M: 51713 Init Hosp L3 Procedures: 71287 Advncd Care Plan 30 Min
--- NOTE | 2017-11-11 13:35 | HP.PCM_ITS ---
Problem List (1) HARI on CKD Stage 3 Status: Acute (2) General weakness Status: Acute (3) Encephalopathy acute Status: Acute (4) GERD (gastroesophageal reflux disease) Status: Chronic Qualifiers: Esophagitis presence: esophagitis presence not specified Qualified Code(s) : K21.9 - Gastro-esophageal reflux disease without esophagitis (5) Neutropenic fever Status: Chronic (6) Pancytopenia Status: Chronic (7) Myelodysplastic syndrome Status: Chronic (8) Hypertension Status: Chronic Qualifiers: (9) CHF (congestive heart failure) Status: Chronic Qualifiers: Heart failure type: systolic Heart failure chronicity: chronic Qualified Code(s): I50.22 - Chronic systolic (congestive) heart failure Comment: EF 40% (06/2017) (10) CAD (coronary artery disease) Status: Chronic Qualifiers: Coronary Disease-Associated Artery/Lesion type: [place] artery [place] vs. transplanted heart: [place] heart Associated angina: without angina Qualified Code(s): I25.10 - Atherosclerotic heart disease of [place] coronary artery without angina pectoris (11) Acute and chronic respiratory failure with hypoxia Status: Chronic (12) PAF (paroxysmal atrial fibrillation) Status: Chronic (13) Chronic renal failure, stage 3 (moderate) Status: Chronic History of Present Illness Date of Admission: 11/11/17 Chief Complaint: Generalized weakness and kidney failure The patient is a 82 year old M with multiple comorbidities with significant chronic biventricular systolic heart failure, predominantly right ventricular failure, transfusion dependent MDS with severe thrombocytopenia was last admitted in September 2017 for neutropenic fever in ICU came to ER with confusion, generalized weakness, not able to walk and acute kidney injury on CKD stage III. Patient had last by Dr. Arciniega on November 09, remarkable abnormals more platelet count 9000, hemoglobin 7.8 thousand, creatinine 3.84, BUN 91 and chronically elevated ferritin 5242, iron 762, TIBC 9181 and transferrin saturation 78% and 1 unit of platelet transfusion. On further discussion with , she has stopped Lasix and spironolactone for about 4-5 days. Patient has bilateral lower extremity edema. Patient was found more confused, slow to respond by . Is also very weak and not able to stand up or walk. In ER today, hemoglobin is 8.2 thousand, platelet count is 13,000, WBC 4.1, and ANC 2.4 thousand. Kidney function is severely abnormal, creatinine 5.01, BUN 114 and has worsened since 11/09/2017 as mentioned above. UA is positive for WBC 25-50 cells, RBC 25-56, leukocyte esterase and nitrite positive. Patient has chronic urinary incontinence but denies any acute frequency, urgency or burning micturition or other lower urinary tract symptoms. No fever this time Urine culture ordered in the ER. ER physician ordered 1 g IV Rocephin Past Medical History Past Medical History (Chronic Problems): Chronic Problems (Last Reviewed 08/13/17 @ 15:02 by Michaela Saldaña NP-C) GERD (gastroesophageal reflux disease) (Chronic) Neutropenic fever (Chronic) Pancytopenia (Chronic) Myelodysplastic syndrome (Chronic) Hypertension (Chronic) CHF (congestive heart failure) (Chronic) EF 40% (06/2017) CAD (coronary artery disease) (Chronic) Acute and chronic respiratory failure with hypoxia (Chronic) PAF (paroxysmal atrial fibrillation) (Chronic) Chronic renal failure, stage 3 (moderate) (Chronic) Medical History: Medical History (Last Reviewed 08/13/17 @ 15:02 by Michaela Saldaña NP-C) Pancytopenia (Chronic) D61.818 Myelodysplastic syndrome (Chronic) D46.9 Hypertension (Chronic) I10 CHF (congestive heart failure) (Chronic) I50.9 EF 40% (06/2017) CAD (coronary artery disease) (Chronic) I25.10 Acute and chronic respiratory failure with hypoxia (Chronic) J96.21 PAF (paroxysmal atrial fibrillation) (Chronic) I48.0 Chronic renal failure, stage 3 (moderate) (Chronic) N18.3 Bacteremia, escherichia coli (Resolved) R78.81 Sepsis due to Escherichia coli (E. coli) (Resolved) A41.51 Allergies adhesive Allergy (Mild, Verified 11/10/17 11:14) Rash Home Medications: Ambulatory Orders Medication Instructions Recorded Carvedilol [Coreg (Beta Denny)] 12.5 mg PO DINNER 05/16/15 Ergocalciferol [Vitamin D] 50,000 unit PO TU 05/16/15 Flecainide [Tambocor] 100 mg PO BID 05/16/15 Deferasirox [Jadenu] 360 mg PO DAILY 12/12/15 Ascorbic Acid [Vitamin C] 250 mg PO DAILY 07/16/16 Chlorhexidine 15 ml PO BID PRN 07/16/16 Carvedilol [Coreg] 6.25 mg PO BREAKFAST 09/25/16 Famotidine [Pepcid] 20 mg PO BID 06/25/17 danazol 200 mg capsule 200 mg PO BID cap 07/13/17 eltrombopag 75 mg tablet 200 mg PO DAILY tab 07/13/17 Decitabine 50 mg SC QWEEK 10/11/17 Folic Acid 1 mg PO DAILY@0800 10/11/17 Furosemide [Lasix] 40 mg PO DAILY PRN 11/11/17 Surgical History: Surgical History (Last Reviewed 08/13/17 @ 15:02 by ANNE Healy) S/P ablation of atrial flutter Z98.890, Z86.79 2000 ablation PVI 2008 prostate brachytherapy 2006 Surgical History: - - Cardiac ablation x 2. Psychiatric History: No pertinent psych hx Smoking Status: Never smoker - *Family History Maternal Family History: Family History (Last Reviewed 08/13/17 @ 15:02 by ANNE Healy) Brother Prostate CA Hairy cell leukemia Father Hypertension Sister Hypertension History Items: No pertinent history Paternal Family History: Family History (Last Reviewed 08/13/17 @ 15:02 by ANNE Healy) Brother Prostate CA Hairy cell leukemia Father Hypertension Sister Hypertension History Items: No pertinent history Review of Systems Constitutional: Reports: Anorexia, Malaise, Weakness, Fatigue. Denies: Chills, Fever HEENT: Denies: Head Aches, Sinus Congestion, Sinus Drainage Respiratory: Reports: Shortness of breath upon exertion Gastrointestinal: Denies: Abdominal Pain, Nausea, Vomiting Genitourinary: Reports: Incontinence. Denies: Dysuria, Hematuria, Hesitancy, Nocturia, Retention Musculoskeletal: Reports: Joint Pain. Denies: Joint Tenderness Skin: Denies: Rash, Wounds Neurological: Reports: Confusion. Denies: Numbness, Tingling Psychiatric: Denies: Anxiety, Depression, Homicidal Ideations, Suicidal Ideations VTE Information - Inpt Only VTE Present on Admission: No VTE Mechan Device Prophylaxis: SCD's VTE Pharm Prophylaxis ordered?: No Reason prophylaxis not ordered:: Medical Contraindication - Severe thrombocytopenia Patient Problems: Active and Suspected Problems (Last Reviewed 08/13/17 @ 15:02 by ANNE Healy) HARI on CKD Stage 3 (Acute) General weakness (Acute) Encephalopathy acute (Acute) - Physical Exam General: Oriented x3, Cooperative, Lethargic HEENT: Atraumatic, PERRLA, EOMI, Normocephalic Oral: Moist Mucosa Neck: Supple, No JVD, Negative Carotid Bruits Lungs: No rhonchi, No wheeze, No rales, Diminished Cardiovascular: Regular rate, Regular Rhythm, Normal S1, Normal S2, No murmurs Abdomen: Bowel Sounds Present, Soft, Non Tender, Non-Distended Extremities: Capillary Refill Less than 3 Seconds, Edema Skin: No rashes, No breakdown Musculoskeletal: No Tenderness to Palpation of Joints or Extremities, Arthritic Changes Neurological: Cranial nerves II-XII grossly intact, Neuro grossly intact Psych/Mental Status: Normal Affect, Appropriate Vital Signs Temp Pulse Resp BP Pulse Ox 98.8 F 59 L 18 92/58 L 93 11/11/17 09:30 11/11/17 13:14 11/11/17 13:14 11/11/17 13:14 11/11/17 13:14 Oxygen Delivery Method Room Air Assessment/Plan All Active Problems (Last Reviewed 08/13/17 @ 15:02 by Michaela Saldaña, [place]-C) HARI on CKD Stage 3 (Acute) General weakness (Acute) Encephalopathy acute (Acute) Bacteremia, escherichia coli (Resolved) Sepsis due to Escherichia coli (E. coli) (Resolved) The patient is a 82 year old M with multiple comorbidities with significant chronic biventricular systolic heart failure, predominantly right ventricular failure, transfusion dependent MDS with severe thrombocytopenia was last admitted in September 2017 for neutropenic fever in ICU came to ER with confusion, generalized weakness, not able to walk and acute kidney injury on CKD stage III. Patient had last by Dr. Arciniega on November 09, remarkable abnormals more platelet count 9000, hemoglobin 7.8 thousand, creatinine 3.84, BUN 91 and chronically elevated ferritin 5242, iron 762, TIBC 9181 and transferrin saturation 78% and 1 unit of platelet transfusion. On further discussion with , she has stopped Lasix and spironolactone for about 4-5 days. Patient has bilateral lower extremity edema. Patient was found more confused, slow to respond by . Is also very weak and not able to stand up or walk. In ER today, hemoglobin is 8.2 thousand, platelet count is 13,000, WBC 4.1, and ANC 2.4 thousand. Kidney function is severely abnormal, creatinine 5.01, BUN 114 and has worsened since 11/09/2017 as mentioned above. UA is positive for WBC 25-50 cells, RBC 25-56, leukocyte esterase and nitrite positive. Patient has chronic urinary incontinence but denies any acute frequency, urgency or burning micturition or other lower urinary tract symptoms. No fever this time Urine culture ordered in the ER. ER physician ordered 1 g IV Rocephin 1. Acute kidney injury on CKD stage III: Patient is being admitted on the regular [facility] floor. Gentle IV fluid hydration 50 mL/h. Diuretics are already discontinued. Discussed with [place] quartz orientator Dr. Warner and he agreed to see the patient. Patient and his understand the poor prognosis and does not want hemodialysis and I think, he is not a candidate for dialysis catheter insertion because of spontaneous subcutaneous hemorrhage and severe thrombocytopenia. Follow kidney function, electrolytes, strict PRIYANKA's daily. 2. Chronic severe systolic biventricular heart failure, predominant right ventricular failure with severe pulmonary hypertension: Patient had echo in June 2017 shows EF 40% with moderate concentric LVH with moderate hypokinesis of left ventricle. Right ventricle severely dilated with moderate global right ventricular systolic dysfunction. Both atria are severely enlarged. RVSP 72 images suggestive of severe pulmonary hypertension with mild TR. Chest x-ray shows mild pulmonary vascular congestion. 3. Multiple valvular heart disease: Echo also showed moderate focal aortic valve calcification and thickening with moderate ileus, aortic valve gradient 29 mmHg with aortic valve area 0.95 cm?. Moderate pulmonary insufficiency. IVC treated. 4 Acute encephalopathy most probably metabolic/uremic encephalopathy due to kidney failure: 5 thrombocytopenia and anemia-secondary to myelodysplastic syndrome-requiring platelet transfusion as an outpatient. #6 coronary artery disease #7 paroxysmal atrial fibrillation Advanced directive/life goal: Discussed with the patient and his . I also happened to take care during previous admission in September 2017 and the patient is DNR CC arrest with no intubation and no central venous catheter infection and vessel pressure. He has chronically low blood pressure. With history of transfusion dependent MDS, iron overload, severe end-stage heart failure and pulmonary hypertension and now kidney failure, patient and his agreed for palliative care consult to discuss about the option of hospice care. [id number] encounter: Exact 18 minutes time spent in discussion of advanced directive and end of life goal This note was generated with Dragon dictation software. Every effort was made to ensure accuracy, however computerized statistician mistakes may persist. Laboratory Results 11/11/17 09:40: WBC 4.1 L, RBC 2.88 L, Hgb 8.2 L, Hct 23.4 L, MCV 81.3, MCH 28.5 , MCHC 35.0, RDW 17.0 H, RDW Differential 51.3 H, Plt Count 13 L*, MPV 9.1, Immature Gran % (Auto) 1.000 H, Neut % (Auto) 58.2, Lymph % (Auto) 17.1 L, [place] % (Auto) 23.2 H, Eos % (Auto) 0.0, Baso % (Auto) 0.5, Absolute Neuts (auto) 2.4 , Absolute Lymphs (auto) 0.70 L, Total Counted Not Reportable 11/11/17 09:40: PT 19.3 H, INR 1.6 11/11/17 09:40: Sodium 133 L, Potassium 4.6, Chloride 97 L, Carbon Dioxide 27.0 , Anion Gap 9, BUN 114 H*, Creatinine 5.01 H, Est GFR (MDRD) Af Amer 14 L, Est GFR (MDRD) Non-Af 12 L, BUN/Creatinine Ratio 22.8 H, Glucose 103, Calcium 8.2 L , Total Bilirubin 2.40 H, AST 20, ALT 27, Alkaline Phosphatase 53, Total Protein 6.8, Albumin 2.5 L, Globulin 4.3 H, Albumin/Globulin Ratio 0.6 L 11/11/17 09:50: Lactic Acid 0.6 11/11/17 10:31: Urine Color Clare, Urine Clarity Sl. Cloudy, Urine pH 5.0, Ur Specific Sullivan 1.025, Urine Protein 100 H, Urine Glucose (UA) Normal, Urine Ketones 5 H, Urine Occult Blood 250 H, Urine Nitrite Positive H, Urine Bilirubin 3 H, Urine Urobilinogen 4 H, Ur Leukocyte Esterase 500 H, Urine RBC 25 -50 SEEN, Urine WBC 25-50 SEEN, Ur Squamous Epith Cells 0-5 SEEN, Urine Bacteria 2+, Urine Mucus 0 SEEN Clinical Impression(s) from Imaging Studies Chest X-Ray 11/11/17 09:57 IMPRESSION: Pulmonary vascular congestion. Bilateral calcified pleural plaques. Cardiomegaly. Code Visit Inpatient E&M: 15471 Init Hosp L3 Procedures: 81424 Advncd Care Plan 30 Min
--- NOTE | 2017-11-11 15:28 | CASEMGMT ---
Social Work Note KRISTEN Angela updated this worker that Dr. Emerson has made a referral for Palliative Care/Hospice. Per KRISTEN Romero Dr. spoke with pt and his about Palliative Care/Hospice referral and they are agreeable to referral. JOANNE placed a call to [facility] and spoke with Josee in admissions about referral. JOANNE faxed clinicals to [facility]. Plan: [facility] will be meeting with pt and his to determine care Romana Sanchez JAVA WEB DEVELOPER, ETL TESTER
[2017-11-11] MEDS: 0.9% Normal Saline 1,000 ML 50 ML IV (16:09)
--- NOTE | 2017-11-11 17:58 | PCM.CONS.B ---
Problem List (1) Myelodysplastic syndrome Status: Chronic (2) Encephalopathy acute Status: Acute (3) General weakness Status: Acute (4) Acute renal failure (ARF) Status: Acute Qualifiers: Acute renal failure type: unspecified Qualified Code(s): N17.9 - Acute kidney failure, unspecified Comment: Pre-renal & dehydration - Consult Date of Consult: 11/11/[address] Emerson regarding with anemia, chronic renal failure, myelofibrosis/myelodysplastic syndrome and transfusion iron overload. Pancytopenia and splenomegaly. My final recommendation will be communicated to Dr. Emerson & by electronic medical records. 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 He is not able to walk and acute kidney injury on CKD stage III. On November 09, remarkable abnormals platelet count 9000, hemoglobin 7.8 thousand, creatinine 3.84, BUN 91 and chronically elevated ferritin 5242, iron 762, TIBC 9181 and transferrin saturation 78% and 1 unit of platelet transfusion & 1 unit LD-RBC. He has stopped Lasix and spironolactone for about 4-5 days. Patient has bilateral lower extremity edema & ascites. Patient was found more confused, slow to respond by this morning. He was very weak and not able to stand up or walk. In ER today, hemoglobin is 8.2, platelet count is 13,000, WBC 4.1, and ANC 2.4 thousand. Kidney function is severely abnormal, creatinine 5.01, BUN 114 and has worsened since 11/09/2017 as mentioned above. UA is positive for WBC 25-50 cells, RBC 25-56, leukocyte esterase and nitrite positive. Patient has chronic urinary incontinence but denies any acute frequency, urgency or burning micturition or other lower urinary tract symptoms. No fever or bleeding at this time. He also denied chest pain or shortness of breath. Urine culture ordered in the ER. ER physician ordered 1 g IV Rocephin Past Medical History Past Medical History (Chronic Problems): Chronic Problems (Last Reviewed 08/13/17 @ 15:02 by ANNE Healy) GERD (gastroesophageal reflux disease) (Chronic) Neutropenic fever (Chronic) Pancytopenia (Chronic) Myelodysplastic/Myelofibrosis syndrome (Chronic) Hypertension (Chronic) CHF (congestive heart failure) (Chronic) EF 40% (06/2017) CAD (coronary artery disease) (Chronic) Acute and chronic respiratory failure with hypoxia (Chronic) PAF (paroxysmal atrial fibrillation) (Chronic) Chronic renal failure, stage 3 (moderate) (Chronic) Medical History: Medical History (Last Reviewed 08/13/17 @ 15:02 by ANNE Healy) Pancytopenia (Chronic) D61.818 Myelodysplastic syndrome (Chronic) D46.9 Hypertension (Chronic) I10 CHF (congestive heart failure) (Chronic) I50.9 EF 40% (06/2017) CAD (coronary artery disease) (Chronic) I25.10 Acute and chronic respiratory failure with hypoxia (Chronic) J96.21 PAF (paroxysmal atrial fibrillation) (Chronic) I48.0 Chronic renal failure, stage 3 (moderate) (Chronic) N18.3 Sepsis due to Escherichia coli (E. coli) (Resolved) A41.51 Allergies adhesive Allergy (Mild, Verified 11/10/17 11:14) Rash Home Medications: Ambulatory Orders Medication Instructions Recorded Carvedilol [Coreg (Beta Denny)] 12.5 mg PO DINNER 05/16/15 Ergocalciferol [Vitamin D] 50,000 unit PO TU 05/16/15 Flecainide [Tambocor] 100 mg PO BID 05/16/15 Deferasirox [Jadenu] 360 mg PO DAILY 12/12/15 Ascorbic Acid [Vitamin C] 250 mg PO DAILY 07/16/16 Chlorhexidine 15 ml PO BID PRN 07/16/16 Carvedilol [Coreg] 6.25 mg PO BREAKFAST 09/25/16 Famotidine [Pepcid] 20 mg PO BID 06/25/17 danazol 200 mg capsule 200 mg PO BID cap 07/13/17 eltrombopag 75 mg tablet 200 mg PO DAILY tab 07/13/17 Decitabine 50 mg SC QWEEK 10/11/17 Folic Acid 1 mg PO DAILY@0800 10/11/17 Furosemide [Lasix] 40 mg PO DAILY PRN 11/11/17 Surgical History: Surgical History (Last Reviewed 08/13/17 @ 15:02 by ANNE Healy) S/P ablation of atrial flutter Z98.890, Z86.79 2000 ablation PVI 2009 prostate brachytherapy 2006 Surgical History: - - Cardiac ablation x 2. Psychiatric History: No pertinent psych hx Smoking Status: Never smoker - *Family History Maternal Family History: Family History (Last Reviewed 08/13/17 @ 15:02 by ANNE Healy) Brother Prostate CA Hairy cell leukemia Father Hypertension Sister Hypertension History Items: No pertinent history Paternal Family History: Family History (Last Reviewed 08/13/17 @ 15:02 by ANNE Healy) Brother Prostate CA Hairy cell leukemia Father Hypertension Sister Hypertension History Items: No pertinent history Review of Systems Constitutional: Reports: Anorexia, Malaise, Weakness, Fatigue. Denies: Chills, Fever HEENT: Denies: Head Aches, Sinus Congestion, Sinus Drainage Respiratory: Reports: Shortness of breath upon exertion Gastrointestinal: Denies: Abdominal Pain, Nausea, Vomiting Genitourinary: Reports: Incontinence. Denies: Dysuria, Hematuria, Hesitancy, Nocturia, Retention Musculoskeletal: Reports: Joint Pain. Denies: Joint Tenderness Skin: Denies: Rash, Wounds Neurological: Reports: Confusion. Denies: Numbness, Tingling Psychiatric: Denies: Anxiety, Depression, Homicidal Ideations, Suicidal Ideations VTE Information - Inpt Only VTE Present on Admission: No VTE Mechan Device Prophylaxis: SCD's VTE Pharm Prophylaxis ordered?: No Reason prophylaxis not ordered:: Medical Contraindication - Severe thrombocytopenia Patient Problems: Active and Suspected Problems (Last Reviewed 08/13/17 @ 15:02 by ANNE Healy) - Physical Exam General: Cooperative, Lethargic but in no acute distress HEENT: Atraumatic, PERRLA, EOMI, Normocephalic + icteric Oral: Moist Mucosa Neck: Supple, No JVD, Negative Carotid Bruits Lungs: No rhonchi, No wheeze, No rales, Diminished Cardiovascular: Regular rate, Regular Rhythm, Normal S1, Normal S2, + 2/6 systolic murmurs Abdomen: Bowel Sounds Present, Soft, Non Tender, Non-Distended + splenomegaly Extremities: Capillary Refill Less than 3 Seconds, + trace Edema Skin: No rashes, No breakdown Musculoskeletal: No Tenderness to Palpation of Joints or Extremities, Arthritic Changes Neurological: Cranial nerves II-XII grossly intact, Neuro grossly intact Psych/Mental Status: Normal Affect, Appropriate Vital Signs Temp Pulse Resp BP Pulse Ox 98.8 F 59 L 18 92/58 L 93 11/11/17 09:30 11/11/17 13:14 11/11/17 13:14 11/11/17 13:14 11/11/17 13:14 Oxygen Delivery Method Room Air Assessment/Plan All Active Problems Renal failure Acute/chronic-dehydration/pre-renal/ATN (Acute) General weakness /cardiomyopathy (Acute) Encephalopathy acute (Acute) 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 Iron Overload (Chronic) Plan: -I discussed with patient and family regarding goals of care today. -I recommend that we discontinue his treatment (Dacogen/Danazol/Eltrombopag) and proceed with supportive transfusion as indicated. -Consider blood transfusion if Hgb < 7.0 or platelets < 9,000 or for any clinical bleeding issues. -IV hydration & possible resuming Lasix IV tomorrow. Nephrology consulted. -Patient is DNR comfort care. Living will & DPOA on chart. -Continue Rocephin for UTI -Hospice/Palliative care consult was placed. cc: Dr. Rishi Emerson, Dr. Shruti Barajas; Dr. Rishi Harrison
[2017-11-11] MEDS: Menthol/Lanolin/Calamine/Znox 113 GM Tube 1 APPLIC TOPICAL ×2 (18:35→21:48)
--- NOTE | 2017-11-11 19:40 | NURSING ---
requests all four side rails are up when she is not there with the patient, this RN and off going RN explained to that this is considered a restraint, still requests all four side rails be up. Bed alarm also placed during this time.
[2017-11-11] MEDS: Flecainide 100 MG Tablet PO (21:48)
[2017-11-11] MEDS: Carvedilol 12.5 MG Tablet PO (21:48)
[2017-11-11] MEDS: DEFERASIROX 360 MG TABLET PO (21:51)
[2017-11-12] VITALS (12 sets, daily range): BP systolic 75–88; BP diastolic 41–71; PULSE 53–96; RESP 18; TEMP 36.4–37.2; O2SAT 93–100
--- NOTE | 2017-11-12 01:05 | NURSING ---
Patient pulled on catheter and pulled off stat lock. Hematuria present. Penis edematous. New stat lock applied, new bed linens applied, water offered, patient reminded where he was. Bed alarm on. Will continue to monitor.
--- NOTE | 2017-11-12 02:04 | NURSING ---
Apical pulse 87.
--- NOTE | 2017-11-12 04:11 | EKG12_ITS ---
Test Reason : WEAKNESS Blood Pressure : / mmHG Vent. Rate : 159 BPM Atrial Rate : 163 BPM P-R Int : 000 ms QRS Dur : 004 ms QT Int : 070 ms P-R-T Axes : 000 000 229 degrees QTc Int : 113 ms Sinus bradycardia Right bundle branch block Indeterminate axis Nonspecific ST and T wave abnormality Abnormal ECG Confirmed by ASIM SINGH, MAGDA ([id number]), slot editor DWAIN BRADFORD ([id number] on 11/19/2017 9:21:14 AM Referred By: [facility] Confirmed By:MAGDA DAILEY MD
[2017-11-12] MEDS: Menthol/Lanolin/Calamine/Znox 113 GM Tube 1 APPLIC TOPICAL ×2 (05:36→14:50)
[2017-11-12 05:47] LABS: Absolute Lymphocyte Count 0.99 X10^3/ul (0.83-4.51); Absolute Neutrophil Count 2.8 X10^3/uL (2.0-7.7); Basophil# 0.02 X10^3/uL; Basophil% 0.5 % (0-1); Hematocrit 22.4 % (40-54); Hemoglobin 7.7 g/dl (13.0-16.5); Lymphocyte # 0.99 X10^3/ul (4.0); Lymphocyte % 23.1 % (19-41); Mean Corp Hgb Conc 34.4 g/gl (32-36); Mean Corpuscular Volume 81.5 fL (80-94); Mean Platelet Vol. 8.3 fl (6.2-12.0); Monocyte# 0.45 X10^3/uL; Monocyte% 10.5 % (0-10); Neutrophil # 2.82 X10^3/uL (2.7-7.7); Neutrophil % 65.7 % (47-70); RBC Distribution Width CV 17.2 % (11.6-14.6); RBC Distribution Width SD 51.2 fl (35.1-43.9); Red Blood Count 2.75 M/mm3 (4.6-6.2); White Blood Count 4.3 K/mm3 (4.4-11.0)
[2017-11-12 06:15] LABS: POSITIVE COUNT YES; POSITIVE DIFFERENTIAL NO; POSITIVE MORPHOLOGY NO
[2017-11-12 06:16] LABS: Differential Indicated SCAN CRITERIA MET; Platelet Count 7 K/mm3 (150-450)
[2017-11-12 06:19] LABS: Differential Comment SCANNED; Platelet Estimate MKD DEC (ADEQ)
[2017-11-12 06:20] LABS: Hypochromasia 2+
--- NOTE | 2017-11-12 06:54 | PCM.PN.BLA ---
Progress Note Hematology oncology progress note: Patient is more lethargic and confused overnight. With hematuria this morning. Hypotensive and hypoxic on Oxygen. IV bolus given. IMPRESSION: 1) delirium-encephalopathy: 2) organ failures; 3) possible sepsis 4) pancytopenia from MDS/myelofibrosis-refactory to treatment Recommendations: -Transfuse platelets as indicated for low platelet, bleeding and hematuria. -Consider inpatient hospice & family conference cc: Dr. Rishi Harrison, Dr. Angela Emerson
[2017-11-12] MEDS: 0.9% Normal Saline 1,000 ML 999 ML IV (07:32)
--- NOTE | 2017-11-12 07:51 | PCM.CONS.U ---
Reason for Consult Date of Consultation: 11/12/17 Reason for Consultation: Gross hematuria History of Present Illness: The patient is a 82 year old male with a myelodysplastic disorder came in with a very low platelets, catheter was placed and he developed gross hematuria. Patient and his family deny seen bloody urine before the catheter was placed. He does describe some difficulty going to the bathroom the last 2 days but prior to that was urinating okay. Patient is somewhat of a poor historian but was able to answer more questions. He does not think he has prostate cancer bladder cancer kidney cancer kidney stones or any problems with his prostate. Currently the urine is clearing up it is at the catheter in place, is at very low blood count and very low platelet count Past Medical History Past Medical History (Chronic Problems): Chronic Problems (Last Reviewed 08/13/17 @ 15:02 by ANNE Healy) GERD (gastroesophageal reflux disease) (Chronic) Neutropenic fever (Chronic) Pancytopenia (Chronic) Myelodysplastic syndrome (Chronic) Hypertension (Chronic) CHF (congestive heart failure) (Chronic) EF 40% (06/2017) CAD (coronary artery disease) (Chronic) Acute and chronic respiratory failure with hypoxia (Chronic) PAF (paroxysmal atrial fibrillation) (Chronic) Chronic renal failure, stage 3 (moderate) (Chronic) Medical History: Medical History (Last Reviewed 08/13/17 @ 15:02 by ANNE Healy) Pancytopenia (Chronic) D61.818 Myelodysplastic syndrome (Chronic) D46.9 Hypertension (Chronic) I10 CHF (congestive heart failure) (Chronic) I50.9 EF 40% (06/2017) CAD (coronary artery disease) (Chronic) I25.10 Acute and chronic respiratory failure with hypoxia (Chronic) J96.21 PAF (paroxysmal atrial fibrillation) (Chronic) I48.0 Chronic renal failure, stage 3 (moderate) (Chronic) N18.3 Bacteremia, escherichia coli (Resolved) R78.81 Sepsis due to Escherichia coli (E. coli) (Resolved) A41.51 Allergies adhesive Allergy (Mild, Verified 11/10/17 11:14) Rash Home Medications: Ambulatory Orders Medication Instructions Recorded Carvedilol [Coreg (Beta Denny)] 12.5 mg PO DINNER 05/16/15 Ergocalciferol [Vitamin D] 50,000 unit PO TU 05/16/15 Flecainide [Tambocor] 100 mg PO BID 05/16/15 Deferasirox [Jadenu] 360 mg PO DAILY 12/12/15 Ascorbic Acid [Vitamin C] 250 mg PO DAILY 07/16/16 Chlorhexidine 15 ml PO BID PRN 07/16/16 Carvedilol [Coreg] 6.25 mg PO BREAKFAST 09/25/16 Famotidine [Pepcid] 20 mg PO BID 06/25/17 danazol 200 mg capsule 200 mg PO BID cap 07/13/17 eltrombopag 75 mg tablet 200 mg PO DAILY tab 07/13/17 Decitabine 50 mg SC QWEEK 10/11/17 Folic Acid 1 mg PO DAILY@0800 10/11/17 Furosemide [Lasix] 60 mg PO DAILY PRN 11/11/17 Surgical History: Surgical History (Last Reviewed 08/13/17 @ 15:02 by ANNE Healy) S/P ablation of atrial flutter Z98.890, Z86.79 2000 ablation PVI 2008 prostate brachytherapy 2006 Surgical History: - - Cardiac ablation x 2. Psychiatric History: No pertinent psych hx Lives: Spouse/ Significant Other Smoking Status: Never smoker Tobacco Use: Non-smoker Alcohol: None Drugs: None - *Family History Maternal Family History: Family History (Last Reviewed 08/13/17 @ 15:02 by ANNE Healy) Brother Prostate CA Hairy cell leukemia Father Hypertension Sister Hypertension History Items: No pertinent history Paternal Family History: Family History (Last Reviewed 08/13/17 @ 15:02 by ANNE Healy) Brother Prostate CA Hairy cell leukemia Father Hypertension Sister Hypertension History Items: No pertinent history Review of Systems Constitutional: Denies: Chills, Fever, Weight Change HEENT: Denies: Head Aches, Sinus Congestion, Sinus Drainage Cardiovascular: Denies: Chest Pain, Palpitations Respiratory: Denies: Cough, Shortness of breath at rest, Sputum production Gastrointestinal: Denies: Abdominal Pain, Nausea, Vomiting Genitourinary: Reports: Hematuria. Denies: Dysuria Musculoskeletal: Denies: Joint Pain, Joint Tenderness Skin: Denies: Rash, Wounds Neurological: Denies: Numbness, Tingling, Focal weakness Psychiatric: Denies: Anxiety, Depression, Homicidal Ideations, Suicidal Ideations Hematologic/ Lymphatic: Reports: Easy Bruising, Easy Bleeding Physical Exam - Physical Exam Vital Signs Temp 98.2 F 11/12/17 06:33 Pulse 87 11/12/17 06:33 Resp 18 11/12/17 06:33 BP 78/52 L 11/12/17 06:33 Pulse Ox 97 11/12/17 06:33 Intake & Output 11/10/17 11/11/17 11/12/17 23:59 23:59 23:59 Intake Total 720 / 720 859 / 859 Output Total 175 / 175 75 / 75 Balance 545 / 545 784 / 784 Weight: 85.729 kg Intake: Oral 340 / 340 100 / 100 IV fluid/meds 380 / 380 759 / 759 Output: Urine 175 / 175 75 / 75 General: Alert, Oriented x3 HEENT: Atraumatic Oral: Moist Mucosa Neck: Supple Lungs: Normal air movement Cardiovascular: Regular rate Abdomen: Soft Rectal: Exam deferred Laboratory Tests Past 24 Hrs 11/12/17 11/12/17 11/12/17 05:12 05:12 05:12 WBC 4.3 L RBC 2.75 L Hgb 7.7 L Hct 22.4 L MCV 81.5 MCH 28.0 MCHC 34.4 RDW 17.2 H RDW Differential 51.2 H Plt Count 7 L* MPV 8.3 Immature Gran % (Auto) 0.200 Neut % (Auto) 65.7 Lymph % (Auto) 23.1 [place] % (Auto) 10.5 H Eos % (Auto) 0.0 Baso % (Auto) 0.5 Absolute Neuts (auto) 2.8 Absolute Lymphs (auto) 0.99 Total Counted Not Reportable Differential Comment SCANNED Diff Path Review May foll Platelet Estimate MKD DEC Hypochromasia 2+ Sodium Pending Potassium Pending Chloride Pending Carbon Dioxide Pending Anion Gap Pending BUN Pending Creatinine Pending Est GFR (MDRD) Af Amer Pending Est GFR (MDRD) Non-Af Pending BUN/Creatinine Ratio Pending Glucose Pending Calcium Pending Troponin I < 0.015 Blood Type Antibody Screen 11/12/17 05:12 WBC RBC Hgb Hct MCV MCH MCHC RDW RDW Differential Plt Count MPV Immature Gran % (Auto) Neut % (Auto) Lymph % (Auto) [place] % (Auto) Eos % (Auto) Baso % (Auto) Absolute Neuts (auto) Absolute Lymphs (auto) Total Counted Differential Comment Diff Path Review Platelet Estimate Hypochromasia Sodium Potassium Chloride Carbon Dioxide Anion Gap BUN Creatinine Est GFR (MDRD) Af Amer Est GFR (MDRD) Non-Af BUN/Creatinine Ratio Glucose Calcium Troponin I Blood Type O POSITIVE Antibody Screen NEGATIVE Assessment/Plan All Active Problems (Last Reviewed 08/13/17 @ 15:02 by Michaela Saldaña, [place]-C) HARI on CKD Stage 3 (Acute) General weakness (Acute) Encephalopathy acute (Acute) Acute renal failure (ARF) (Acute) Bacteremia, escherichia coli (Resolved) Sepsis due to Escherichia coli (E. coli) (Resolved) 82-year-old male with gross hematuria after Irby catheter placed , very low blood platelet count will do CT scan stone protocol suspect that most likely the source of hematuria could be just Irby catheter in the setting of a low blood platelet count will see the CAT scan shows anything do not plan to do any other diagnostic work if the CAT scan is negative.
--- NOTE | 2017-11-12 07:56 | CT_ITS ---
STUDY: CT ABDOMEN AND PELVIS WITHOUT CONTRAST REASON FOR EXAM: Male, 82 years old. Hematuria, UTI, chronic renal failure, myelodysplastic syndrome RADIATION DOSAGE (If Supplied By Facility): CTDIvol = ( 12 ) mGy, DLP = ( 846.10 ) mGycm TECHNIQUE: Transaxial images were obtained from the dome of the diaphragm to the symphysis pubis without oral contrast, and without intravenous contrast. Sagittal and coronal images were reconstructed. Individualized dose optimization techniques were used for this CT. COMPARISON: CT chest 10/11/2017 FINDINGS: There are nodular opacities at the lung bases. Densely calcified pleural plaques are seen. Soft tissue density is seen along the lower thoracic paraspinal region. The heart is enlarged. Coronary artery calcifications are seen. Evaluation of the abdominal viscera is limited in the absence of intravenous contrast. The liver is slightly enlarged. The gallbladder is partially contracted. The gallbladder wall is thickened with small gallstone seen. The spleen is enlarged. There are scattered hyperdense structures within the spleen. Normal pancreas. Normal bilateral adrenal glands. There is a 4 x 4.6 cm cyst within the right kidney with partial rim calcification. Normal left kidney. The stomach is empty at the time of scanning, limiting evaluation for wall abnormalities. Normal small intestine. There are multiple colonic diverticula consistent with diverticulosis. There is non-visualization of the appendix. There is diffuse atherosclerotic calcification of the abdominal aorta, without a demonstrated aneurysm. Normal inferior vena cava. Normal retroperitoneum. The bladder is decompressed by a Irby catheter. Metallic densities project within the prostate gland consistent with treatment for previous prostate cancer. There is body wall edema. There is sclerosis of the right sacroiliac joint. Diffuse degenerative changes are seen throughout the spine. There are subtle lucencies throughout the vertebral bodies, which may represent neoplastic process. There is moderate abdominal pelvic ascites. CT/Abdomen/Pelvis without Cont IMPRESSION: Hepatosplenomegaly. Ascites. Multiple hyperdense lesions scattered throughout the spleen, with uncertain etiology. Diverticulosis, without acute diverticulitis. Additional findings, as detailed above. Electronically Signed: Lenny Huggins DO at 10:00 EDT Tel , Service support ,
--- NOTE | 2017-11-12 08:12 | PCM.PN.HOSP ---
Subjective: Seen and examined. Overnight events noted. Patient had Irby catheter placed in the ED because of acute kidney injury on CKD for adequate urine measurement and also history of CHF as mentioned in H&P. Last night, patient had hematuria on Irby catheter. He denies any previous urology disease including urinary tract stones, tumor or prostate which required urologic intervention in the past. In the morning today, patient seen by Dr. 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 His blood pressure also dropped, systolic and 70s and MAP in 60s. Patient is on third liter normal saline bolus. His blood pressure currently is 87/67, heart rate 88/min. Patient denies dizziness, syncope, diaphoresis. No chest pain. Although he denies shortness of breath but it seems he is mild short of breath on exam Vitals/I&O's: Vital Signs Temp Pulse Resp BP Pulse Ox 98.2 F 87 18 78/52 L 97 11/12/17 06:33 11/12/17 06:33 11/12/17 06:33 11/12/17 06:33 11/12/17 06:33 Oxygen Flow Rate (L/min) 1 Oxygen Delivery Method Nasal Cannula Weight: 189 lb Body Mass Index (BMI) 28.7 Intake and Output for Last 24 Hours 11/10/17 11/11/17 11/12/17 23:59 23:59 23:59 Intake Total 720 / 720 859 / 859 Output Total 175 / 175 75 / 75 Balance 545 / 545 784 / 784 General: Alert, Oriented x3, Cooperative, Lethargic HEENT: Atraumatic, PERRLA, EOMI, Normocephalic Neck: Supple, No JVD, Negative Carotid Bruits Lungs: No rhonchi, No wheeze, No rales, Diminished Cardiovascular: Regular rate, Regular Rhythm, Normal S1, Normal S2, No murmurs Abdomen: Bowel Sounds Present, Soft, Non Tender, Non-Distended Extremities: Capillary Refill Less than 3 Seconds, Edema Skin: No rashes, No breakdown, - - Multiple ecchymosis and subcutaneous bruise present in extremity Musculoskeletal: No Tenderness to Palpation of Joints or Extremities Neurological: Cranial nerves II-XII grossly intact, Neuro grossly intact Psych/Mental Status: Normal Affect, Appropriate Laboratory Results 11/12/17 05:12: WBC 4.3 L, RBC 2.75 L, Hgb 7.7 L, Hct 22.4 L, MCV 81.5, MCH 28.0, MCHC 34.4, RDW 17.2 H, RDW Differential 51.2 H, Plt Count 7 L*, MPV 8.3, Immature Gran % (Auto) 0.200, Neut % (Auto) 65.7, Lymph % (Auto) 23.1, [place] % (Auto) 10.5 H, Eos % (Auto) 0.0, Baso % (Auto) 0.5, Absolute Neuts (auto) 2.8, Absolute Lymphs (auto) 0.99, Total Counted Not Reportable, Differential Comment SCANNED, Diff Path Review May angy, Platelet Estimate MKD DEC, Hypochromasia 2+ 11/12/17 05:12: Troponin I < 0.015 11/12/17 05:12: Sodium Pending, Potassium Pending, Chloride Pending, Carbon Dioxide Pending, Anion Gap Pending, BUN Pending, Creatinine Pending, Est GFR (MDRD) Af Amer Pending, Est GFR (MDRD) Non-Af Pending, BUN/Creatinine Ratio Pending, Glucose Pending, Calcium Pending 11/12/17 05:12: Blood Type O POSITIVE, Antibody Screen NEGATIVE 11/12/17 08:00: Troponin I Pending Current Medications Ascorbic Acid (Vitamin C) 250 mg PO DAILY [facility] Calamine/Phenol (Calmoseptine Ointment) 1 applic TOPICAL TID [facility] PRN Reason: Protocol Last Admin: 11/12/17 05:36 Dose: 1 applicatio Carvedilol (Coreg) 6.25 mg PO BREAKFAST [facility] Carvedilol (Coreg) 12.5 mg PO 2200 [facility] Last Admin: 11/11/17 21:48 Dose: 12.5 mg Chlorhexidine Gluconate () 15 ml PO BID PRN PRN Reason: NOT SPECIFIED Ergocalciferol (Vitamin D) 50,000 unit PO Tu@1000 [facility] Famotidine (Pepcid) 20 mg PO DAILY [facility] Flecainide Acetate (Tambocor) 100 mg PO BID [facility] Last Admin: 11/11/17 21:48 Dose: 100 mg Folic Acid (Folic Acid) 1 mg PO DAILY@0800 [facility] Sodium Chloride () 1,000 mls @ 50 mls/hr IV .Q20H [facility] Last Admin: 11/11/17 16:09 Dose: 50 mls/hr Ceftriaxone Sodium (Rocephin) 1 gm in 50 mls @ 100 mls/hr IV Q24 [facility] Polyethylene Glycol (Miralax) 17 gm PO DAILY [facility] Senna/Docusate Sodium (Senokot-S, Genoveva-Colace) 2 tablet PO BID PRN PRN Reason: constipation Sodium Chloride () 5 - 30 ml IV UD PRN PRN Reason: SALINE FLUSH Medical Necessity - Tobacco Use Smoking Status: Never smoker Tobacco Use: Non-smoker Assessment/Plan All Active Problems (Last Reviewed 08/13/17 @ 15:02 by Michaela Saldaña NP-C) HARI on CKD Stage 3 (Acute) General weakness (Acute) Encephalopathy acute (Acute) Acute renal failure (ARF) (Acute) Bacteremia, escherichia coli (Resolved) Sepsis due to Escherichia coli (E. coli) (Resolved) The patient is a 82 year old M with multiple comorbidities with significant chronic biventricular systolic heart failure, predominantly right ventricular failure, transfusion dependent MDS with severe thrombocytopenia was last admitted in September 2017 for neutropenic fever in ICU came to ER with confusion, generalized weakness, not able to walk and acute kidney injury on CKD stage III. Patient had last by Dr. Arciniega on November 09, remarkable abnormals more platelet count 9000, hemoglobin 7.8 thousand, creatinine 3.84, BUN 91 and chronically elevated ferritin 5242, iron 762, TIBC 9181 and transferrin saturation 78% and 1 unit of platelet transfusion. On further discussion with , she has stopped Lasix and spironolactone for about 4-5 days. Patient has bilateral lower extremity edema. Patient was found more confused, slow to respond by . Is also very weak and not able to stand up or walk. In ER today, hemoglobin is 8.2 thousand, platelet count is 13,000, WBC 4.1, and ANC 2.4 thousand. Kidney function is severely abnormal, creatinine 5.01, BUN 114 and has worsened since 11/09/2017 as mentioned above. UA is positive for WBC 25-50 cells, RBC 25-56, leukocyte esterase and nitrite positive. Patient has chronic urinary incontinence but denies any acute frequency, urgency or burning micturition or other lower urinary tract symptoms. No fever this time Urine culture ordered in the ER. ER physician ordered 1 g IV Rocephin 1. Acute hypotension secondary to spontaneous hematuria from underlying myelofibrosis with myelodysplastic syndrome: Urine is much cleared. Lactic acid normal. Troponin is negative. Second troponin pending. patient is seen by Dr. Ness. CT abdomen with the stone protocol ordered. Patient is on third liter of normal saline bolus and then 75 mL per hour. Diuretics are already discontinued. Later on IV fluid was also discontinued as per top flavor attendant recommendation. 2. Acute kidney injury on CKD stage III: [facility] Discussed with [place] top flavor attendant Dr. Warner and he agreed to see the patient. Patient and his understand the poor prognosis and does not want hemodialysis and I think, he is not a candidate for dialysis catheter insertion because of spontaneous subcutaneous hemorrhage and severe thrombocytopenia. Follow kidney function, electrolytes, strict PRIYANKA's daily. 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 On IV Rocephin . Hospice care further decide about continuation of antibiotic as per urine culture sensitivity result But empirically can continue on cefadroxil 2. Chronic severe systolic biventricular heart failure, predominant right ventricular failure with severe pulmonary hypertension: Patient had echo in June 2017 shows EF 40% with moderate concentric LVH with moderate hypokinesis of left ventricle. Right ventricle severely dilated with moderate global right ventricular systolic dysfunction. Both atria are severely enlarged. RVSP 72 images suggestive of severe pulmonary hypertension with mild TR. Chest x-ray shows mild pulmonary vascular congestion. 3. Multiple valvular heart disease: Echo also showed moderate focal aortic valve calcification and thickening with moderate ileus, aortic valve gradient 29 mmHg with aortic valve area 0.95 cm?. Moderate pulmonary insufficiency. IVC treated. 4 Acute encephalopathy most probably metabolic/uremic encephalopathy due to kidney failure: 5 thrombocytopenia and anemia-secondary to myelodysplastic syndrome-requiring platelet transfusion as an outpatient. #6 coronary artery disease #7 paroxysmal atrial fibrillation Advanced directive/life goal: Discussed with the patient and his . I also happened to take care during previous admission in September 2017 and the patient is DNR CC arrest with no intubation and no central venous catheter infection and vessel pressure. He has chronically low blood pressure. With history of transfusion dependent MDS, iron overload, severe end-stage heart failure and pulmonary hypertension and now kidney failure, patient and his agreed for palliative care consult to discuss about the option of hospice care. Patient family members agreed for hospice care and palliative care saw the patient. Patient was accepted for inpatient hospice care and transferred This note was generated with [employer] dictation software. Every effort was made to ensure accuracy, however computerized pressure control supervisor mistakes may persist. Laboratory Results 11/11/17 09:40: WBC 4.1 L, RBC 2.88 L, Hgb 8.2 L, Hct 23.4 L, MCV 81.3, MCH 28.5, MCHC 35.0, RDW 17.0 H, RDW Differential 51.3 H, Plt Count 13 L*, MPV 9.1, Immature Gran % (Auto) 1.000 H, Neut % (Auto) 58.2, Lymph % (Auto) 17.1 L, [place] % (Auto) 23.2 H, Eos % (Auto) 0.0, Baso % (Auto) 0.5, Absolute Neuts (auto) 2.4, Absolute Lymphs (auto) 0.70 L, Total Counted Not Reportable, Diff Path Review September11/11/17 09:40: PT 19.3 H, INR 1.6 11/11/17 09:40: Sodium 133 L, Potassium 4.6, Chloride 97 L, Carbon Dioxide 27.0, Anion Gap 9, BUN 114 H*, Creatinine 5.01 H, Est GFR (MDRD) Af Amer 14 L, Est GFR (MDRD) Non-Af 12 L, BUN/Creatinine Ratio 22.8 H, Glucose 103, Calcium 8.2 L, Total Bilirubin 2.40 H, AST 20, ALT 27, Alkaline Phosphatase 53, Total Protein 6.8, Albumin 2.5 L, Globulin 4.3 H, Albumin/Globulin Ratio 0.6 L 11/11/17 09:50: Lactic Acid 0.6 11/11/17 10:31: Urine Color Clare, Urine Clarity Sl. Cloudy, Urine pH 5.0, Ur Specific [place] 1.025, Urine Protein 100 H, Urine Glucose (UA) Normal, Urine Ketones 5 H, Urine Occult Blood 250 H, Urine Nitrite Positive H, Urine Bilirubin 3 H, Urine Urobilinogen 4 H, Ur Leukocyte Esterase 500 H, Urine RBC 25-50 SEEN, Urine WBC 25-50 SEEN, Ur Squamous Epith Cells 0-5 SEEN, Urine Bacteria 2+, Urine Mucus 0 SEEN 11/12/17 05:12: WBC 4.3 L, RBC 2.75 L, Hgb 7.7 L, Hct 22.4 L, MCV 81.5, MCH 28.0, MCHC 34.4, RDW 17.2 H, RDW Differential 51.2 H, Plt Count 7 L*, MPV 8.3, Immature Gran % (Auto) 0.200, Neut % (Auto) 65.7, Lymph % (Auto) 23.1, [place] % (Auto) 10.5 H, Eos % (Auto) 0.0, Baso % (Auto) 0.5, Absolute Neuts (auto) 2.8, Absolute Lymphs (auto) 0.99, Total Counted Not Reportable, Differential Comment SCANNED, Diff Path Review September, Platelet Estimate MKD DEC, Hypochromasia 2+ 11/12/17 05:12: Troponin I < 0.015 11/12/17 05:12: Sodium Pending, Potassium Pending, Chloride Pending, Carbon Dioxide Pending, Anion Gap Pending, BUN Pending, Creatinine Pending, Est GFR (MDRD) Af Amer Pending, Est GFR (MDRD) Non-Af Pending, BUN/Creatinine Ratio Pending, Glucose Pending, Calcium Pending 11/12/17 05:12: Blood Type O POSITIVE, Antibody Screen NEGATIVE 11/12/17 08:00: Troponin I Pending Clinical Impression(s) from Imaging Studies Chest X-Ray 11/11/17 09:57 IMPRESSION: Pulmonary vascular congestion. Bilateral calcified pleural plaques. Cardiomegaly.
--- NOTE | 2017-11-12 08:21 | PN_ITS ---
Subjective: Seen and examined. Overnight events noted. Patient had Irby catheter placed in the ED because of acute kidney injury on CKD for adequate urine measurement and also history of CHF as mentioned in H&P. Last night, patient had hematuria on Irby catheter. He denies any previous urology disease including urinary tract stones, tumor or prostate which required urologic intervention in the past. In the morning today, patient seen by Dr. 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 His blood pressure also dropped, systolic and 70s and MAP in 60s. Patient is on third liter normal saline bolus. His blood pressure currently is 87/67, heart rate 88/min. Patient denies dizziness, syncope, diaphoresis. No chest pain. Although he denies shortness of breath but it seems he is mild short of breath on exam Vitals/I&O's: Vital Signs Temp Pulse Resp BP Pulse Ox 98.2 F 87 18 78/52 L 97 11/12/17 06:33 11/12/17 06:33 11/12/17 06:33 11/12/17 06:33 11/12/17 06:33 Oxygen Flow Rate (L/min) 1 Oxygen Delivery Method Nasal Cannula Weight: 189 lb Body Mass Index (BMI) 28.7 Intake and Output for Last 24 Hours 11/10/17 11/11/17 11/12/17 23:59 23:59 23:59 Intake Total 720 / 720 859 / 859 Output Total 175 / 175 75 / 75 Balance 545 / 545 784 / 784 General: Alert, Oriented x3, Cooperative, Lethargic HEENT: Atraumatic, PERRLA, EOMI, Normocephalic Neck: Supple, No JVD, Negative Carotid Bruits Lungs: No rhonchi, No wheeze, No rales, Diminished Cardiovascular: Regular rate, Regular Rhythm, Normal S1, Normal S2, No murmurs Abdomen: Bowel Sounds Present, Soft, Non Tender, Non-Distended Extremities: Capillary Refill Less than 3 Seconds, Edema Skin: No rashes, No breakdown, - - Multiple ecchymosis and subcutaneous bruise present in extremity Musculoskeletal: No Tenderness to Palpation of Joints or Extremities Neurological: Cranial nerves II-XII grossly intact, Neuro grossly intact Psych/Mental Status: Normal Affect, Appropriate Laboratory Results 11/12/17 05:12: WBC 4.3 L, RBC 2.75 L, Hgb 7.7 L, Hct 22.4 L, MCV 81.5, MCH 28.0 , MCHC 34.4, RDW 17.2 H, RDW Differential 51.2 H, Plt Count 7 L*, MPV 8.3, Immature Gran % (Auto) 0.200, Neut % (Auto) 65.7, Lymph % (Auto) 23.1, [place] % ( Auto) 10.5 H, Eos % (Auto) 0.0, Baso % (Auto) 0.5, Absolute Neuts (auto) 2.8, Absolute Lymphs (auto) 0.99, Total Counted Not Reportable, Differential Comment SCANNED, Diff Path Review May angy, Platelet Estimate MKD DEC, Hypochromasia 2+ 11/12/17 05:12: Troponin I < 0.015 11/12/17 05:12: Sodium Pending, Potassium Pending, Chloride Pending, Carbon Dioxide Pending, Anion Gap Pending, BUN Pending, Creatinine Pending, Est GFR ( MDRD) Af Amer Pending, Est GFR (MDRD) Non-Af Pending, BUN/Creatinine Ratio Pending, Glucose Pending, Calcium Pending 11/12/17 05:12: Blood Type O POSITIVE, Antibody Screen NEGATIVE 11/12/17 08:00: Troponin I Pending Current Medications Ascorbic Acid (Vitamin C) 250 mg PO DAILY [facility] Calamine/Phenol (Calmoseptine Ointment) 1 applic TOPICAL TID [facility] PRN Reason: Protocol Last Admin: 11/12/17 05:36 Dose: 1 applicatio Carvedilol (Coreg) 6.25 mg PO BREAKFAST [facility] Carvedilol (Coreg) 12.5 mg PO 2200 [facility] Last Admin: 11/11/17 21:48 Dose: 12.5 mg Chlorhexidine Gluconate () 15 ml PO BID PRN PRN Reason: NOT SPECIFIED Ergocalciferol (Vitamin D) 50,000 unit PO Tu@1000 [facility] Famotidine (Pepcid) 20 mg PO DAILY [facility] Flecainide Acetate (Tambocor) 100 mg PO BID [facility] Last Admin: 11/11/17 21:48 Dose: 100 mg Folic Acid (Folic Acid) 1 mg PO DAILY@0800 [facility] Sodium Chloride () 1,000 mls @ 50 mls/hr IV .Q20H [facility] Last Admin: 11/11/17 16:09 Dose: 50 mls/hr Ceftriaxone Sodium (Rocephin) 1 gm in 50 mls @ 100 mls/hr IV Q24 [facility] Polyethylene Glycol (Miralax) 17 gm PO DAILY [facility] Senna/Docusate Sodium (Senokot-S, Genoveva-Colace) 2 tablet PO BID PRN PRN Reason: constipation Sodium Chloride () 5 - 30 ml IV UD PRN PRN Reason: SALINE FLUSH Medical Necessity - Tobacco Use Smoking Status: Never smoker Tobacco Use: Non-smoker Assessment/Plan All Active Problems (Last Reviewed 08/13/17 @ 15:02 by Michaela Saldaña NP-C) HARI on CKD Stage 3 (Acute) General weakness (Acute) Encephalopathy acute (Acute) Acute renal failure (ARF) (Acute) Bacteremia, escherichia coli (Resolved) Sepsis due to Escherichia coli (E. coli) (Resolved) The patient is a 82 year old M with multiple comorbidities with significant chronic biventricular systolic heart failure, predominantly right ventricular failure, transfusion dependent MDS with severe thrombocytopenia was last admitted in September 2017 for neutropenic fever in ICU came to ER with confusion, generalized weakness, not able to walk and acute kidney injury on CKD stage III. Patient had last by Dr. Arciniega on November 09, remarkable abnormals more platelet count 9000, hemoglobin 7.8 thousand, creatinine 3.84, BUN 91 and chronically elevated ferritin 5242, iron 762, TIBC 9181 and transferrin saturation 78% and 1 unit of platelet transfusion. On further discussion with , she has stopped Lasix and spironolactone for about 4-5 days. Patient has bilateral lower extremity edema. Patient was found more confused, slow to respond by . Is also very weak and not able to stand up or walk. In ER today, hemoglobin is 8.2 thousand, platelet count is 13,000, WBC 4.1, and ANC 2.4 thousand. Kidney function is severely abnormal, creatinine 5.01, BUN 114 and has worsened since 11/09/2017 as mentioned above. UA is positive for WBC 25-50 cells, RBC 25-56, leukocyte esterase and nitrite positive. Patient has chronic urinary incontinence but denies any acute frequency, urgency or burning micturition or other lower urinary tract symptoms. No fever this time Urine culture ordered in the ER. ER physician ordered 1 g IV Rocephin 1. Acute hypotension secondary to spontaneous hematuria from underlying myelofibrosis with myelodysplastic syndrome: Urine is much cleared. Lactic acid normal. Troponin is negative. Second troponin pending. patient is seen by Dr. Ness. CT abdomen with the stone protocol ordered. Patient is on third liter of normal saline bolus and then 75 mL per hour. Diuretics are already discontinued. Later on IV fluid was also discontinued as per educational recruiter recommendation. 2. Acute kidney injury on CKD stage III: [facility] Discussed with [place] educational recruiter Dr. Warner and he agreed to see the patient. Patient and his understand the poor prognosis and does not want hemodialysis and I think, he is not a candidate for dialysis catheter insertion because of spontaneous subcutaneous hemorrhage and severe thrombocytopenia. Follow kidney function, electrolytes, strict PRIYANKA's daily. Acute gram-negative negrito lactose assembled wood products repairer non-lactose assembled wood products repairer UTI: Preliminary urine culture is showing gram-negative lactose assembled wood products repairer non- lactose assembled wood products repairer. On IV Rocephin . Hospice care further decide about continuation of antibiotic as per urine culture sensitivity result But empirically can continue on cefadroxil 2. Chronic severe systolic biventricular heart failure, predominant right ventricular failure with severe pulmonary hypertension: Patient had echo in June 2017 shows EF 40% with moderate concentric LVH with moderate hypokinesis of left ventricle. Right ventricle severely dilated with moderate global right ventricular systolic dysfunction. Both atria are severely enlarged. RVSP 72 images suggestive of severe pulmonary hypertension with mild TR. Chest x-ray shows mild pulmonary vascular congestion. 3. Multiple valvular heart disease: Echo also showed moderate focal aortic valve calcification and thickening with moderate ileus, aortic valve gradient 29 mmHg with aortic valve area 0.95 cm?. Moderate pulmonary insufficiency. IVC treated. 4 Acute encephalopathy most probably metabolic/uremic encephalopathy due to kidney failure: 5 thrombocytopenia and anemia-secondary to myelodysplastic syndrome-requiring platelet transfusion as an outpatient. #6 coronary artery disease #7 paroxysmal atrial fibrillation Advanced directive/life goal: Discussed with the patient and his . I also happened to take care during previous admission in September 2017 and the patient is DNR CC arrest with no intubation and no central venous catheter infection and vessel pressure. He has chronically low blood pressure. With history of transfusion dependent MDS, iron overload, severe end-stage heart failure and pulmonary hypertension and now kidney failure, patient and his agreed for palliative care consult to discuss about the option of hospice care. Patient family members agreed for hospice care and palliative care saw the patient. Patient was accepted for inpatient hospice care and transferred This note was generated with [employer] dictation software. Every effort was made to ensure accuracy, however computerized dragline mechanic mistakes may persist. Laboratory Results 11/11/17 09:40: WBC 4.1 L, RBC 2.88 L, Hgb 8.2 L, Hct 23.4 L, MCV 81.3, MCH 28.5 , MCHC 35.0, RDW 17.0 H, RDW Differential 51.3 H, Plt Count 13 L*, MPV 9.1, Immature Gran % (Auto) 1.000 H, Neut % (Auto) 58.2, Lymph % (Auto) 17.1 L, [place] % (Auto) 23.2 H, Eos % (Auto) 0.0, Baso % (Auto) 0.5, Absolute Neuts (auto) 2.4 , Absolute Lymphs (auto) 0.70 L, Total Counted Not Reportable, Diff Path Review September11/11/17 09:40: PT 19.3 H, INR 1.6 11/11/17 09:40: Sodium 133 L, Potassium 4.6, Chloride 97 L, Carbon Dioxide 27.0 , Anion Gap 9, BUN 114 H*, Creatinine 5.01 H, Est GFR (MDRD) Af Amer 14 L, Est GFR (MDRD) Non-Af 12 L, BUN/Creatinine Ratio 22.8 H, Glucose 103, Calcium 8.2 L , Total Bilirubin 2.40 H, AST 20, ALT 27, Alkaline Phosphatase 53, Total Protein 6.8, Albumin 2.5 L, Globulin 4.3 H, Albumin/Globulin Ratio 0.6 L 11/11/17 09:50: Lactic Acid 0.6 11/11/17 10:31: Urine Color Clare, Urine Clarity Sl. Cloudy, Urine pH 5.0, Ur Specific Goodman 1.025, Urine Protein 100 H, Urine Glucose (UA) Normal, Urine Ketones 5 H, Urine Occult Blood 250 H, Urine Nitrite Positive H, Urine Bilirubin 3 H, Urine Urobilinogen 4 H, Ur Leukocyte Esterase 500 H, Urine RBC 25 -50 SEEN, Urine WBC 25-50 SEEN, Ur Squamous Epith Cells 0-5 SEEN, Urine Bacteria 2+, Urine Mucus 0 SEEN 11/12/17 05:12: WBC 4.3 L, RBC 2.75 L, Hgb 7.7 L, Hct 22.4 L, MCV 81.5, MCH 28.0 , MCHC 34.4, RDW 17.2 H, RDW Differential 51.2 H, Plt Count 7 L*, MPV 8.3, Immature Gran % (Auto) 0.200, Neut % (Auto) 65.7, Lymph % (Auto) 23.1, [place] % ( Auto) 10.5 H, Eos % (Auto) 0.0, Baso % (Auto) 0.5, Absolute Neuts (auto) 2.8, Absolute Lymphs (auto) 0.99, Total Counted Not Reportable, Differential Comment SCANNED, Diff Path Review September, Platelet Estimate MKD DEC, Hypochromasia 2+ 11/12/17 05:12: Troponin I < 0.015 11/12/17 05:12: Sodium Pending, Potassium Pending, Chloride Pending, Carbon Dioxide Pending, Anion Gap Pending, BUN Pending, Creatinine Pending, Est GFR ( MDRD) Af Amer Pending, Est GFR (MDRD) Non-Af Pending, BUN/Creatinine Ratio Pending, Glucose Pending, Calcium Pending 11/12/17 05:12: Blood Type O POSITIVE, Antibody Screen NEGATIVE 11/12/17 08:00: Troponin I Pending Clinical Impression(s) from Imaging Studies Chest X-Ray 11/11/17 09:57 IMPRESSION: Pulmonary vascular congestion. Bilateral calcified pleural plaques. Cardiomegaly.
[2017-11-12 08:34] LABS: Anion Gap 10 (5-15); BUN 113 mg/dL (7-18); BUN/Creat Ratio 21.1 RATIO (10-20); Calcium,Total 7.9 mg/dL (8.5-10.1); Chloride 98 mmol/L (98-107); Creatinine, Serum 5.36 mg/dL (0.70-1.30); EST Glomerular Filtration Rate 11 mL/min (>60); Est Glom Filt Rate - Afr Amer 13 mL/min (>60); Estimated Creatinine Clearance 10.46 ml/min; Glucose 109 mg/dL (74-106); Potassium 4.7 mmol/L (3.5-5.1); Sodium Level 132 mmol/L (136-145)
--- NOTE | 2017-11-12 09:43 | CASEMGMT ---
Social Work Note SW received call from Glo with [facility] stating that pt has an appointment scheduled today at 10:30am with [facility]. Glo states that she spoke with pt's and she will be in to speak to pt and pt's about Hospice at appointment. Plan: Glo from Hospice will be coming in to [facility] at 10:30am to speak with pt and pt's about Hospice Romana Sanchez JACKSCREW MAN, EXECUTIVE [employer]
[2017-11-12] MEDS: 0.9% NaCl Peripheral Flush Adult/Peds IV (10:21)
[2017-11-12] MEDS: Ceftriaxone 1 GM/50 ML BAG IV (10:21)
[2017-11-12] MEDS: Folic Acid 1 MG Tablet PO (10:22)
[2017-11-12] MEDS: Carvedilol 6.25 MG Tablet PO (10:22)
[2017-11-12] MEDS: Polyethylene Glycol 3350 17 GM PACKET PO (10:24)
[2017-11-12] MEDS: Famotidine 20 MG Tablet PO (10:24)
[2017-11-12] MEDS: Flecainide 100 MG Tablet PO (10:24)
[2017-11-12] MEDS: Ascorbic Acid 500 MG Tablet 250 MG PO (10:25)
--- NOTE | 2017-11-12 11:39 | PCA ---
corporate legal intern in with pt and
--- NOTE | 2017-11-12 12:07 | PCM.CONS.R ---
Problem List (1) HARI on CKD Stage 3 Status: Acute Consultation - Renal PCP/ Referring MD: Requesting physician: [] Primary care physician: No Primary Care Phys - History of Present Illness History of Present Illness: The patient is a 82 year old M PMH of MDS with PLT transfusion dependent thrombocytopenia, CKD stage 3, biventricular heart failure R>L. Patient was presented with change in mental status . Patient was found to have UTI and HARI on CKD stage 3. Patient has CKD from most probably CRS. Diuretics were stopped few days ago. Patient presented with Cr of 5.0 mg/dL and BUN > 100. Patient was started on gentle hydration Ns at 50 cc/hour. Patient is DNR-CCA. Patient is not candidate for ADJUNCT PROFESSOR OF VOICE given the co-morbidities and thrombocytopenia No NSAIDs use. No IV contrast exposure ORS: 12 systems review is negative except generalized weakness, edema and some SOB[] - Allergies Allergies: Allergies adhesive Allergy (Mild, Verified 11/10/17 11:14) Rash - Current Medications Current Medications: Current Medications Ascorbic Acid (Vitamin C) 250 mg PO DAILY [facility] Last Admin: 11/12/17 10:25 Dose: 250 mg Calamine/Phenol (Calmoseptine Ointment) 1 applic TOPICAL TID [facility] PRN Reason: Protocol Last Admin: 11/12/17 05:36 Dose: 1 applicatio Carvedilol (Coreg) 6.25 mg PO BREAKFAST [facility] Last Admin: 11/12/17 10:22 Dose: 6.25 mg Carvedilol (Coreg) 12.5 mg PO 2200 [facility] Last Admin: 11/11/17 21:48 Dose: 12.5 mg Chlorhexidine Gluconate () 15 ml PO BID PRN PRN Reason: NOT SPECIFIED Ergocalciferol (Vitamin D) 50,000 unit PO Tu@1000 [facility] Famotidine (Pepcid) 20 mg PO DAILY [facility] Last Admin: 11/12/17 10:24 Dose: 20 mg Flecainide Acetate (Tambocor) 100 mg PO BID [facility] Last Admin: 11/12/17 10:24 Dose: 100 mg Folic Acid (Folic Acid) 1 mg PO DAILY@0800 [facility] Last Admin: 11/12/17 10:22 Dose: 1 mg Ceftriaxone Sodium (Rocephin) 1 gm in 50 mls @ 100 mls/hr IV Q24 [facility] Last Admin: 11/12/17 10:21 Dose: 100 mls/hr Sodium Chloride () 1,000 mls @ 75 mls/hr IV .[id number] [facility] Polyethylene Glycol (Miralax) 17 gm PO DAILY [facility] Last Admin: 11/12/17 10:24 Dose: 17 gm Senna/Docusate Sodium (Senokot-S, Genoveva-Colace) 2 tablet PO BID PRN PRN Reason: constipation Sodium Chloride () 5 - 30 ml IV UD PRN PRN Reason: SALINE FLUSH Last Admin: 11/12/17 10:21 Dose: 10 ml - Past Medical History Past Medical History (Chronic Problems): Chronic Problems (Last Reviewed 08/13/17 @ 15:02 by CELENA HealyC) GERD (gastroesophageal reflux disease) (Chronic) Neutropenic fever (Chronic) Pancytopenia (Chronic) Myelodysplastic syndrome (Chronic) Hypertension (Chronic) CHF (congestive heart failure) (Chronic) EF 40% (06/2017) CAD (coronary artery disease) (Chronic) Acute and chronic respiratory failure with hypoxia (Chronic) PAF (paroxysmal atrial fibrillation) (Chronic) Chronic renal failure, stage 3 (moderate) (Chronic) - Past Surgical History Surgical History: - - Cardiac ablation x 2. - Social History Smoking Status: Never smoker Alcohol: None Drugs: None - Family History Maternal Family History: Family History (Last Reviewed 08/13/17 @ 15:02 by CELENA HealyC) Brother Prostate CA Hairy cell leukemia Father Hypertension Sister Hypertension History Items: No pertinent history Paternal Family History: Family History (Last Reviewed 08/13/17 @ 15:02 by ANNE Healy) Brother Prostate CA Hairy cell leukemia Father Hypertension Sister Hypertension History Items: No pertinent history Patient Problems: Active and Suspected Problems (Last Reviewed 08/13/17 @ 15:02 by CELENA HealyC) HARI on CKD Stage 3 (Acute) General weakness (Acute) Encephalopathy acute (Acute) Acute renal failure (ARF) (Acute) Pre-renal & dehydration - Physical Exam General: Alert, No apparent distress HEENT: Atraumatic, PERRLA Oral: Moist Mucosa Neck: Negative Carotid Bruits, Trachea Midline, JVD, Right Lungs: Short of Breath, - - decreased BS over both lungs bases Cardiovascular: Regular rate, Regular Rhythm, Normal S1, Normal S2 Abdomen: Bowel Sounds Present, Soft, Non Tender, Non-Distended Extremities: No clubbing, No cyanosis, - - +2 edema of LE Skin: No rashes Musculoskeletal: No Tenderness to Palpation of Joints or Extremities Lymphatic: No Cervical, Supraclavicular, or Inguinal Adenopathy Neurological: Cranial nerves II-XII grossly intact, Neuro grossly intact Psych/Mental Status: Flat Affect Vital Signs Temp Pulse Resp BP Pulse Ox 97.9 F 87 18 87/65 L 98 11/12/17 10:00 11/12/17 10:00 11/12/17 10:00 11/12/17 10:00 11/12/17 10:00 Oxygen Flow Rate (L/min) 1 Oxygen Delivery Method Nasal Cannula Weight: 85.729 kg Body Mass Index (BMI) 28.7 Intake and Output for Last 24 Hours 11/10/17 11/11/17 11/12/17 23:59 23:59 23:59 Intake Total 720 / 720 859 / 859 Output Total 175 / 175 75 / 75 Balance 545 / 545 784 / 784 Laboratory Tests Past 24 Hrs 11/12/17 11/12/17 11/12/17 05:12 05:12 05:12 WBC 4.3 L RBC 2.75 L Hgb 7.7 L Hct 22.4 L MCV 81.5 MCH 28.0 MCHC 34.4 RDW 17.2 H RDW Differential 51.2 H Plt Count 7 L* MPV 8.3 Immature Gran % (Auto) 0.200 Neut % (Auto) 65.7 Lymph % (Auto) 23.1 [place] % (Auto) 10.5 H Eos % (Auto) 0.0 Baso % (Auto) 0.5 Absolute Neuts (auto) 2.8 Absolute Lymphs (auto) 0.99 Total Counted Not Reportable Differential Comment SCANNED Diff Path Review May foll Platelet Estimate MKD DEC Hypochromasia 2+ Sodium 132 L Potassium 4.7 Chloride 98 Carbon Dioxide 24.0 Anion Gap 10 BUN 113 H* Creatinine 5.36 H Estim Creat Clear Calc 10.46 Est GFR (MDRD) Af Amer 13 L Est GFR (MDRD) Non-Af 11 L BUN/Creatinine Ratio 21.1 H Glucose 109 H Calcium 7.9 L Troponin I < 0.015 Blood Type Antibody Screen 11/12/17 11/12/17 05:12 08:00 WBC RBC Hgb Hct MCV MCH MCHC RDW RDW Differential Plt Count MPV Immature Gran % (Auto) Neut % (Auto) Lymph % (Auto) [place] % (Auto) Eos % (Auto) Baso % (Auto) Absolute Neuts (auto) Absolute Lymphs (auto) Total Counted Differential Comment Diff Path Review Platelet Estimate Hypochromasia Sodium Potassium Chloride Carbon Dioxide Anion Gap BUN Creatinine Estim Creat Clear Calc Est GFR (MDRD) Af Amer Est GFR (MDRD) Non-Af BUN/Creatinine Ratio Glucose Calcium Troponin I < 0.015 Blood Type O POSITIVE Antibody Screen NEGATIVE Assessment/Plan All Active Problems (Last Reviewed 08/13/17 @ 15:02 by Michaela Saldaña, [place]-C) HARI on CKD Stage 3 (Acute) General weakness (Acute) Encephalopathy acute (Acute) Acute renal failure (ARF) (Acute) Bacteremia, escherichia coli (Resolved) Sepsis due to Escherichia coli (E. coli) (Resolved) 1- HARI on CKD 3. Baseline Cr fluctuates 1.8-.25 mg/dL. CKD is most probably from CRS HARI is most probably from ATN due to prolonged ischemic. Cr is up to 5.3 mg/dL and BUN Patient is oliguric . Patient is not candidate for ADJUNCT PROFESSOR OF VOICE due to his co-morbidities and severe thrombocytopenia. I discussed this issue with the patient and his . they are leaning toward hospice care. I will d/c IVF Might use lasix PRN for respiratory relief 2- MDS : Dr. Egan is following 3- Pancytopenia due to #2: as per Dr. Egan management 4- UTI : On Ceftriaxone 5- change on mental status from UTI and uremia. slightly better. continue UTI treatment. not candidate for ADJUNCT PROFESSOR OF VOICE Renal team will continue to follow. Renal team will stop to follow the patient when he is under hospice care Will d/w Dr. Jewel Ansari MD [phone]
[2017-11-12 12:16] LABS: Pathologist Review Reviewed
[2017-11-12 12:18] LABS: Pathologist Review Reviewed
--- NOTE | 2017-11-12 12:19 | CON.PCM_ITS ---
Problem List (1) HARI on CKD Stage 3 Status: Acute Consultation - Renal PCP/ Referring MD: Requesting physician: [] Primary care physician: No Primary Care Phys - History of Present Illness History of Present Illness: The patient is a 82 year old M PMH of MDS with PLT transfusion dependent thrombocytopenia, CKD stage 3, biventricular heart failure R>L. Patient was presented with change in mental status . Patient was found to have UTI and HARI on CKD stage 3. Patient has CKD from most probably CRS. Diuretics were stopped few days ago. Patient presented with Cr of 5.0 mg/dL and BUN > 100. Patient was started on gentle hydration Ns at 50 cc/hour. Patient is DNR-CCA. Patient is not candidate for MANAGER CARDIOLOGY given the co-morbidities and thrombocytopenia No NSAIDs use. No IV contrast exposure ORS: 12 systems review is negative except generalized weakness, edema and some SOB[] - Allergies Allergies: Allergies adhesive Allergy (Mild, Verified 11/10/17 11:14) Rash - Current Medications Current Medications: Current Medications Ascorbic Acid (Vitamin C) 250 mg PO DAILY [facility] Last Admin: 11/12/17 10:25 Dose: 250 mg Calamine/Phenol (Calmoseptine Ointment) 1 applic TOPICAL TID [facility] PRN Reason: Protocol Last Admin: 11/12/17 05:36 Dose: 1 applicatio Carvedilol (Coreg) 6.25 mg PO BREAKFAST [facility] Last Admin: 11/12/17 10:22 Dose: 6.25 mg Carvedilol (Coreg) 12.5 mg PO 2200 [facility] Last Admin: 11/11/17 21:48 Dose: 12.5 mg Chlorhexidine Gluconate () 15 ml PO BID PRN PRN Reason: NOT SPECIFIED Ergocalciferol (Vitamin D) 50,000 unit PO Tu@1000 [facility] Famotidine (Pepcid) 20 mg PO DAILY [facility] Last Admin: 11/12/17 10:24 Dose: 20 mg Flecainide Acetate (Tambocor) 100 mg PO BID [facility] Last Admin: 11/12/17 10:24 Dose: 100 mg Folic Acid (Folic Acid) 1 mg PO DAILY@0800 [facility] Last Admin: 11/12/17 10:22 Dose: 1 mg Ceftriaxone Sodium (Rocephin) 1 gm in 50 mls @ 100 mls/hr IV Q24 [facility] Last Admin: 11/12/17 10:21 Dose: 100 mls/hr Sodium Chloride () 1,000 mls @ 75 mls/hr IV .[id number] NAIF Polyethylene Glycol (Miralax) 17 gm PO DAILY [facility] Last Admin: 11/12/17 10:24 Dose: 17 gm Senna/Docusate Sodium (Senokot-S, Genoveva-Colace) 2 tablet PO BID PRN PRN Reason: constipation Sodium Chloride () 5 - 30 ml IV UD PRN PRN Reason: SALINE FLUSH Last Admin: 11/12/17 10:21 Dose: 10 ml - Past Medical History Past Medical History (Chronic Problems): Chronic Problems (Last Reviewed 08/13/17 @ 15:02 by CELENA HealyC) GERD (gastroesophageal reflux disease) (Chronic) Neutropenic fever (Chronic) Pancytopenia (Chronic) Myelodysplastic syndrome (Chronic) Hypertension (Chronic) CHF (congestive heart failure) (Chronic) EF 40% (06/2017) CAD (coronary artery disease) (Chronic) Acute and chronic respiratory failure with hypoxia (Chronic) PAF (paroxysmal atrial fibrillation) (Chronic) Chronic renal failure, stage 3 (moderate) (Chronic) - Past Surgical History Surgical History: - - Cardiac ablation x 2. - Social History Smoking Status: Never smoker Alcohol: None Drugs: None - Family History Maternal Family History: Family History (Last Reviewed 08/13/17 @ 15:02 by CELENA HealyC) Brother Prostate CA Hairy cell leukemia Father Hypertension Sister Hypertension History Items: No pertinent history Paternal Family History: Family History (Last Reviewed 08/13/17 @ 15:02 by ANNE Healy) Brother Prostate CA Hairy cell leukemia Father Hypertension Sister Hypertension History Items: No pertinent history Patient Problems: Active and Suspected Problems (Last Reviewed 08/13/17 @ 15:02 by CELENA HealyC) HARI on CKD Stage 3 (Acute) General weakness (Acute) Encephalopathy acute (Acute) Acute renal failure (ARF) (Acute) Pre-renal & dehydration - Physical Exam General: Alert, No apparent distress HEENT: Atraumatic, PERRLA Oral: Moist Mucosa Neck: Negative Carotid Bruits, Trachea Midline, JVD, Right Lungs: Short of Breath, - - decreased BS over both lungs bases Cardiovascular: Regular rate, Regular Rhythm, Normal S1, Normal S2 Abdomen: Bowel Sounds Present, Soft, Non Tender, Non-Distended Extremities: No clubbing, No cyanosis, - - +2 edema of LE Skin: No rashes Musculoskeletal: No Tenderness to Palpation of Joints or Extremities Lymphatic: No Cervical, Supraclavicular, or Inguinal Adenopathy Neurological: Cranial nerves II-XII grossly intact, Neuro grossly intact Psych/Mental Status: Flat Affect Vital Signs Temp Pulse Resp BP Pulse Ox 97.9 F 87 18 87/65 L 98 11/12/17 10:00 11/12/17 10:00 11/12/17 10:00 11/12/17 10:00 11/12/17 10:00 Oxygen Flow Rate (L/min) 1 Oxygen Delivery Method Nasal Cannula Weight: 85.729 kg Body Mass Index (BMI) 28.7 Intake and Output for Last 24 Hours 11/10/17 11/11/17 11/12/17 23:59 23:59 23:59 Intake Total 720 / 720 859 / 859 Output Total 175 / 175 75 / 75 Balance 545 / 545 784 / 784 Laboratory Tests Past 24 Hrs 11/12/17 11/12/17 11/12/17 05:12 05:12 05:12 WBC 4.3 L RBC 2.75 L Hgb 7.7 L Hct 22.4 L MCV 81.5 MCH 28.0 MCHC 34.4 RDW 17.2 H RDW Differential 51.2 H Plt Count 7 L* MPV 8.3 Immature Gran % (Auto) 0.200 Neut % (Auto) 65.7 Lymph % (Auto) 23.1 [place] % (Auto) 10.5 H Eos % (Auto) 0.0 Baso % (Auto) 0.5 Absolute Neuts (auto) 2.8 Absolute Lymphs (auto) 0.99 Total Counted Not Reportable Differential Comment SCANNED Diff Path Review May foll Platelet Estimate MKD DEC Hypochromasia 2+ Sodium 132 L Potassium 4.7 Chloride 98 Carbon Dioxide 24.0 Anion Gap 10 BUN 113 H* Creatinine 5.36 H Estim Creat Clear Calc 10.46 Est GFR (MDRD) Af Amer 13 L Est GFR (MDRD) Non-Af 11 L BUN/Creatinine Ratio 21.1 H Glucose 109 H Calcium 7.9 L Troponin I < 0.015 Blood Type Antibody Screen 11/12/17 11/12/17 05:12 08:00 WBC RBC Hgb Hct MCV MCH MCHC RDW RDW Differential Plt Count MPV Immature Gran % (Auto) Neut % (Auto) Lymph % (Auto) [place] % (Auto) Eos % (Auto) Baso % (Auto) Absolute Neuts (auto) Absolute Lymphs (auto) Total Counted Differential Comment Diff Path Review Platelet Estimate Hypochromasia Sodium Potassium Chloride Carbon Dioxide Anion Gap BUN Creatinine Estim Creat Clear Calc Est GFR (MDRD) Af Amer Est GFR (MDRD) Non-Af BUN/Creatinine Ratio Glucose Calcium Troponin I < 0.015 Blood Type O POSITIVE Antibody Screen NEGATIVE Assessment/Plan All Active Problems (Last Reviewed 08/13/17 @ 15:02 by Michaela Saldaña, BARR[place]-C) HARI on CKD Stage 3 (Acute) General weakness (Acute) Encephalopathy acute (Acute) Acute renal failure (ARF) (Acute) Bacteremia, escherichia coli (Resolved) Sepsis due to Escherichia coli (E. coli) (Resolved) 1- HARI on CKD 3. Baseline Cr fluctuates 1.8-.25 mg/dL. CKD is most probably from CRS HARI is most probably from ATN due to prolonged ischemic. Cr is up to 5.3 mg/dL and BUN Patient is oliguric . Patient is not candidate for MANAGER CARDIOLOGY due to his co- morbidities and severe thrombocytopenia. I discussed this issue with the patient and his . they are leaning toward hospice care. I will d/c IVF Might use lasix PRN for respiratory relief 2- MDS : Dr. Egan is following 3- Pancytopenia due to #2: as per Dr. Egan management 4- UTI : On Ceftriaxone 5- change on mental status from UTI and uremia. slightly better. continue UTI treatment. not candidate for MANAGER CARDIOLOGY Renal team will continue to follow. Renal team will stop to follow the patient when he is under hospice care Will d/w Dr. Jewel Ansari MD [phone]
--- NOTE | 2017-11-12 14:10 | PCA ---
Faxed all necessary paperwork to [facility]. Transport set up for 1530 by [facility], informed primary RN, Tommy.
[2017-11-12 14:47] LABS: Bedside Glucose 115 mg/dL (70-110)
--- NOTE | 2017-11-12 16:37 | PCM.DC.SUM ---
Discharge Date and Diagnosis Date of Admission: 11/11/17 Date of Discharge: 11/12/17 - Primary Discharge Diagnosis 1. Acute hypotension secondary to spontaneous hematuria from underlying myelofibrosis with myelodysplastic syndrome: 2. Acute kidney injury on CKD stage III: [facility] is [facility]. Discussed with [place] smoke chaser Dr. Warner and he agreed to see the patient. Patient and his understand the poor prognosis and does not want hemodialysis and I think, he is not a candidate for dialysis catheter insertion because of spontaneous subcutaneous hemorrhage and severe thrombocytopenia. Follow kidney function, electrolytes, strict PRIYANKA's daily. Acute gram-negative negrito lactose manager home healthcare non-lactose manager home healthcare UTI: 2. Chronic severe systolic biventricular heart failure, predominant right ventricular failure with severe pulmonary hypertension: 3. Multiple valvular heart disease; aortic stenosis, chronic pulmonary regurgitation: 4 Acute encephalopathy most probably metabolic/uremic encephalopathy due to kidney failure: 5 thrombocytopenia and anemia-secondary to myelodysplastic syndrome-requiring platelet transfusion as an outpatient. #6 coronary artery disease #7 paroxysmal atrial fibrillation Transferred to inpatient hospice care - Secondary Discharge Diagnosis Chronic Problems (Last Reviewed 08/13/17 @ 15:02 by Michaela Saldaña, BARR[place]-C) GERD (gastroesophageal reflux disease) (Chronic) Neutropenic fever (Chronic) Pancytopenia (Chronic) Myelodysplastic syndrome (Chronic) Hypertension (Chronic) CHF (congestive heart failure) (Chronic) EF 40% (06/2017) CAD (coronary artery disease) (Chronic) Acute and chronic respiratory failure with hypoxia (Chronic) PAF (paroxysmal atrial fibrillation) (Chronic) Chronic renal failure, stage 3 (moderate) (Chronic) Hospital Course and Treatment Imaging Results: 11/12/17 07:56 CT Abd [Abdomen/Pelvis without Cont] [CT] Urgent Operations: None Summary of Care Provided: [] The patient is a 82 year old M with multiple comorbidities with significant chronic biventricular systolic heart failure, predominantly right ventricular failure, transfusion dependent MDS with severe thrombocytopenia was last admitted in September 2017 for neutropenic fever in ICU came to ER with confusion, generalized weakness, not able to walk and acute kidney injury on CKD stage III. Patient had last by Dr. Arciniega on November 09, remarkable abnormals more platelet count 9000, hemoglobin 7.8 thousand, creatinine 3.84, BUN 91 and chronically elevated ferritin 5242, iron 762, TIBC 9181 and transferrin saturation 78% and 1 unit of platelet transfusion. On further discussion with , she has stopped Lasix and spironolactone for about 4-5 days. Patient has bilateral lower extremity edema. Patient was found more confused, slow to respond by . Is also very weak and not able to stand up or walk. In ER today, hemoglobin is 8.2 thousand, platelet count is 13,000, WBC 4.1, and ANC 2.4 thousand. Kidney function is severely abnormal, creatinine 5.01, BUN 114 and has worsened since 11/09/2017 as mentioned above. UA is positive for WBC 25-50 cells, RBC 25-56, leukocyte esterase and nitrite positive. Patient has chronic urinary incontinence but denies any acute frequency, urgency or burning micturition or other lower urinary tract symptoms. No fever this time Urine culture ordered in the ER. ER physician ordered 1 g IV Rocephin Patient had hypotension and hematuria spontaneously was seen by urologist. Please see today's progress note 1. Acute hypotension secondary to spontaneous hematuria from underlying myelofibrosis with myelodysplastic syndrome: Urine is much cleared. Lactic acid normal. Troponin is negative. Second troponin pending. patient is seen by Dr. Ness. CT abdomen with the stone protocol ordered. Patient is on third liter of normal saline bolus and then 75 mL per hour. Diuretics are already discontinued. Later on IV fluid was also discontinued as per smoke chaser recommendation. 2. Acute kidney injury on CKD stage III: Patient is being admitted on the regular Med[facility]urg floor. Discussed with [place] smoke chaser Dr. Warner and he agreed to see the patient. Patient and his understand the poor prognosis and does not want hemodialysis and I think, he is not a candidate for dialysis catheter insertion because of spontaneous subcutaneous hemorrhage and severe thrombocytopenia. Follow kidney function, electrolytes, strict PRIYANKA's daily. Acute gram-negative negrito lactose manager home healthcare non-lactose manager home healthcare UTI: Preliminary urine culture is showing gram-negative lactose manager home healthcare non-lactose manager home healthcare. On IV Rocephin . Hospice care further decide about continuation of antibiotic as per urine culture sensitivity result But empirically can continue on cefadroxil 2. Chronic severe systolic biventricular heart failure, predominant right ventricular failure with severe pulmonary hypertension: Patient had echo in June 2017 shows EF 40% with moderate concentric LVH with moderate hypokinesis of left ventricle. Right ventricle severely dilated with moderate global right ventricular systolic dysfunction. Both atria are severely enlarged. RVSP 72 images suggestive of severe pulmonary hypertension with mild TR. Chest x-ray shows mild pulmonary vascular congestion. 3. Multiple valvular heart disease: Echo also showed moderate focal aortic valve calcification and thickening with moderate ileus, aortic valve gradient 29 mmHg with aortic valve area 0.95 cm?. Moderate pulmonary insufficiency. IVC treated. 4 Acute encephalopathy most probably metabolic/uremic encephalopathy due to kidney failure: 5 thrombocytopenia and anemia-secondary to myelodysplastic syndrome-requiring platelet transfusion as an outpatient. #6 coronary artery disease #7 paroxysmal atrial fibrillation Advanced directive/life goal: Discussed with the patient and his . I also happened to take care during previous admission in September 2017 and the patient is DNR CC arrest with no intubation and no central venous catheter infection and vessel pressure. He has chronically low blood pressure. With history of transfusion dependent MDS, iron overload, severe end-stage heart failure and pulmonary hypertension and now kidney failure, patient and his agreed for palliative care consult to discuss about the option of hospice care. Patient family members agreed for hospice care and palliative care saw the patient. Patient was accepted for inpatient hospice care and transferred This note was generated with Signature dictation software. Every effort was made to ensure accuracy, however computerized director of conservation mistakes may persist. Home Medications: Medications to take at Discharge Carvedilol [Coreg (Beta Denny)] 12.5 mg PO DINNER 05/16/15 Ergocalciferol [Vitamin D] 50,000 unit PO TU 05/16/15 Flecainide [Tambocor] 100 mg PO BID 05/16/15 Deferasirox [Jadenu] 360 mg PO DAILY 12/12/15 Ascorbic Acid [Vitamin C] 250 mg PO DAILY 07/16/16 Chlorhexidine 15 ml PO BID PRN 07/16/16 Carvedilol [Coreg] 6.25 mg PO BREAKFAST 09/25/16 Famotidine [Pepcid] 20 mg PO BID 06/25/17 danazol 200 mg capsule 200 mg PO BID cap 07/13/17 eltrombopag 75 mg tablet 200 mg PO DAILY tab 07/13/17 Decitabine 50 mg SC QWEEK 10/11/17 Folic Acid 1 mg PO DAILY@0800 10/11/17 Furosemide [Lasix] 60 mg PO DAILY PRN 11/11/17 Primary Care Physician: Care Physician,No Primary [Primary Care Provider] - Medical Necessity - Tobacco Use Smoking Status: Never smoker Tobacco Use: Non-smoker Meaningful Use Info Meaningful Use Diagnoses (Choose all that apply): None applicable Code Visit Inpatient E&M: 14726 Disch Hosp
--- NOTE | 2017-11-12 16:40 | DS.PCM_ITS ---
Discharge Date and Diagnosis Date of Admission: 11/11/17 Date of Discharge: 11/12/17 - Primary Discharge Diagnosis 1. Acute hypotension secondary to spontaneous hematuria from underlying myelofibrosis with myelodysplastic syndrome: 2. Acute kidney injury on CKD stage III: [facility] Discussed with [place] dish cloth inspector Dr. Warner and he agreed to see the patient. Patient and his understand the poor prognosis and does not want hemodialysis and I think, he is not a candidate for dialysis catheter insertion because of spontaneous subcutaneous hemorrhage and severe thrombocytopenia. Follow kidney function, electrolytes, strict PRIYANKA's daily. Acute gram-negative negrito lactose job placement counselor non-lactose job placement counselor UTI: 2. Chronic severe systolic biventricular heart failure, predominant right ventricular failure with severe pulmonary hypertension: 3. Multiple valvular heart disease; aortic stenosis, chronic pulmonary regurgitation: 4 Acute encephalopathy most probably metabolic/uremic encephalopathy due to kidney failure: 5 thrombocytopenia and anemia-secondary to myelodysplastic syndrome-requiring platelet transfusion as an outpatient. #6 coronary artery disease #7 paroxysmal atrial fibrillation Transferred to inpatient hospice care - Secondary Discharge Diagnosis Chronic Problems (Last Reviewed 08/13/17 @ 15:02 by Michaela Saldaña, BARR[place]-C) GERD (gastroesophageal reflux disease) (Chronic) Neutropenic fever (Chronic) Pancytopenia (Chronic) Myelodysplastic syndrome (Chronic) Hypertension (Chronic) CHF (congestive heart failure) (Chronic) EF 40% (06/2017) CAD (coronary artery disease) (Chronic) Acute and chronic respiratory failure with hypoxia (Chronic) PAF (paroxysmal atrial fibrillation) (Chronic) Chronic renal failure, stage 3 (moderate) (Chronic) Hospital Course and Treatment Imaging Results: 11/12/17 07:56 CT Abd [Abdomen/Pelvis without Cont] [CT] Urgent Operations: None Summary of Care Provided: [] The patient is a 82 year old M with multiple comorbidities with significant chronic biventricular systolic heart failure, predominantly right ventricular failure, transfusion dependent MDS with severe thrombocytopenia was last admitted in September 2017 for neutropenic fever in ICU came to ER with confusion, generalized weakness, not able to walk and acute kidney injury on CKD stage III. Patient had last by Dr. Arciniega on November 09, remarkable abnormals more platelet count 9000, hemoglobin 7.8 thousand, creatinine 3.84, BUN 91 and chronically elevated ferritin 5242, iron 762, TIBC 9181 and transferrin saturation 78% and 1 unit of platelet transfusion. On further discussion with , she has stopped Lasix and spironolactone for about 4-5 days. Patient has bilateral lower extremity edema. Patient was found more confused, slow to respond by . Is also very weak and not able to stand up or walk. In ER today, hemoglobin is 8.2 thousand, platelet count is 13,000, WBC 4.1, and ANC 2.4 thousand. Kidney function is severely abnormal, creatinine 5.01, BUN 114 and has worsened since 11/09/2017 as mentioned above. UA is positive for WBC 25-50 cells, RBC 25-56, leukocyte esterase and nitrite positive. Patient has chronic urinary incontinence but denies any acute frequency, urgency or burning micturition or other lower urinary tract symptoms. No fever this time Urine culture ordered in the ER. ER physician ordered 1 g IV Rocephin Patient had hypotension and hematuria spontaneously was seen by urologist. Please see today's progress note 1. Acute hypotension secondary to spontaneous hematuria from underlying myelofibrosis with myelodysplastic syndrome: Urine is much cleared. Lactic acid normal. Troponin is negative. Second troponin pending. patient is seen by Dr. Ness. CT abdomen with the stone protocol ordered. Patient is on third liter of normal saline bolus and then 75 mL per hour. Diuretics are already discontinued. Later on IV fluid was also discontinued as per dish cloth inspector recommendation. 2. Acute kidney injury on CKD stage III: Patient is being admitted on the regular MedSurg floor. Discussed with [place] dish cloth inspector Dr. Warner and he agreed to see the patient. Patient and his understand the poor prognosis and does not want hemodialysis and I think, he is not a candidate for dialysis catheter insertion because of spontaneous subcutaneous hemorrhage and severe thrombocytopenia. Follow kidney function, electrolytes, strict PRIYANKA's daily. Acute gram-negative negrito lactose job placement counselor non-lactose job placement counselor UTI: Preliminary urine culture is showing gram-negative lactose job placement counselor non- lactose job placement counselor. On IV Rocephin . Hospice care further decide about continuation of antibiotic as per urine culture sensitivity result But empirically can continue on cefadroxil 2. Chronic severe systolic biventricular heart failure, predominant right ventricular failure with severe pulmonary hypertension: Patient had echo in June 2017 shows EF 40% with moderate concentric LVH with moderate hypokinesis of left ventricle. Right ventricle severely dilated with moderate global right ventricular systolic dysfunction. Both atria are severely enlarged. RVSP 72 images suggestive of severe pulmonary hypertension with mild TR. Chest x-ray shows mild pulmonary vascular congestion. 3. Multiple valvular heart disease: Echo also showed moderate focal aortic valve calcification and thickening with moderate ileus, aortic valve gradient 29 mmHg with aortic valve area 0.95 cm?. Moderate pulmonary insufficiency. IVC treated. 4 Acute encephalopathy most probably metabolic/uremic encephalopathy due to kidney failure: 5 thrombocytopenia and anemia-secondary to myelodysplastic syndrome-requiring platelet transfusion as an outpatient. #6 coronary artery disease #7 paroxysmal atrial fibrillation Advanced directive/life goal: Discussed with the patient and his . I also happened to take care during previous admission in September 2017 and the patient is DNR CC arrest with no intubation and no central venous catheter infection and vessel pressure. He has chronically low blood pressure. With history of transfusion dependent MDS, iron overload, severe end-stage heart failure and pulmonary hypertension and now kidney failure, patient and his agreed for palliative care consult to discuss about the option of hospice care. Patient family members agreed for hospice care and palliative care saw the patient. Patient was accepted for inpatient hospice care and transferred This note was generated with Cod[employer] dictation software. Every effort was made to ensure accuracy, however computerized financial brokers mistakes may persist. Home Medications: Medications to take at Discharge Carvedilol [Coreg (Beta Denny)] 12.5 mg PO DINNER 05/16/15 Ergocalciferol [Vitamin D] 50,000 unit PO TU 05/16/15 Flecainide [Tambocor] 100 mg PO BID 05/16/15 Deferasirox [Jadenu] 360 mg PO DAILY 12/12/15 Ascorbic Acid [Vitamin C] 250 mg PO DAILY 07/16/16 Chlorhexidine 15 ml PO BID PRN 07/16/16 Carvedilol [Coreg] 6.25 mg PO BREAKFAST 09/25/16 Famotidine [Pepcid] 20 mg PO BID 06/25/17 danazol 200 mg capsule 200 mg PO BID cap 07/13/17 eltrombopag 75 mg tablet 200 mg PO DAILY tab 07/13/17 Decitabine 50 mg SC QWEEK 10/11/17 Folic Acid 1 mg PO DAILY@0800 10/11/17 Furosemide [Lasix] 60 mg PO DAILY PRN 11/11/17 Primary Care Physician: Care Physician,No Primary [Primary Care Provider] - Medical Necessity - Tobacco Use Smoking Status: Never smoker Tobacco Use: Non-smoker Meaningful Use Info Meaningful Use Diagnoses (Choose all that apply): None applicable Code Visit Inpatient E&M: 85556 Disch Hosp
[2017-11-17 12:18] LABS: Bedside Glucose 113 mg/dL (70-110)
== END 2017-11-12 15:39 | disposition hospice, inpatient (51) | DRG 811 ==
LOC: ED 12:01 → MS3 12:49
PROVIDERS: Admitting Provider Internal Medicine; Emergency Provider Emergency Medicine; Visit Provider Internal Medicine
DX: D46.9 Myelodysplastic syndrome, unspecified (principal); G93.41 Metabolic encephalopathy; N17.0 Acute kidney failure with tubular necrosis; D61.818 Other pancytopenia; I13.0 Hypertensive heart and chronic kidney disease with heart failure and stage 1 through stage 4 chronic kidney disease, or unspecified chronic kidney disease; I50.22 Chronic systolic (congestive) heart failure; N39.0 Urinary tract infection, site not specified; J96.11 Chronic respiratory failure with hypoxia; R31.0 Gross hematuria; D75.81 Myelofibrosis; I50.84 End stage heart failure; I50.82 Biventricular heart failure; N18.3 Chronic kidney disease, stage 3 (moderate); I27.20 Pulmonary hypertension, unspecified; I95.9 Hypotension, unspecified; E86.0 Dehydration; E83.111 Hemochromatosis due to repeated red blood cell transfusions; D70.9 Neutropenia, unspecified; I25.10 Atherosclerotic heart disease of native coronary artery without angina pectoris; I48.0 Paroxysmal atrial fibrillation; R32 Unspecified urinary incontinence; K21.9 Gastro-esophageal reflux disease without esophagitis; Z79.899 Other long term (current) drug therapy
CPT/HCPCS: 36415; 36430; 51702; 71045; 74176; 80048; 80053; 81001; 82962; 83605; 84484; 85025; 85610; 86644; 86850; 86900; 86920; 86922; 86965; 87077; 87086; 87088; 87186; 93005; 99285; J7030; J7040; J7050; P9037; P9040; A4216